=== PATIENT | male | born 1965 | race Caucasian/White ===

== ENCOUNTER 2023-08-06 12:15 | Outpatient (OUT) | payer BC, MEDICARE, SELFPAY ==
--- NOTE | 2023-08-06 | ECG_ITS ---
[facility] Test Date: 2023-08-06 Pat Name: MERCY TRONCOSO Department: Room: - Gender: Male Steward/Stewardess Wine: : 1965 Requested By: SHIVA KEATING Order Number: [id number] Reading MD: SHIVA KEATING Measurements Intervals [place] Rate: 93 P: 78 [place]: 162 QRS: 92 QRSD: 90 T: 49 QT: 340 QTc: 424 Interpretive Statements SINUS RHYTHM BORDERLINE RIGHT AXIS DEVIATION [QRS AXIS > 90] POSSIBLE RIGHT VENTRICULAR CONDUCTION DELAY [RSR (QR) IN V1/V2] NONSPECIFIC T-WAVE ABNORMALITY No previous ECG available for comparison Electronically Signed On 08-07-2023 7:16:28 EST by SHIVA KEATING
== END 2023-08-06 12:16 | disposition home or self-care (01) ==
PROVIDERS: PCP Internal Medicine; Visit Provider Internal Medicine
DX: R00.0 Tachycardia, unspecified (principal)
CPT/HCPCS: 93005

== ENCOUNTER 2023-11-06 10:54 | Outpatient (OUT) | payer BC, MEDICARE, SELFPAY ==
--- NOTE | 2023-11-06 10:40 | NM_ITS ---
Patient Name: MERCY TRONCOSO MR#: [id number] : 1965 Exam Date: 11/06/2023 Ordering Doctor: DR SHIVA KEATING D.O. RADIOLOGY REPORT PROCEDURE: NM BELEM PERF SPECT REST STR COMPARISON: None. INDICATIONS: TACHYCARDIA TECHNIQUE: Exam Description: Stress/Rest one day protocol gated SPECT Rest Imagin.9 mCi Tc-99m Cardiolite IV on 11/06/2023 Stress Imaging 30.3 mCi Tc-99m Cardiolite IV on 11/06/2023 Exercise Protocol: 0.4 mg Lexiscan given IV Heart Rate (bpm): Rest: 75 Max: 101 PMHR: 63 Blood Pressure: Rest: 120/78 Max: 124/70 Symptoms: Rest and peak stress ECG findings were normal and the exercise portion of the study was normal per attending physician Dr. Jose Miguel Keating . For more details please see separate cardiac stress test report. FINDINGS: QUALITY OF STUDY: Good. PERFUSION DEFECT: LOCATION: Basal inferior. SIZE: Small (1-2 segments). SEVERITY: Mild. TYPE: Persistent. WALL MOTION: Normal. LV SIZE: Normal. 79 mL. TID / TCD: None; 0.9 LVEF: Normal. Calculated EF 60%. SUMMARY: Myocardial perfusion imaging study is NORMAL. CONCLUSION: 1. No reversible ischemia 2. Normal exercise test Dictated by: Amor Hernandez MD on 11/06/2023 at 14:51 Approved by: Amor Hernandez MD on 11/06/2023 at 15:25
--- NOTE | 2023-11-06 11:00 | CA_ITS ---
Patient Name: MERCY TRONCOSO MR#: [id number] : 1965 Exam Date: 11/06/2023 Ordering Doctor: DR Marlon Santoyo D.O. ECHOCARDIOGRAM REPORT PROCEDURE: CA ECHO DOPPLER COMPLETE INDICATIONS: Tachycardia COMPARISON: None. DESCRIPTION: COMPLETE ECHOCARDIOGRAM Real-time transthoracic echocardiography with 2D, M-mode, spectral and color flow Doppler performed. QUALITY: Technical quality was good. Kristopher 67in, Weight 170ibs, BSA 1.89 LEFT VENTRICLE: Normal chamber size. Borderline left ventricular hypertrophy. LV EF: Global left ventricular systolic function is normal; visually estimated ejection fraction is 60-65%. Calculated left ventricular ejection fraction is 62% no wall motion abnormalities. DIASTOLIC: Diastolic function is indeterminate. ATRIAL SEPTUM: Visually appears intact. LEFT ATRIUM: Normal chamber size. RIGHT ATRIUM: Normal chamber size. RIGHT VENTRICLE: Normal chamber size. Normal right ventricular systolic function. TRICUSPID VALVE: Normal mobility and thickness. No stenosis with trivial regurgitation. No evidence of pulmonary hypertension. RVSP 22mmHg MITRAL VALVE: Normal mobility and thickness. No evidence of mitral valve stenosis. There is no mitral annular calcification. Trivial mitral regurgitation. AORTIC VALVE: Normal trileaflet appearance. No visible sclerosis. Normal leaflet mobility. No evidence of aortic valve stenosis. Mild to moderate aortic regurgitation. AORTIC ROOT: Moderately dilated. Measuring 4.2cm. The ascending aorta is normal in size. PULMONIC VALVE: Normal thickness and mobility. No stenosis. Trivial regurgitation. PERICARDIUM: No evidence of pericardial effusion. IVC: Collapses with inspirations. Normal size. CONCLUSION: 1. Global left ventricular systolic function is normal; visually estimated ejection fraction is 60 to 65% 2. Normal right ventricular size and systolic function 3. Borderline left ventricular hypertrophy 4. The left atrium is normal in size 5. Mild to moderate aortic valve regurgitation 6. Moderately dilated aortic root measuring 4.2 cm Adult Echocardiography Procedure Report Left Ventricle LVEDD (3.7 - 5.6 cm): 4.41 cm LVESD (2.2 - 4.0 cm): 3.04 cm LVIVS thickness (0.6 - 1.2 cm): 0.82 cm LVPW thickness (0.5 - 1.0 cm): 1.06 cm e': 0.09 m/s E - e': 5.28 LVOT Max Gradient: 2.32 mm[Hg] LVOT Area (cm2): 0.76 m/s Peak Velocity (LVOT): 0.76 m/s Mean Velocity (LVOT): 0.50 m/s LVOT Diameter 2.31 cm Left Ventricular Ejection Fraction: 61.55 % Left Atrium LA Volume Index (2D A2C): 23.51 ml/m2 Left Atrium Systolic Dimension: 2.65 cm Mitral Valve MV E to A Ratio: 0.87, 0.90 Mitral Valve A-Wave Peak Velocity: 0.52 m/s Mitral Valve E-Wave Peak Velocity: 0.46 m/s Right Ventricle RV Internal Diastolic Dimension: 3.71 cm Aorta AO Root Diam: 4.18 cm Ascending Ao Diam: 3.37 cm Aortic Valve AoV Area (Peak Cooper): 3.53 cm2, 3.53 cm2 AoV Area (VTI): 2.86 cm2, 2.86 cm2 Deceleration Bent: 2.21 m/s2 Pressure Half-Time: 497.62 ms Peak Velocity(Antegrade Flow): 0.90 m/s Peak Gradient(Antegrade Flow): 3.27 mm[Hg] Mean Velocity(Antegrade Flow): 0.66 m/s Mean Gradient(Antegrade Flow): 1.96 mm[Hg] Velocity Time Integral: 20.11 cm Tricuspid Valve Peak Velocity (Regurgitant Flow): 2.02 m/s, 2.20 m/s, 1.94 m/s Pulmonic Valve Mean Gradient: 1.08 mm[Hg], 1.61 mm[Hg] Mean Velocity: 0.49 m/s, 0.60 m/s Peak Velocity: 0.75 m/s Peak Gradient: 1.70 mm[Hg], 2.81 mm[Hg] Right Atrium Right Atrium Systolic Pressure: 60.92 ml, 60.92 ml Dictated by: Denny Chairez M.D. on 11/06/2023 at 14:06 Approved by: Denny Chairez M.D. on 11/06/2023 at 14:11
--- OUTSIDE RECORDS SUMMARY | 2023-11-06 11:00 | XMS_ITS | CCD ---
Author Name Unknown Address [address] [facility] [address] [place] [address] Organization [facility] Care Team Providers Care Vice President Of Marketing Name Role Phone PROVIDER, UNKNOWN Attending Unavailable MARLON KEATING Primary Care Unavailable MARLON KEATING Referring Unavailable PROVIDER, UNKNOWN Admitting Marlon Martinez DO Primary Care Provider Rosa Lujan Unavailable Jeremie Crisostomo Unavailable Celsa Fuentes Unavailable Marlon Keating DO Primary Care Provider Marlon Keating DO Primary Care Provider Marlon Keating Primary Care Provider Marlon Keating Unavailable Maggie Fierro Unavailable ZURI, DR SHANNON Consulting Unavailable ZURI, DR SHANNON Attending Unavailable ZURI, DR SHANNON Admitting Unavailable ZURI, DR SHANNON Primary Care Unavailable ZURI, DR SHANNON Consulting Unavailable ZURI, DR SHANNON Attending Unavailable ZURI, DR SHANNON Admitting Unavailable ZURI, DR SHANNON Primary Care Unavailable BRADY, DR JESU Zuniga Consulting Unavailable ZURI, DR SHANNON Consulting Unavailable ZURI, DR SHANNON Attending Unavailable ZURI, DR SHANNON Admitting Unavailable ZURI, DR SHANNON Primary Care Unavailable ZURI, DR SHANNON Primary Care Unavailable GAURANG, DR AMANDA Zuniga Admitting Unavailable GAURANG, DR AMANDA Zuniga Consulting Unavailable GAURANG, DR AMANDA Zuniga Attending Unavailable JESSI CARVALHO Consulting Unavailable PRETTY GRANT Consulting Unavailable ALVARADO, DR DEREK Singh Admitting Unavailabl e ALVARADO, DR DEREK Singh Consulting Unavailabl e ALVARADO, DR DEREK Singh Attending Unavailabl e BALL, DR SHANNON Primary Care Unavailable CHON CAMPUZANO Consulting Unavailable MISC, DR YARBROUGH Attending Unavailable BALL, DR SHANNON Primary Care Unavailable MISC, DR DOCTOR Admitting Unavailable MISC, DOCTOR Consulting Unavailable Ball Marlon E. Primary Care Provider DO Marlon Keating Primary Care Provider MD Jovi Fajardo Attending Provider [phone] PAOLO RAZO Attending Unavailable BALL, MARLON E Primary Care Unavailable BALL, MARLON E Primary Care Unavailable ABHYANKAR, FARSHAD Referring Unavailable ABHYANKAR, FARSHAD Attending Unavailable BALL, MARLON E Primary Care Unavailable ABHYANKAR, FARSHAD Referring Unavailable ELTEMAMY, MOHAMED Referring Unavailable BALL, MARLON E Primary Care Unavailable TYSON GARZA Attending Unavailable BALL, MARLON E Primary Care Unavailable SELF Referring Unavailable ELTEMAMY, MOHAMED Attending Unavailable ZURI, MARLON E Primary Care Unavailable BALL, MARLON E Primary Care Unavailable Dalila William Referring Unavailable FLACO BERNSTEIN Attending Unavailable Allergies Allergy Classification Reported Allergen(s) Allergy Type Date of Onset Reaction(s) Facility (4 sources) Acetaminophen / oxyCODONE; Translations: [PERCOCET] Drug Allergy 04-13-20 12 [facility] DECONGESTANT; Translations: [DECONGESTANT] Propensity to adverse reactions to drug (disorder) 12-21-[address] [facility] ([facility]) Acetaminophen / oxyCODONE; Translations: [OXYCODONE-ACETAMI NOPHEN] Drug Allergy 04-13-20 12 Other: See Comments [facility] (11 sources) Brompheniramine; Translations: [BROMPHENIRAMINE MALEATE] Drug Allergy 12-21-19 11 Unknown [facility] (11 sources) Pseudoephedrine; Translations: [PSEUDOEPHEDRINE] Drug Allergy 11-13-19 17 Other: See Comments [facility] (12 sources) Decongest Multi-Action; Translations: [Decongest Multi-Action] Drug Allergy 02-03-20 13 Unknown [facility] (6 sources) Acetaminophen; Translations: [ACETAMINOPHEN] Drug Allergy 06-05-20 18 Mental Status Change [facility] (20 sources) diphenhydrAMINE; Translations: [DIPHENHYDRAMINE] Drug Allergy 09-24-19 24 Other: See Comments [facility] (1 source) Antihistamines Allergy to substance 09-27-19 24 [facility] (1 source) oxyCODONE Drug Allergy 10-21-19 24 Anxiety, dizziness [facility] Medications Current Medications Medication Drug Class(es) Dates Sig (Normalized) Sig (Original) acetaminophen 325 mg / HYDROcodone bitartrate 5 mg oral tablet (20 sources) Opioid Agonist Start: 11-21-2022 take 1 tablet by mouth twice daily as needed for pain HYDROcodone-Aceta minophen 5-300 MG 1 tablet Orally twice daily as needed for pain for 30 days Nov, Active Start: 11-21-2022 take 1 tablet by nhan th twice daily Orient 5-325 MG 1 tablet Orally two times daily for 30 days start 11/21Nov, Active Start: 10-04-2022 take 1 tablet by nhan th twice daily Orient 5-325 MG 1 tablet Orally two times daily for 30 days Sep, Active Start: 01-09-2022 take 1 tablet by nhan th twice daily HYDROcodone-acetaminophen (NORCO) 5-325 mg per tablet Take 1 tablet by mouth twice daily. 0 01/09/2022 Active Start: 06-05-2018 End: 03-09-2022 take 5-325 mg by mouth every six hours Hydrocodone-Acetaminophen Discontinued 5 - 325 MG PO Every 6 hours June 04, 2018 11:00pm March 09, 2022 9:10pm take 1 tablet by nhan every six hours as needed Orient 5-325 MG 1 tablet as needed Orally every 6 hrs Not-Taking take 1 tablet by nhan th every six hours as needed Orient 5-325 MG 1 tablet as needed Orally every 6 hrs Active Comment on above: Take 1 tablet by nhan th twice daily. atorvastatin 20 mg oral tablet (20 sources) HMG-CoA Reductase Inhibitor Start: take 20 mg by mouth once daily Atorvastatin Active 20 MG PO Daily October 17, 2023 12:00am Start: 02-06-2021 End: 03-09-2022 take 10 mg by mouth once daily Atorvastatin Discontinu ed 10 MG PO Daily February 05, 2021 11:00pm March 09, 2022 9:09pm Start: 11-18-2019 take 1 tablet by nhan th once daily atorvastatin (LIPITOR) 40 mg tablet Take 40 mg by mouth once daily. 0 11/18/2019 Active take 1 tablet by nhan th every twenty-four hours Atorvastatin Calcium 20 MG 1 tablet Orally Once a day Active Comment on above: Take 40 mg by mouth once daily. cannabidiol 100 mg/ml oral solution (1 source) Start: 10-17-2023 Cannabidiol Active PO October 17, 2023 12:00am GUMMIES CBD gummies (20 sources) CBD gummies Acti ve celecoxib 200 mg oral capsule (20 sources) Nonsteroidal Anti-inflammatory Drug Start: 10-17-2023 take 200 mg by mouth once daily Celecoxib Active 200 MG PO Daily October 17, 2023 12:00am Start: 01-15-2022 take 1 capsule by [facility] every twenty-four hours Celecoxib 200 MG 1 capsule with food Orally Once a day G89.29 Chronic pain January, Active Start: 06-05-2018 End: 02-06-2021 take 200 mg by mouth once daily Celecoxib Discontinued 200 MG PO Daily June 04, 2018 11:00pm February 06, 2021 6:41pm take 1 capsule by [facility] twice daily celecoxib (CELEBREX) 200 MG capsule Take 200 mg by mouth 2 times daily. 0 Active clonazePAM 0.5 mg oral tablet (20 sources) Benzodiazepine clonazePAM 0.5 M G as directed Orally twice daily Active cyclobenzaprine hydrochloride 10 mg oral tablet (20 sources) Muscle Relaxant Start: take 10 mg by mouth three times daily Cyclobenzaprine Active 10 MG PO Three times daily October 17, 2023 12:00am Start: 09-11-2022 Cyclobenzaprin e HCl 10 MG 1 Orally three times a day Sep, Active Start: 06-05-2018 End: 03-09-2022 take 10 mg by mouth twice daily Cyclobenzaprine Discontinued 10 MG PO Twice daily June 04, 2018 11:00pm March 09, 2022 9:13pm Comment on above: Take 10 mg by mouth twice daily as needed for Muscle Spasm. dicyclomine hydrochloride 10 mg oral capsule (20 sources) Anticholinergic Start: 10-17-19 take 10 mg by mouth once Dicyclomine Active 10 MG PO Once October 17, 2023 12:00am take 1 capsule by [facility] every twenty-four hours Dicyclomine HCl 10 MG 1 capsule Orally ONCE A DAY Active esomeprazole 40 mg delayed release oral capsule (3 sources) Proton Pump Inhibitor take 1 capsule by mouth twice daily esomeprazole (NEXIUM) 40 MG capsule Take 40 mg by mouth 2 times daily. 0 Active 60 actuat fluticasone propionate 0.25 mg/actuat / salmeterol 0.05 mg/actuat dry powder inhaler (3 sources) Corticosteroid, beta2-Adrenergic Agonist take 1 puff(s) by inhalation twice daily fluticasone-salmeter ol (ADVAIR DISKUS) 250-50 MCG/DOSE inhaler Inhale 1 Puff 2 times daily. 0 Active gabapentin 300 mg oral capsule (20 sources) Anti-epileptic Agent Start: 10-17-19 take 300 mg by mouth three times daily Gabapentin Active 300 MG PO Three times daily October 17, 2023 12:00am Start: 07-29-2022 gabapentin (NE URONTIN) 600 mg tablet Take 300 mg by mouth three times a day. 0 07/29/2022 Active Start: 07-29-2022 take 1 capsule by [facility] three times daily gabapentin (NEURONTIN) 100 mg capsule Take 100 mg by mouth three times daily. 0 07/29/2022 Active Start: 01-15-2022 take 1 capsule by [facility] three times daily Gabapentin 300 MG 1 capsule Orally three times daily Active Comment on above: Take 100 mg by mouth three times daily. Take 300 mg by mouth three times a day. linagliptin 5 mg oral tablet (20 sources) Dipeptidyl Peptidase 4 Inhibitor Start: 10-01-2022 take 1 tablet by mouth every twenty-four hours Tradjenta 5 MG 1 tablet Orally Once a day for 30 day(s) Sep, Active Magnesium (20 sources) Start: 10-17-2023 Magnesium Active PO October 17, 2023 12:00am Start: 02-06-2021 MAGNESIUM ORAL Magnesium Active 500 MG PO Daily February 06, 2021 7:43pm 0 02/06/2021 Active Start: 02-06-2021 End: 03-09-2022 take 500 mg by mouth once daily Magnesium Discontinued 500 MG PO Daily February 05, 2021 11:00pm March 09, 2022 9:13pm MAGNESIUM ORAL T deloris by mouth daily. 0 Active Magnesium Active Comment on above: Magnesium Active 500 MG PO Daily February 06, 2021 7:43pm metFORMIN hydrochloride 500 mg oral tablet (20 sources) Biguanide Start: 3 take 1 tablet by mouth once daily metFORMIN hydrochloride 500 mg / SITagliptin 50 mg oral tablet (20 sources) Biguanide, Dipeptidyl Peptidase 4 Inhibitor Start: 4 take 1 tablet by mouth twice daily Sitagliptin Phos-Metformin (Janumet) 50-500 mg tablet Active 1 TAB PO Twice daily October 17, 2023 12:00am Start: 10-22-2022 take 1 tablet by nhan th twice daily at mealtime Janumet 50-500 MG 1 tablet with meals Orally Twice a day w/ food for 30 day(s) Oct, Active Start: 10-08-2022 take 1 tablet by mouth once da matt Janumet 50-500 MG 1 tab Orally daily for 30 day(s) samples Sep, Active take 1 tablet by mouth twice fartun ly SITagliptin-metFORMIN (JANUMET XR) 50-500 mg TM24 Take 1 tablet by mouth two times a day. 0 Active Comment on above: Take 1 tablet by nhan th two times a day. Mometasone Furo-Formoterol Fum (DULERA INHALATION) (3 sources) Mometasone Furo-Formoterol Fum (DULERA INHALATION) Inhale. 0 Active Multiple Vitamins-Minerals (MULTIVITAL ORAL) (3 sources) Multiple Vitamins-Minerals (MULTIVITAL ORAL) Take by mouth. 0 Active nortriptyline 25 mg oral capsule (3 sources) Tricyclic Antidepressant Start: 05-01-20 16 take 1 capsule by mouth at bedtime nortriptyline (PAMELOR) 25 MG capsule Take 1 Capsule by mouth at bedtime. 30 Capsule 11 05/01/2016 Active pantoprazole 40 mg delayed release oral tablet (20 sources) Proton Pump Inhibitor Start: 06-05-20 18 End: 03-09-20 22 take 1 tablet by mouth twice daily Pantoprazole (Protonix) 40 mg Tablet,Delayed Release (Dr/Ec) Discontinued 40 MG PO Twice daily June 04, 2018 11:00pm March 09, 2022 9:07pm Start: 04-17-2016 End: 10-17-2023 take 40 mg by mouth once daily 30 minutes before breakfast Pantoprazole Active 40 MG PO Daily October 17, 2023 12:00am DAILY ON AN EMPTY STOMACH 30 MINUTES BEFORE BREAKFASTORE BREAK Comment on above: Take 40 mg by mouth once daily. sucralfate 1000 mg oral tablet (20 sources) Aluminum Complex Start: 10-17-2023 take 1 g by mouth once daily Sucralfate Active 1 GM PO Daily October 17, 2023 12:00am Start: 02-06-2021 End: 03-09-2022 take 1 tablet by mouth every six hours Sucralfate (Carafate) 1 gram tablet Discontinued 1 GM PO Q6H 56 14 February 05, 2021 11:00pm March 09, 2022 9:12pm take 1 tablet by nhan th every twenty-four hours Sucralfate 1 GM 1 tablet on an empty stomach Orally ONCE A DAY Active take 1 tablet by nhan th every twenty-four hours Sucralfate 1 GM 1 tablet on an empty stomach Orally ONCE A DAY Active take 1 tablet by nhan th once daily tiZANidine 4 mg oral capsule (20 sources) Central alpha-2 Adrenergic Agonist Start: 10-17-2023 take 1 capsule by mouth twice daily Tizanidine (Zanaflex) 4 mg capsule Active 4 MG PO Twice daily October 17, 2023 12:00am take 1 tablet by mouth every twe lve hours Zanaflex 4 MG 1 tablet as needed Orally bid Active zonisamide 100 mg oral capsule (20 sources) Anti-epileptic Agent Start: 06-05-2018 take 200 mg by mouth once daily Zonisamide Active 200 MG PO Daily June 04, 2018 11:00pm Start: 07-17-2017 zonisamide (ZO NEGRAN) 100 MG capsule TAKE 2 CAPSULES DAILY 180 Capsule 3 07/17/2017 Active take 1 capsule by mo uth every twenty-four hours Zonisamide 100 MG 1 capsule Orally Once a day Active Comment on above: Take 200 mg by mouth once daily. Completed/Discontinued Medications Medication Drug Class(es) Dates Sig (Normalized) Sig (Original) amitriptyline hydrochloride 25 mg oral tablet (1 source) Tricyclic Antidepressant Start: 02-06-2021 End: 03-09-2022 take 25 mg by mouth once daily Amitriptyline Discontinued 25 MG PO Daily February 05, 2021 11:00pm March 09, 2022 9:12pm aspirin 81 mg delayed release oral tablet (20 sources) Platelet Aggregation Inhibitor, Nonsteroidal Anti-inflammatory Drug Start: 03-15-2020 aspirin, enteric coated (ASPIRIN, ENTERIC COATED) 81 mg EC tablet take 1 tablet by mouth once elisha y Aspirin 81 MG 1 tablet Orally Once a day Active escitalopram 20 mg oral tablet (20 sources) Serotonin Reuptake Inhibitor Start: 06-05-2018 End: 10-17-2023 take 20 mg by mouth once daily Escitalopram Oxalate Discontinued 20 MG PO Daily June 04, 2018 11:00pm October 17, 2023 4:22pm Comment on above: Take 20 mg by mouth once daily. 120 actuat formoterol fumarate 0.005 mg/actuat / mometasone furoate 0.2 mg/actuat metered dose inhaler (1 source) Corticosteroid, beta2-Adrenergic Agonist Start: 06-05-2018 End: 02-06-2021 Mometasone-Formote rol (Dulera) 200-5 mcg/actuation Hfa Aerosol Inhaler Discontinued 5 - 200 INHALATION Twice daily June 04, 2018 11:00pm February 06, 2021 6:42pm glimepiride 1 mg oral tablet (20 sources) Sulfonylurea Start: 03-09-2022 End: 10-17-2023 take 1 tablet by mouth once daily Glimepiride 1 MG 1 Tablet Orally Once a day, taken 30 minutes prior to bkfst Oct, 2 Feb, 2023 Not-Taking Start: 02-06-2021 End: 03-09-2022 take 2 mg by mouth once daily Glimepiride Discontinued 2 MG PO Daily February 05, 2021 11:00pm March 09, 2022 9:10pm Start: 12-14-2019 take 1 mg by mouth t wice daily at mealtime glimepiride (AMARYL) 2 mg tablet Take 1 mg by mouth twice daily with meals. 0 12/14/2019 Active Comment on above: Take 2 mg by mouth t wice daily with meals. Take 1 mg by mouth t wice daily with meals. hydrOXYzine hydrochloride 25 mg oral tablet (20 sources) Antihistamine Start: 08-08-20 23 take 1-2 tablets by mouth three times daily as needed for anxiety hydrOXYzine HCl (ATARAX) 25 mg tablet TAKE 1-2 TABLETS BY MOUTH 3 TIMES A DAY NEEDED FOR ANXIETY 0 08/08/2023 Active Start: 03-13-2022 End: 10-17-2023 take 50 mg by mouth every six hours Hydroxyzine Pamoate Discontinued 50 MG PO Q6H 30 March 12, 2022 11:00pm October 17, 2023 4:23pm Comment on above: TAKE 1-2 TABLETS BY MOUTH 3 TIMES A DAY NEEDED FOR ANXIETY 24 hr metoprolol succinate 50 mg extended release oral tablet (11 sources) beta-Adrenergic Lluvia Start: 10-21-2023 take 50 mg by mouth once daily Metoprolol Succinate Active 50 MG PO Daily October 21, 2023 12:00am Start: 09-02-2023 take 1 tablet by nhan th every hour metoprolol succinate ER (TOPROL XL) 25 mg 24 hr tablet Take 1 tablet by mouth every afternoon. 0 09/02/2023 Active Start: 08-07-2023 take 1 tablet by nhan th every twenty-four hours Metoprolol Succinate ER 50 MG 1 tablet Orally Once a day for 30 days Jul, Active Start: 08-07-2023 take 1 tablet by nhan th every twenty-four hours Metoprolol Succinate ER 25 MG 1 tablet Orally Once a day for 30 days Jul, Active Comment on above: Take 1 tablet by nhan th every afternoon. mirtazapine 45 mg oral tablet (5 sources) Start: 2021 take 1 tablet by mouth once daily at bedtime mirtazapine (REMERON) 45 mg tablet Take 45 mg by mouth daily at bedtime. 0 07/08/2022 Active Comment on above: Take 45 mg by mouth daily at bedtime. OLANZapine 10 mg oral tablet (1 source) Atypical Antipsychotic Start: 2021 End: 2023 take 10 mg by mouth once daily in the evening Olanzapine Discontinued 10 MG PO Every evening March 12, 2022 11:00pm October 17, 2023 4:23pm 1 ml paliperidone palmitate 156 mg/ml prefilled syringe (5 sources) Atypical Antipsychotic Start: 2021 inject 1 mL by intramuscular injection every month INVEGA SUSTENNA 156 mg/mL syrg injection INJECT 1 MILLILITER BY INTRAMUSCULAR ROUTE 1 TIME PER MONTH 0 07/09/2022 Active Comment on above: INJECT 1 MILLILITER BY INTRAMUSCULAR ROUTE 1 TIME PER MONTH sildenafil 100 mg oral tablet (3 sources) Phosphodiesterase 5 Inhibitor take 1 tablet by mouth once daily as needed sildenafil (VIAGRA) 100 mg tablet Take 100 mg by mouth once daily as needed. 0 Active Comment on above: Take 100 mg by mouth once daily as needed. traZODone hydrochloride 50 mg oral tablet (12 sources) Serotonin Reuptake Inhibitor Start: 2021 take 1 tablet by mouth every twenty-four hours as needed traZODone (DESYREL) 50 mg tablet Take 50 mg by mouth at bedtime as needed. 0 07/21/2023 Active Comment on above: Take 50 mg by mouth at bedtime as needed. triamcinolone acetonide 1 mg/ml topical cream (20 sources) Corticosteroid Start: 2023 triamcinolone acetonide (KENALOG) 0.1 % cream Apply to affected areas twice daily for up to 2 weeks. Repeat as needed for itching. 45 g 1 09/24/2023 Active Start: 10-13-2019 Kenalog -40 mg Oct, 40 mg Comment on above: Apply to affected ar eas twice daily for up to 2 weeks. Repeat as needed for itching. 24 hr divalproex sodium 500 mg extended release oral tablet (4 sources) Mood Stabilizer, Anti-epileptic Agent Start: 09-04-2023 take 1 tablet by mouth every twelve hours divalproex ER (DEPAKOTE ER) 500 mg 24 hr tablet Take 1 tablet by mouth every 12 hours. 0 09/04/2023 Active Start: 03-13-2022 End: 10-17-2023 take 500 mg by mouth twice daily Divalproex Discontinued 500 MG PO Twice daily 30 March 12, 2022 11:00pm October 17, 2023 4:22pm Comment on above: Take 1 tablet by nhan th every 12 hours. Problems Active Problems Problem Classification Problem Date Documented Date Episodic/Chronic Abdominal pain (1 source) Abdominal pain; Translations: [Unspecified abdominal pain] 02-06-2021 Episodic Anxiety disorders (20 sources) Anxiety; Translations: [Anxiety disorder, unspecified] Onset: 7 12-06-2016 Chronic Asthma (1 source) Unspecified asthma, uncomplicated; Translations: [UNSPECIFIED ASTHMA UNCOMPLICATED] Onset: 2 Chronic Cancer of colon (20 sources) Malignant tumor of descending colon; Translations: [Malignant neoplasm of descending colon] Onset: 7 Chronic Cardiac dysrhythmias (20 sources) Paroxysmal supraventricular tachycardia; Translations: [Supraventricular tachycardia] Chronic Cardiac dysrhythmias (6 sources) Tachycardia, unspecified; Translations: [Palpitations] Episodic Coagulation and hemorrhagic disorders (10 sources) Hypercoagulability state; Translations: [Other thrombophilia] Onset: 7 12-03-2016 Chronic Diabetes mellitus with complications (20 sources) Type 2 diabetes mellitus; Translations: [Type 2 diabetes mellitus with hyperglycemia] Onset: 2 Chronic Diabetes mellitus without complication (1 source) Type 2 diabetes mellitus without complications; Translations: [TYPE 2 DM WITHOUT COMPLICATIONS] Onset: 2 Chronic Diseases of white blood cells (10 sources) Leukocytosis; Translations: [Elevated white blood cell count, unspecified] Onset: 7 12-10-2016 Chronic Disorders of lipid metabolism (16 sources) Hypercholesterolemia; Translations: [Pure hypercholesterolemia, unspecified] Chronic Esophageal disorders (20 sources) Gastro-esophageal reflux disease with esophagitis; Translations: [Gastroesophageal reflux disease with esophagitis without hemorrhage] Onset: 2 Chronic Headache; including migraine (3 sources) Refractory migraine without aura; Translations: [Migraine without aura, intractable, without status migrainosus] Onset: 6 03-13-2018 Chronic Headache; including migraine (20 sources) Frontal headache ; Translations: [Frontal headache] Episodic Malaise and fatigue (6 sources) Other fatigue; Translations: [OTHER FATIGUE] Onset: 3 Episodic Mood disorders (14 sources) Depressive disorder; Translations: [Depression] Onset: 7 12-06-2016 Chronic Nonspecific chest pain (1 source) Chest pain; Translations: [Chest pain, unspecified] 02-02-2021 Episodic Other aftercare (20 sources) Long-term current use of insulin; 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] Episodic Other aftercare (1 source) middle or intermediate school principal (current) use of insulin Episodic Other and unspecified benign neoplasm (1 source) Multiple benign melanocytic nevi ; Translations: [Melanocytic nevi, unspecified] Episodic Other and unspecified benign neoplasm (1 source) Senile angioma; Translations: [Hemangioma of skin and subcutaneous tissue] Episodic Other and unspecified benign neoplasm (2 sources) Gastric polyp; Translations: [Polyp of stomach and duodenum] Episodic Other and unspecified benign neoplasm (1 source) Polyp of stomach and duodenum Episodic Other gastrointestinal disorders (1 source) Constipation; Translations: [Constipation, unspecified] 02-06-2021 Episodic Other hereditary and degenerative nervous system conditions (3 sources) System disorder of the nervous system; Translations: [Other specified extrapyramidal and movement disorders] Onset: 3 04-15-2013 Chronic Other nervous system disorders (20 sources) Chronic pain; Translations: [Other chronic pain] 02-02-2021 Chronic Other nervous system disorders (4 sources) Other chronic pain; Translations: [Chronic pain G89.29] Onset: 1 Resolved: 2 Chronic Other nutritional; endocrine; and metabolic disorders (20 sources) Unexplained weight loss ; Translations: [Abnormal weight loss] Episodic Other screening for suspected conditions (not mental disorders or infectious disease) (3 sources) Encounter for screening for malignant neoplasm of prostate; Translations: [Cardiovascular stress test abnormal] Episodic Other skin disorders (1 source) Lentiginosis; Translations: [Other melanin hyperpigmentation] Episodic Other skin disorders (1 source) Seborrheic keratosis; Translations: [Other seborrheic keratosis] Episodic Other skin disorders (1 source) Trichilemmal cyst; Translations: [Pilar cyst] Episodic Residual codes; unclassified (20 sources) Obstructive sleep apnea syndrome; Translations: [Obstructive sleep apnea (adult) (pediatric)] 10-17-2023 Chronic Residual codes; unclassified (6 sources) Obstructive sleep apnea (adult) (pediatric); Translations: [Obstructive sleep apnea (adult)(pediatric)] Chronic Residual codes; unclassified (3 sources) Restlessness and agitation; Translations: [RESTLESSNESS AND AGITATION] Onset: 2 Chronic Residual codes; unclassified (5 sources) Holt syndrome; 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] Episodic Residual codes; unclassified (20 sources) H/O Spinal surgery; Translations: [Other specified postprocedural states] Episodic Residual codes; unclassified (4 sources) Genetic susceptibility to other malignant neoplasm; 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] Onset: 4 Episodic Rheumatoid arthritis and related disease (1 source) Rheumatoid arthritis, unspecified; Translations: [RHEUMATOID ARTHRITIS UNSPECIFIED] Onset: 2 Chronic Spondylosis; intervertebral disc disorders; other back problems (20 sources) Cervical spondylosis; Translations: [Spondylosis without myelopathy or radiculopathy, cervical region] Onset: 0 Resolved: 2 Chronic Spondylosis; intervertebral disc disorders; other back problems (20 sources) Cervico-occipital neuralgia; Translations: [Occipital neuralgia] Onset: 1 Resolved: 2 Episodic Unclassified (1 source) CONTACT W/AND (SUSP) EXPOS COVID-19; Translations: [CONTACT W/AND (SUSP) EXPOS COVID-19] Onset: 2 Past or Other Problems Problem Classification Problem Date Documented Da te Episodic/Chronic Cancer of colon (1 source) Personal history of other malignant neoplasm of large intestine; Translations: [PERS HX OTH MALIG NEOPLSM LG INTEST] Onset: 04-09-2022 Episodic Esophageal disorders (5 sources) Esophageal disorders Headache; including migraine (4 sources) Headache; including migraine; Translations: [Frontal headache R51.9] Onset: 06-08-2021 Resolved: 01-22-2022 Other aftercare (20 sources) Patient encounter status; Translations: [Encounter for therapeutic drug level monitoring] Onset: 12-03-2016 12-03-2016 Episodic Other aftercare (5 sources) Other nursing home (current) drug therapy; Translations: [OTH [facility] CURRENT DRUG THERAPY] Onset: 03-26-2022 Episodic Other aftercare (1 source) [facility] (current) use of oral hypoglycemic drugs; Translations: [SEGREGATOR USE ORAL HYPOGLYCEMIC DX] Onset: 04-09-2022 Episodic Other aftercare (1 source) [facility] (current) use of aspirin; Translations: [[facility] CURRENT USE OF ASPIRIN] Onset: 03-26-2022 Episodic Other gastrointestinal disorders (1 source) Constipation, unspecified; Translations: [CONSTIPATION UNSPECIFIED] Onset: 04-09-2022 Episodic Other lower respiratory disease (4 sources) Shortness of breath; Translations: [SHORTNESS OF BREATH] Onset: 04-07-2022 Episodic Other nervous system disorders (10 sources) Postoperative pain ; Translations: [Other acute postprocedural pain] Onset: 12-10-2016 12-10-2016 Episodic Other nutritional; endocrine; and metabolic disorders (2 sources) Abnormal weight loss; Translations: [ABNORMAL WEIGHT LOSS] Onset: 10-02-2022 Episodic Peripheral and visceral atherosclerosis (10 sources) Superior mesenteric vein thrombosis ; Translations: [Acute infarction of intestine, part and extent unspecified] Onset: 12-03-2016 12-03-2016 Episodic Phlebitis; thrombophlebitis and thromboembolism (10 sources) Portal vein thrombosis; Translations: [Portal vein thrombosis] Onset: 12-03-2016 12-03-2016 Episodic Residual codes; unclassified (10 sources) History of colectomy; Translations: [Acquired absence of other specified parts of digestive tract] Onset: 12-03-2016 12-03-2016 Episodic Residual codes; unclassified (1 source) Acquired absence of other specified parts of digestive tract; Translations: [ACQ ABSENCE OTH PART DIGESTV TRACT] Onset: 04-09-2022 Episodic Suicide and intentional self-inflicted injury (1 source) Suicidal ideations; Translations: [SUICIDAL IDEATIONS] Onset: 03-26-2022 Episodic Superficial injury; contusion (4 sources) Contusion of left wrist, initial encounter; Translations: [CONTUSION LEFT WRIST INITIAL ENC] Onset: 07-25-2022 Episodic Results Test Name Value Interpretation Reference Range Facility [facility] 10-28-2023 CNOV Office Visit ([facility] ) QUINN TRONCOSO ([id number]) 1965 [place] Date Time Provider Department 10/28/23 10:30 AM TYSON GARZA COROLEG During your visit today, we recorded the following information about you: Weight Height 76.4 kg 1.702 m Tyson Garza MD 10/28/2023 10:38 AM Signed COLORECTAL SURGERY Follow-up October 24, 2023 Chief complaint: HPI: Rosendo Troncoso is a 58-year-old male 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 Last seen in the office with Dr Garza in July 2022. He underwent flex sig and EGD with Dr William in September 2023 - results below. 09.24.2023 flex sig Findings: The perianal and digital rectal examinations were normal. A large amount of stool was found in the rectum, making visualization difficult. No polyps seen within the limits of the bowel preparation. Impression: - Preparation of the colon was inadequate. - Stool in the rectum obscuring the views. 09.24.2023 EGD Impression: - Esophagogastric landmarks identified. - Esophageal mucosal changes consistent with short-segment Hernandez's esophagus. Biopsied. - About 50, gastric polyps. one 15 mm polyp resected and retrieved. Clip x 1. - Nodular mucosa in the gastric antrum. Biopsied. - Normal first portion of the duodenum, second portion of the duodenum and third portion of the Duodenum. 01.14.2022 CT C/A/P IMPRESSION: 1. No evidence of intra-abdominal/pelvi c metastases. 2. No interval change since 01/12/21. 3. Nonspecific subcentimeter right hepatic hypodensity, stable. IMPRESSION: 1. No evidence of intrathoracic metastases. 2. No change since 01/12/21. 3. Trace gastroesophageal reflux. Physical Exam: Ht 170.2 cm (5' 7 ) Wt 76.4 kg (168 lb 6.9 oz) BMI 26.38 kg/m? General - awake, alert, no acute distress Abdominal - Soft, NTTP, non distended, no guarding, -ve peritoneal signs. Anorectal: Perianal skin is intact. No erythema, induration or excoriation. No fissure, fistula or external hemorrhoids. Digital Rectal Exam: Anus: closed Resting tone: NORMAL Squeeze tone: NORMAL Manager Of Network present: Yes Flexible sigmoidoscopy: Procedure: The patient was placed in left lateral position. After digital exam with a lubricated finger, the scope was easily inserted to 20 cm. Findings: The preparation was fair. There was a ANGELIQUE and it appeared healthy. The remainder of the sigmoid, rectum and anal canal were entirely normal. Biopsies were not taken. Assessment Medical Decision Making: Assessment AND Diagnosis: Quinn Troncoso is a 58 year old male s/p ANGELIQUE and now presents for follow up. Data Reviewed: Tests AND Documents Reviewed/ordered: Review of prior notes from [facility] Review of prior operative reports Review of Pathology Review of Imaging: CT Abdomen, CT Pelvis Review of Labs: CBC, BMP Review of Procedures / Tests: Flexible Sigmoidoscopy Assessment by: Caregiver Additional testing or imaging to be ordered: n/a I have independently interpreted: CT Abdomen, CT Pelvis I have discussed Quinn Troncoso's treatment plan and/or results with him and his . Treatment plan: Return to follow up in 6 months [facility] STAFF PHYSICIAN NOTE OF PERSONAL INVOLVEMENT IN CARE I have reviewed the progress note and procedure note obtained and documented by the CA and I personally participated in the luque components. I have discussed the case and management of the patient's care. The following comments revise or confirm relevant luque components of their note. IMPRESSION: This is a 58 year old male who presents with history of Holt syndrome. Scope today as last one could not be completed with stool with no sign of polyps. PLAN: Sees Dr William /GI for EGD, follow up already with them. Sees urology and had a skin test. See me in 6 months Plan of care discussed with Patient and Family/Significant Other: CARE COORDINATION: [facility] team to coordinate care SIGNATURE: Tyson Garza MD DATE of SERVICE: October 28, 2023 TIME of SERVICE: 10:36 AM Risk of morbidity, mortality and/or complications of treatment plan: high Referring Provider: SELF [200] Allergies As of Date: 10/28/2023 Noted Allergy Reaction DECONGEST MULTI-ACTION 02/02/2013 16 - Unknown Decongestant (BROMPHENIRAMINE MA*12/20/2010 16 - Unknown Comments: Fast heart rate DECONGESTANT (PSEUDOEPHEDRINE) 11/12/2016 14 - Other: See Comments Comments: BP increased DIPHENHYDRAMINE 09/24/2023 14 - Other: See Comments OXYCODONE-ACETAMINOPH EN 04/13/2012 14 - Other: See Comments Date Reviewed: 10/28/2023 Reviewed by: Tyson Garza MD - Fully Assessed Reason for Visit: Established Patient [175] Primary Visit Diagnosis:Holt syndrome [Z15.09] Other Visit Diagnosis:Malignant neoplasm of colon, unspecified par (more content not included)... Normal [facility] Flexible Sigmoidoscopyon Flexible sigmoidoscopy C[facility] Cancer Gastrointestinal Endoscopy Patient Name: Quinn Troncoso Procedure Date: 10/28/2023 8:00 AM Date of : 1965 Admit Type: Ambulatory Age: 58 Room: Room [facility] ([place] [address]) Gender: Male Note Status: Finalized Attending MD: Tyson Garza MD, [id number] Procedure: Flexible Sigmoidoscopy Indications: High risk colon cancer surveillance: Personal history of rectal cancer Providers: Tyson Garza MD Referring Physician: Medicines: None Complications: No immediate complications. Requesting Provider: Procedure: Pre-Anesthesia Assessment: - Prior to the procedure, a History and Physical was performed, and patient medications and allergies were reviewed. The patient's tolerance of previous anesthesia was also reviewed. The risks and benefits of the procedure and the sedation options and risks were discussed with the patient. All questions were answered, and informed consent was obtained. Prior Anticoagulants: The patient has taken no anticoagulant or antiplatelet agents. ASA Grade Assessment: II - A patient with mild systemic disease. After reviewing the risks and benefits, the patient was deemed in satisfactory condition to undergo the procedure. After obtaining informed consent, the scope was passed under direct vision. The was introduced through the anus and advanced to the rectum. I was present and participated during the entire procedure, including non-luque portions, and during the administration and monitoring of Moderate Sedation. The flexible sigmoidoscopy was accomplished without difficulty. The patient tolerated the procedure well. The quality of the bowel preparation was good. Moderate Sedation: No sedation was administered for this procedure. Findings: The perianal and digital rectal examinations were normal. There was evidence of a prior end-to-end ileo-rectal anastomosis in the rectum. This was patent and was characterized by healthy appearing mucosa. The anastomosis was traversed. Estimated blood loss: none. Impression: - No specimens collected. Recommendation: - Patient has a contact number available for emergencies. The signs and symptoms of potential delayed complications were discussed with the patient. Return to normal activities tomorrow. Written discharge instructions were provided to the patient. - The patient is not currently taking anticoagulant or antiplatelet agents. Attending Participation: I personally performed the entire procedure. Scope In: Scope Out: MD Tyson Conrad MD 10/28/2023 10:30:37 AM This report has been signed electronically by Tyson Garza MD Number of Addenda: 0 Note Initiated On: 10/28/2023 8:00 AM Estimated Blood Loss: Estimated blood loss: none. Normal [facility] No Panel Informationon 10-28 [facility] US KIDNEY/BLADDERon 10-28-19 24 US KIDNEY/BLADDER * * *Final Report* * * DATE OF EXAM: Oct 28 2023 1:00PM [facility] 1055 - US KIDNEY/BLADDER / PROCEDURE REASON: Holt syndrome * * * * Physician Interpretation * * * * EXAMINATION: RENAL ULTRASOUND CLINICAL HISTORY: Holt syndrome. TECHNIQUE: Sonography of the kidneys and urinary bladder was performed. Images were obtained and stored in a permanent archive. MQ: UR_1 COMPARISON: CT abdomen pelvis 01/14/2022 RESULT: Right Kidney: -Renal length: 14.6 cm -Parenchyma: Normal parenchymal echogenicity. Normal parenchymal thickness. -Collecting system: No hydronephrosis. -Calculus: No echogenic, shadowing calculus. -Lesion: Cysts measuring up to 4.4 cm in the midpole. Left Kidney: -Renal length: 13.5 cm -Parenchyma: Normal parenchymal echogenicity. Normal parenchymal thickness. -Collecting system: No hydronephrosis. -Calculus: No echogenic, shadowing calculus. -Lesion: Few cysts measuring up to 1.0 cm. Bladder: Normal sonographic appearance. Other: Hepatic steatosis. IMPRESSION: No renal mass. No hydronephrosis. Quiller Operator: PSCB Transcribe Date/Time: Oct 28 2023 1:05P Dictated by : DENNIS STAPLETON MD This examination was interpreted and the report reviewed and electronically signed by: DENNIS STAPLETON MD on Oct 28 2023 1:09PM EST [id number] Normal [facility] ANES POSTPROC EVALon 024 ANES POSTPROC EVAL HNO ID: [id number] Author: SHAKIRA ROSENBERG MD Service: ? Author Type: Anesthesiologist Type: Anesthesia Postprocedure Evaluation Filed: 09/24/2023 14:34 Note Text: POST ANESTHESIA EVALUATION NOTE : 1965 Procedure Summary Date: 09/24/23 Room / Location: Gastroenterology Anesthesia Start: 1314 Anesthesia Stop: 1418 Procedures: SIGMOIDOSCOPY EGD DIAGNOSTIC Diagnosis: MSH2-related Holt syndrome (HNPCC1) (High risk colon cancer surveillance: Personal history of HNPCC (Holt Syndrome)) (Surveillance for malignancy secondary to Holt Syndrome) Scheduled Providers: Dalila William MD; Shakira Rosenberg MD; Flaco Bernstein APRN.PERSONAL LINES SALES REP Responsible Provider: Shakira Rosenberg MD Anesthesia Type: general ASA Status: 3 Anesthesia Type: general Airway Type: anesthesia mask, supplemental O2 Last Vitals Vitals Value Taken Time BP 136/81 09/24/23 1430 Temp 36 09/24/23 1434 Pulse 68 09/24/23 1432 Resp 14 09/24/23 1418 SpO2 99 % 09/24/23 1432 Vitals shown include unfiled device data. Post Anesthesia Patient Status Patient Evaluation: PACU. PACU/ICU Patient Condition: stable. Anticipated Disposition: phase 2 then home. Neurological Status: aware and responsive. Pulmonary Status: breathing comfortably on room air Airway Control: returned to baseline unsupported. Cardiovascular Status: stable. Pain Management: clinically adequate Postoperative Hydration: acceptable. Intraoperative Events: no significant anesthesia events Post Operative Nausea/Vomiting Status: no significant post operative nausea or vomiting Recommendation: further care per PACU/ICU/floor team. Anesthesia Observations No Documentation SIGNATURE: Shakira Rosenberg MD PATIENT NAME: Quinn Troncoso DATE: September 24, 2023 TIME: 2:34 PM CSN: [id number] Normal [facility] ANES PRE-OPon 09-24-2023 ANES PRE-OP HNO ID: [id number] Author: SHAKIRA ROSENBERG MD Service: ? Author Type: Anesthesiologist Type: Anesthesia Preprocedure Evaluation Filed: 09/24/2023 13:08 Note Text: ANESTHESIOLOGY DAY OF SURGERY NOTE : 1965 Procedure Information Date/Time: 09/24/23 1300 Scheduled providers: Dalila William MD; Shakira Rosenberg MD; Flaco Bernstein APRN.PERSONAL LINES SALES REP Procedures: SIGMOIDOSCOPY EGD DIAGNOSTIC Location: Gastroenterology Estimated body mass index is 25.53 kg/m? as calculated from the following: Height as of this encounter: 170.2 cm (5' 7 ). Weight as of this encounter: 73.9 kg (163 lb). Most recent hematocrit and potassium results: Hematocrit 44.8 01/17/2023 Potassium 3.9 01/17/2023 Relevant Problems CARDIO (+) Portal vein thrombosis (+) Superior mesenteric vein thrombosis (HCC) I - PHYSICAL EVALUATION AIRWAY Patient intubated: No. Tracheostomy tube not present Mallampati: II. TM distance: >3 FB. Neck ROM: full ROM without neurological symptoms. Mouth opening: adequate. Short neck: no. Thick neck: no Sky present: no DENTAL Dental findings: teeth intact. II - ANESTHESIA PLAN ASA Score: 3 Anesthetic Plan: general Airway type: anesthesia mask The patient is not a current smoker. NPO Status: adequate Beta Lluvia Monitoring Plan Monitoring plan: standard ASA. Post Procedure Analgesic Plan Postoperative analgesic plan: multimodal analgesia. Informed Consent Anesthetic risks, benefits, alternatives, personnel and consent discussed: yes. Patient / Responsible Democrat agrees to proceed: yes Patient / Surrogate agrees to blood products: Yes Significant changes in the patient condition since the History and Physical, not otherwise documented in primary service progress note: no. Potential Anesthesia issues that may suggest increased risk of complications or contraindication to planned procedure: none. Vitals Value Taken Time BP 142/63 09/24/23 1242 Pulse 75 09/24/23 1242 Resp 18 09/24/23 1242 Temp 36 ?C (96.8 ?F) 09/24/23 1242 SpO2 99 % 09/24/23 1242 Outpatient Medications as of 09/24/2023 Medication Sig - SITagliptin-metFORMIN (JANUMET XR) 50-500 mg TM24 Take 1 tablet by mouth two times a day. - hydrOXYzine HCl (ATARAX) 25 mg tablet TAKE 1-2 TABLETS BY MOUTH 3 TIMES A DAY NEEDED FOR ANXIETY - divalproex ER (DEPAKOTE ER) 500 mg 24 hr tablet Take 1 tablet by mouth every 12 hours. - traZODone (DESYREL) 50 mg tablet Take 50 mg by mouth at bedtime as needed. - metoprolol succinate ER (TOPROL XL) 25 mg 24 hr tablet Take 1 tablet by mouth every afternoon. - gabapentin (NEURONTIN) 600 mg tablet Take 300 mg by mouth three times a day. - mirtazapine (REMERON) 45 mg tablet Take 45 mg by mouth daily at bedtime. - INVEGA SUSTENNA 156 mg/mL syrg injection INJECT 1 MILLILITER BY INTRAMUSCULAR ROUTE 1 TIME PER MONTH - HYDROcodone-acetamino phen (NORCO) 5-325 mg per tablet Take 1 tablet by mouth twice daily. - MAGNESIUM ORAL Magnesium Active 500 MG PO Daily February 06, 2021 7:43pm - aspirin, enteric coated (ASPIRIN, ENTERIC COATED) 81 mg EC tablet - atorvastatin (LIPITOR) 40 mg tablet Take 40 mg by mouth once daily. - glimepiride (AMARYL) 2 mg tablet Take 1 mg by mouth twice daily with meals. - pantoprazole DR (PROTONIX) 40 mg tablet Take 40 mg by mouth once daily. - escitalopram oxalate (LEXAPRO) 20 mg tablet Take 20 mg by mouth once daily. - zonisamide (ZONEGRAN) 100 mg capsule Take 200 mg by mouth once daily. - cyclobenzaprine (FLEXERIL) 10 mg tablet Take 10 mg by mouth twice daily as needed for Muscle Spasm. Facility-Administered Medications as of 09/24/2023 Medication Dose Route Frequency - NaCl 0.9% iv infusion 30 mL/hr INTRAVENOUS CONTINUOUS - sodium phosphate-sodium bisphosphate 133 mL enema (FLEET) 133 mL RECTAL ONCE I have interviewed and examined the patient. I have reviewed the medical record and/or the pre-anesthesia evaluation, pertinent labs, and test results. This contains updated information obtained within 48 hours of Surgery/Procedure. SIGNATURE: Shakira Rosenberg MD PATIENT NAME: Quinn Larry Aba DATE: September 24, 2023 TIME: 1:06 PM CSN: [id number] [facility] CNOVon 09-24-2023 CNOV Office Visit (UROLMN ) ABAQUINN Laron ([id number]) 1965 M Date Time Provider Department 09/24/23 3:45 PM KENNY MCKEON During your visit today, we recorded the following information about you: Pulse Blood pressure 78/minute 116/77 Kenny Mckeon MD 09/25/2023 11:19 AM Signed [facility] NEW PATIENT HISTORY AND PHYSICAL EXAM PATIENT INFO: Quinn Troncoso REFERRING M.D.: SELF PCP: Marlon Keating, Consultation requested by SELF and my final recommendations will be communicated back to the requesting physician by way of shared medical record or letter via US mail. CHIEF COMPLAINT: MSH2 referral HPI: 58 yo male with prior history of colon cancer (2106) with Holt syndrome. Referral here for evaluation from urological standpoint. Pmh: Stroke TIA, WENDY, Holt syndrome, GERD, DM, Hernandez's esophagus, asthma and arthritis. Adenocarcinoma of colon- fully resected 2016, totally abdominal colectomy T3, N1 B, 2 out of 21 lymph nodes positive. Patient unable to handle adjuvant chemotherapy Follows with [facility] in [place]- Blood thinners: Aspirin 81 mg LABS: Creatinine Date Value Ref Range Status 01/17/2023 1.03 0.73 - 1.22 mg/dL Final 02/08/2021 1.06 0.73 - 1.22 mg/dL Final 02/07/2021 1.05 0.73 - 1.22 mg/dL Final 01/19/2021 0.94 0.73 - 1.22 mg/dL Final ALLERGIES: ALLERGIES Allergen Reactions Acetaminophen Mental Status Change Decongest Multi-Act* Unknown Decongestant [Brom* Unknown Fast heart rate Decongestant [Pseud* Other: See Comments BP increased Oxycodone-Acetamino* Other: See Comments MEDICATIONS: Current Outpatient Medications Medication Sig gabapentin (NEURONTIN) 600 mg tablet Take 600 mg by mouth three times daily. mirtazapine (REMERON) 45 mg tablet Take 45 mg by mouth daily at bedtime. INVEGA SUSTENNA 156 mg/mL syrg injection INJECT 1 MILLILITER BY INTRAMUSCULAR ROUTE 1 TIME PER MONTH HYDROcodone-acetamino phen (NORCO) 5-325 mg per tablet Take 1 tablet by mouth twice daily. MAGNESIUM ORAL Magnesium Active 500 MG PO Daily February 06, 2021 7:43pm aspirin, enteric coated (ASPIRIN, ENTERIC COATED) 81 mg EC tablet atorvastatin (LIPITOR) 40 mg tablet Take 40 mg by mouth once daily. glimepiride (AMARYL) 2 mg tablet Take 1 mg by mouth twice daily with meals. pantoprazole DR (PROTONIX) 40 mg tablet Take 40 mg by mouth once daily. escitalopram oxalate (LEXAPRO) 20 mg tablet Take 20 mg by mouth once daily. zonisamide (ZONEGRAN) 100 mg capsule Take 200 mg by mouth once daily. cyclobenzaprine (FLEXERIL) 10 mg tablet Take 10 mg by mouth twice daily as needed for Muscle Spasm. No current facility-administered medications for this visit. HISTORIES PAST MEDICAL HISTORY Diagnosis Date Anxiety Arthritis Asthma Hernandez's esophagus Cancer (HCC) Diabetes (HCC) GERD (gastroesophageal reflux disease) Holt syndrome Obstructive sleep apnea Occasional tremors Port-A-Cath in place Stroke (HCC) TIA PAST SURGICAL HISTORY Procedure Laterality Date COLONOSCOPY 11/01/2016 PAST SURGICAL HISTORY OF spinal cord fusions x 2 PAST SURGICAL HISTORY OF appendix removed, scar tissue removed from intestines PAST SURGICAL HISTORY OF scope of right knee PAST SURGICAL HISTORY OF tonsilectomy PICC LINE INSERT/CONSULT 12/05/2016 REVIEW OF SYSTEMS General: No weight loss, malaise or fevers. Genitourinary: No history of dysuria, frequency or incontinence The remainder of the ROS was reviewed and was negative. PHYSICAL EXAMINATION There were no vitals taken for this visit. General: No acute distress Genitourinary: MALE EXAM: Exam NOT Indicated ASSESSMENT/PLAN: 58 yo male with prior history of colon cancer. Adenocarcinoma of colon- fully resected 2016, totally abdominal colectomy T3, N1 B, 2 out of 21 lymph nodes positive. Patient unable to handle adjuvant chemotherapy Holt syndrome PLAN - US kidney, he will schedule it when he comes back for his sigmoidoscopy - Urine cytology - RTC in 6 months Kenny Mckeon MD Referring Provider: SELF [200] Allergies As of Date: 09/24/2023 Noted Allergy Reaction DECONGEST MULTI-ACTION 02/02/2013 16 - Unknown Decongestant (BROMPHENIRAMINE MA*12/20/2010 16 - Unknown Comments: Fast heart rate DECONGESTANT (PSEUDOEPHEDRINE) 11/12/2016 14 - Other: See Comments Comments: BP increased DIPHENHYDRAMINE 09/24/2023 14 - Other: See Comments OXYCODONE-ACETAMINOPH EN 04/13/2012 14 - Other: See Comments Date Reviewed: 09/24/2023 Reviewed by: Katharina Guerrero LPN - Fully Assessed Reason for Visit: Consult [173] Primary Visit Diagnosis:Holt syndrome [Z15.09] Order(s):CYTOLOGY NON-PARAFFIN PLANT SWEATER OPERATOR [[id number]] Order #: [id number]. #:[id number] KIDNEY/BLADDER [[id number]] Order #: [id number] FUTURE Prescriptions as of 09/25/2023 - SITagliptin-metFO (more content not included)... Normal [facility] Office Visit (UROANTHONY ) QUINN TRONCOSO ([id number]) 1965 M Date Time Provider Department 09/24/23 3:30 PM KENNY MCKEON During your visit today, we recorded the following information about you: Michael Cantu RN 09/24/2023 3:54 PM Signed Referring Provider: SELF [200] Allergies As of Date: 09/24/2023 Noted Allergy Reaction DECONGEST MULTI-ACTION 02/02/2013 16 - Unknown Decongestant (BROMPHENIRAMINE MA*12/20/2010 16 - Unknown Comments: Fast heart rate DECONGESTANT (PSEUDOEPHEDRINE) 11/12/2016 14 - Other: See Comments Comments: BP increased DIPHENHYDRAMINE 09/24/2023 14 - Other: See Comments OXYCODONE-ACETAMINOPH EN 04/13/2012 14 - Other: See Comments Date Reviewed: 09/24/2023 Reviewed by: Katharina Guerrero LPN - Fully Assessed Primary Visit Diagnosis:APPOINTMENT CANCELLED Prescriptions as of 09/24/2023 - SITagliptin-metFORMIN (JANUMET XR) 50-500 mg TM24 Take 1 tablet by mouth two times a day. - hydrOXYzine HCl (ATARAX) 25 mg tablet TAKE 1-2 TABLETS BY MOUTH 3 TIMES A DAY NEEDED FOR ANXIETY - divalproex ER (DEPAKOTE ER) 500 mg 24 hr tablet Take 1 tablet by mouth every 12 hours. - traZODone (DESYREL) 50 mg tablet Take 50 mg by mouth at bedtime as needed. - metoprolol succinate ER (TOPROL XL) 25 mg 24 hr tablet Take 1 tablet by mouth every afternoon. - sildenafil (VIAGRA) 100 mg tablet Take 100 mg by mouth once daily as needed. - triamcinolone acetonide (KENALOG) 0.1 % cream Apply to affected areas twice daily for up to 2 weeks. Repeat as needed for itching. - gabapentin (NEURONTIN) 600 mg tablet Take 300 mg by mouth three times a day. - mirtazapine (REMERON) 45 mg tablet Take 45 mg by mouth daily at bedtime. - INVEGA SUSTENNA 156 mg/mL syrg injection INJECT 1 M[address]ITER [address] INTRAMUSCULAR ROUTE 1 TIME PER MONTH - HYDROcodone-acetamino phen (NORCO) 5-325 mg per tablet Take 1 tablet by mouth twice daily. - MAGNESIUM ORAL Magnesium Active 500 MG PO Daily February 06, 2021 7:43pm - aspirin, enteric coated (ASPIRIN, ENTERIC COATED) 81 mg EC tablet - atorvastatin (LIPITOR) 40 mg tablet Take 40 mg by mouth once daily. - glimepiride (AMARYL) 2 mg tablet Take 1 mg by mouth twice daily with meals. - pantoprazole DR (PROTONIX) 40 mg tablet Take 40 mg by mouth once daily. - escitalopram oxalate (LEXAPRO) 20 mg tablet Take 20 mg by mouth once daily. - zonisamide (ZONEGRAN) 100 mg capsule Take 200 mg by mouth once daily. - cyclobenzaprine (FLEXERIL) 10 mg tablet Take 10 mg by mouth twice daily as needed for Muscle Spasm. 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] 12/03/2016 Portal vein thrombosis [I81] 12/03/2016 S/P colectomy [Z90.49] 12/03/2016 Severe protein-calorie malnutrition (HCC) [E43] 12/05/2016 12/10/2016 Encounter for nasogastric (NG) tube placement [*12/06/2016 12/10/2016 Hypoalbuminemia [E88.09] 12/06/2016 12/10/2016 Hypokalemia [E87.6] 12/06/2016 12/10/2016 On total parenteral nutrition (TPN) [Z78.9] 12/06/2016 12/10/2016 Elevated C-reactive protein (CRP) [R79.82] 12/06/2016 12/10/2016 Hypoproteinemia (HCC) [E77.8] 12/06/2016 12/10/2016 Depression [F32.A] 12/06/2016 Anxiety [F41.9] 12/06/2016 S/P PICC central line placement [Z95.828] 12/06/2016 12/10/2016 Hypermagnesemia [E83.41] 12/10/2016 12/10/2016 Encounter for central line care [Z45.2] 12/10/2016 12/10/2016 Encounter for central line placement [Z45.2] 12/10/2016 12/10/2016 Nausea [R11.0] 12/10/2016 12/10/2016 Post-op pain [G89.18] 12/10/2016 Hypovolemia [E86.1] 12/10/2016 12/10/2016 Leukocytosis [D72.829] 12/10/2016 Hyperglycemia [R73.9] 12/10/2016 12/10/2016 Metastatic adenocarcinoma (HCC) [C79.9] 12/10/2016 02/04/2017 Encounter Status:Closed by MICHAEL CANTU on 09/24/23 [facility] CNOV Office Visit (DERMST ) QUINN TRONCOSO ([id number]) 1965 M Date Time Provider Department 09/24/23 10:00 AM PAOLO RAZO During your visit today, we recorded the following information about you: Paolo Razo PA-C 09/24/2023 10:28 AM Signed EST PATIENT- last seen by Dr Early 2021 Chief Complaint: Patient presents with: Full Body Skin Check HPI: Quinn Troncoso is a 58 year old male who presents today for:Patient presents with: Full Body Skin Check #1 Rash Location: Anterior left ankle Duration: 1 week Symptoms: Itchy Current treatment: Antifungal topical (3-4 days of use, no improvement) Past treatment: None Pertinent History: History of skin cancer or atypical nevi: No Family history of skin cancer: Yes mother Organ transplant or immunosuppression: No H/O Holt syndrome Past Medical History is reviewed. Medication List is reviewed. ROS: Skin as above. Physical Exam: Kyle skin type: II The patient is a pleasant male in no apparent distress. Alert and oriented x 3. A skin exam performed of the Scalp, face, ears, neck, chest, back, abdomen, bilateral upper extremities, bilateral lower extremities, buttocks, hands, feet, nails and hair is significant for: Left Parietal Scalp, Right Frontal Scalp Subcutaneous mobile nodule Left Ankle - Anterior Eczematous coin-shaped plaque Variably hyperpigmented macules and papules, with generally good symmetry and internal consistency, widely distributed throughout the trunk and extremities. Overall benign-appearing Smooth rayo red papules scattered throughout trunk Densely scattered light acevedo macules and small patches on all sun exposed areas Stuck-on verrucous, variably pigmented papules and plaques throughout trunk and extremities Assessment and Plan: Holt syndrome [place] [facility] (2) Right Frontal Scalp; Left Parietal Scalp Benign. Discussed excision if desired. Patient declines excision, will continue to monitor Nummular dermatitis Left Ankle - Anterior Discussed etiology, course, prognosis and treatment options Discussed using gentle, fragrance-free skin care and frequent application of emollients. D/C antifungal, begin topical steroid as directed Follow up in 2 weeks if symptoms persist R/b/a for the medication(s) including possible side effects discussed and reviewed with patient. Skin exam, screening for skin cancer The nature of sun-induced photo-aging and skin cancers is discussed including the ABCDE's of melanoma. Sun avoidance, protective clothing, and the use of SPF 30+ sunscreens is advised. Patient is instructed to perform regular self skin exams. Observe for changing, symptomatic, or new skin lesions and return to dermatology if any lesions of concern are noted. Multiple nevi, Rayo angiomas, Solar lentigines,Seborrheic Keratoses Reassured of benign nature Monitor for change in size, shape or color, bleeding easily or scabs that don't heal Follow up as noted in plan or as needed. Intake: Katie Guerrero MA I have reviewed and agree with the Chief Complaint, patient-reported HPI, ROS, and Past Histories independently gathered by the clinical technical support internship and the remaining scribed note accurately describes my personal service to the patient. Paolo Razo MS, Katie Ferrara MA 09/24/2023 10:00 AM Signed [employer] Thank you for allowing me to examine you for signs of skin cancer today. We had an opportunity to discuss my findings and any treatments I recommended. I believe that there are several steps that a person can do to help prevent skin cancers and to detect them at an early, treatable stage: 1. I highly recommend that once a month you perform your own complete skin check looking for changing or unusual spots. Use a wall-mounted mirror and a hand mirror to assist in seeing body areas that are difficult to see otherwise. If you have a family member that can assist, this is often helpful. Additional information can be obtained at: www.skincancer.org/sk nx-ggncqr-cbugwnxycsq /early-detection 2. In many cases, skin cancer can be prevented. The best way to protect yourself is to avoid too much sun and sunburns. Health care providers believe that ultraviolet rays (UV rays) from the sun damage the skin and over time lead to skin cancer. Here are ways to protect yourself: -Don't spend long periods of time in direct sunlight. -Wear hats with brims to protect your face and ears. -Wear long-sleeved shirts and pants to protect your arms and legs. -Use broad spectrum sunscreens with a SPF (skin protection factor) of 30 or higher that protect against burning and tanning rays. Apply the lotion 30 minutes before you go outside. (Broad-spectrum sunscreens protect against UV-B and UV-A rays.) -Wear sunglasses to protect your eyes. -Use a lip balm (more content not included)... [facility] CYTOLOGY NON-GYNon CASE REPORT [facility] Comment on above: Order Comment: Speci men Type: FLUID SPECIMENOrdering Facility: [facility] Address: [address] [place] [address] Result Comment: [facility] Cytology Report Case: [id number] Authorizing Provider: Kenny Mckeon MD Collected: 09/24/2023 04:01 PM Ordering Location: Urology Received: 09/25/2023 05:42 AM Pathologist: Anshu Burnette MD Specimen: URINE VOIDED Performed By: #### C YTONON ####[facility] LABIA [id number] [place] [address] [place] CLINICAL HISTORY holt syndrome [facility] Comment on above: Order Comment: Speci men Type: FLUID SPECIMENOrdering Facility: [facility] Address: [address] [place] [address] Performed By: #### C YTONON ####[facility] LABCLIA [id number] [place] [address] [place] FINAL DIAGNOSIS [facility] Comment on above: Order Comment: Speci men Type: FLUID SPECIMENOrdering Facility: [facility] Address: [address] [place] [address] Result Comment: A. U RINE VOIDED: Negative for high-grade urothelial carcinoma. Viral cytopathic effect of polyomavirus. Performed By: #### C YTONON ####[facility] LABCLIA [id number] [place] [address] [place] FINAL PERFORMING LAB [facility] Comment on above: Order Comment: Speci men Type: FLUID SPECIMENOrdering Facility: [facility] Address: [address] [place] [address] Result Comment: Tech nical component, tool planer set up operator screening performed at [facility], [facility] [place] [id number] CLIA# [id number] Diagnostic interpretation performed at [facility], [address] [place] [id number] CLIA# [id number] House Superintendent: Rickey Ricks M.D. Performed By: #### C YTONON ####[facility] LABCLIA [id number] [place] [address] [place] GROSS DESCRIPTION A. URINE VOIDED [facility] Comment on above: Order Comment: Speci men Type: FLUID SPECIMENOrdering Facility: [facility] Address: [address] [place] [address] Result Comment: 75 c c clear yellow fluid with scant particles. ThinPrep prepared. Performed By: #### C YTONON ####[facility] LABCLIA [id number] [place] [address] [place] Flexible Sigmoidoscopyon Flexible sigmoidoscopy A31 Gastrointestinal Endoscopy Patient Name: Quinn Troncoso Procedure Date: 09/24/2023 12:19 PM Date of : 1965 Admit Type: Outpatient Age: 58 Room: [address] Gender: Male Note Status: Finalized Attending MD: Dalila William MD, [id number] Procedure: Flexible Sigmoidoscopy Indications: High risk colon cancer surveillance: Personal history of hereditary nonpolyposis colorectal cancer (Holt Syndrome) Providers: Dalila William MD, Lady Rossy Mcdonnell (Fellow) Patient Profile: This is a 58 year old male. Refer to note in patient chart for documentation of history and physical. Referring Physician: Dalila William MD (Referring MD) Medicines: Monitored Anesthesia Care Complications: No immediate complications. Requesting Provider: Procedure: Pre-Anesthesia Assessment: - Prior to the procedure, a History and Physical was performed, and patient medications and allergies were reviewed. The patient is competent. The risks and benefits of the procedure and the sedation options and risks were discussed with the patient. All questions were answered and informed consent was obtained. Patient identification and proposed procedure were verified by the physician, the nurse and the anesthesiologist in the procedure room. Mental Status Examination: alert and oriented. Airway Examination: normal oropharyngeal airway and neck mobility. Respiratory Examination: clear to auscultation. CV Examination: normal. Prophylactic Antibiotics: The patient does not require prophylactic antibiotics. Prior Anticoagulants: The patient has taken no anticoagulant or antiplatelet agents. ASA Grade Assessment: II - A patient with mild systemic disease. After reviewing the risks and benefits, the patient was deemed in satisfactory condition to undergo the procedure. The anesthesia plan was to use monitored anesthesia care (MAC). Immediately prior to administration of medications, the patient was re-assessed for adequacy to receive sedatives. The heart rate, respiratory rate, oxygen saturations, blood pressure, adequacy of pulmonary ventilation, and response to care were monitored throughout the procedure. The physical status of the patient was re-assessed after the procedure. After obtaining informed consent, the scope was passed under direct vision. The Endoscope was introduced through the anus and advanced to the ileo-rectal anastomosis. The flexible sigmoidoscopy was accomplished without difficulty. The patient tolerated the procedure well. The quality of the bowel preparation was inadequate. Moderate Sedation: MAC anesthesia was administered by the anesthesia team. Findings: The perianal and digital rectal examinations were normal. A large amount of stool was found in the rectum, making visualization difficult. No polyps seen within the limits of the bowel preparation. Impression: - Preparation of the colon was inadequate. - Stool in the rectum obscuring the views. Estimated Blood Loss: Estimated blood loss: none. Recommendation: - Continue present medications. - Repeat flexible sigmoidoscopy at the next available appointment for surveillance WITH MIRALAX/GATORADE BOWEL PREPARATION. Procedure Code(s): --- Professional --- G0104, Colorectal cancer screening; flexible sigmoidoscopy CPT copyright 2020 [employer]. All rights reserved. The codes documented in this report are preliminary and upon frame polisher review may be revised to meet current compliance requirements. Attending Participation: I personally performed the entire procedure. Scope In: 1:57:58 PM Scope Out: 2:04:38 PM MD Dalila Alves MD 09/24/2023 2:19:14 PM This report has been signed electronically by Dalila William MD Number of Addenda: 0 Note Initiated On: 09/24/2023 12:19 PM [facility] HISTORY PHYSICALon HISTORY PHYSICAL HNO ID: [id number] Author: DALILA WILLIAM MD Service: Gastroenterology Author Type: Physician Type: H&P Filed: 09/24/2023 12:59 Note Text: Attestation signed by Dalila William MD at 09/24/2023 12:59 PM [facility] STAFF PHYSICIAN NOTE OF PERSONAL INVOLVEMENT IN CARE I have reviewed the history and physical examination obtained and documented by the fellow and I personally participated in the luque components. I have discussed the case and management of the patient's care. 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 and Sigmoidoscopy (Rigid or flexible), with or without biopsies, removal of polyps or lesions,dilation (any means), treatment of bleeding (any means) based on clinical findings. BASELINE BEHAVIOR: Calm BASELINE ORIENTATION: A AND O x3 All medications and allergies reviewed: Yes Skin Assessment: Warm dry mucus membranes pink Airway/Respiratory Assessment: Airway: visualization of the uvula- Yes Mouth: opening greater than 2 fingerbreadths- Yes Neck: full range of motion- Yes Breath sounds clear/equal- Yes Cardiac Assessment: Regular rate and rhythm without murmur Abdominal Assessment: Abdomen soft, non-tender, no masses or organomegaly. Sedation Plan: MAC Additional Comments: None Lady Rossy Mcdonnell MD [facility] NURSING PROGon 09-24-2023 NURSING PROG HNO ID: [id number] Author: KATHARINA GUERRERO LPN Service: ? Author Type: LICENSED NURSE Type: Nursing Progress Note Filed: 09/24/2023 14:43 Note Text: AMBULATORY PATIENT EDUCATION NOTE TOPIC: GI PROCEDURES: Esophagogastroduodeno scopy(EGD) with or without biopies based on clinical findings, removal of polyps or lesions Rigid or flexible Proctosigmoidoscopy READINESS TO LEARN INSTRUCTION PROVIDED TO: Patient and family member COGNITIVE ABILITY: Alert and oriented PTED MOTIVATION TO LEARN: Interested FAMILY SUPPORT: High - Very involved in pt care IPATIENT LEARNS BEST BY: Individual Instruction Written Instruction - Hand-outs Verbal Instruction FACTORS AFFECTING LEARNING: None PHYSICAL LIMITATIONS AFFECTING LEARNING: None LEARNING RESPONSE METHOD OF INSTRUCTION: Individual instruction PATIENT / FAMILY RESPONSE: Verbalizes understanding of: WORSENING CONDITION-Signs and symptoms of a worsening condition that warrant a call to the physician FOLLOW-UP PLAN: Patient instructed to call with any further issues SUPPLEMENTAL MATERIAL: Procedure Discharge Instructions REFERRAL (RECOMMENDATION): None Electronically Signed By: Katharina Guerrero LPN [facility] NURSING PROG HNO ID: [id number] Author: SHERON MCNAMARA LPN Service: ? Author Type: LICENSED NURSE Type: Nursing Progress Note Filed: 09/24/2023 12:44 Note Text: PRE OP LEARNING ASSESSMENT PROCEDURE/SURGERY: GI PROCEDURES: EGD and Flex Sigmoidoscopy READINESS TO LEARN COGNITIVE ABILITY: Alert and oriented MOTIVATION TO LEARN: Eager FAMILY SUPPORT: High - Very involved in pt care PATIENT LEARNS BEST BY: Individual Instruction FACTORS AFFECTING LEARNING: None PHYSICAL LIMITATIONS AFFECTING LEARNING: None Electronically Signed By: Sheron Villarreal LPN In Department: GASTROENTEROLOGY [facility] SURGICAL PATHOLOGYon 024 CASE REPORT [facility] Comment on above: Order Comment: Speci wen Type: TISSUE SPECIMENOrdering Facility: [facility] Address: [address] [place] [address] Result Comment: [facility] Pathology Report Case: [id number] Authorizing Provider: Dalila William MD Collected: 09/24/2023 01:28 PM Ordering Location: Gastroenterology Received: 09/24/2023 04:34 PM Pathologist: Jeanne Madera MD Specimens: A) - STOMACH (GASTRIC) POLYP BIOPSY, gastric polyp B) - STOMACH BIOPSY C) - ESOPHAGUS BIOPSY Performed By: #### S ####[facility] [id number] [address] DIAGNOSIS COMMENT A. Precise classification of the polyp is challenging given the mixed morphologic features, ranging from areas resembling a pyloric gland adenoma to those with a foveolar appearance. Within the background there are histologic features consistent with proton pump inhibitor use. This case was reviewed with Ricardo Zamudio MD, PhD, who agrees with the diagnostic interpretation. [facility] Comment on above: Order Comment: Joel carver Type: TISSUE SPECIMENOrdering Facility: [facility] Address: [address] [place] [address] Performed By: #### S ####[facility] [id number] [address] FINAL DIAGNOSIS [facility] Comment on above: Order Comment: Joel carver Type: TISSUE SPECIMENOrdering Facility: [facility] Address: [address] [place] [address] Result Comment: A. 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 B. Stomach, biopsy: - Gastric antral-type mucosa with mild reactive epithelial changes. - Gastric oxyntic-type mucosa with histologic features consistent with proton pump inhibitor use. - No intestinal metaplasia or morphologic evidence of Helicobacter pylori organisms. C. Esophagus, biopsy: - Scant squamous esophageal mucosa and inflamed gastric cardia-type mucosa with reactive epithelial changes; negative for intestinal metaplasia. Performed By: #### S ####[facility] LABCLIA [id number] [place] [address] [place] FINAL PERFORMING LAB [facility] Comment on above: Order Comment: Speci men Type: TISSUE SPECIMENOrdering Facility: [facility] Address: [address] [place] [address] Result Comment: Diag nostic interpretation performed at [facility], [facility] [place] [address] CLIA# [id number] House Superintendent: Rickey Ricks M.D. Performed By: #### S ####[facility] LABCLIA [id number] [address] STATES OF [facility] GROSS DESCRIPTION Normal [facility] Comment on above: Order Comment: Speci men Type: TISSUE SPECIMENOrdering Facility: [facility] Address: [address] [place] [address] Result Comment: A. S TOMACH (GASTRIC) POLYP BIOPSY Received in formalin is one segment of acevedo polypoid tissue measuring 1.5 x 1.0 x 0.9 cm. A stalk is present measuring 0.6 cm in length. The specimen is bisected and totally submitted in one cassette. Gross examination performed at [facility], [address] [place] [address] AMS September 24, 2023 9:09 PM B. STOMACH BIOPSY Received in formalin are multiple pieces of acevedo to acevedo-pink, soft tissue aggregating to 1.5 x 0.3 x 0.2 cm. Totally submitted in one cassette. C. ESOPHAGUS BIOPSY Received in formalin are multiple pieces of acevedo to acevedo-pink, soft tissue aggregating to 0.8 x 0.2 x 0.1 cm. Totally submitted in one cassette. DB September 24, 2023 7:59 PM Gross examination performed at [facility], [address] [place] [address] Performed By: #### S ####[facility] LABCLIA [id number] [place] [address] [place] URINALYSIS, REFLEX MICROSCOP ICon 09-24-2023 Bilirubin Ql (U) Negative Normal Negative [facility] Comment on above: Order Comment: Speci men Type: URINE SPECIMENOrdering Facility: [facility] Address: [address] [place] [address] Performed By: #### L [id number] ####[facility] LABIA [id number] [place] [address] [place] Clarity (Unsp spec) Clear Normal Clear [facility] Comment on above: Order Comment: Speci men Type: URINE SPECIMENOrdering Facility: [facility] Address: [address] [place] [address] Performed By: #### L [id number] ####[facility] LABCLIA [id number] [place] [address] [place] Color (U) Light Yellow Normal Yellow [facility] Comment on above: Order Comment: Speci men Type: URINE SPECIMENOrdering Facility: [facility] Address: [address] [place] [address] Performed By: #### L [id number] ####[facility] LABCLIA [id number] [place] [address] [place] Glucose Test strip (U) [Mass/Vol] Negative Normal Trace, Negative [facility] Comment on above: Order Comment: Speci men Type: URINE SPECIMENOrdering Facility: [facility] Address: [address] [place] [address] Performed By: #### L [id number] ####[facility] LABCLIA [id number] [place] [address] [place] Hemoglobin Ql (U) Negative Normal Negative, Trace [facility] Comment on above: Order Comment: Speci men Type: URINE SPECIMENOrdering Facility: [facility] Address: [address] [place] [address] Performed By: #### L [id number] ####[facility] LABCLIA [id number] [place] [address] [place] Ketones Ql (U) Negative Normal Negative, Trace [facility] Comment on above: Order Comment: Speci men Type: URINE SPECIMENOrdering Facility: [facility] Address: [address] [place] [address] Performed By: #### L [id number] ####[facility] LABCLIA [id number] [place] [address] [place] Leukocyte esterase Test strip Ql (U) Negative Normal Negative, 25 Kevin/uL [facility] Comment on above: Order Comment: Speci men Type: URINE SPECIMENOrdering Facility: [facility] Address: [address] [place] [address] Performed By: #### L [id number] ####[facility] LABCLIA [id number] [place] [address] [place] Nitrite Ql (U) Negative Normal Negative [facility] Comment on above: Order Comment: Speci men Type: URINE SPECIMENOrdering Facility: [facility] Address: [address] [place] [address] Performed By: #### L [id number] ####[facility] LABCLIA [id number] [place] [address] [place] pH (U) 6.5 [pH] Normal 5.0-8.0 [facility] Comment on above: Order Comment: Speci men Type: URINE SPECIMENOrdering Facility: [facility] Address: [address] [place] [address] Performed By: #### L [id number] ####[facility] LABCLIA [id number] [place] [address] [place] Protein (U) [Mass/Vol] Negative Normal Trace , Negative [facility] Comment on above: Order Comment: Speci men Type: URINE SPECIMENOrdering Facility: [facility] Address: [address] [place] [address] Performed By: #### L [id number] ####[facility] LABCLIA [id number] [place] [address] [place] Specific gravity (U) [Rel density] 1.019 Normal 1.005-1.030 [facility] Comment on above: Order Comment: Speci men Type: URINE SPECIMENOrdering Facility: [facility] Address: [address] [place] [address] Performed By: #### L [id number] ####[facility] LABCLIA [id number] [place] [address] [place] Urobilinogen Ql (U) Negative Normal Negative [facility] Comment on above: Order Comment: Speci men Type: URINE SPECIMENOrdering Facility: [facility] Address: [address] [place] [address] Performed By: #### L [id number] ####[facility] LABCLIA [id number] [place] [address] [place] Bilirubin Ql (U) Negative Negative [facility] Clarity (Unsp spec) Clear Clear [facility] Color (U) Light Yellow Yellow [facility] Glucose Test strip (U) [Mass/Vol] Negative Trace, Negative [facility] Hemoglobin Ql (U) Negative Negative, Trace [facility] Ketones Ql (U) Negative Negative, Trace [facility] Leukocyte esterase Test strip Ql (U) Negative Negative, 25 Kevin/uL [facility] Nitrite Ql (U) Negative Negative [facility] pH (U) 6.5 [pH] 5.0 - 8.0 [facility] Protein (U) [Mass/Vol] Negative Trace , Negative [facility] Specific gravity (U) [Rel density] 1.019 1.005 - 1.030 [facility] Urobilinogen Ql (U) Negative Negative [facility] Upper GI endoscopyon 024 Upper GI endoscopy A31 Gastrointestinal Endoscopy Patient Name: Quinn Troncoso Procedure Date: 09/24/2023 12:16 PM Date of : 1965 Admit Type: Outpatient Age: 58 Room: [place] [address] Gender: Male Note Status: Finalized Attending MD: Dalila William MD, [id number] Procedure: Upper GI endoscopy Indications: 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 Refer to note in patient chart for documentation of history and physical. Referring Physician: Dalila William MD (Referring MD) Medicines: Monitored Anesthesia Care Complications: No immediate complications. Requesting Provider: Procedure: Pre-Anesthesia Assessment: - Prior to the procedure, a History and Physical was performed, and patient medications and allergies were reviewed. The patient is competent. The risks and benefits of the procedure and the sedation options and risks were discussed with the patient. All questions were answered and informed consent was obtained. Patient identification and proposed procedure were verified by the physician and the nurse in the procedure room. Mental Status Examination: alert and oriented. Airway Examination: normal oropharyngeal airway and neck mobility. Respiratory Examination: clear to auscultation. CV Examination: normal. Prophylactic Antibiotics: The patient does not require prophylactic antibiotics. Prior Anticoagulants: The patient has taken no anticoagulant or antiplatelet agents. ASA Grade Assessment: II - A patient with mild systemic disease. After reviewing the risks and benefits, the patient was deemed in satisfactory condition to undergo the procedure. The anesthesia plan was to use monitored anesthesia care (MAC). Immediately prior to administration of medications, the patient was re-assessed for adequacy to receive sedatives. The heart rate, respiratory rate, oxygen saturations, blood pressure, adequacy of pulmonary ventilation, and response to care were monitored throughout the procedure. The physical status of the patient was re-assessed after the procedure. After obtaining informed consent, the endoscope was passed under direct vision. Throughout the procedure, the patient's blood pressure, pulse, and oxygen saturations were monitored continuously. The Endoscope was introduced through the mouth, and advanced to the third part of duodenum. The upper GI endoscopy was accomplished without difficulty. The patient tolerated the procedure well. Moderate Sedation: MAC anesthesia was administered by the anesthesia team. Findings: Inlet patch in the proximal esophagus at 20 cm from the incisura. Esophagogastric landmarks were identified: the Z-line was found at 37 cm, the upper extent of the gastric folds was found at 37 cm and the site of hiatal narrowing was found at 39 cm from the incisors. There were esophageal mucosal changes consistent with two short-segment Hernandez's esophagus present in the lower third of the esophagus extending from 36 to 37 cm. The maximum longitudinal extent of these mucosal changes was 1 cm in length. Biopsies were taken with a cold forceps for histology. Verification of patient identification for the specimen was done. Estimated blood loss was minimal. About 50, 2 to 12 mm sessile polyps were found in the gastric fundus and in the gastric body, consistent with fundic gland polyps. One 15 mm sessile polyp was seen in the proximal body on the greater curvature that had the endoscopic appearance of adenoma/pyloric gland adenoma.The polyp was removed with a blue boost injection-lift technique using a hot snare in one piece. Resection and retrieval were complete with the use of a Montiel net. Verification of patient identification for the specimen was done. Estimated blood loss was minimal. To prevent bleeding post-intervention, one hemostatic clip was successfully placed. There was no bleeding at the end of the procedure. Diffuse nodular mucosa was found in the gastric antrum. Biopsies were taken from gastric body and antrum with a cold forceps for histology. Verification of patient identification for the specimen was done. Estimated blood loss was minimal. The first portion of the duodenum, second portion of the duodenum and third portion of the duodenum were normal. Impression: - Esophagogastric landmarks identified. - Esophageal mucosal changes consistent with short-segment Hernandez's esophagus. Biopsied. - About 50, gastric polyps. one 15 mm polyp resected and retrieved. Clip x 1. - Nodular mucosa in the gastric antrum. Biopsied. - Normal first portion of the duodenum, second portion of the duodenum and third portion of the duodenum. Estimated Blood Loss: Estimated blood loss was minimal. Recommendation: - Discharge patient to home. - Resume previous diet. - Con (more content not included)... Normal [facility] Leslye 09-16-2023 RENARD Telephone (GAPRA3) QUINN TRONCOSO ([id number]) 1965 M Date Time Provider Department 09/16/23 JIMI DENNISON GAPRA3 During your visit today, we recorded the following information about you: Jimi Dennison RN 09/16/2023 5:04 PM Signed Attempted to reach the patient at the contact number that they provided [phone] (home) . Unable to speak with patient so without identifying the patient the following information was left on their voice mail: Date of procedure, location and report time Prep instructions A message was left informing the patient/patient traveling representative they must have a responsible adult accompany them to their procedure; and remain in the endoscopy area until they are discharged. Failure to have a responsible adult accompany the patient to their procedure appointment prevents the use of sedation or anesthesia for their procedure; and can result in cancellation of the procedure Clear liquids the day before the procedure, stop all liquids 4 hours before the procedure Instructions to contact their primary care provider regarding their medications and which medications to stop in preparation for their procedure Instructions to completely read and follow the written instructions that they recieved regarding their procedure. Number to call with questions or concerns [phone] Number to call to cancel their procedure [phone] Jimi Dennison MA Allergies As of Date: 09/16/2023 Noted Allergy Reaction ACETAMINOPHEN 06/05/2018 1 - Mental Status Change DECONGEST MULTI-ACTION 02/02/2013 16 - Unknown Decongestant (BROMPHENIRAMINE MA*12/20/2010 16 - Unknown Comments: Fast heart rate DECONGESTANT (PSEUDOEPHEDRINE) 11/12/2016 14 - Other: See Comments Comments: BP increased OXYCODONE-ACETAMINOPH EN 04/13/2012 14 - Other: See Comments Date Reviewed: 01/17/2023 Reviewed by: Dianne Stiles Ma - Fully Assessed Reason for Visit: Education Of Patient/family [074] Cmt: Voicemail left regarding 09/24/2023 appointment. Prescriptions as of 09/16/2023 - gabapentin (NEURONTIN) 600 mg tablet Take 600 mg by mouth three times daily. - mirtazapine (REMERON) 45 mg tablet Take 45 mg by mouth daily at bedtime. - INVEGA SUSTENNA 156 mg/mL syrg injection INJECT 1 M[address] INTRAMUSCULAR ROUTE 1 TIME PER MONTH - HYDROcodone-acetamino phen (NORCO) 5-325 mg per tablet Take 1 tablet by mouth twice daily. - MAGNESIUM ORAL Magnesium Active 500 MG PO Daily February 06, 2021 7:43pm - aspirin, enteric coated (ASPIRIN, ENTERIC COATED) 81 mg EC tablet - atorvastatin (LIPITOR) 40 mg tablet Take 40 mg by mouth once daily. - glimepiride (AMARYL) 2 mg tablet Take 1 mg by mouth twice daily with meals. - pantoprazole DR (PROTONIX) 40 mg tablet Take 40 mg by mouth once daily. - escitalopram oxalate (LEXAPRO) 20 mg tablet Take 20 mg by mouth once daily. - zonisamide (ZONEGRAN) 100 mg capsule Take 200 mg by mouth once daily. - cyclobenzaprine (FLEXERIL) 10 mg tablet Take 10 mg by mouth twice daily as needed for Muscle Spasm. 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] 12/03/2016 Portal vein thrombosis [I81] 12/03/2016 S/P colectomy [Z90.49] 12/03/2016 Severe protein-calorie malnutrition (HCC) [E43] 12/05/2016 12/10/2016 Encounter for nasogastric (NG) tube placement [*12/06/2016 12/10/2016 Hypoalbuminemia [E88.09] 12/06/2016 12/10/2016 Hypokalemia [E87.6] 12/06/2016 12/10/2016 On total parenteral nutrition (TPN) [Z78.9] 12/06/2016 12/10/2016 Elevated C-reactive protein (CRP) [R79.82] 12/06/2016 12/10/2016 Hypoproteinemia (HCC) [E77.8] 12/06/2016 12/10/2016 Depression [F32.A] 12/06/2016 Anxiety [F41.9] 12/06/2016 S/P PICC central line placement [Z95.828] 12/06/2016 12/10/2016 Hypermagnesemia [E83.41] 12/10/2016 12/10/2016 Encounter for central line care [Z45.2] 12/10/2016 12/10/2016 Encounter for central line placement [Z45.2] 12/10/2016 12/10/2016 Nausea [R11.0] 12/10/2016 12/10/2016 Post-op pain [G89.18] 12/10/2016 Hypovolemia [E86.1] 12/10/2016 12/10/2016 Leukocytosis [D72.829] 12/10/2016 Hyperglycemia [R73.9] 12/10/2016 12/10/2016 Metastatic adenocarcinoma (HCC) [C79.9] 12/10/2016 02/04/2017 Encounter Status:Closed by JIMI DENNISON on 09/16/23 Normal [facility] CBC W Auto Differential pane l (Bld)on 01-17-2023 Basophils (Bld) [#/Vol] 0.04 10*3/uL Normal <0.11 [facility] Comment on above: Order Comment: Speci men Type: BLOOD SPECIMENOrdering Facility: [facility] Address: [address] [address] Performed By: #### 5 7021-8 ####[facility] LABCLIA [id number] [place] [address] Basophils/100 WBC (Bld) 0.5 % Normal [facility] Comment on above: Order Comment: Speci men Type: BLOOD SPECIMENOrdering Facility: [facility] Address: [address] [address] Performed By: #### 5 7021-8 ####[facility] LABCLIA [id number] [place] [address] Differential cell count method Nom (Bld) Auto Normal [facility] Comment on above: Order Comment: Speci men Type: BLOOD SPECIMENOrdering Facility: [facility] Address: [address] [place] [address] Performed By: #### 5 7021-8 ####[facility] LABCLIA [id number] [place] [address] Eosinophils (Bld) [#/Vol] 0.07 10*3/uL Normal <0.46 [facility] Comment on above: Order Comment: Speci men Type: BLOOD SPECIMENOrdering Facility: [facility] Address: [address] [place] [address] Performed By: #### 5 7021-8 ####[facility] LABIA [id number] [place] [address] Eosinophils/100 WBC (Bld) 0.9 % Normal [facility] Comment on above: Order Comment: Speci men Type: BLOOD SPECIMENOrdering Facility: [facility] Address: [address] [place] [address] Performed By: #### 5 7021-8 ####[facility] LABCLIA [id number] [place] [address] Erythrocyte distribution width (RBC) [Ratio] 11.7 % Normal 11.5-15.0 [facility] Comment on above: Order Comment: Speci men Type: BLOOD SPECIMENOrdering Facility: [facility] Address: [address] [place] [address] Performed By: #### 5 7021-8 ####[facility] LABIA [id number] [place] [address] Hematocrit (Bld) [Volume fraction] 44.8 % Normal 39.0-51.0 [facility] Comment on above: Order Comment: Speci men Type: BLOOD SPECIMENOrdering Facility: [facility] Address: [address] [place] [address] Performed By: #### 5 7021-8 ####[facility] LABCLIA [id number] [place] [address] Hemoglobin (Bld) [Mass/Vol] 15.6 g/dL Normal 13.0-17.0 [facility] Comment on above: Order Comment: Speci men Type: BLOOD SPECIMENOrdering Facility: [facility] Address: [address] [place] [address] Performed By: #### 5 7021-8 ####[facility] LABCLIA [id number] [place] [address] Immature granulocytes (Bld) [#/Vol] 0.04 10*3/uL Normal <0.10 [facility] Comment on above: Order Comment: Speci men Type: BLOOD SPECIMENOrdering Facility: [facility] Address: [address] [place] [address] Performed By: #### 5 7021-8 ####[facility] LABIA [id number] [place] [address] Immature granulocytes/100 WBC (Bld) 0.5 % Normal [facility] Comment on above: Order Comment: Speci men Type: BLOOD SPECIMENOrdering Facility: [facility] Address: [address] [place] [address] Performed By: #### 5 7021-8 ####[facility] LABCLIA [id number] [place] [address] Lymphocytes (Bld) [#/Vol] 1.99 10*3/uL Normal 1.00-4.00 [facility] Comment on above: Order Comment: Speci men Type: BLOOD SPECIMENOrdering Facility: [facility] Address: [address] [place] [address] Performed By: #### 5 7021-8 ####[facility] LABCLIA [id number] [place] [address] Lymphocytes/100 WBC (Bld) 25.7 % Normal [facility] Comment on above: Order Comment: Speci men Type: BLOOD SPECIMENOrdering Facility: [facility] Address: [address] [place] [address] Performed By: #### 5 7021-8 ####[facility] LABCLIA [id number] [place] [address] MCH (RBC) [Entitic mass] 33.4 pg Normal 26.0-34.0 [facility] Comment on above: Order Comment: Speci men Type: BLOOD SPECIMENOrdering Facility: [facility] Address: [address] [place] [address] Performed By: #### 5 7021-8 ####[facility] LABCLIA [id number] [place] [address] MCHC (RBC) [Mass/Vol] 34.8 g/dL Normal 30.5-36.0 [facility] Comment on above: Order Comment: Speci men Type: BLOOD SPECIMENOrdering Facility: [facility] Address: [address] [place] [address] Performed By: #### 5 7021-8 ####[facility] LABCLIA [id number] [place] [address] MCV (RBC) [Entitic vol] 95.9 fL Normal 80.0-100.0 [facility] Comment on above: Order Comment: Speci men Type: BLOOD SPECIMENOrdering Facility: [facility] Address: [address] [place] [address] Performed By: #### 5 7021-8 ####[facility] LABCLIA [id number] [place] [address] Monocytes (Bld) [#/Vol] 0.74 10*3/uL Normal <0.87 [facility] Comment on above: Order Comment: Speci men Type: BLOOD SPECIMENOrdering Facility: [facility] Address: [address] [place] [address] Performed By: #### 5 7021-8 ####[facility] LABCLIA [id number] [place] [address] Monocytes/100 WBC (Bld) 9.5 % Normal [facility] Comment on above: Order Comment: Speci men Type: BLOOD SPECIMENOrdering Facility: [facility] Address: [address] [place] [address] Performed By: #### 5 7021-8 ####[facility] LABCLIA [id number] [place] [address] Neutrophils (Bld) [#/Vol] 4.87 10*3/uL Normal 1.45-7.50 [facility] Comment on above: Order Comment: Speci men Type: BLOOD SPECIMENOrdering Facility: [facility] Address: [address] [place] [address] Performed By: #### 5 7021-8 ####[facility] LABCLIA [id number] [place] [address] Neutrophils/100 WBC (Bld) 62.9 % Normal [facility] Comment on above: Order Comment: Speci men Type: BLOOD SPECIMENOrdering Facility: [facility] Address: [address] [place] [address] Performed By: #### 5 7021-8 ####[facility] LABCLIA [id number] [place] [address] Nucleated RBC (Bld) [#/Vol] 10*3/uL Normal <0.01 [facility] Comment on above: Order Comment: Speci men Type: BLOOD SPECIMENOrdering Facility: [facility] Address: [address] [place], [place] [address] Performed By: #### 5 7021-8 ####[facility] LABCLIA [id number] [place] [address] Nucleated RBC/100 WBC (Bld) [Ratio] 0.0 /100 WBC Normal [facility] Comment on above: Order Comment: Speci men Type: BLOOD SPECIMENOrdering Facility: [facility] Address: [address] [place] [address] Performed By: #### 5 7021-8 ####[facility] LABCLIA [id number] [place] [address] Platelet mean volume (Bld) [Entitic vol] 9.2 fL Normal 9.0-12.7 [facility] Comment on above: Order Comment: Speci men Type: BLOOD SPECIMENOrdering Facility: [facility] Address: [address] [place] [address] Performed By: #### 5 7021-8 ####[facility] LABCLIA [id number] [place] [address] Platelets (Bld) [#/Vol] 238 10*3/uL Normal 150-400 [facility] Comment on above: Order Comment: Speci men Type: BLOOD SPECIMENOrdering Facility: [facility] Address: [address] [place] [address] Performed By: #### 5 7021-8 ####[facility] LABCLIA [id number] [place] [address] RBC (Bld) [#/Vol] 4.67 10*6/uL Normal 4.20-6.00 [facility] Comment on above: Order Comment: Speci men Type: BLOOD SPECIMENOrdering Facility: [facility] Address: [address] [place] [address] Performed By: #### 5 7021-8 ####[facility] LABIA [id number] [place] [address] WBC (Bld) [#/Vol] 7.75 10*3/uL Normal 3.70-11.00 [facility] Comment on above: Order Comment: Speci men Type: BLOOD SPECIMENOrdering Facility: [facility] Address: [address] [place] [address] Performed By: #### 5 7021-8 ####[facility] LABCLIA [id number] [place] [address] CEA SerPl-mCncon 01-17-2023 Carcinoembryonic Ag [Mass/Vol] 2.7 ng/mL Normal <=2.9 [facility] Comment on above: Order Comment: Speci men Type: BLOOD SPECIMENOrdering Facility: [facility] Address: [address] [place] [address] Result Comment: Carc inoembryonic antigen test is used as an aid in monitoring response to treatment or recurrence in patients with established colorectal, breast, lung, prostatic, pancreatic, and ovarian carcinomas. Clinical correlation is required. The Carcinoembryonic antigen test was performed using the [employer] Un[employer] DXI paramagnetic particle chemiluminescent immunoassay method. Results obtained with different assay methods or kits cannot be used interchangeably. Performed By: #### 2 039-6 ####[facility] LABCLIA [id number] [address] [facility] CNOVSPon 01-17-2023 CNOVSP Visit (SP) Office ([place]) QUINN TRONCOSO ([id number]) 1965 M Date Time Provider Department 01/17/23 10:00 AM FARSHAD MARLOW During your visit today, we recorded the following information about you: Temperature Pulse Respiration Blood pressure 97.6 degrees 100/minute 16/minute 112/77 Weight Height 74.4 kg 1.676 m Farshad Marlow MD 01/26/2023 8:37 AM Signed NAME: Quinn Troncoso [facility] NO.: [id number] DATE OF SERVICE: January 17, 2023 (Michel) Some elements in this clinic note that are critical to medical decision making have been carefully reviewed and included from a prior clinic note dated: January 18, 2022 Referring Provider: Bernie Keating Additional Clinicians involved in Quinn Troncoso's care: CC: Holt syndrome associated colon cancer. 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 Attempted adjuvant 5-FU chemotherapy from January through March 2017. Oxaliplatin was not offered secondary to neuropathy concerns. Follow-up imaging has been negative. Now monitoring for recurrence. Holt syndrome associated colon cancers tend to do slightly better than de ene mutations. 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 Webber. Coumadin stopped after GI bleed hospitalization in Jul 2017, colon ulcers at anastamosis site. PLAN: 1. Continue annual follow up with Dr. Rebekah Gamble to repeat endoscopy for Holt syndrome. 2. RTC in 1 year for labs same day. HPI: Updated Visit, January 17, 2023: Got COVID July 2022 - diabetes went out of control. Up to date on sigmoidoscopy last July and continues to Follow with GI and Surgery. Updated Visit, January 18, 2022: 56 yo man with prior history of colon cancer with Holt syndrome. He is up to date on screening and his scans and scopes are noted below with no evidence of disease. Updated Visit, January 19, 2021: Doing well - had COVID from July 2020 Otherwise well but fatigued and blood sugars are very high. Reviewed scans which are noted below but demonstrate no evidence of disease recurrence. 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 His mother has a history of pancreatic cancer and has holt syndrome. He has had yearly endoscopies. He was diagnosed with stage IIIb colon cancer [id number] with 2 of 21 lymph nodes positive. This was diagnosed by Dr. Matthew on November 01, 2016 by colonoscopy noting a mass in the sigmoid colon. He additionally has a history of Hernandez's esophagus on EGD from 2015. Dr. Garza took him for a total abdominal colectomy with ileorectal anastomosis and lysis of adhesions on November 28, 2016 at [facility]. Postoperatively was found to have a nonocclusive thrombus in the SMV and intrahepatic portal veins with a postoperative ileus. This was based on CAT scan performed 12/02/16. He was placed on Lovenox. Attempted adjuvant 5-FU from January through March 2017. Patient overall tolerated very poorly even at half dose. He continued to have abdominal discomfort and debilitating fatigue. Also with nausea, diarrhea. Required multiple days of IV fluids. He had been on Coumadin for a postoperative thrombus in the superior mesenteric vein and intrahepatic portal veins. However, coumadin stopped after GI bleed hospitalization in Aug 2017, colon ulcers at anastamosis site. Overall he is doing well but notes daytime somnolence and snoring at night. However, he is also having constant heartburn. Somewhat controlled with antispasmodics but under stress they are very sharp pains. He could consider Calcium channel lluvia if this is esophageal spasm but with his history of Hernandez's esophagus he is continue to follow-up with gastroenterology. We talked about the potential evidence of sleep apnea in the past and I think it should still be pursued. This could be contributing to persisting heartburn as well. I reviewed his scan results from 01/13/2020 fully including images. Showing no evidence of recurrence. PATHOLOGIC PROFILE: Reviewed January 18, 2022 2. 02/08/2022 EGD: biopsies Specimen originated from [facility] Specimen #: [id number] Submitting Physician: SHAKIRA STEWART ([id number]) Stomach, biopsy - Gastric antral and mixed antral/oxyntic-type mucosa with no significant pathologic change. - No intestinal metaplasia or morphologic evidence of Helicobacter pylori organisms. 1. 11/28/2016 total abdominal colectomy: confirmed 3 separate tumor deposits, 2 out of 21 lymph nodes were involved by metastatic adenocarcinoma. An attached segment of terminal ileum and a separate small bowel segment without abnormality. This was a high-grade poorly differentiated a (more content not included)... Normal [facility] Comprehensive metabolic 2000 panelon 01-17-2023 Albumin [Mass/Vol] 4.5 g/dL Normal 3.9-4.9 [facility] Comment on above: Order Comment: Speci men Type: BLOOD SPECIMENOrdering Facility: [facility] Address: [address] [place] [id number] Performed By: #### 2 4323-8 ####[facility] LABCLIA [id number] [place] [address] ALP [Catalytic activity/Vol] 69 U/L Normal 38-113 [facility] Comment on above: Order Comment: Speci men Type: BLOOD SPECIMENOrdering Facility: [facility] Address: [address] [address] Performed By: #### 2 4323-8 ####[facility] LABCLIA [id number] [place] [address] ALT [Catalytic activity/Vol] 20 U/L Normal 10-54 [facility] Comment on above: Order Comment: Speci men Type: BLOOD SPECIMENOrdering Facility: [facility] Address: [address] [place] [address] Performed By: #### 2 4323-8 ####[facility] LABCLIA [id number] [place] [address] Anion gap [Moles/Vol] 11 mmol/L Normal 9-18 [facility] Comment on above: Order Comment: Speci men Type: BLOOD SPECIMENOrdering Facility: [facility] Address: [address] [address] Performed By: #### 2 4323-8 ####[facility] LABCLIA [id number] [place] [address] AST [Catalytic activity/Vol] 23 U/L Normal 14-40 [facility] Comment on above: Order Comment: Speci men Type: BLOOD SPECIMENOrdering Facility: [facility] Address: [address] [address] Performed By: #### 2 4323-8 ####[facility] LABCLIA [id number] [place] [address] Bilirubin [Mass/Vol] 0.2 mg/dL Normal 0.2-1.3 [facility] Comment on above: Order Comment: Speci men Type: BLOOD SPECIMENOrdering Facility: [facility] Address: [address] [place] [address] Performed By: #### 2 4323-8 ####[facility] LABCLIA [id number] [place] [address] Calcium [Mass/Vol] 10.0 mg/dL Normal 8.5-10.2 [facility] Comment on above: Order Comment: Speci men Type: BLOOD SPECIMENOrdering Facility: [facility] Address: [address] [place] [address] Performed By: #### 2 4323-8 ####[facility] LABCLIA [id number] [place] [address] Chloride [Moles/Vol] 104 mmol/L Normal 97-105 [facility] Comment on above: Order Comment: Speci men Type: BLOOD SPECIMENOrdering Facility: [facility] Address: [address] [place] [address] Performed By: #### 2 4323-8 ####[facility] LABCLIA [id number] [place] [address] CO2 [Moles/Vol] 26 mmol/L Normal 22-30 [facility] Comment on above: Order Comment: Speci men Type: BLOOD SPECIMENOrdering Facility: [facility] Address: [address] [place] [address] Performed By: #### 2 4323-8 ####[facility] LABCLIA [id number] [place] [address] Creatinine [Mass/Vol] 1.03 mg/dL Normal 0.73-1.22 [facility] Comment on above: Order Comment: Speci men Type: BLOOD SPECIMENOrdering Facility: [facility] Address: [address] [place] [address] Performed By: #### 2 4323-8 ####[facility] LABCLIA [id number] [place] [address] ESTIMATED GLOMERULAR FILTRATION RATE 84 mL/min/1.73m??? Normal >=60 [facility] Comment on above: Order Comment: Speci men Type: BLOOD SPECIMENOrdering Facility: [facility] Address: [address] [id number] Result Comment: Katherine mated Glomerular Filtration Rate (eGFR) is calculated using the 2020 CKD-EPI creatinine equation. This equation utilizes serum creatinine, sex, and age as parameters. The creatinine assay has traceable calibration to isotope dilution-mass spectrometry. Refer to KDIGO guidelines for clinical interpretation. In patients with unstable renal function, e.g. those with acute kidney injury, the eGFR may not accurately reflect actual GFR. Performed By: #### 2 4323-8 ####[facility] LABCLIA [id number] [place] [address] Glucose [Mass/Vol] 88 mg/dL Normal 74-99 [facility] Comment on above: Order Comment: Joel carver Type: BLOOD SPECIMENOrdering Facility: [facility] Address: [address] [place] [address] Result Comment: The [place] Diabetes Association (ADA) provides guidance for cutoff values for fasting glucose and random glucose. The ADA defines fasting as no caloric intake for at least 8 hours. Fasting plasma glucose results between 100 to 125 mg/dL indicate increased risk for diabetes (prediabetes). Fasting plasma glucose results greater than or equal to 126 mg/dL meet the criteria for diagnosis of diabetes. In the absence of unequivocal hyperglycemia, results should be confirmed by repeat testing. In a patient with classic symptoms of hyperglycemia or hyperglycemic crisis, random plasma glucose results greater than or equal to 200 mg/dL meet the criteria for diagnosis of diabetes. Reference: Standards of Medical Care in Diabetes 2016, [place] [employer]. Diabetes Care. 2016.39(Suppl 1). Performed By: #### 2 4323-8 ####[facility] LABIA [id number] [place] [address] Potassium [Moles/Vol] 3.9 mmol/L Normal 3.7-5.1 [facility] Comment on above: Order Comment: Joel carver Type: BLOOD SPECIMENOrdering Facility: [facility] Address: [address] [phone] Performed By: #### 2 4323-8 ####[facility] LABCLIA [id number] [place] [address] Protein [Mass/Vol] 7.0 g/dL Normal 6.3-8.0 [facility] Comment on above: Order Comment: Speci men Type: BLOOD SPECIMENOrdering Facility: [facility] Address: [address] [place] [address] Performed By: #### 2 4323-8 ####[facility] LABCLIA [id number] [place] [address] Sodium [Moles/Vol] 141 mmol/L Normal 136-144 [facility] Comment on above: Order Comment: Speci men Type: BLOOD SPECIMENOrdering Facility: [facility] Address: [address] [place] [address] Performed By: #### 2 4323-8 ####[facility] LABCLIA [id number] [place] [address] Urea nitrogen [Mass/Vol] 20 mg/dL Normal 9-24 [facility] Comment on above: Order Comment: Speci men Type: BLOOD SPECIMENOrdering Facility: [facility] Address: [address] [place] [address] Performed By: #### 2 4323-8 ####[facility] LABCLIA [id number] [place] [address] A1C with Estimated Average G luon 09-30-2022 HbA1c (Bld) [Mass fraction] 10.1 % Critically high 4.5-6.2 [facility] [employer] Other Comment on above: Performed By: #### A 1C #### [facility] [address] [place], [place] [address] Dr. Esme Guzman A1C with Estimated Average Glu 243 [facility] [employer] Other CBC AUTO DIFFon 09-30-2022 BASO # 0.0 103/ul Normal 0.0-0.1 [facility] Comment on above: Performed By: #### V ALP #### [facility] [address] [address] [address] Esme Guzman Basophils/100 WBC (Bld) 0.3 % Normal 0.2-2.0 [facility] Comment on above: Performed By: #### V ALP #### [facility] [address] [address] [address] Esme Guzman EO # 0.0 103/ul Normal 0.0-0.7 [facility] Comment on above: Performed By: #### V ALP #### [facility] [address] [place] [address] Dr. Esme Guzman Eosinophils/100 WBC (Bld) 0.3 % Critically low 0.9-7.0 [facility] Comment on above: Performed By: #### V ALP #### [facility] [address] [place] [address] Dr. Esme Guzman Erythrocyte distribution width (RBC) [Ratio] 11.4 % Normal 11.0-15.0 [facility] Comment on above: Performed By: #### V ALP #### [facility] [address] [place] [address] Dr. Esme Guzman Hematocrit (Bld) [Volume fraction] 44.2 % Normal 42.0-54.0 [facility] Comment on above: Performed By: #### V ALP #### [facility] [address] [place] [address] Dr. Esme Guzman Hemoglobin (Bld) [Mass/Vol] 16.4 g/dL Normal 14.0-18.0 [facility] Comment on above: Performed By: #### V ALP #### [facility] [address] [place] [address] Dr. Esme Guzman IG # 0.06 10e3/ul Critically high 0.00-0.03 [facility] Comment on above: Performed By: #### V ALP #### [facility] [address] [place] [address] Dr. Esme Guzman IG % 0.7 % Critically high 0.0-0.5 [facility] Comment on above: Performed By: #### V ALP #### [facility] [address] [address] [address] Esme Guzman LYMPH # 1.9 103/ul Normal 1.2-3.8 [facility] Comment on above: Performed By: #### V ALP #### [facility] [address] [place] [address] Dr. Esme Guzman Lymphocytes/100 WBC (Bld) 20.9 % Normal 20.5-60.0 [facility] Comment on above: Performed By: #### V ALP #### [facility] [address] [place] [address] Dr. Esme Guzman MANUAL DIFF REQ NO Normal [facility] Comment on above: Performed By: #### V ALP #### [facility] [address] [place] [address] Dr. Esme Guzman MCH (RBC) [Entitic mass] 32.7 pg Normal 25.9-34.0 [facility] Comment on above: Performed By: #### V ALP #### [facility] [address] [place] [address] Dr. Esme Guzman MCHC (RBC) [Mass/Vol] 37.1 g/dL Critically high 29.9-35.2 [facility] Comment on above: Performed By: #### V ALP #### [facility] [address] [place] [address] Dr. Esme Guzman MCV (RBC) [Entitic vol] 88.0 fL Normal 80.0-94.0 [facility] Comment on above: Performed By: #### V ALP #### [facility] [address] [place] [address] Dr. Esme Guzman MONO # 0.5 103/ul Normal 0.3-0.8 [facility] Comment on above: Performed By: #### V ALP #### [facility] [address] [place] [address] Dr. Esme Guzman Monocytes/100 WBC (Bld) 5.6 % Normal 1.7-12.0 [facility] Comment on above: Performed By: #### V ALP #### [facility] [address] [address] [address] Esme Guzman NEUT # 6.5 103/ul Normal 1.4-6.5 [facility] [place] [facility] Comment on above: Performed By: #### V ALP #### [facility] [id number] Esme Guzman Neutrophils/100 WBC (Bld) 72.2 % Normal 43.0-75.0 [facility] [place] [facility] Comment on above: Performed By: #### V ALP #### [facility] [address] [address] [address] Esme Guzman Platelet mean volume (Bld) [Entitic vol] 9.3 fL Critically low 9.5-13.5 [facility] [place] [facility] Comment on above: Performed By: #### V ALP #### [facility] [address] [address] [address] Esme Guzman PLT 196 103/ul Normal 150-450 [facility] [place] [facility] Comment on above: Performed By: #### V ALP #### [facility] [address] [address] [address] Esme Guzman RBC 5.02 106/ul Normal 4.70-6.10 [facility] [place] [facility] Comment on above: Performed By: #### V ALP #### [facility] [address] [address] [address] Esme Guzman WBC 9.1 103/ul Normal 4.0-11.0 [facility] [place] [facility] Comment on above: Performed By: #### V ALP #### [facility] [address] [address] [address] Esme Guzman Complete Blood Count and Dif mario 09-30-2022 Anisocytosis Ql (Bld) [facility] [employer] Other Basophilic stippling LM Ql (Bld) [facility] [employer] Other RBC morphology finding Nom (Bld) [facility] [employer] Other Comprehensive Metabolic Pane patricio 09-30-2022 Comprehensive Metabolic Panel [facility] [employer] Other FREE T4on 09-30-2022 Free T4 [Mass/Vol] 0.94 ng/dL Normal 0.76-1.46 [facility] Comment on above: Performed By: #### F T4 #### [facility] [address] [place] [address] Dr. Esme Guzman GLYCOHEMOGLOBIN A1Con 2022 ADA RECOMMENDATION SEE BELOW Normal [facility] Comment on above: Result Comment: ADA RECOMMENDED LIMIT 4.0 - 6.0 ADA THERAPEUTIC TARGET < 7.0 ACTION SUGGESTED > 7.0 Performed By: #### A 1C #### [facility] [address] [place] [address] Dr. Esme Guzman Glucose [Mass/Vol] 243 mg/dL Normal [facility] Comment on above: Performed By: #### A 1C #### [facility] [address] [place] [address] Dr. Esme Guzman PROF 14(COMP METB)on 023 Albumin [Mass/Vol] 4.1 g/dL Normal 3.4-5.0 [facility] Comment on above: Performed By: #### V ALP #### [facility] [address] [place] [address] Dr. Esme Guzman Albumin/Globulin [Mass ratio] 1.3 {ratio} Normal [facility] Comment on above: Performed By: #### V ALP #### [facility] [address] [place] [address] Dr. Esme Guzman ALP [Catalytic activity/Vol] 118 U/L Critically high 46-116 [facility] Comment on above: Performed By: #### V ALP #### [facility] [address] [place] [address] Dr. sEme Guzman ALT [Catalytic activity/Vol] 34 U/L Normal 16-63 [facility] Comment on above: Performed By: #### V ALP #### [facility] [address] [place] [address] Dr. Esme Guzman Anion gap [Moles/Vol] 13.4 mmol/L Normal [facility] Comment on above: Performed By: #### V ALP #### [facility] [address] [address] [address] Esme Guzman AST [Catalytic activity/Vol] 19 U/L Normal 15-37 [facility] Comment on above: Performed By: #### V ALP #### [facility] [address] [place] [address] Dr. Esme Guzman Bilirubin [Mass/Vol] 0.3 mg/dL Normal 0.2-1.0 [facility] Comment on above: Performed By: #### V ALP #### [facility] [address] [place] [address] Dr. Esme Guzman Calcium [Mass/Vol] 9.2 mg/dL Normal 8.5-10.1 [facility] Comment on above: Performed By: #### V ALP #### [facility] [address] [place] [address] Dr. Esme Guzman Chloride [Moles/Vol] 99 mmol/L Normal 98-107 [facility] Comment on above: Performed By: #### V ALP #### [facility] [address] [place] [address] Dr. Esme Guzman CO2 [Moles/Vol] 28.2 mmol/L Normal 21.0-32.0 [facility] Comment on above: Performed By: #### V ALP #### [facility] [address] [place] [address] Dr. Esme Guzman Creatinine [Mass/Vol] 1.11 mg/dL Normal 0.70-1.30 [facility] Comment on above: Performed By: #### V ALP #### [facility] [address] [place] [address] Dr. Esme Guzman EGFR-AF GRENADIAN >60 Normal >=60 [facility] Comment on above: Performed By: #### V ALP #### [facility] [address] [place] [address] Dr. Esme Guzman EGFR-NON AF GRENADIAN >60 Normal >=60 [facility] Comment on above: Performed By: #### V ALP #### [facility] [address] [place] [address] Dr. Esme Guzman Globulin (S) [Mass/Vol] 3.2 g/dL Normal [facility] Comment on above: Performed By: #### V ALP #### [facility] [address] [address] [address] Esme Guzman Glucose [Mass/Vol] 413 mg/dL Critically high 74-106 [facility] Comment on above: Performed By: #### V ALP #### [facility] [address] [address] [address] Esme Guzman Potassium [Moles/Vol] 4.6 mmol/L Normal 3.5-5.1 [facility] Comment on above: Performed By: #### V ALP #### [facility] [address] [address] [address] Esme Guzman Protein [Mass/Vol] 7.3 g/dL Normal 6.4-8.2 [facility] Comment on above: Performed By: #### V ALP #### [facility] [address] [address] [address] Esme Guzman Sodium [Moles/Vol] 136 mmol/L Normal 136-145 [facility] Comment on above: Performed By: #### V ALP #### [facility] [address] [address] [address] Esme Guzman Urea nitrogen [Mass/Vol] 20.0 mg/dL Critically high 7.0-18.0 [facility] Comment on above: Performed By: #### V ALP #### [facility] [address] [address] [address] Esme Guzman Urea nitrogen/Creatinine [Mass ratio] 18.0 mg/mg Normal [facility] Comment on above: Performed By: #### V ALP #### [facility] [id number] Esme Guzman TSHon 09-30-2022 TSH 1.024 uIU/mL Normal 0.358-3.740 [facility] Comment on above: Performed By: #### U AMIC #### [facility] [address] [address] [address] Esme Guzman UA RANDOM W/MICROSCOPICon BACTERIA NONE SEEN Normal NONE SEEN [facility] Comment on above: Performed By: #### U AMIC #### [facility] [address] [address] [address] Esme Guzman Bilirubin Ql (U) Negative Normal NEGATIVE [facility] Comment on above: Performed By: #### U AMIC #### [facility] [address] [address] [address] Esme Guzman CAST NONE SEEN Normal NONE SEEN [facility] Comment on above: Performed By: #### U AMIC #### [facility] [address] [address] [address] Esme Guzman Clarity (U) CLEAR Normal CLEAR [facility] Comment on above: Performed By: #### U AMIC #### [facility] [address] [place] [address] Dr. Esme Guzman Color (U) LT. YELLOW Normal YELLOW [facility] Comment on above: Performed By: #### U AMIC #### [facility] [address] [place] [address] Dr. Esme Guzman Crystals LM Nom (Urine sed) NONE SEEN Normal NONE SEEN [facility] Comment on above: Performed By: #### U AMIC #### [facility] [address] [address] [address] Esme Guzman Epithelial cells LM Ql (Urine sed) NONE SEEN Normal NONE SEEN /RARE [facility] Comment on above: Performed By: #### U AMIC #### [facility] [address] [address] [address] Esme Guzman Glucose Ql (U) >1000 Abnormal NEGATIVE [facility] Comment on above: Performed By: #### U AMIC #### [facility] [address] [address] [address] Esme Guzman Hemoglobin Ql (U) Negative Normal NEGATIVE [facility] Comment on above: Performed By: #### U AMIC #### [facility] [address] [place] [address] Dr. Esme Guzman Ketones Ql (U) TRACE Abnormal NEGATIVE [facility] Comment on above: Performed By: #### U AMIC #### [facility] [address] [address] [address] Esme Guzman LEUKOCYTES Negative Normal NEGATIVE [facility] Comment on above: Performed By: #### U AMIC #### [facility] [address] [place] [address] Dr. Esme Guzman MUCOUS NONE SEEN Normal NONE SEEN [facility] Comment on above: Performed By: #### U AMIC #### [facility] [address] [address] [address] Esme Guzman Nitrite Ql (U) Negative Normal NEGATIVE [facility] Comment on above: Performed By: #### U AMIC #### [facility] [address] [place] [address] Dr. Esme Guzman pH (U) 6.0 [pH] Normal 5-9 [facility] Comment on above: Performed By: #### U AMIC #### [facility] [address] [place] [address] Dr. Esme Guzman RBC 0-2 Normal 0-2 [facility] Comment on above: Performed By: #### U AMIC #### [facility] [address] [place] [address] Dr. Esme Guzman SPEC GRAVITY 1.010 Normal 1.005-<=1.0 25 [facility] Comment on above: Performed By: #### U AMIC #### [facility] [address] [place] [address] Dr. Esme Guzman UA PROTEIN Negative Normal NEGATIVE/ TRACE [facility] Comment on above: Performed By: #### U AMIC #### [facility] [address] [place] [address] Dr. Esme Guzman Urobilinogen Qn (U) 0.2 {Carlos'U}/dL Normal 0.2 - 1. 0 [facility] Comment on above: Performed By: #### U AMIC #### [facility] [address] [place] [address] Dr. Esme Guzman WBC NONE SEEN Normal NONE SEEN [facility] Comment on above: Performed By: #### U AMIC #### [facility] [address] [address] [address] Esme Guzman Bilirubin Ql (U) [employer] Other Clarity (U) [employer] Other Color (U) [employer] Other Crystals LM Nom (Urine sed) [employer] Other Epithelial cells LM Ql (Urine sed) [employer] Other Glucose Ql (U) [employer] Other Hemoglobin Ql (U) [employer] Other Ketones Ql (U) [employer] Other Nitrite Ql (U) [employer] Other Protein Ql (U) [employer] Other SIGMOIDOSCOPYon 08-06-2022 [facility] DEPAKENE/VALPROICon 05-06-20 22 DEPAKENE 33.8 ug/ml Critically low 50.0-100.0 [facility] Comment on above: Performed By: #### V ALP #### [facility] [address] [address] [address] Esme Guzman GLYCOHEMOGLOBIN A1Con 2021 ADA RECOMMENDATION SEE BELOW Normal [facility] Comment on above: Result Comment: ADA RECOMMENDED LIMIT 4.0 - 6.0 ADA THERAPEUTIC TARGET < 7.0 ACTION SUGGESTED > 7.0 Performed By: #### A 1C #### [facility] [address] [address] [address] Esme Guzman Glucose [Mass/Vol] 140 mg/dL Normal [facility] Comment on above: Performed By: #### A 1C #### [facility] [address] [address] [address] Esme Guzman HbA1c (Bld) [Mass fraction] 6.5 % Critically high 4.5-6.2 [facility] Comment on above: Performed By: #### A 1C #### [facility] [address] [place] [address] Dr. Esme Guzman CBC AUTO DIFFon 04-07-2022 BASO # 0.1 103/ul Normal 0.0-0.1 [facility] Comment on above: Performed By: #### C BC #### [facility] [address] [place] [address] Dr. Esme Guzman Basophils/100 WBC (Bld) 0.5 % Normal 0.2-2.0 [facility] Comment on above: Performed By: #### C BC #### [facility] [address] [place] [address] Dr. Esme Guzman EO # 0.1 103/ul Normal 0.0-0.7 [facility] Comment on above: Performed By: #### C BC #### [facility] [address] [place] [address] Dr. Esme Guzman Eosinophils/100 WBC (Bld) 1.1 % Normal 0.9-7.0 [facility] Comment on above: Performed By: #### C BC #### [facility] [address] [place] [address] Dr. Esme Guzman Erythrocyte distribution width (RBC) [Ratio] 11.6 % Normal 11.0-15.0 [facility] Comment on above: Performed By: #### C BC #### [facility] [address] [place] [address] Dr. Esme Guzman Hematocrit (Bld) [Volume fraction] 44.0 % Normal 42.0-54.0 [facility] Comment on above: Performed By: #### C BC #### [facility] [address] [place] [address] Dr. Esme Guzman Hemoglobin (Bld) [Mass/Vol] 15.6 g/dL Normal 14.0-18.0 [facility] Comment on above: Performed By: #### C BC #### [facility] [address] [place] [address] Dr. Esme Guzman IG # 0.03 10e3/ul Normal 0.00-0.03 [facility] Comment on above: Performed By: #### C BC #### [facility] [address] [place] [address] Dr. Esme Guzman IG % 0.3 % Normal 0.0-0.5 [facility] Comment on above: Performed By: #### C BC #### [facility] [address] [place] [address] Dr. Esme Guzman LYMPH # 3.2 103/ul Normal 1.2-3.8 [facility] Comment on above: Performed By: #### C BC #### [facility] [address] [place] [address] Dr. Esme Guzman Lymphocytes/100 WBC (Bld) 30.8 % Normal 20.5-60.0 [facility] Comment on above: Performed By: #### C BC #### [facility] [address] [place] [address] Dr. Esme Guzman MANUAL DIFF REQ NO Normal [facility] Comment on above: Performed By: #### C BC #### [facility] [address] [place] [address] Dr. Esme Guzman MCH (RBC) [Entitic mass] 33.1 pg Normal 25.9-34.0 [facility] Comment on above: Performed By: #### C BC #### [facility] [address] [place] [address] Dr. Esme Guzman MCHC (RBC) [Mass/Vol] 35.5 g/dL Critically high 29.9-35.2 [facility] Comment on above: Performed By: #### C BC #### [facility] [address] [place] [address] Dr. Esme Guzman MCV (RBC) [Entitic vol] 93.2 fL Normal 80.0-94.0 [facility] Comment on above: Performed By: #### C BC #### [facility] [address] [place] [address] Dr. Esme Guzman MONO # 0.8 103/ul Normal 0.3-0.8 [facility] Comment on above: Performed By: #### C BC #### [facility] [address] [place] [address] Dr. Esme Guzman Monocytes/100 WBC (Bld) 7.5 % Normal 1.7-12.0 [facility] Comment on above: Performed By: #### C BC #### [facility] [address] [place] [address] Dr. Esme Guzman NEUT # 6.2 103/ul Normal 1.4-6.5 [facility] Comment on above: Performed By: #### C BC #### [facility] [address] [place] [address] Dr. Esme Guzman Neutrophils/100 WBC (Bld) 59.8 % Normal 43.0-75.0 [facility] Comment on above: Performed By: #### C BC #### [facility] [address] [place] [address] Dr. Esme Guzman Platelet mean volume (Bld) [Entitic vol] 9.3 fL Critically low 9.5-13.5 [facility] Comment on above: Performed By: #### C BC #### [facility] [address] [place] [address] Dr. Esme Guzman PLT 318 103/ul Normal 150-450 [facility] Comment on above: Performed By: #### C BC #### [facility] [address] [place] [address] Dr. Esme Guzman RBC 4.72 106/ul Normal 4.70-6.10 [facility] Comment on above: Performed By: #### C BC #### [facility] [address] [place] [address] Dr. Esme Guzman WBC 10.3 103/ul Normal 4.0-11.0 [facility] Comment on above: Performed By: #### C BC #### [facility] [address] [place] [address] Dr. Esme Guzman PROF 14(COMP METB)on 022 Albumin [Mass/Vol] 4.0 g/dL Normal 3.4-5.0 [facility] Comment on above: Performed By: #### C MP, HSTROPN #### [facility] [address] [address] [address] Esme Guzman Albumin/Globulin [Mass ratio] 1.4 {ratio} Normal [facility] Comment on above: Performed By: #### C MP, HSTROPN #### [facility] [address] [address] [address] Esme Guzman ALP [Catalytic activity/Vol] 82 U/L Normal 46-116 [facility] Comment on above: Performed By: #### C MP, HSTROPN #### [facility] [address] [place] [address] Dr. Esme Guzman ALT [Catalytic activity/Vol] 41 U/L Normal 16-63 [facility] Comment on above: Performed By: #### C MP, HSTROPN #### [facility] [address] [place] [address] Dr. Esme Guzman Anion gap [Moles/Vol] 12.1 mmol/L Normal [facility] Comment on above: Performed By: #### C MP, HSTROPN #### [facility] [address] [place] [address] Dr. Esme Guzman AST [Catalytic activity/Vol] 21 U/L Normal 15-37 [facility] Comment on above: Performed By: #### C MP, HSTROPN #### [facility] [address] [place] [address] Dr. Esme Guzman Bilirubin [Mass/Vol] 0.3 mg/dL Normal 0.2-1.0 [facility] Comment on above: Performed By: #### C MP, HSTROPN #### [facility] [address] [place] [address] Dr. Esme Guzman Calcium [Mass/Vol] 9.0 mg/dL Normal 8.5-10.1 [facility] Comment on above: Performed By: #### C MP, HSTROPN #### [facility] [address] [place] [address] Dr. Esme Guzman Chloride [Moles/Vol] 107 mmol/L Normal 98-107 [facility] Comment on above: Performed By: #### C MP, HSTROPN #### [facility] [address] [address] [address] Esme Guzman CO2 [Moles/Vol] 24.5 mmol/L Normal 21.0-32.0 [facility] Comment on above: Performed By: #### C MP, HSTROPN #### [facility] [address] [address] [address] Esme Gzuman Creatinine [Mass/Vol] 1.05 mg/dL Normal 0.70-1.30 [facility] Comment on above: Performed By: #### C MP, HSTROPN #### [facility] [address] [address] [address] Esme Guzman EGFR-AF GRENADIAN >60 Normal >=60 [facility] Comment on above: Performed By: #### C MP, HSTROPN #### [facility] [address] [address] [address] Esme Guzman EGFR-NON AF GRENADIAN >60 Normal >=60 [facility] Comment on above: Performed By: #### C MP, HSTROPN #### [facility] [address] [address] [address] Esme Guzman Globulin (S) [Mass/Vol] 2.9 g/dL Normal [facility] Comment on above: Performed By: #### C MP, HSTROPN #### [facility] [address] [address] [address] Esme Guzman Glucose [Mass/Vol] 193 mg/dL Critically high 74-106 [facility] Comment on above: Performed By: #### C MP, HSTROPN #### [facility] [address] [address] [address] Esme Guzman Potassium [Moles/Vol] 3.6 mmol/L Normal 3.5-5.1 [facility] Comment on above: Performed By: #### C MP, HSTROPN #### [facility] [address] [address] [address] Esme Guzman Protein [Mass/Vol] 6.9 g/dL Normal 6.4-8.2 [facility] Comment on above: Performed By: #### C MP, HSTROPN #### [facility] [address] [place] [address] Dr. Esme Guzman Sodium [Moles/Vol] 140 mmol/L Normal 136-145 [facility] Comment on above: Performed By: #### C MP, HSTROPN #### [facility] [address] [place] [address] Dr. Esme Guzman Urea nitrogen [Mass/Vol] 17.0 mg/dL Normal 7.0-18.0 [facility] Comment on above: Performed By: #### C MP, HSTROPN #### [facility] [address] [place] [address] Dr. Esme Guzman Urea nitrogen/Creatinine [Mass ratio] 16.2 mg/mg Normal [facility] Comment on above: Performed By: #### C MP, HSTROPN #### [facility] [address] [place] [address] Dr. Esme Guzman TROPONIN, HIGH SENSITIVITYon 04-07-2022 HSTROP 5.2 pg/mL Normal 4.0-76.1 [facility] Comment on above: Result Comment: CUT- OFF POINTS HAVE BEEN ESTABLISHED BASED ON THE FOURTH UNIVERSAL DEFINITIONS OF MYOCARDIAL INFARCTION. THE UPPER REFERENCE LIMIT (URL) OF TROPONIN, DEFINED THE 99TH PERCENTILE OF cTnI DISTRIBUTION IN A REFERENCE POPULATION, HAS BEEN CONFIRMED THE DECISION THRESHOLD FOR LA DIAGNOSIS. Performed By: #### V ALP #### [facility] [address] [place] [address] Dr. Esme Guzman XR ABD FLAT_UPon 04-07-2022 XR ABD FLAT_UP EXAM: XR ABD FLAT_UP 04/07/2022 12:34 AM EDT [facility]001 CLINICAL STATEMENT: CONSTIPATION, UNSPECIFIED COMPARISON: No prior studies are available at the time of dictation. TECHNIQUE: Two views of the abdomen are submitted. FINDINGS: There is a nonobstructive bowel gas pattern. There is no intraperitoneal free air. There is no abnormal calcification or organomegaly detected. Bony elements are unremarkable. IMPRESSION: No evidence of bowel obstruction or free intraperitoneal air. FOLLOW-UP: Follow-up as clinically indicated. Electronically authenticated by: PRETTY GRANT Date: 2022-04-07 02:44 Normal [facility] Metabolic Pane patricio 03-11-2022 Albumin [Mass/Vol] 4.4 g/dL Normal 3.2-5.[address] [facility] Comment on above: Performed By: #### C MP #### [address] Albumin/Globulin [Mass ratio] 1.8 {ratio} Normal [facility] Comment on above: Performed By: #### C MP #### [address] ALP [Catalytic activity/Vol] 80 U/L Normal 32-92 [facility] Comment on above: Performed By: #### C MP #### [address] ALT [Catalytic activity/Vol] 35 U/L Normal 10-60 [facility] Comment on above: Performed By: #### C MP #### [address] AST [Catalytic activity/Vol] 55 U/L High 10-42 [facility] Comment on above: Performed By: #### C MP #### [address] Bilirubin [Mass/Vol] 0.7 mg/dL Normal 0.3-1.2 [facility] Comment on above: Performed By: #### C MP #### [address] Calcium [Mass/Vol] 9.6 mg/dL Normal 8.2-10.[address] [facility] Comment on above: Performed By: #### C MP #### [place] [address] [place] Chloride [Moles/Vol] 103 mmol/L Normal 95-114 [facility] Comment on above: Performed By: #### C MP #### [place] [address] [place] CO2 [Moles/Vol] 23.0 mmol/L Normal 22.0-30.0 [facility] Comment on above: Performed By: #### C MP #### [address] Creatinine [Mass/Vol] 1.07 mg/dL Normal 0.64-1.27 [facility] Comment on above: Performed By: #### C MP #### [place] [address] [place] Creatinine Clr Calc Pharmacy 70.36 [facility] Comment on above: Result Comment: PERF ORMED BY: [place] [address] PATHOLOGIST ANIMAL RIDE MANAGER KIKO JERNIGAN M.D. Performed By: #### C MP #### [address] Estimated GFR ( Ifrah > 60 [facility] Comment on above: Result Comment: GFR estimated reference range: According to KDOQI guidelines, <60 ml/min/1.73m2 is sufficient to diagnose a patient with chronic kidney disease. Performed By: #### C MP #### [address] Estimated GFR (Non- Am > 60 [facility] Comment on above: Performed By: #### C MP #### [address] Globulin (S) [Mass/Vol] 2.5 g/dL Normal [facility] Comment on above: Performed By: #### C MP #### [address] Glucose [Mass/Vol] 169 mg/dL High 70-[address] [facility] Comment on above: Result Comment: [facility] Glucose Reference Range is dependent on time and content of last meal. Glucose of more than 200 mg/dL in a nonstressed, ambulatory subject supports the diagnosis of Diabetes Mellitus. ADA recommended reference range Performed By: #### C MP #### [address] Potassium [Moles/Vol] 4.2 mmol/L Normal 3.5-5.1 [facility] Comment on above: Performed By: #### C MP #### [facility] [address] Protein [Mass/Vol] 6.9 g/dL Normal 6.1-7.[address] [facility] Comment on above: Performed By: #### C MP #### [facility] [address] Sodium [Moles/Vol] 136 mmol/L Normal 136-[address] [facility] Comment on above: Performed By: #### C MP #### [address] Urea nitrogen [Mass/Vol] 15 mg/dL Normal 9-23 [facility] Comment on above: Performed By: #### C MP #### [address] Lipid Panelon 03-10-2022 Cholesterol [Mass/Vol] 137 mg/dL Low 140-200 [facility] Comment on above: Result Comment: Chol less than 200 mg/dl low risk Chol 201-239 mg/dl borderline risk Chol 240 mg/dl and greater high risk Performed By: #### T SH3 wRFLX, [id number], LIPID #### [address] Cholesterol in HDL [Mass/Vol] 41 mg/dL Normal 29-71 [facility] Comment on above: Result Comment: HDL CHOL ATP-III CLASSIFICATION Cardiovascular Risk HDL > or equal to 60 mg/dL LOW HDL < 40 mg/dL HIGH Performed By: #### T SH3 wRFLX, [id number], LIPID #### [facility] [address] Cholesterol.total/Luanne sterol in HDL [Mass ratio] 3.3 {ratio} Normal <5.0 [facility] Comment on above: Performed By: #### T SH3 wRFLX, [id number], LIPID #### [facility] [address] LDL Cholesterol,Calculated 80 mg/dL Normal 0-100 [facility] Comment on above: Result Comment: LDL ATP III CLASSIFICATION LDL less than 100 mg/dL Optimal LDL 100-129 mg/dL Near or above optimal LDL 130-159 mg/dL Borderline high LDL 160-189 mg/dL High LDL greater than 189 mg/dL Very high Performed By: #### T SH3 wRFLX, [id number], LIPID #### [facility] [address] Triglyceride w/Reflex 80 mg/dL Normal 35-149 [facility] Comment on above: Result Comment: TRIG ATP III CLASSIFICATION TRIG less than 150 mg/dL Normal TRIG 150-199 mg/dL Borderline high TRIG 200-500 mg/dL High TRIG greater than 500 mg/dL Very high Standard traceable to the Center for Disease Conrtrol and Prevention (CDC) test method. Performed By: #### T SH3 wRFLX, [id number], LIPID #### [facility] [address] VLDL CHOLESTEROL 16 mg/dL Normal [facility] Comment on above: Performed By: #### T SH3 wRFLX, [id number], LIPID #### [facility] [address] [id number] [facility] Thyroid Stim Hormone w/Rflxo n 03-10-2022 Thyroid Stim Hormone w/Rflx 1.07 u[iU]/mL Normal 0.45-5.33 [facility] Comment on above: Performed By: #### T SH3 wRFLX, [id number], LIPID #### [facility] [address] Vitamin D 25 Hydroxy Totalon 03-10-2022 Vitamin D 25 Hydroxy Total 22.7 ng/mL Low 30-100 [facility] Comment on above: Result Comment: CARON MIN D STATUS 25(OH)VITAMIN D RANGE (ng/mL) Deficient <20 Insufficient 20 to <30 Sufficient 30 to 100 Reference: Lima GALEANA,Anibal SMYTH, Arianna SALES, et al. Evaluation,treatment, and prevention of vitamin D deficiency; an Endocrine Society clinical practice guideline. JCEM. 2010; 96(7):1911-30. PERFORMED BY: [place] [address] PATHOLOGIST ANIMAL RIDE MANAGER KIKO JERNIGAN M.D. Performed By: #### T SH3 wRFLX, [id number], LIPID #### [address] [id number] [facility] ACETAMINOPHENon 03-09-2022 Acetaminophen [Mass/Vol] ug/mL Critically low 10.0-30.0 [facility] Comment on above: Performed By: #### C MP, ACET #### [facility] [address] [place] [address] Dr. Esme Guzman CBC AUTO DIFFon 03-09-2022 BASO # 0.0 103/ul Normal 0.0-0.1 [facility] Comment on above: Performed By: #### V ALP #### [facility] [address] [place] [address] Dr. Esme Guzman Basophils/100 WBC (Bld) 0.4 % Normal 0.2-2.0 [facility] Comment on above: Performed By: #### V ALP #### [facility] [address] [place] [address] Dr. Esme Guzman EO # 0.1 103/ul Normal 0.0-0.7 [facility] Comment on above: Performed By: #### V ALP #### [facility] [address] [place] [address] Dr. Esme Guzman Eosinophils/100 WBC (Bld) 0.7 % Critically low 0.9-7.0 [facility] Comment on above: Performed By: #### V ALP #### [facility] [address] [place] [address] Dr. Esme Guzman Erythrocyte distribution width (RBC) [Ratio] 11.6 % Normal 11.0-15.0 [facility] Comment on above: Performed By: #### V ALP #### [facility] [address] [place] [address] Dr. Esme Guzman Hematocrit (Bld) [Volume fraction] 42.2 % Normal 42.0-54.0 [facility] Comment on above: Performed By: #### V ALP #### [facility] [address] [place] [address] Dr. Esme Guzman Hemoglobin (Bld) [Mass/Vol] 14.9 g/dL Normal 14.0-18.0 [facility] Comment on above: Performed By: #### V ALP #### [facility] [address] [place] [address] Dr. Esme Guzman IG # 0.02 10e3/ul Normal 0.00-0.03 [facility] Comment on above: Performed By: #### V ALP #### [facility] [address] [place] [address] Dr. Esme Guzman IG % 0.2 % Normal 0.0-0.5 [facility] Comment on above: Performed By: #### V ALP #### [facility] [address] [place] [address] Dr. Esme Guzman LYMPH # 2.7 103/ul Normal 1.2-3.8 [facility] Comment on above: Performed By: #### V ALP #### [facility] [address] [place] [address] Dr. Esme Guzman Lymphocytes/100 WBC (Bld) 29.5 % Normal 20.5-60.0 [facility] Comment on above: Performed By: #### V ALP #### [facility] [address] [place] [address] Dr. Esme Guzman MANUAL DIFF REQ NO Normal [facility] Comment on above: Performed By: #### V ALP #### [facility] [address] [place] [address] Dr. Esme Guzman MCH (RBC) [Entitic mass] 33.1 pg Normal 25.9-34.0 [facility] Comment on above: Performed By: #### V ALP #### [facility] [address] [place] [address] Dr. Esme Guzman MCHC (RBC) [Mass/Vol] 35.3 g/dL Critically high 29.9-35.2 [facility] Comment on above: Performed By: #### V ALP #### [facility] [address] [address] [address] Esme Guzman MCV (RBC) [Entitic vol] 93.8 fL Normal 80.0-94.0 [facility] Comment on above: Performed By: #### V ALP #### [facility] [address] [address] [address] Esme Guzman MONO # 0.6 103/ul Normal 0.3-0.8 [facility] Comment on above: Performed By: #### V ALP #### [facility] [address] [address] [address] Esme Guzman Monocytes/100 WBC (Bld) 7.0 % Normal 1.7-12.0 [facility] Comment on above: Performed By: #### V ALP #### [facility] [address] [place] [address] Dr. Esme Guzman NEUT # 5.7 103/ul Normal 1.4-6.5 [facility] Comment on above: Performed By: #### V ALP #### [facility] [address] [place] [address] Dr. Esme Guzman Neutrophils/100 WBC (Bld) 62.2 % Normal 43.0-75.0 [facility] Comment on above: Performed By: #### V ALP #### [facility] [address] [place] [address] Dr. Esme Guzman Platelet mean volume (Bld) [Entitic vol] 8.7 fL Critically low 9.5-13.5 [facility] Comment on above: Performed By: #### V ALP #### [facility] [address] [place] [address] Dr. Esme Guzman PLT 246 103/ul Normal 150-450 [facility] Comment on above: Performed By: #### V ALP #### [facility] [address] [place] [address] Dr. Esme Guzman RBC 4.50 106/ul Critically low 4.70-6.10 [facility] Comment on above: Performed By: #### V ALP #### [facility] [address] [place] [address] Dr. Esme Guzman WBC 9.1 103/ul Normal 4.0-11.0 [facility] Comment on above: Performed By: #### V ALP #### [facility] [address] [place] [address] Dr. Esme Guzman Covid-19 PCR ([facility])on SARS-CoV-2 (COVID-19) RNA CELESTINA+probe Ql (Unsp spec) Not detected Normal NOT DETECTED [facility] Comment on above: Result Comment: When diagnostic testing is negative, the possibility of a false negative should be considered in the context of a patient's recent exposures and the presence of clinical signs and symptoms consistent with SARS-CoV-2. This test is not yet approved or cleared by the [place] FDA. When there are no FDA-approved or cleared tests available, and other criteria are met, FDA can make tests available under an emergency access mechanism called an Emergency Use Authorization (EUA). The EUA for this test is supported by the [employer] of Health and Human Service's declaration that circumstances exist to justify the emergency use of in vitro diagnostics for the detection and/or diagnosis of the virus that causes COVID-19. This EUA will remain in effect for the duration of the COVID-19 declaration justifying emergency of IVDs, unless it is terminated or revoked by the FDA (after which the test may no longer be used). Performed By: #### C VDTBH #### [facility] [address] [place] [address] Dr. Esme Guzman DRUG SCREEN RAPID (URINE)on 03-09-2022 AMP Negative Normal NEGATIVE [facility] Comment on above: Performed By: #### V ALP #### [facility] [address] [place] [address] Dr. Esme Guzman BAR Negative Normal NEGATIVE [facility] Comment on above: Performed By: #### V ALP #### [facility] [address] [place] [address] Dr. Esme Guzman BUP Negative Normal NEGATIVE [facility] Comment on above: Performed By: #### V ALP #### [facility] [address] [place] [address] Dr. Esme Guzman BZO Negative Normal NEGATIVE [facility] Comment on above: Performed By: #### V ALP #### [facility] [address] [place] [address] Dr. Esme Guzman MARIA FERNANDA Negative Normal NEGATIVE [facility] Comment on above: Performed By: #### V ALP #### [facility] [address] [place] [address] Dr. Esme Guzman CUT-OFFS SEE BELOW Normal [facility] Comment on above: Result Comment: AMP (Amphetamine): 500ng/mL, BAR (Barbituates): 200 ng/mL, BZO (Benzodiazepines): 150 ng/mL, BUP (Buprenorphine): 10 ng/mL, MARIA FERNANDA (Cocaine): 150 ng/mL, mAMP (Methamphetamine): 500 ng/mL, MTD (Methadone): 200 ng/mL, OPI (Opiates): 100 ng/mL, OXY (Oxycodone): 100 ng/mL, PCP (Phencyclidine): 25 ng/mL, PPX (Propoxyphene): 300 ng/mL, THC (Cannabinoids): 50 ng/mL, TCA (Trycyclic Antidepressants): 300 ng/mL Performed By: #### V ALP #### [facility] [address] [place] [address] Dr. Esme Guzman DRUG CUT HEADER DRUG CLASS TEST SYSTEM CUT-OFF CONCENTRATIONS ARE FOLLOWS: Normal [facility] Comment on above: Performed By: #### V ALP #### [facility] [address] [place] [address] Dr. Esme Guzman mAMP Negative Normal NEGATIVE [facility] Comment on above: Performed By: #### V ALP #### [facility] [address] [place] [address] Dr. Esme Guzman MTD Negative Normal NEGATIVE [facility] Comment on above: Performed By: #### V ALP #### [facility] [address] [place] [address] Dr. Esme Guzman OPI Positive Abnormal NEGATIVE [facility] Comment on above: Performed By: #### V ALP #### [facility] [address] [place] [address] Dr. Esme Guzman OXY Negative Normal NEGATIVE [facility] Comment on above: Performed By: #### V ALP #### [facility] [address] [place] [address] Dr. Esme Guzman PCP Negative Normal NEGATIVE [facility] Comment on above: Performed By: #### V ALP #### [facility] [address] [place] [address] Dr. Esme Guzman PPX Negative Normal NEGATIVE [facility] Comment on above: Performed By: #### V ALP #### [facility] [address] [place] [address] Dr. Esme Guzman TCA Negative Normal NEGATIVE [facility] Comment on above: Performed By: #### V ALP #### [facility] [address] [place] [address] Dr. Esme Guzman THC Positive Abnormal NEGATIVE [facility] Comment on above: Performed By: #### V ALP #### [facility] [address] [place] [address] Dr. Esme Guzman ER URINE PROFILEon 2 Bilirubin Ql (U) Negative Normal NEGATIVE [facility] Comment on above: Performed By: #### V ALP #### [facility] [address] [place] [address] Dr. Esme Guzman Clarity (U) CLEAR Normal CLEAR [facility] Comment on above: Performed By: #### V ALP #### [facility] [address] [place] [address] Dr. Esme Guzman Color (U) YELLOW Normal YELLOW [facility] Comment on above: Performed By: #### V ALP #### [facility] [address] [place] [address] Dr. Esme Guzman ERUAHD A micrscopic examination will be performed if indicated. Normal [facility] Comment on above: Performed By: #### V ALP #### [facility] [address] [place] [address] Dr. Esme Guzman Glucose Ql (U) Negative Normal NEGATIVE [facility] Comment on above: Performed By: #### V ALP #### [facility] [address] [address] [address] Esme Guzman Hemoglobin Ql (U) Negative Normal NEGATIVE [facility] Comment on above: Performed By: #### V ALP #### [facility] [address] [place] [address] Dr. Esme Guzman Ketones Ql (U) Negative Normal NEGATIVE [facility] Comment on above: Performed By: #### V ALP #### [facility] [address] [place] [address] Dr. Esme Guzman LEUKOCYTES Negative Normal NEGATIVE [facility] Comment on above: Performed By: #### V ALP #### [facility] [address] [place] [address] Dr. Esme Guzman Nitrite Ql (U) Negative Normal NEGATIVE [facility] Comment on above: Performed By: #### V ALP #### [facility] [address] [place] [address] Dr. Esme Guzman pH (U) 6.0 [pH] Normal 5-9 [facility] Comment on above: Performed By: #### V ALP #### [facility] [address] [place] [address] Dr. Esme Guzman SPEC GRAVITY 1.020 Normal 1.005-<=1.0 25 [facility] Comment on above: Performed By: #### V ALP #### [facility] [address] [place] [address] Dr. Esme Guzman UA PROTEIN Negative Normal NEGATIVE/ TRACE [facility] Comment on above: Performed By: #### V ALP #### [facility] [address] [place] [address] Dr. Esme Guzman UR MICRO IND NOT INDICATED Normal [facility] Comment on above: Performed By: #### V ALP #### [facility] [address] [place] [address] Dr. Esme Guzman Urobilinogen Qn (U) 0.2 {Carlos'U}/dL Normal 0.2 - 1. 0 [facility] Comment on above: Performed By: #### V ALP #### [facility] [address] [place] [address] Dr. Esme Guzman ETHANOL (BLD ALC)on 03-09-20 22 ALC NOTE NOTE: 80 mg/dl is e legal limit for a blood alcohol level Normal [facility] Comment on above: Performed By: #### V ALP #### [facility] [address] [place] [address] Dr. Esme Guzman Ethanol [Mass/Vol] mg/dL Normal [facility] Comment on above: Performed By: #### V ALP #### [facility] [address] [place] [address] Dr. Esme Guzman PROF 14(COMP METB)on 022 Albumin [Mass/Vol] 4.0 g/dL Normal 3.4-5.0 [facility] Comment on above: Performed By: #### C MP, ACET #### [facility] [address] [place] [address] Dr. Esme Guzman Albumin/Globulin [Mass ratio] 1.5 {ratio} Normal [facility] Comment on above: Performed By: #### C MP, ACET #### [facility] [address] [place] [address] Dr. Esme Guzman ALP [Catalytic activity/Vol] 88 U/L Normal 46-116 [facility] Comment on above: Performed By: #### C MP, ACET #### [facility] [address] [place] [address] Dr. Esme Guzman ALT [Catalytic activity/Vol] 40 U/L Normal 16-63 [facility] Comment on above: Performed By: #### C MP, ACET #### [facility] [address] [place] [address] Dr. Esme Guzman Anion gap [Moles/Vol] 11.5 mmol/L Normal e [facility] Comment on above: Performed By: #### C MP, ACET #### [facility] [address] [place] [address] Dr. Esme Guzman AST [Catalytic activity/Vol] 24 U/L Normal 15-37 [facility] Comment on above: Performed By: #### C MP, ACET #### [facility] [address] [place] [address] Dr. Esme Guzman Bilirubin [Mass/Vol] 0.3 mg/dL Normal 0.2-1.0 [facility] Comment on above: Performed By: #### C MP, ACET #### [facility] [address] [place] [address] Dr. Esme Guzman Calcium [Mass/Vol] 8.8 mg/dL Normal 8.5-10.1 [facility] Comment on above: Performed By: #### C MP, ACET #### [facility] [address] [place] [address] Dr. Esme Guzman Chloride [Moles/Vol] 108 mmol/L Critically high 98-107 [facility] Comment on above: Performed By: #### C MP, ACET #### [facility] [address] [place] [address] Dr. Esme Guzman CO2 [Moles/Vol] 24.4 mmol/L Normal 21.0-32.0 [facility] Comment on above: Performed By: #### C MP, ACET #### [facility] [address] [place] [address] Dr. Esme Guzman Creatinine [Mass/Vol] 1.19 mg/dL Normal 0.70-1.30 [facility] Comment on above: Performed By: #### C MP, ACET #### [facility] [address] [place] [address] Dr. Esme Guzman EGFR-AF GRENADIAN >60 Normal >=60 [facility] Comment on above: Performed By: #### C MP, ACET #### [facility] [address] [place] [address] Dr. Esme Guzman EGFR-NON AF GRENADIAN >60 Normal >=60 [facility] Comment on above: Performed By: #### C MP, ACET #### [facility] [address] [place] [address] Dr. Esme Guzman Globulin (S) [Mass/Vol] 2.7 g/dL Normal T [facility] Comment on above: Performed By: #### C MP, ACET #### [facility] [address] [place] [address] Dr. Esme Guzman Glucose [Mass/Vol] 110 mg/dL Critically high 74-106 T [facility] Comment on above: Performed By: #### C MP, ACET #### [facility] [address] [address] [address] Esme Guzman Potassium [Moles/Vol] 3.9 mmol/L Normal 3.5-5.1 [facility] Comment on above: Performed By: #### C MP, ACET #### [facility] [address] [address] [address] Esme Guzman Protein [Mass/Vol] 6.7 g/dL Normal 6.4-8.2 [facility] Comment on above: Performed By: #### C MP, ACET #### [facility] [address] [place] [address] Dr. Esme Guzman Sodium [Moles/Vol] 140 mmol/L Normal 136-145 [facility] Comment on above: Performed By: #### C MP, ACET #### [facility] [address] [place] [address] Dr. Esme Guzman Urea nitrogen [Mass/Vol] 13.0 mg/dL Normal 7.0-18.0 [facility] Comment on above: Performed By: #### C MP, ACET #### [facility] [address] [place] [address] Dr. Esme Guzman Urea nitrogen/Creatinine [Mass ratio] 10.9 mg/mg Normal [facility] Comment on above: Performed By: #### C MP, ACET #### [facility] [address] [place] [address] Dr. Esme Guzman Ambulatory Clinical Summaryo n 06-07-2020 Ambulatory Clinical Summary {[id number]}CD:[id number] [facility] Consultation Noteon 04-20-20 20 Consultation Note [id number] .00CD:127 Normal [facility] Coding Summary.on 03-29-2020 Coding Summary. CODING DATE: 03/29/2020 FINAL [facility] STATUS: Home (Routine DC) PAYOR: Commercial Insurance ADMIT DX: REASON FOR VISIT DX: Z01.812 Encounter for preprocedural laboratory examination FINAL DX: PRINCIPAL: Z01.812 Encounter for preprocedural laboratory examination SECONDARY: Z11.59 Encounter for screening for other viral diseases PYMT PROC APC STAT DESCRIPTION DOCTOR NAME DATE NOTE: The code number assigned matches the documented diagnosis and / or procedure in the patient's chart. However, the narrative phrase printed from the coding software may appear abbreviated, or result in slightly different terminology. Coded By: Paige Huynh CphT Date Saved: 03/29/2020 11:58 am Normal [facility] Lab Reportson 03-27-2020 Lab Reports [id number]# 1.00CD:127 Normal [facility] IntraOperative Documentson 0 03-24-2020 IntraOperative Documents [id number]. 00CD:127 Normal [facility] Coding Summary.on 03-23-2020 Coding Summary. 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 However, the narrative phrase printed from the coding software may appear abbreviated, or result in slightly different terminology. Coded By: Darline Francis Date Saved: 03/23/2020 01:36 pm [facility] Coding Summary.on 03-22-2020 Coding Summary. CODING DATE: 03/22/2020 FINAL [facility] STATUS: Home (Routine DC) PAYOR: Commercial Insurance APC DESCRIPTION 8006 CT and CTA with Contrast Composite 5693 Level 3 Drug Administration 5691 Level 1 Drug Administration 5024 Level 4 Type A ED Visits ADMIT DX: REASON FOR VISIT DX: R10.13 Epigastric pain R11.0 Nausea FINAL DX: PRINCIPAL: R10.13 Epigastric pain SECONDARY: K22.70 Hernandez's esophagus without dysplasia K21.9 Gastro-esophageal reflux disease without esophagitis M19.90 Unspecified osteoarthritis, unspecified site F41.9 Anxiety disorder, unspecified Z79.899 Other middle or intermediate school principal (current) drug therapy Z90.89 Acquired absence of other organs PYMT PROC APC STAT DESCRIPTION DOCTOR NAME DATE NOTE: The code number assigned matches the documented diagnosis and / or procedure in the patient's chart. However, the narrative phrase printed from the coding software may appear abbreviated, or result in slightly different terminology. Revised Coded By: Jenna Pink Revised Date Saved: 03/22/2020 03:40 pm [facility] Main OR Intraoperative Recor don 03-22-2020 Main OR Intraoperative Record IntraOp Document Type FT Summary Primary Physician: Mary WARD MD Finalized Date/Time: 03/22/20 09:41:10 Pt. Name: QUINN TRONCOSO/Sex: 1965 Male Med Rec #: [id number] Physician: Mary WARD MD Financial #: [id number] Pt. Type: O Room/Bed: / Admit/Disch: 03/20/20 08:30:43 - 03/20/20 23:59:59 Institution: Case Times FT Entry 1 Patient Times In Room 03/20/20 09:21:00 Out Room 03/20/20 09:45:00 Procedure Times Start 03/20/20 09:25:00 Stop 03/20/20 09:41:00 Anesthesia Times Start 03/20/20 09:21:00 Stop 03/20/20 09:45:00 Last Modified By: Anne-Marie Diego RN 03/20/20 09:45:36 General Comments: 03/22/20 Chart open to review and send charges. Phi Ferrara RN Case Attendance FT Entry 1 Entry 2 Entry 3 Case Attendee Leroy Ramon DO, Brenden Diego RN, [place] Role Performed Anesthesiologist of Insurance Sales Associate - Primary Scrub - Other Record Time In 03/20/20 09:21:00 03/20/20 09:21:00 03/20/20 09:32:00 Time Out 03/20/20 09:45:00 03/20/20 09:45:00 03/20/20 09:45:00 Procedure EGD(.) EGD(.) EGD(.) Comments help in room Last Modified By: Johnathon GRIJALVA, Anne-Marie Diego RN, Anne-Marie Diego RN, Anne-Marie 03/20/20 09:45:38 03/20/20 09:45:38 03/20/20 09:45:38 Entry 4 Entry 5 Case Attendee JORGE CERNA, Mary Levin CST, Elsy Becker Role Performed Surgeon - Primary Scrub - Primary Time In 03/20/20 09:21:00 03/20/20 09:21:00 Time Out 03/20/20 09:45:00 03/20/20 09:45:00 Procedure EGD(.) EGD(.) Comments Last Modified By: Johnathon GRIJALVA, Anne-Marie Diego RN, Anne-Marie 03/20/20 09:45:38 03/20/20 09:45:38 Perioperative Protocols FT Pre-Care Text: Implements protective measures prior to operative or invasive procedure, confirms identity before the operative or invasive procedure, verifies operative procedure, surgical site, and laterality Entry 1 Procedure(s) EGD(.) Patient Identity Birthday, ID Band Verified (select at Check, Patient least 2): Participation Consents / H and P Anesthesia Consent, Operative Site N/A Verified HandP, Surgery/Procedure Marking Verified Consent Surgical Site Yes Laterality Verified n/a Verified Procedure Verified Yes Correct Patient Yes Position Verified Availability Equipment, Medication Prep Dry n/a Verified (If Applicable) PreOp Antibiotic No Time Out Brenden Harper Jr, DO, Given Participants Johnathon GRIJALVA, JORGE Xie MD, Ollie Hernandez CST, Elsy Becker Time Out Complete 03/20/20 09:24:00 Outcomes Met? Yes Last Modified By: Anne-Marie Diego RN 03/20/20 09:25:12 Post-Care Text: The patient is free from signs and symptoms of injury caused by extraneous objects Allergy Information FT Pre-Care Text: Verifies allergies Entry 1 Allergies Reviewed? Yes Allergies Reviewed Self/Patient With Outcomes Met? Yes Last Modified By: Anne-Marie Diego RN 03/20/20 06:53:05 Post-Care Text: The patient received appropriate medication(s) safely administered during the perioperative period Surgical Procedures FT Entry 1 Procedure Description Procedure EGD Modifiers . Surgeon Description EGD with biopsy of Hernandez's esophagus and one large gastric polypectomy injected with eleview and Epinephrine (0.1mg/ml) removed with hot snare. Multiple gastric polypectomies x6 removed with hot snare and net retrieval. Primary Procedure Yes Primary Surgeon Mary WARD MD 03/20/20 09:25:00 Stop 03/20/20 09:41:00 Anesthesia Type General Surgical Service Gastroenterology Wound Class 2 - Clean-Contaminated Last Modified By: Anne-Marie Diego RN 03/20/20 09:52:02 General Case Data FT Pre-Care Text: Classifies surgical wound, implements aseptic technique, initiates traffic control Entry 1 Case Information OR ENDO 1 FT Case Level Level 2 Wound Class 2 - Clean-Contaminated Specialty Gastroenterology ASA Class 3 Preop Diagnosis EPIGASTRIC PAIN Postop Same As Preop No Postop Diagnosis Hernandez's esophagus, Outcomes Met? Yes gastric polyps x6 and hiatal hernia Last Modified By: Anne-Marie Diego RN 03/20/20 09:49:45 Post-Care Text: The patient is free from signs and symptoms of infection Skin Assessment (Pre Procedure) FT Pre-Care Text: Implements protective measures to prevent skin/ tissue injury due to thermal or mechanical sources Evaluates for signs and symptoms of physical injury to skin and tissue Entry 1 Skin Integrity Intact, [place], Warm, and Skin Abnormality No Dry Outcomes Met? Yes Last Modified By: Anne-Marie Diego RN 03/20/20 06:53:26 Post-Care Text: The patient is free from signs and symptoms of injury caused by extraneous objects Patient Positioning FT Pre-Care Text: Identifies physical alterations that require additional precautions for procedure-specific positioning, verifies presence of prosthetics or corrective devices, positions the patient, evaluates the patient for signs and symptoms of injury as a result of positioning Entry 1 Procedure EGD(.) Body Position Lateral, right side up Feet Uncrossed? Yes Left Arm Position Resting at Side Right Arm Position Resting at Side Left Leg Position Extended Right Leg Position Extended Positioning Device Safety Strap, Pillow Under Head Large Press Points Checked Yes By Anne-Marie Diego RN Outcomes Met? Yes Last Modified By: Anne-Marie Diego RN 03/20/20 06:53:35 Post-Care Text: The patient is free from signs and symptoms of injury related to positioning Patient Care Devices FT Pre-Care Text: Implements protective measures to prevent skin/ tissue injury due to thermal or mechanical sources Entry 1 Entry 2 Entry 3 Equipment Type ENDOSCOPY VIDEO MONITOR CHARGE SURGERY CAUTERY ERBE UNIT [F] SYSTEM[F] [F] Equipment Number [id number] Equipment Setting Outcomes Met? Yes Yes Yes Last Modified By: Anne-Marie Diego RN, RN, Anne-Marie Diego RN, Anne-Marie 03/20/20 06:53:51 03/20/20 06:53:51 03/20/20 09:34:32 Post-Care Text: The patient is free from signs and symptoms of injury caused by extraneous objects Transport To OR Pre-Care Text: Transports according to individual needs. Evaluates for signs and symptoms of skin and tissue injury as a result of transfer or transport Entry 1 Via Cart By Anne-Marie Diego RN Safety Precautions Side Rails Up Outcomes Met? Yes Last Modified By: Anne-Marie Diego RN 03/20/20 06:53:56 Post-Care Text: The patient is free from signs and symptoms of injury related to transfer/transport Cautery FT Pre-Care Text: Implements protective measures to prevent injury due to electrical sources, and evaluates for signs and symptoms of electrical injury Entry 1 ESU Identification ESU Type CAUTERY ERBE UNIT [F] ESU Settings ESU Grounding Pad Site Right Flank Hair Removal Pad No Site Pre Pad Site Clear and Intact Post Pad Site Clear and Intact Condition Condition Grounding Pad Anne-Marie Diego RN Placed By Outcomes Met? Yes Last Modified By: Anne-Marie Diego RN 03/20/20 09:35:24 Post-Care Text: The patient if free from signs and symptoms of electrical injury General Comments: Heat settings per ERBE using hot snare/biopsy./AW RN Departure From OR FT Pre-Care Text: Transports according to individual needs. Evaluates for signs and symptoms of skin and tissue injury as a result of transfer or transport. Entry 1 Via Cart Safety Precautions Side Rails Up PostOp Destination PACU Transported By Anne-Marie Diego RN Patient Status Stable Skin. Condition Intact, [place], Warm, and Dry Airway Maintenance Oxygen in Use? No Airway Device N/A Outcomes Met? Yes Last Modified By: Anne-Marie Diego RN 03/20/20 06:54:51 Post-Care Text: The patient is free from signs and symptoms of injury related to transfer/transport General Comments: REPORT GIVEN TO TACK CLEANER/AW sales manager [place] Administration FT Pre-Care Text: Verifies allergies, administers prescribed medications and solutions, administers prescribed antibiotic therapy and immunizing agents as ordered, evaluates response to medications Administers prescribed medications and solutions Entry 1 Expiration Date Yes Outcomes Met? Yes Verified Last Modified By: Anne-Marie Diego RN 03/20/20 06:55:54 Post-Care Text: The patient received appropriate medication(s) safely administered during the perioperative period For Edilma please see scanned medication reconcilliation form for medications used at the field during the procedure. Cultures and Specimens FT Pre-Care Text: Manages specimen handling and disposition Manages culture specimen collection Entry 1 Cultures Ordered n/a Specimens Ordered Yes Specimen Disposition Designated OR Area Frozen Section Times Outcomes Met? Yes Last Modified By: Anne-Marie Diego RN 03/20/20 09:33:36 Post-Care Text: The patient is free from signs and symptoms of injury caused by extraneous objects The patient is free from signs and symptoms of infection Case Comments Finalized By: KRISTINA Ferrara RN, [place] Document Signatures Signed By: Anne-Marie Diego RN 03/20/20 09:52 Anne-Marie Diego RN 03/20/20 09:52 Anne-Marie Diego RN 03/20/20 09:52 KRISTINA Ferrara RN, Lou Ann 03/22/20 09:41 Normal [facility] Physician Referralon 020 Physician Referral [id number] .00CD:127 Normal [facility] Postoperative Documentson Postoperative Documents [id number]# 1.00CD:127 Normal [facility] Progress Note-Physicianon Progress Note-Physician Patient: QUINN TRONCOSO Age: 54 years Sex: Male : 1965 Associated Diagnoses: None Author: Brenden Harper Jr, DO Preoperative Information Anesthesia Preop Information NPO 8 HOURS EXCEPT GI PREP AT LEAST 4 HOURS PRIOR TO PROCEDURE Anesthesia history: Patient history: No prior anesthesia problems. Re-evaluation prior to induction: Initial evaluation reviewed: No significant change. Anesthesia results Review of Systems Cardiovascular: Negative. Respiratory: Negative. Health Status Allergies: Allergic Reactions (Selected) Severity Not Documented Antihistamines- No reactions were documented. OxyCONTIN- Hallucinations. Percocet- High heart rate. Current medications: (Selected) Inpatient Medications Ordered Sodium Chloride 0.9% IV Darby 1000 mL 1,000 mL: 1,000 mL, IV, 20 mL/hr, Routine, Start date 03/20/20 6:53:00 EDT, 50 hour(s), Total volume (mL): 1,000, 1.94, m2 Prescriptions Prescribed Carafate 1 g/10 mL Susp-Oral: 1 gram = 10 mL, Oral, QID, X 7 day(s), # 280 mL, Refills(s) 0, Pharmacy: [facility]/pharmacy #[id number], 170, cm, 03/13/20 13:10:00 EDT, Height/Length Measured, 85, kg, 03/13/20 13:10:00 EDT, Weight Measured Check BMP in 3-5 days: Check BMP in 3-5 days, Fax results to primary care physician. Diagnoses : electrolyte abnormalities, Print Requisition, Supply Check CBC in 3-5 days: Check CBC in 3-5 days, Fax results to primary care physician. Diagnoses : GI bleed, Print Requisition, Supply Documented Medications Documented Dulera 200 mcg-5 mcg/inh inhalation aerosol: 2 puff(s), Inhalation, BID, Shortness of breath or wheezing Flexeril 10 mg Tab: 10 mg = 1 tab(s), Oral, As Directed, Refills(s) 0, Nerves Lexapro 20 mg Tab: 20 mg = 1 tab(s), Oral, Daily, tab(s), Refills(s) 0, Depression Lipitor 40 mg Tab: 40 mg = 1 tab(s), Oral, Daily, Refills(s) 0, High cholesterol Magnesium 2 gram IVPB: Refills(s) 0 Zofran 4 mg Tab: 1 tab(s), Oral, q6hr, PRN Nausea, # 8, Refills(s) 0 acetaminophen-hydroco done 325 mg-5 mg oral tablet: 1 tab(s), Oral, Pain - Moderate, Refill(s) 0 aspirin 81 mg Oral EC Tab: 81 mg = 1 tab(s), Oral, Daily, # 30 tab(s), Refills(s) 0, Blood Thinner duloxetine: 30 mg, Oral, Refills(s) 0, Psychosis glimepiride: Oral, Daily, Refills(s) 0 magnesium oxide: 250 mg, Oral, Daily, Refills(s) 0, Prophylaxis ondansetron: Refills(s) 0 pantoprazole: 40 mg, Oral, BID, Refills(s) 0, Control of stomach acid sucralfate: gram, Oral, QIDACHS, Refills(s) 0 zonisamide: 200 mg, Oral, Once a day (at bedtime), Refills(s) 0, Headache, Home Medications (18) Active acetaminophen-hydroco done 325 mg-5 mg oral tablet 1 tab(s), PRN, Oral aspirin 81 mg Oral EC Tab 81 mg = 1 tab(s), Oral, Daily Carafate 1 g/10 mL Susp-Oral 1 gram = 10 mL, Oral, QID Check BMP in 3-5 days 0 Check CBC in 3-5 days 0 Dulera 200 mcg-5 mcg/inh inhalation aerosol 2 puff(s), Inhalation, BID duloxetine 30 mg, Oral Flexeril 10 mg Tab 10 mg = 1 tab(s), Oral, As Directed glimepiride , Oral, Daily Lexapro 20 mg Tab 20 mg = 1 tab(s), Oral, Daily Lipitor 40 mg Tab 40 mg = 1 tab(s), Oral, Daily Magnesium 2 gram IVPB magnesium oxide 250 mg, Oral, Daily ondansetron pantoprazole 40 mg, Oral, BID sucralfate , Oral, QIDACHS Zofran 4 mg Tab 1, PRN, Oral, q6hr zonisamide 200 mg, Oral, Once a day (at bedtime) Problem list: All Problems Obesity / ICD-9-CM 278.00 / Possible Obesity / SNOMED CT [id number] / Possible Resolved: Acid reflux / SNOMED CT 895131087 Resolved: Anxiety / SNOMED CT 89888919 Resolved: Arthritis / SNOMED CT 8206355 Resolved: At risk for falls / SNOMED CT 391337076 Problem added when Risk for Falls Careplan was initiated. Resolved due to patient discharge. Resolved: barretts esophagus Resolved: herniated disc in neck cervical fusion at [facility] pt has titanium plate and screws in neck Resolved: migaine haedaches Resolved: raynauds Resolved: sleep apnea / SNOMED CT 129548592 uses P-PAP Histories Past Medical History: Resolved herniated disc in neck: Onset on 10/11/2008 at 43 years. Resolved. Comments: 10/11/2010 EST 7:10 EST - KlRobina ewing LPN cervical fusion at [facility] pt has titanium plate and screws in neck Acid reflux (672136408): Resolved. barretts esophagus: Resolved. Anxiety (97411038): Resolved. Arthritis (0410013): Resolved. migaine haedaches: Resolved. raynauds: Resolved. sleep apnea (300146270): Resolved. Comments: 10/11/2010 EST 7:11 EST - Robina Bates LPN uses P-PAP Social History Social & Psychosocial Habits Alcohol 10/10/2010 Risk Assessment: Low Risk 11/03/2019 Use: Past Comment: denies - 11/03/2019 21:11 Val Casillas RN Substance Abuse 10/10/2010 Risk Assessment: Denies Substance Abuse Comment: denies - 11/03/2019 21:11 Val Casillas RN Tobacco 10/10/2010 Risk Assessment: Denies Tobacco Use 03/13/2020 Tobacco Use: Never (less than 100 in l Comment: denies - 11/03/2019 21:11 Val Casillas RN . Physical Examination Airway: Mallampati classification: II (soft palate, fauces, uvula visible). Respiratory: Lungs are clear to auscultation. Cardiovascular: Regular rhythm. Neurologic: Alert, Oriented. Plan [place] [employer] Anesthesiologists (ASA) physical status classification: Class III. Anesthetic Preoperative Plan Anesthesia: General. . Anesthetic plan, risks, benefits, and alternatives discussed with the patient and/or family. Communication: face to face with (patient 5 minutes, Patient educated on smoking cesstation). [facility] Comment on above: Result Comment: Elec tronically Signed By: Brenden Harper Jr, DO\.hailee\Date and Time Signed: 03/22/20 09:53 EDT Coding Summary.on 03-21-2020 Coding Summary. 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 However, the narrative phrase printed from the coding software may appear abbreviated, or result in slightly different terminology. Revised Coded By: Briana Ho Revised Date Saved: 03/21/2020 10:58 am [facility] Consenton 03-21-2020 Consent [id number]#1 .00CD:127 [facility] Discharge Instructionson Discharge Instructions [id number] .00CD:127 [facility] History and Physicalon 03-21 History and Physical [id number]#1 .00CD:127 Normal [facility] IntraOperative Documentson 0 03-21-2020 IntraOperative Documents [id number] .00CD:127 Normal [facility] IntraOperative Documents [id number]#1 .00CD:127 Normal [facility] Auto Diffon 03-20-2020 Basophils/100 WBC (Bld) 0.5 % Normal 0.0-2.0 [facility] Comment on above: Order Comment: Order Added by Discern Expert. Performed By: #### 2 600059, 5796828, 8068324, 33523301, 2872002, 0507737 #### [facility] [address] [place] [address] Basophils/Leukocytes Auto (Bld) [Pure # fraction] 0.0 E9/L Normal 0.0-0.2 [facility] Comment on above: Order Comment: Order Added by Discern Expert. Performed By: #### 2 862558, 5516442, 8255169, 98166422, 4851484, 7232879 #### [facility] [address] [place] [address] Eosinophils/100 WBC (Bld) 0.5 % Normal 0.0-8.0 [facility] Comment on above: Order Comment: Order Added by Discern Expert. Performed By: #### 2 320242, 5547520, 1487307, 32251694, 3848963, 1871403 #### [facility] [address] [place] [address] Eosinophils/Leukocytes Auto (Bld) [Pure # fraction] 0.0 E9/L Normal 0.0-0.5 [facility] Comment on above: Order Comment: Order Added by Discern Expert. Performed By: #### 2 850557, 3482877, 5219283, 75238403, 3975441, 3940067 #### [facility] [address] [place] [address] Lymphocytes/100 WBC (Bld) 24.8 % Normal 14.0-50.0 [facility] Comment on above: Order Comment: Order Added by Discern Expert. Performed By: #### 2 098752, 8353688, 1704470, 51037764, 7840915, 2754907 #### [facility] [address] [place] [address] Lymphocytes/Leukocytes Auto (Bld) [Pure # fraction] 2.3 E9/L Normal 1.0-4.0 [facility] Comment on above: Order Comment: Order Added by Discern Expert. Performed By: #### 2 648077, 1723166, 1525496, 32821569, 5320336, 7894266 #### [facility] [address] [place] [address] Monocytes/100 WBC (Bld) 6.4 % Normal 4.0-14.0 [facility] Comment on above: Order Comment: Order Added by Discern Expert. Performed By: #### 2 691412, 8783474, 6532565, 32479418, 0887061, 6125951 #### [facility] [address] [place] [address] Monocytes/Leukocytes Auto (Bld) [Pure # fraction] 0.6 E9/L Normal 0.2-1.0 [facility] Comment on above: Order Comment: Order Added by Discern Expert. Performed By: #### 2 392549, 7538121, 2161677, 31222404, 6394182, 1218001 #### [facility] [address] [place] [address] Neutrophils/100 WBC (Bld) 67.8 % Normal 36.0-75.0 [facility] Comment on above: Order Comment: Order Added by Discern Expert. Performed By: #### 2 514929, 5338960, 1191058, 18195082, 9035750, 0441434 #### [facility] [address] [place] [address] Neutrophils/Leukocytes Auto (Bld) [Pure # fraction] 6.4 E9/L Normal 2.0-7.5 [facility] Comment on above: Order Comment: Order Added by Discern Expert. Performed By: #### 2 196063, 7600256, 4799030, 56063695, 4522536, 6286047 #### [facility] [address] [place] [address] BMPon 03-20-2020 Creatinine [Mass/Vol] 0.9 mg/dL Normal 0.5-1.3 [facility] Comment on above: Performed By: #### 2 776164, 7978642, 1355430, 92300473, 3025224, 5708051 #### [facility] [address] [place] [address] Urea nitrogen [Mass/Vol] 14 mg/dL Normal 5-21 [facility] Comment on above: Performed By: #### 2 018996, 4781558, 5513503, 42576623, 1719488, 6626199 #### [facility] [address] [place] [address] Urea nitrogen/Creatinine [Mass ratio] 16 No Units Normal 10-20 [facility] Comment on above: Performed By: #### 2 369638, 2139460, 8973805, 09868860, 7905093, 0554406 #### [facility] [address] [place] [address] Anion gap [Moles/Vol] 9 mmol/L Normal 6-16 [facility] Comment on above: Performed By: #### 2 759560, 4028954, 4751676, 34298472, 2722544, 1071640 #### [facility] [address] [place] [address] Calcium [Mass/Vol] 8.7 mg/dL Low 8.9-11.1 [facility] Comment on above: Performed By: #### 2 224992, 0747706, 3413681, 46821011, 0586044, 0044329 #### [facility] [address] [place] [address] Chloride [Moles/Vol] 110 mmol/L Normal 101-111 [facility] Comment on above: Performed By: #### 2 773749, 3487583, 6870317, 07485102, 4985905, 7578277 #### [facility] [address] [place] [address] CO2 [Moles/Vol] 23 mmol/L Normal 21-31 [facility] Comment on above: Performed By: #### 2 107287, 1567952, 0527510, 19275884, 7176912, 3837217 #### [facility] [address] [place] [address] Glucose [Mass/Vol] 115 mg/dL Normal 55-199 [facility] Comment on above: Result Comment: If t his glucose result represents a fasting glucose, interpretation should refer to the following reference range: 55-99 mg/dL Performed By: #### 2 476195, 3911424, 8801854, 53247411, 7913978, 7272416 #### [facility] [address] [place] [address] Potassium [Moles/Vol] 3.8 mmol/L Normal 3.5-5.3 [facility] Comment on above: Performed By: #### 2 091760, 0420386, 6338569, 60446711, 9142857, 6162628 #### [facility] [address] [place] [address] Sodium [Moles/Vol] 138 mmol/L Normal 135-145 [facility] Comment on above: Performed By: #### 2 614033, 9930952, 3210750, 66997920, 6330538, 6965859 #### [facility] [address] [place] [address] CBC w/ Auto Diffon 0 Erythrocyte distribution width (RBC) [Ratio] 12.2 % Normal 10.9-14.2 [facility] Comment on above: Performed By: #### 2 119362, 0526338, 7946381, 78138780, 9493457, 5463384 #### [facility] [address] [place] [address] Hematocrit (Bld) [Volume fraction] 47.0 % Normal 37.7-49.0 [facility] Comment on above: Performed By: #### 2 021090, 8191986, 2366347, 52994733, 6483762, 1881404 #### [facility] [address] [place] [address] Hemoglobin (Bld) [Mass/Vol] 16.4 g/dL Normal 13.5-17.5 [facility] Comment on above: Performed By: #### 2 956898, 7002196, 7858916, 23684603, 0770410, 9003331 #### [facility] [address] [place] [address] MCH (RBC) [Entitic mass] 33.4 pg Normal 27.0-34.0 [facility] Comment on above: Performed By: #### 2 552493, 4406107, 6584589, 77477121, 2016433, 0903783 #### [facility] [address] [place] [address] MCHC (RBC) [Mass/Vol] 34.8 g/dL Normal 31.4-36.0 [facility] Comment on above: Performed By: #### 2 648115, 0294924, 0969590, 90887392, 2957194, 9638233 #### [facility] [address] [place] [address] MCV (RBC) [Entitic vol] 95.9 fL Normal 80.0-100.0 [facility] Comment on above: Performed By: #### 2 667239, 2488431, 9290273, 62895821, 7374062, 4550274 #### [facility] [address] [place] [address] Platelet mean volume (Bld) [Entitic vol] 6.8 fL Normal 6.4-10.8 [facility] Comment on above: Performed By: #### 2 876934, 6244791, 1975639, 17734820, 5181682, 5598050 #### [facility] [address] [place] [address] Platelets (Bld) [#/Vol] 256.0 E9/L Normal 150.0-500.0 [facility] Comment on above: Performed By: #### 2 133399, 3408607, 3748366, 94401359, 9605069, 0741795 #### [facility] [address] [place] [address] RBC (Bld) [#/Vol] 4.9 E12/L Normal 4.3-5.9 [facility] Comment on above: Performed By: #### 2 957114, 8283620, 9363853, 22410653, 8618523, 5293691 #### [facility] [address] [place] [address] WBC corrected for nucl RBC Auto (Bld) [#/Vol] 9.5 E9/L Normal 4.0-11.0 [facility] Comment on above: Performed By: #### 2 110197, 4258158, 8961507, 06482248, 3350229, 8969841 #### [facility] [address] [place] [address] Abdomen/Pelvis w/ Contras ton 03-20-2020 CT Abdomen/Pelvis w/ Contrast Exam Date/Time: 03/20/2020 13:59 EDT Reason for Exam: Abdominal abscess/infection suspected;Other (please specify) Report PLEASE REFER TO THE CT CHEST WITH CONTRAST REPORT. All CT scans at this facility use dose modulation, iterative reconstruction, and/or weight based dosing when appropriate to reduce radiation dose to as low as reasonably achievable. FINAL REPORT Dictated: 03/20/2020 2:31 pm Torsten Cervantes MD Signed (Electronic Signature): 03/20/2020 2:31 pm Signed by: Torsten Cervantes MD Transcribed by: SATISH Technologist: WINSTON Technical Comments GFR (mL/min/1/73m2) >60 Contrast: Isovue 300 Contrast amount in ml's: 100 Rectal Contrast Given? No Normal [facility] CT Chest w/ Contraston 03-20 CT Chest w/ Contrast Exam Date/Time: 03/20/2020 13:58 EDT Reason for Exam: endoscopy;Other (please specify) Report IMPRESSION: 1. NONDILATED ESOPHAGUS APPEARS UNREMARKABLE. 2. NO MEDIASTINAL HEMATOMA OR PNEUMOMEDIASTINUM. 3. NO MEDIASTINAL MASS OR ADENOPATHY. 4. NO PULMONARY INFILTRATES, PLEURAL EFFUSIONS AND NO PNEUMOTHORAX. 5. NO FREE FLUID , HEMATOMA OR PNEUMOPERITONEUM IN THE ABDOMEN. 6. SUBTOTAL COLECTOMY WITH SATISFACTORY ILEAL-SIGMOID COLON ANASTOMOSIS. 7. ADDITIONAL INCIDENTAL FINDINGS MAY BE FOUND IN BODY OF REPORT. CLINICAL HISTORY: CHEST AND ABDOMEN PAIN FOLLOWING UPPER ENDOSCOPY TODAY, HISTORY COLON CANCER COMMENT: CT CHEST WITH IV CONTRAST COMPARISONS: None available. TECHNIQUE: Axial and MPR CT images of the chest obtained after the administration of 100 mL Isoview [address] images viewed with pulmonary, mediastinal and bone window settings. FINDINGS: The heart is not enlarged and there are no pericardial effusions. No thoracic aorta aneurysm or dissection. 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 Remaining great vessels unremarkable. There are a few small nonspecific mediastinal lymph nodes and small calcified right hilar and AP window lymph nodes. There is no mediastinal mass or adenopathy. No esophageal dilatation. No evidence of a mediastinal hematoma or pneumomediastinum. There is bibasilar dependent atelectasis and no pulmonary infiltrates or pleural effusions. There is no pneumothorax. There is mild degenerative bone spurring in the thoracic spine and remainder of bony thorax unremarkable. CLINICAL HISTORY: ABDOMINAL PAIN POST UPPER ENDOSCOPY, HISTORY OF COLON CANCER AND PRIOR SUBTOTAL COLECTOMY COMMENT: CT ABDOMEN/PELVIS WITH IV CONTRAST COMPARISON: 03/13/2020 and 01/15/2019 FINDINGS: Comparison is made to the prior CT abdomen scans. Once again, there is evidence of a prior subtotal colectomy with an apparent satisfactory appearing ileal-sigmoid colon anastomosis. Nondistended small bowel unremarkable and no SBO. Nondistended stomach unremarkable. No hepatomegaly but there is evidence of hepatic steatosis. Gallbladder, spleen, pancreas and adrenal glands appear normal. Bilateral renal cysts appear unchanged from prior CT abdomen scans. No nephrolithiasis or hydronephrosis. Mild Report atherosclerotic calcification of aorta and no abdominal aorta aneurysm. No retroperitoneal adenopathy. No free fluid , abscess or pneumoperitoneum in abdomen. CT scan of pelvis demonstrates a slightly enlarged prostate gland with prostatic calcifications. Urinary bladder appears normal. No pelvic mass, adenopathy or free fluid in the pelvis. CT scans with bone window settings demonstrate degenerative and arthritic changes throughout the lumbar spine. All CT scans at this facility use dose modulation, iterative reconstruction, and/or weight based dosing when appropriate to reduce radiation dose to as low as reasonably achievable. FINAL REPORT Dictated: 03/20/2020 2:30 pm Torsten Cervantes MD Signed (Electronic Signature): 03/20/2020 2:30 pm Signed by: Torsten Cervantes MD Transcribed by: SATISH Technologist: WINSTON Technical Comments GFR (mL/min/1/73m2) >60 Contrast: Isovue 300 Contrast amount in ml's: 100 Normal [facility] Consent for Treatmenton 03-08 Consent for Treatment [id number] .00CD:127 Normal [facility] Consent for Treatment [id number] .00CD:127 Normal [facility] Discharge Instructionson Discharge Instructions [id number] .00CD:127 Normal [facility] ED Clinical Summaryon 2019 ED Clinical Summary [place] [id number] ED Clinical Summary Person Information Name: QUINN TRONCOSO/[facility] Age: 54 Years : 1965 Sex: Male Language: Rwandan PCP: MARLON KEATING DO Marital Status: Phone: [phone] Visit Id: Visit Reason: Abdominal pain; ABDOMINAL PAIN, NAUSEA Speciality: Acuity: 3 Enc Type: Emergency Med Service: Emergency Arrival: 03/20/2020 11:39:01 Discharge: 03/20/2020 16:10:09 LOS: 000 04:31 Checkin: 03/20/2020 11:39:01 Checkout: 03/20/2020 16:10:09 Dispo Type: Home (Routine DC) EVENTS: Event Name Event Status Request Date/Time Start Date/Time Complete Date/Time Arrive Complete 03/20/2020 11:39:01 03/20/2020 11:39:01 03/20/2020 11:39:01 Document Home Meds Request 03/20/2020 11:39:01 Triage Complete 03/20/2020 11:39:01 03/20/2020 12:06:05 03/20/2020 12:06:05 NPO Request 03/20/2020 12:07:33 Pending Labs Complete 03/20/2020 12:07:33 03/20/2020 12:47:08 Lab Complete 03/20/2020 12:07:33 03/20/2020 12:47:08 Pending Labs Complete 03/20/2020 12:25:39 03/20/2020 12:25:39 03/20/2020 12:47:10 Lab Complete 03/20/2020 12:25:39 03/20/2020 12:25:39 03/20/2020 12:47:10 Pending Labs Complete 03/20/2020 12:29:46 03/20/2020 12:29:46 03/20/2020 12:29:56 Lab Complete 03/20/2020 12:29:46 03/20/2020 12:29:46 03/20/2020 12:29:56 Bed Assign Complete 03/20/2020 12:40:14 03/20/2020 12:40:14 03/20/2020 12:40:14 Dr Exam Complete 03/20/2020 12:40:14 03/20/2020 12:55:04 03/20/2020 12:55:04 RN Exam Complete 03/20/2020 12:40:14 03/20/2020 14:35:19 03/20/2020 14:35:19 Registration Complete 03/20/2020 12:55:04 03/20/2020 13:11:08 03/20/2020 13:11:08 Pending Labs Complete 03/20/2020 12:57:27 03/20/2020 13:46:23 Lab Complete 03/20/2020 12:57:27 03/20/2020 13:46:23 EKG Complete 03/20/2020 12:57:27 03/20/2020 13:05:15 Patient Care Complete 03/20/2020 12:57:40 03/20/2020 13:29:26 Reg Complete Request 03/20/2020 13:11:08 Meds Admin Complete 03/20/2020 13:24:41 03/20/2020 14:23:26 CT Complete 03/20/2020 13:24:41 03/20/2020 13:30:05 03/20/2020 13:59:02 Discharge Complete 03/20/2020 14:45:48 03/20/2020 16:17:22 03/20/2020 16:17:22 Meds Admin Complete 03/20/2020 14:46:40 03/20/2020 15:20:15 Pending Labs Complete 03/20/2020 15:20:31 03/20/2020 15:20:31 03/20/2020 15:20:31 Pending Labs Complete 03/20/2020 15:20:57 03/20/2020 15:20:57 03/20/2020 15:20:57 Transfer Complete 03/20/2020 16:17:22 03/20/2020 16:17:22 03/20/2020 16:17:22 ADDRESS: [address] [place] [id number] PHYS DOC NOTES: MEDICAL INFORMATION: Prescriptions Given: Medications to Continue with No Changes Other Medications acetaminophen-hydroco done (acetaminophen-hydroc odone 325 mg-5 mg oral tablet) 1 Tablets By Mouth 2 times a day as needed Pain - Moderate. aspirin (aspirin 81 mg Oral EC Tab) 1 Tablets By Mouth every day. atorvastatin (Lipitor 40 mg Tab) 1 Tablets By Mouth every day. cyclobenzaprine (Flexeril 10 mg Tab) 1 Tablets By Mouth As Directed. duloxetine 30 Milligram By Mouth. escitalopram (Lexapro 20 mg Tab) 1 Tablets By Mouth every day. formoterol-mometasone (Dulera 200 mcg-5 mcg/inh inhalation aerosol) 2 Puffs Inhalation 2 times a day. glimepiride By Mouth every day. magnesium oxide 250 Milligram By Mouth every day. Misc Prescription (Check BMP in 3-5 days) 0. Fax results to primary care physician. Diagnoses : electrolyte abnormalities. Refills: 0. Misc Prescription (Check CBC in 3-5 days) 0. Fax results to primary care physician. Diagnoses : GI bleed. Refills: 0. ondansetron (Zofran 4 mg Tab) By Mouth every 6 hours as needed Nausea. pantoprazole 40 Milligram By Mouth 2 times a day. zonisamide 200 Milligram By Mouth once a day (at bedtime). PATIENT EDUCATION INFORMATION: Instructions: Abdominal Pain, Adult Follow up: With: Address: When: MARLON KEATING [address] [facility] [place] [id number] Business (1) Within 1 to 2 days Comments: Return to ED if symptoms worsen. Stick to a soft bland diet, call Dr. Keating for a follow up appointment. DIAGNOSIS: 1:Epigastric pain Normal [facility] ED Note-Physicianon 03-20-20 ED Note-Physician Basic Information Time Seen: Kenna Lujan DO 03/20/2020 12:55 Chief Complaint EGD done this morning with Dr. Ward, pt woke up with upper abd. pain, gallbaldder US completed while in endo, results negative but contiues to have abd. pain History of Present Illness Pt 54 yo male presents with epigastric pain. Onset over the past month, pain to the mid upper abdomen, constant, worse with eating, worse the past week. Pt had upper GI scope today and when he woke up from anesthesia he had worsening pain. Given Morphine, helped for a little bit but then the pain started to come back again. Nausea. Chronic diarrhea from previous colectomy. No headache, neck pain, chest pain, shortness of breath, back pain, dizziness, syncope, leg pain, fevers, cough, weight loss, edema, or problems urinating. Review of Systems All organ systems are reviewed. Pertinent positive and negative findings as mentioned in the HPI. Physical Exam Vitals & Measurements T: 36.1 ?C (Axillary) HR: 76(Peripheral) RR: 18 BP: 129/87 SpO2: 99% HT: 170 cm WT: 82 kg BMI: 28.37 Appropriate healthcare PPE was used in evaluating this patient. The healthcare provider was wearing N95 mask, gloves, eye protection and utilizing proper hand hygiene. All equipment was properly cleansed. General: alert, no acute distress, here alone Skin: warm, dry, intact, no rashes Head: atraumatic, normocephalic Neck: full ROM, no tenderness to palpation Eye: vision grossly intact, clear conjunctiva ENT: moist mucous membranes, nares clear, voice normal Cardiovascular: regular rate and rhythm, no murmur Respiratory: Lungs CTA, no wheezes/rales/rhonchi , non-labored Chest wall: no tenderness with palpation Gastrointestinal: soft, epigastric pain with palpation, normal bowel sounds, no guarding/rebound tenderness/rigidity Back: full ROM, no tenderness with palpation Extremities: no deformity, full ROM, normal strength, ambulatory Neurological: alert and oriented, normal speech Medical Decision Making Will CT chest/abd/pelvis to ensure that Pt does not have perforation from recent endoscopy. Will medicate for pain. Pt is in agreement with plan. 1444: ED tests discussed with Pt. No acute findings on CT scans, normal labs, negative cardiac work up and negative EGD this morning. Plan for d/c and Pt needs to follow up with PCP. Assessment/Plan 1. Epigastric pain (R10.13: Epigastric pain) Orders: morphine, 4 mg = 2 mL, Injection, IV Push, Once, Stop date 03/20/20 13:21:00 EDT, STAT, Start date 03/20/20 13:21:00 EDT ondansetron, 4 mg = 2 mL, Injection, IV Push, Once, Stop date 03/20/20 13:21:00 EDT, STAT, Start date 03/20/20 13:21:00 EDT Automated Diff Basic Metabolic Panel CBC w/ Auto Diff CT Abdomen/Pelvis w/ Contrast CT Chest w/ Contrast ECG 12 Lead Adult eGFR Hepatic Function Panel Lactic Acid Lipase Level NPO Diet Saline Lock Insert Troponin Medications Administered Given morphine 2 mg/mL Inj, 4 mg, IV Push Zofran 4 mg/2 mL Injection, 4 mg, IV Push Disposition Plan Patient Discharge Condition Stable Discharge Disposition Home Discharge Prescription List Prescriptions No active prescription medications Follow-up With When Contact Information MARLON KEATING Within 1 to 2 days [address] [place] [address]- Business (1) Additional Instructions: Return to ED if symptoms worsen. Stick to a soft bland diet, call Dr. Keating for a follow up appointment. 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 Medications Inpatient Lactated Ringers IV Darby 1000 mL 1,000 mL, 1000 mL, IV Sodium Chloride 0.9% IV Darby 1000 mL 1,000 mL, 1000 mL, IV Home acetaminophen-hydroco done 325 mg-5 mg oral tablet, 1 tab(s), Oral, BID, PRN aspirin 81 mg Oral EC Tab, 81 mg= 1 tab(s), Oral, Daily, Not taking: Patient states stomach has been bad so is holding this med Carafate 1 g/10 mL Susp-Oral, 1 gram= 10 mL, Oral, QID Check BMP in 3-5 days, 0 Check CBC in 3-5 days, 0 Dulera 200 mcg-5 mcg/inh inhalation aerosol, 2 puff(s), Inhalation, BID duloxetine, 30 mg, Oral Flexeril 10 mg Tab, 10 mg= 1 tab(s), Oral, As Directed glimepiride, Oral, Daily Lexapro 20 mg Tab, 20 mg= 1 tab(s), Oral, Daily Lipitor 40 mg Tab, 40 mg= 1 tab(s), Oral, Daily magnesium oxide, 250 mg, Oral, Daily pantoprazole, 40 mg, Oral, BID Zofran 4 mg Tab, Oral, q6hr, PRN, Not taking zonisamide, 200 mg, Oral, Once a day (at bedtime) Allergies Antihistamines OxyCONTIN (Hallucinations) Percocet (high heart rate) Social History Alcohol - Low Risk, 10/10/2010 Past, 11/03/2019 Substance Abuse - Denies Substance Abuse, 10/10/2010 Tobacco - Denies Tobacco Use, 10/10/2010 Never (less than 100 in lifetime) Tobacco Use:., 03/13/2020 Family History Family history is negative Lab Results WBC: 9.5 E9/L (03/20/20 12:21:00) RBC: 4.9 E12/L (03/20/20 12:21:00) Hgb: 16.4 gm/dL (03/20/20 12:21:00) Hct: 47 % (03/20/20 12:21:00) MCV: 95.9 fL (03/20/20 12:21:00) MCH: 33.4 pg (03/20/20 12:21:00) MCHC: 34.8 gm/dL (03/20/20::00) RDW: 12.2 % (03/20/20::00) Platelet: 256 E9/L (03/20/20::00) MPV: 6.8 fL (03/20/20::00) Neutro Auto: 67.8 % (03/20/20::00) Lymph Auto: 24.8 % (03/20/20::) [place] Auto: 6.4 % (03/20/20::) Eos Auto: 0.5 % (03/20/20::) Basophil Auto: 0.5 % (03/20/20) Neutro Absolute: 6.4 E9/L (03/20/20:) Lymph Absolute: 2.3 E9/L (03/20/20::) [place] Absolute: 0.6 E9/L (03/20/20::) Eos Absolute: 0 E9/L (03/20/20::) Basophil Absolute: 0 E9/L (03/20/20::) Glucose Lvl: 115 mg/dL (03/20/20::) BUN: 14 mg/dL (03/20/20::) Creatinine: 0.9 mg/dL (03/20/20::) eGFR: >60 (03/20/20::) eGFR AA: >60 (03/20/20::) BUN/Creat Ratio: 16 (03/20/20::) Sodium Lvl: 138 mmol/L (03/20/20::00) Potassium Lvl: 3.8 mmol/L (03/20/20::00) Chloride: 110 mmol/L (03/20/20::00) CO2: 23 mmol/L (03/20/20::00) AGAP: 9 mEq/L (03/20/20::00) Calcium Lvl: 8.7 mg/dL Low (07/13/20 12:21:00) Alk Phos: 74 Int._Unit/L (03/20/20 12:21:00) ALT: 66 Int._Unit/L High (03/20/20 12:21:00) AST: 39 Int._Unit/L (03/20/20 12:21:00) Total Protein: 6.7 gm/dL (03/20/20 12:21:00) Albumin Lvl: 4.1 gm/dL (03/20/20 12:21:00) Globulin: 2.6 gm/dL (03/20/20 12:21:00) A/G Ratio: 1.6 (03/20/20:21:00) Bili Total: 0.9 mg/dL (03/20/20::00) Bili Direct: 0.2 mg/dL (03/20/20::00) Bili Indirect: 0.7 mg/dL (03/20/20::00) Lipase Lvl: 29 unit/L (03/20/20::00) Lactic Acid Lvl: 0.9 mmol/L (03/20/20::) Troponin: <2.30 Low (03/20/20::00) Diagnostic Results CT Abdomen/Pelvis w/ Contrast 03/20/20 14:34:[address] CHEST WITH CONTRAST REPORT. All CT scans at this facility use dose modulation, iterative reconstruction, and/or weight based dosing when appropriate to reduce radiation dose to as low as reasonably achievable. Signed By: Torsten Cervantes MD 03/20/20 13:59:02 GFR (mL/min/1/73m2) >60 Contrast: Isovue 300 Contrast amount in ml?s: 100 Rectal Contrast Given? No Signed By: Torsten Cervantes MD CT Chest w/ Contrast 03/20/20 14:33:38 IMPRESSION: 1. NONDILATED ESOPHAGUS APPEARS UNREMARKABLE. 2. NO MEDIASTINAL HEMATOMA OR PNEUMOMEDIASTINUM. 3. NO MEDIASTINAL MASS OR ADENOPATHY. 4. NO PULMONARY INFILTRATES, PLEURAL EFFUSIONS AND NO PNEUMOTHORAX. 5. NO?FREE FLUID?, HEMATOMA OR PNEUMOPERITONEUM IN THE ABDOMEN. 6. SUBTOTAL COLECTOMY WITH SATISFACTORY ILEAL-SIGMOID COLON ANASTOMOSIS. 7. ADDITIONAL INCIDENTAL FINDINGS MAY BE FOUND IN BODY OF REPORT. CLINICAL HISTORY: CHEST AND ABDOMEN PAIN FOLLOWING UPPER ENDOSCOPY TODAY, HISTORY COLON CANCER COMMENT: CT CHEST WITH IV CONTRAST COMPARISONS: None available. TECHNIQUE: Axial and MPR CT images of the chest obtained after the administration of 100 mL Isoview [address] images viewed with pulmonary, mediastinal and bone window settings. FINDINGS: The heart is not enlarged and there are no pericardial effusions. No thoracic aorta aneurysm or dissection. 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 Remaining great vessels unremarkable. There are a few small nonspecific mediastinal lymph nodes and small calcified right hilar and AP window lymph nodes. There is no mediastinal mass or adenopathy. No esophageal dilatation. No evidence of a mediastinal hematoma or pneumomediastinum. There is bibasilar dependent atelectasis and no pulmonary infiltrates or pleural effusions. There is no pneumothorax. There is mild degenerative bone spurring in the thoracic spine and remainder of bony thorax unremarkable. CLINICAL HISTORY: ABDOMINAL PAIN POST UPPER ENDOSCOPY, HISTORY OF COLON CANCER AND PRIOR SUBTOTAL COLECTOMY COMMENT: CT ABDOMEN/PELVIS WITH IV CONTRAST COMPARISON: 03/13/2020 and 01/15/2019 FINDINGS: Comparison is made to the prior CT abdomen scans. Once again, there is evidence of a prior subtotal colectomy with an apparent satisfactory appearing ileal-sigmoid colon anastomosis. Nondistended small bowel unremarkable and no SBO. Nondistended stomach unremarkable. No hepatomegaly but there is evidence of hepatic steatosis. Gallbladder, spleen, pancreas and adrenal glands appear normal. Bilateral renal cysts appear unchanged from prior CT abdomen scans. No nephrolithiasis or hydronephrosis. Mild atherosclerotic calcification of aorta and no abdominal aorta aneurysm. No retroperitoneal adenopathy. No?free fluid?, abscess or pneumoperitoneum in abdomen. CT scan of pelvis demonstrates a slightly enlarged prostate gland with prostatic calcifications. Urinary bladder appears normal. No pelvic mass, adenopathy or?free fluid?in the pelvis. CT scans with bone window settings demonstrate degenerative and arthritic changes throughout the lumbar spine. All CT scans at this facility use dose modulation, iterative reconstruction, and/or weight based dosing when appropriate to reduce radiation dose to as low as reasonably achievable. Signed By: Torsten Cervantes MD 03/20/20 13:58:20 GFR (mL/min/1/73m2) >60 Contrast: Isovue 300 Contrast amount in ml?s: 100 Signed By: Torsten Cervantes MD EKG Results EC03/20/20: SINUS RHYTHM NONSPECIFIC T-WAVE ABNORMALITY RATE 60, NORMAL OR AND QRS, NO ST ELEVATION OR DEPRESSION, NORMAL AXIS, SIMILAR TO PREVIOUS BORDERLINE ECG Signed By: Kenna Lujan DO 03/20/2020 13:11:55 Family contacted ED that Pt was still in pain at the time of discharge, in the car at this time. Instructed by membership secretary Regine to return to ED if Pt is not able to tolerate the pain. I spoke with Dr. Ward about Pt at this time. He did not find anything concerning with upper GI scope today and Pt's GI work up was complete. Normal [facility] Comment on above: Result Comment: Elec tronically Signed By: Kenna Lujan DO\.br\Date and Time Signed: 03/20/20 16:43 EDT ED Patient Education Noteon 03-20-2020 ED Patient Education Note Emergency Medicine Abdominal Pain Many things can cause abdominal pain. Usually, abdominal pain is not caused by a disease and will improve without treatment. It can often be observed and treated at home. Your health care provider will do a physical exam and possibly order blood tests and X-rays to help determine the seriousness of your pain. However, in many cases, more time must pass before a clear cause of the pain can be found. Before that point, your health care provider may not know if you need more testing or further treatment. HOME CARE INSTRUCTIONS Monitor your abdominal pain for any changes. The following actions may help to alleviate any discomfort you are experiencing: ? Only take tjoy-iiq-gkrhhao or prescription medicines as directed by your health care provider. ? Do not take laxatives unless directed to do so by your health care provider. ? Try a clear liquid diet (broth, tea, or water) as directed by your health care provider. Slowly move to a bland diet as tolerated. SEEK MEDICAL CARE IF: ? You have unexplained abdominal pain. ? You have abdominal pain associated with nausea or diarrhea. ? You have pain when you urinate or have a bowel movement. ? You experience abdominal pain that wakes you in the night. ? You have abdominal pain that is worsened or improved by eating food. ? You have abdominal pain that is worsened with eating fatty foods. ? You have a fever. SEEK IMMEDIATE MEDICAL CARE IF: ? Your pain does not go away within 2 hours. ? You keep throwing up (vomiting). ? Your pain is felt only in portions of the abdomen, such as the right side or the left lower portion of the abdomen. ? You pass bloody or black tarry stools. MAKE SURE YOU: ? Understand these instructions. ? ? Will watch your condition. ? ? Will get help right away if you are not doing well or get worse. ? Document Released: 06/04/2006 Document Revised: 08/30/2014 Document Reviewed: 05/04/2014 ExitCare? Patient Information ?2015 [employer]. This information is not intended to replace advice given to you by your health care provider. Make sure you discuss any questions you have with your health care provider. Normal [facility] ED Patient Summaryon 020 ED Patient Summary [address] [address] Patient Discharge Instructions Person Information Name: QUINN TRONCOSO Age: 54 Years Arrival Date: 03/20/2020 11:39:01 Discharge Diagnosis: 1:Epigastric pain Primary Care Physician: MARLON KEATING DO Provider Information Primary Provider: Kenna Lujan DO Advanced Catering Truck Operator:None The exam and treatment you received in the Emergency Department were for an urgent problem and are not intended as complete care. It is important that you follow up with a doctor, nurse practitioner, or physician?s elementary assistant principal for ongoing care. If your symptoms become worse or you do not improve as expected and you are unable to reach your usual health care provider, you should return to the Emergency Department. We are available 24 hours a day. QUINN TRONCOSO has been given the following list of patient education materials, prescriptions and follow-up instructions: Follow-up Instructions: With: Address: When: MARLON KEATING [address] [place] [address] Business (1) Within 1 to 2 days Comments: Return to ED if symptoms worsen. Stick to a soft bland diet, call Dr. Keating for a follow up appointment. In the event that this physician does not participate in your insurance network, please consult with your insurance company to find a nearby participating provider. Patient Education Materials: Abdominal Pain, Adult A MESSAGE TO ALL PATIENTS REGARDING OPIOIDS PRESCRIPTION OPIOIDS: WHAT YOU NEED TO KNOW Prescription opioids can be used to help relieve xzzxzant-mx-klsavz pain and are often prescribed following a surgery or injury, or for certain health conditions. These medications can be an important part of the treatment but also come with serious risks. It is important to work with your healthcare provider to make sure you are getting the safest, most effective care. WHAT ARE THE RISKS AND SIDE EFFECTS OF OPIOID USE? Prescription opioids carry serious risks of addiction and overdose, especially with prolonged use. An opioid overdose, often marked by slowed breathing, can cause sudden . The use of prescription opioids can have a number of side effects as well, even when taken as directed: ? Tolerance?meaning you might need to take more of the medication for the same pain relief ? Physical dependence?meaning you have symptoms of withdrawal when a medication is stopped ? Increased sensitivity to pain ? Constipation ? Nausea, vomiting, and dry mouth ? Sleepiness and dizziness ? Confusion ? Depression ? Low levels of testosterone that can result in lower sex drive, energy, and strength ? Itching and sweating RISKS ARE GREATER WITH: ? History of drug misuse, substance use disorder, or overdose ? Mental health conditions (such as depression or anxiety) ? Sleep apnea ? Older age (65 years and older) ? Avoid alcohol while taking prescription opioids. Also, unless specifically advised by your health care provider, medications to avoid include: ? Benzodiazepines (such as Xanax or Valium) ? Muscle relaxants (such as Soma or Flexeril) ? Hypnotics (such as Ambien or Lunesta) ? Other prescription opioids KNOW YOUR OPTIONS Talk to your health care provider about ways to manage your pain that don?t involve prescription opioids. Some of these options may actually work better and have fewer risks and side effects. Options may include: ? Pain relievers such as acetaminophen, ibuprofen, and naproxen ? Some medication that are also used for depression or seizures ? Physical therapy and exercise ? Cognitive behavioral therapy, a psychological, goal-directed approach, in which patients learn how to modify physical, behavioral, and emotional triggers of pain and stress. IF YOU ARE PRESCRIBED OPIOIDS FOR PAIN: ? Never take opioids in greater amounts or more often than prescribed. ? Follow up with your primary health care provider. o Work together to create a plan on how to manage your pain. o Talk about ways to help manage your pain that don?t involve prescription opioids. o Talk about any and all concerns and side effects. ? Help prevent misuse and abuse o Never sell or share prescription opioids. o Never use another person?s prescription opioids. ? Store prescription opioids in a secure place and out of reach of others (this may include visitors, children, friends, and family). ? Safely dispose of unused prescription opioids: Find your community drug take-back program or your pharmacy mail-back program, or flush them down the toilet, following guidance from the Food and Drug Administration (www.fda.gov/Drugs/Re sourcesForYou). ? Visit www.cdc.gov/drugoverd ose to learn about the risks of opioids abuse and overdose. ? If you believe you may be struggling with addiction, tell your health lead care manager and ask for guidance or call [facility] National Helpline at 7-246-926-QYBY. g Source: [place] Department of Health and Human Services/Center for Disease Control & Prevention [facility] Medications Given: Medication Dose Route ondansetron 4.00 mg IV Push Left Antecubital Alcon morphine 4.00 mg IV Push Left Antecubital Alcon Al hydroxide/Mg hydroxide/simethicone 30.00 mL Oral atropine/hyoscyamine/ PB/scopolamine 10.00 mL Oral lidocaine topical 200.00 mg Oral Medication Information: Medications to Continue with No Changes Other Medications acetaminophen-hydroco done (acetaminophen-hydroc odone 325 mg-5 mg oral tablet) 1 Tablets By Mouth 2 times a day as needed Pain - Moderate. aspirin (aspirin 81 mg Oral EC Tab) 1 Tablets By Mouth every day. atorvastatin (Lipitor 40 mg Tab) 1 Tablets By Mouth every day. cyclobenzaprine (Flexeril 10 mg Tab) 1 Tablets By Mouth As Directed. duloxetine 30 Milligram By Mouth. escitalopram (Lexapro 20 mg Tab) 1 Tablets By Mouth every day. formoterol-mometasone (Dulera 200 mcg-5 mcg/inh inhalation aerosol) 2 Puffs Inhalation 2 times a day. glimepiride By Mouth every day. magnesium oxide 250 Milligram By Mouth every day. Misc Prescription (Check BMP in 3-5 days) 0. Fax results to primary care physician. Diagnoses : electrolyte abnormalities. Refills: 0. Misc Prescription (Check CBC in 3-5 days) 0. Fax results to primary care physician. Diagnoses : GI bleed. Refills: 0. ondansetron (Zofran 4 mg Tab) By Mouth every 6 hours as needed Nausea. pantoprazole 40 Milligram By Mouth 2 times a day. zonisamide 200 Milligram By Mouth once a day (at bedtime). Comment: Pharmacy Information: Thank you for choosing [facility] Patient Education Materials: Abdominal Pain Many things can cause abdominal pain. Usually, abdominal pain is not caused by a disease and will improve without treatment. It can often be observed and treated at home. Your health care provider will do a physical exam and possibly order blood tests and X-rays to help determine the seriousness of your pain. However, in many cases, more time must pass before a clear cause of the pain can be found. Before that point, your health care provider may not know if you need more testing or further treatment. HOME CARE INSTRUCTIONS Monitor your abdominal pain for any changes. The following actions may help to alleviate any discomfort you are experiencing: ? Only take jehg-qrj-ppqrpre or prescription medicines as directed by your health care provider. ? Do not take laxatives unless directed to do so by your health care provider. ? Try a clear liquid diet (broth, tea, or water) as directed by your health care provider. Slowly move to a bland diet as tolerated. SEEK MEDICAL CARE IF: ? You have unexplained abdominal pain. ? You have abdominal pain associated with nausea or diarrhea. ? You have pain when you urinate or have a bowel movement. ? You experience abdominal pain that wakes you in the night. ? You have abdominal pain that is worsened or improved by eating food. ? You have abdominal pain that is worsened with eating fatty foods. ? You have a fever. SEEK IMMEDIATE MEDICAL CARE IF: ? Your pain does not go away within 2 hours. ? You keep throwing up (vomiting). ? Your pain is felt only in portions of the abdomen, such as the right side or the left lower portion of the abdomen. ? You pass bloody or black tarry stools. MAKE SURE YOU: ? Understand these instructions. ? ? Will watch your condition. ? ? Will get help right away if you are not doing well or get worse. ? Document Released: 06/04/2006 Document Revised: 08/30/2014 Document Reviewed: 05/04/2014 ExitCare? Patient Information ?2014 [employer]. This information is not intended to replace advice given to you by your health care provider. Make sure you discuss any questions you have with your health care provider. ABA Glaser JEFFREY , have received the following patient education materials/instruction s and have verbalized understanding: Patient Education Materials: Abdominal Pain, Adult Follow-up Instructions: With: Address: When: MARLON KEATING [address] [place] [id number] [facility] (1) Within 1 to 2 days Comments: Return to ED if symptoms worsen. Stick to a soft bland diet, call Dr. Keating for a follow up appointment. Patient Signature Date Clinician/Nurse Signature Date 03/20/2020 16:17:24 Normal [facility] Hep Func Panelon 03-20-2020 Albumin [Mass/Vol] 4.1 g/dL Normal 3.3-5.0 [facility] Comment on above: Performed By: #### 2 [id number], [id number], [id number], [id number], [id number], [id number] #### [facility] [address] [place] [address] Albumin [Mass/Vol] 1.6 g/dL Normal 1.1-2.2 [facility] Comment on above: Performed By: #### 2 [id number], [id number], [id number], [id number], [id number], [id number] #### [facility] [address] [place] [address] ALP [Catalytic activity/Vol] 74 Int._Unit/L Normal 21-98 [facility] Comment on above: Performed By: #### 2 [id number], [id number], [id number], [id number], [id number], [id number] #### [facility] [address] [place] [address] ALT No additional P-5'-P [Catalytic activity/Vol] 66 Int._Unit/L High 6-46 [facility] Comment on above: Performed By: #### 2 [id number], [id number], [id number], [id number], [id number], [id number] #### [facility] [address] [place] [address] AST [Catalytic activity/Vol] 39 Int._Unit/L Normal 5-43 [facility] Comment on above: Performed By: #### 2 [id number], [id number], [id number], [id number], [id number], [id number] #### [facility] [address] [place] [address] Bilirubin [Mass/Vol] 0.9 mg/dL Normal 0.0-1.1 [facility] Comment on above: Performed By: #### 2 [id number], [id number], 9742939, [id number], 5776363, [id number] #### [facility] [address] [place] [address] Bilirubin.direct [Mass/Vol] 0.7 mg/dL Normal 0.1-0.9 [facility] Comment on above: Performed By: #### 2 [id number], [id number], 0473277, [id number], [id number], [id number] #### [facility] [address] [place] [address] Bilirubin.direct [Mass/Vol] 0.2 mg/dL Normal 0.1-0.4 [facility] Comment on above: Performed By: #### 2 [id number], 8710309, [id number], [id number], [id number], [id number] #### [facility] [address] [place] [address] Globulin (S) [Mass/Vol] 2.6 g/dL Normal 1.4-4.0 [facility] Comment on above: Performed By: #### 2 [id number], [id number], [id number], [id number], [id number], [id number] #### [facility] [address] [place] [address] Protein [Mass/Vol] 6.7 g/dL Normal 6.0-7.8 [facility] Comment on above: Performed By: #### 2 441293, 3665855, 2835970, [id number], 8274401, [id number] #### [facility] [address] [place] [address] Inpatient Patient Summaryon 03-20-2020 Inpatient Patient Summary [address] [address] [facility] Clinical Discharge Instructions PERSON INFORMATION Name: QUINN TRONCOSO [facility] Admitting Physician: Mary WARD MD Attending Physician: Mary WARD MD PCP: MARLON KEATING DO Discharge Diagnosis: Multiple gastric polyps Comment: PATIENT EDUCATION INFORMATION Instructions: Upper Endoscopy, Adult, Care After; Hernandez's Esophagus; Gastric Polyps Medication Leaflets: Follow up: MEDICATION LIST Medications to Continue Taking That Have Changed Other Medications START: ondansetron (Zofran 4 mg Tab) By Mouth every 6 hours as needed Nausea. START: sucralfate (Carafate 1 g/10 mL Susp-Oral) 10 Milliliter By Mouth 4 times a day for 7 Days. Refills: 0. Medications to Continue with No Changes Other Medications acetaminophen-hydroco done (acetaminophen-hydroc odone 325 mg-5 mg oral tablet) 1 Tablets By Mouth 2 times a day as needed Pain - Moderate. aspirin (aspirin 81 mg Oral EC Tab) 1 Tablets By Mouth every day. atorvastatin (Lipitor 40 mg Tab) 1 Tablets By Mouth every day. cyclobenzaprine (Flexeril 10 mg Tab) 1 Tablets By Mouth As Directed. duloxetine 30 Milligram By Mouth. escitalopram (Lexapro 20 mg Tab) 1 Tablets By Mouth every day. formoterol-mometasone (Dulera 200 mcg-5 mcg/inh inhalation aerosol) 2 Puffs Inhalation 2 times a day. glimepiride By Mouth every day. magnesium oxide 250 Milligram By Mouth every day. Misc Prescription (Check BMP in 3-5 days) 0. Fax results to primary care physician. Diagnoses : electrolyte abnormalities. Refills: 0. Misc Prescription (Check CBC in 3-5 days) 0. Fax results to primary care physician. Diagnoses : GI bleed. Refills: 0. pantoprazole 40 Milligram By Mouth 2 times a day. zonisamide 200 Milligram By Mouth once a day (at bedtime). No Longer Take the Following Medications magnesium sulfate (Magnesium 2 gram IVPB) Comment: Normal [facility] Interdisciplinary Note - Verenice moreau 03-20-2020 Interdisciplinary Note - Nursing at 1015, DR. Ward made aware of pt c/o of abd pain to right upper quad, informed this nurse to given morphine and have GB done here instead of outpatient, at 1025- pt given morphne 2 mg ivp pain 10/10. Ultrasound made aware of need to do US today and cental scheduling made aware. 104- Ultrasound at bedside, pt states pain is now 5/10 , nauseated, zofran given after Dr. Ward made aware. 1110- spoke with energy technician and informed by this nurse of still having pain, informed pt can go to ER if wants to . Patient made aware. informed would, ER called by this nurse , ER staff informed pt would need to be triaged, no rooms available, 1125- pt taken DC informed daughter would have to assist him to ER. Normal [facility] Lactic Acidon 03-20-2020 Lactate [Mass/Vol] 0.9 mmol/L Normal 0.5-2.2 [facility] Comment on above: Performed By: #### 2 [id number], [id number], 0281119, [id number], 2242489, 0802151 #### [facility] [address] [place] [address] Lipase Levelon 03-20-2020 Lipase [Catalytic activity/Vol] 29 unit/L Normal 13-58 [facility] Comment on above: Performed By: #### 2 [id number], [id number], 2522255, 60957125, 1947560, 6048603 #### [facility] [address] [place] [address] Main OR PACU I Recordon 03-08 Main OR PACU I Record PACU Phase I Docum ent Type FT Summary Primary Physician: Mary WARD MD Finalized Date/Time: 03/20/20 12:21:52 Pt. Name: QUINN TRONCOSO/Sex: 1965 Male Med Rec #: [id number] Physician: Mary WARD MD Financial #: [id number] Pt. Type: O Room/Bed: / Admit/Disch: 03/20/20 08:30:43 - Institution: Case Times PACU I FT Pre-Care Text: Identifies barriers to communication and implements measures to provide psychological support Develops individualized plan of care, and ensures continuity of care Maintains patient's dignity and privacy, and maintains patient confidentiality Identifies and reports philosophical, cultural, and spiritual beliefs and values Identifies individual values and wishes concerning care Implements aseptic technique, and administers prescribed antibiotic therapy and immunizing agents as ordered Evaluates postoperative tissue perfusion Implements thermoregulation measures, and monitors body temperature Evaluates postoperative respiratory status Evaluates postoperative cardiac status Evaluates postoperative neurological status Assesses pain control, collaborated in initiating patient-controlled analgesia and implements alternative methods of pain control Verifies allergies, administers prescribed medications and solutions, evaluates response to medications Entry 1 In PACU I 03/20/20 09:47:00 Discharge from PACU 03/20/20 11:25:00 I Outcomes Met? Yes Last Modified By: Keshia Caro RN 03/20/20 12:21:33 Post-Care Text: The patient demonstrates knowledge of the expected response to the operative or invasive procedure The patient's care is consistent with the individualized perioperative plan of care The patient's right to privacy is maintained The patient's value system, lifestyle, ethnicity, and culture are considered, respected, and incorporated into the perioperative plan of care The patient participates in decisions affecting his or her perioperative plan of care The patient is free from signs and symptoms of infection The patient has wound/tissue perfusion consistent with or improved from baseline levels established preoperatively The patient is at or returning to normothermia at the conclusion of the immediate postoperative period The patient's respiratory function is consistent with or improved from baseline levels established preoperatively The patient's cardiovascular status is consistent with or improved from baseline levels established preoperatively The patient's cardiovascular status is consistent with or improved from baseline levels established preoperatively The patient demonstrates and/or reports adequate pain control throughout the perioperative period The patient received appropriate medication(s), safely administered during the perioperative period Acuity Level PACU I FT Entry 1 Start Time 03/20/20 09:47:00 Stop Time 03/20/20 11:25:00 Acuity Level Acuity Level I Last Modified By: Keshia Caro RN 03/20/20 12:21:47 Finalized By: Keshia Caro RN Document Signatures Signed By: Keshia Caro RN 03/20/20 12:21 Normal [facility] Monitor Recordon 03-20-2020 Monitor Record [id number]# 1.00CD:127 Normal [facility] Monitor Record [id number]# 1.00CD:127 Normal [facility] Patient Education - Texton 0 03-20-2020 Patient Education - Text Gastroenterology Upper Endoscopy, Adult, Care After This sheet gives you information about how to care for yourself after your procedure. Your health care provider may also give you more specific instructions. If you have problems or questions, contact your health care provider. What can I expect after the procedure? After the procedure, it is common to have: ? A sore throat. ? Mild stomach pain or discomfort. ? Bloating. ? Nausea. Follow these instructions at home: ? Follow instructions from your health care provider about what to eat or drink after your procedure. ? Return to your normal activities as told by your health care provider. Ask your health care provider what activities are safe for you. ? Take bzdr-lkp-zatuhpk and prescription medicines only as told by your health care provider. ? Do not drive for 24 hours if you were given a sedative during your procedure. ? Keep all follow-up visits as told by your health care provider. This is important. Contact a health care provider if you have: ? A sore throat that lasts longer than one day. ? Trouble swallowing. Get help right away if: ? You vomit blood or your vomit looks like coffee grounds. ? You have: ? A fever. ? Bloody, black, or tarry stools. ? A severe sore throat or you cannot swallow. ? Difficulty breathing. ? Severe pain in your chest or abdomen. Summary ? After the procedure, it is common to have a sore throat, mild stomach discomfort, bloating, and nausea. ? Do not drive for 24 hours if you were given a sedative during the procedure. ? Follow instructions from your health care provider about what to eat or drink after your procedure. ? Return to your normal activities as told by your health care provider. This information is not intended to replace advice given to you by your health care provider. Make sure you discuss any questions you have with your health care provider. Document Released: 02/23/2013 Document Revised: 01/25/2019 Document Reviewed: 01/25/2019 [employer] Interactive Patient Education ? 2020 [employer]. Hernandez's Esophagus Hernandez's esophagus occurs when the tissue that lines the esophagus changes or becomes damaged. The esophagus is the tube that carries food from the throat to the stomach. With Hernandez's esophagus, the cells that line the esophagus are replaced by cells that are similar to the lining of the intestines (intestinal metaplasia). Hernandez's esophagus itself may not cause any symptoms. However, many people who have Hernandez's esophagus also have gastroesophageal reflux disease (GERD), which may cause symptoms such as heartburn. Over time, a few people with this condition may develop cancer of the esophagus. Treatment may include medicines, procedures to destroy the abnormal cells, or surgery. What are the causes? The exact cause of this condition is not known. In some cases, the condition develops from damage to the lining of the esophagus caused by GERD. GERD occurs when stomach acids flow up from the stomach into the esophagus. Frequent symptoms of GERD may cause intestinal metaplasia or cause cell changes (dysplasia). What increases the risk? You are more likely to develop this condition if you: ? Have GERD. ? Are male. ? Are . ? Are obese. ? Are older than 50. ? Have a hiatal hernia. This is a condition in which part of your stomach bulges into your chest. ? Smoke. What are the signs or symptoms? People with Hernandez's esophagus often have no symptoms. However, many people with this condition also have GERD. Symptoms of GERD may include: ? Heartburn. ? Difficulty swallowing. ? Dry cough. How is this diagnosed? This condition may be diagnosed based on: ? Results of an upper gastrointestinal endoscopy. For this exam, a thin, flexible tube with a light and a camera on the end (endoscope) is passed down your esophagus. Your health care provider can view the inside of your esophagus during this procedure. ? Results of a biopsy. For this procedure, several tissue samples are removed (biopsy) from your esophagus. They are then checked for intestinal metaplasia or dysplasia. How is this treated? Treatment for this condition may include: ? Medicines (proton pump inhibitors, or PPIs) to decrease or stop GERD. ? Periodic endoscopic exams to make sure that cancer is not developing. ? A procedure or surgery for dysplasia. This may include: ? Removal or destruction of abnormal cells. ? Removal of part of the esophagus (esophagectomy). Follow these instructions at home: Eating and drinking ? Eat more fruits and vegetables. ? Avoid fatty foods. ? Eat small, frequent meals instead of large meals. ? Avoid foods that cause heartburn. These foods include: ? Coffee and alcoholic drinks. ? Tomatoes and foods made with tomatoes. ? [place] or spicy foods. ? Chocolate and peppermint. ? Do not drink alcohol. General instructions ? Take rhxr-mva-xstdgnk and prescription medicines only as told by your health care provider. ? Do not use any products that contain nicotine or tobacco, such as cigarettes and e-cigarettes. If you need help quitting, ask your health care provider. ? If you are being treated for GERD, make sure you take medicines and follow all instructions as told by your health care provider. ? Keep all follow-up visits as told by your health care provider. This is important. Contact a health care provider if: ? You have heartburn or GERD symptoms. ? You have difficulty swallowing. Get help right away if: ? You have chest pain. ? You are unable to swallow. ? You vomit blood or material that looks like coffee grounds. ? Your stool (feces) is bright red or dark. Summary ? Hernandez's esophagus occurs when the tissue that lines the esophagus changes or becomes damaged. ? Hernandez's esophagus may be diagnosed with an upper gastrointestinal endoscopy and a biopsy. ? Treatment may include medicines, procedures to remove abnormal cells, or surgery. ? Follow your health care provider's instructions about what to eat and drink, what medicines to take, and when to call for help. This information is not intended to replace advice given to you by your health care provider. Make sure you discuss any questions you have with your health care provider. Document Released: 11/14/2004 Document Revised: 12/21/2018 Document Reviewed: 12/21/2018 [employer] Interactive Patient Education ? 2020 [employer]. Gastric Polyps A gastric polyp, also called a stomach polyp, is a growth on the lining of the stomach. Most polyps are not dangerous, but some can be harmful because of their size, location, or type. Polyps that can become harmful include: ? Large polyps. These can turn into sores (ulcers). Ulcers can lead to stomach bleeding. ? Polyps that block food from moving from the stomach to the small intestine (gastric outlet obstruction). ? A type of polyp called an adenoma. This type of polyp can become cancerous. What are the causes? Gastric polyps form when the lining of the stomach gets inflamed or damaged. Stomach inflammation and damage may be caused by: ? A long-lasting stomach condition, such as gastritis. ? Certain medicines used to reduce stomach acid. ? An inherited condition called familial adenomatous polyposis. What are the signs or symptoms? Usually, this condition does not cause any symptoms. If you do have symptoms, they may include: ? Pain or tenderness in the abdomen. ? Nausea. ? Trouble eating or swallowing. ? Blood in the stool. ? Anemia. How is this diagnosed? Gastric polyps are diagnosed with: ? A medical procedure called endoscopy. ? A lab test in which a part of the polyp is examined. This test is done with a sample of polyp tissue (biopsy) taken during an endoscopy. How is this treated? Treatment depends on the type, location, and size of the polyps. Treatment may involve: ? Having the polyps checked regularly with an endoscopy. ? Having the polyps removed with an endoscopy. This may be done if the polyps are harmful or can become harmful. Removing a polyp often prevents problems from developing. ? Having the polyps removed with a surgery called a partial gastrectomy. This may be done in rare cases to remove very large polyps. ? Treating the underlying condition that caused the polyps. Follow these instructions at home: ? Take esui-xrm-bknvkik and prescription medicines only as told by your health care provider. ? Keep all follow-up visits as told by your health care provider. This is important. Contact a health care provider if: ? You develop new symptoms. ? Your symptoms get worse. Get help right away if: ? You vomit blood. ? You have severe abdominal pain. ? You cannot eat or drink. ? You have blood in your stool. This information is not intended to replace advice given to you by your health care provider. Make sure you discuss any questions you have with your health care provider. Document Released: 08/11/2013 Document Revised: 01/13/2017 Document Reviewed: 09/08/2016 [employer] Interactive Patient Education ? 2019 [employer]. Normal [facility] Reference Lab Reporton 03-20 Reference Lab Report [id number]# 1.00CD:127 Normal [facility] Troponinon 03-20-2020 Troponin I.cardiac [Mass/Vol] ng/mL Low 15.90-38.40 [facility] Comment on above: Result Comment: The 95% CI (Confidence Interval) PPV (Positive Predictive Value) for myocardial infarction in females is 38 pg/mL, in males 51 pg/mL. The results should be used in conjunction with clinical conditions of myocardial infarction. (Access High Sensitivity Troponin I Instructions For Use, [employer], April 2018) Performed By: #### 2 [id number], 8269937, 3737600, [id number], 4813518, [id number] #### [facility] [address] [place] [address] US Abdomen, Limitedon 2019 US Abdomen, Limited Exam Date/Time: 03/20/2020 11:11 EDT Reason for Exam: ABDOMINAL PAIN;Abdominal pain Report IMPRESSION: NEGATIVE RIGHT UPPER QUADRANT ULTRASOUND WITHOUT EVIDENCE OF CHOLELITHIASIS. EXAM: Limited abdominal ultrasound INDICATION:Right upper quadrant pain Abdominal pain, ABDOMINAL PAIN TECHNIQUE: Rodriguez-scale evaluation of the right upper quadrant was performed. COMPARISON: None available. FINDINGS: Exam quality compromised by patient cooperation and acquisition of some images through an intercostal window. Liver: Hepatic echogenicity is within normal limits without intrahepatic biliary dilatation. There are no focal hepatic lesions.. Gallbladder: The gallbladder was normally distended without stones, sludge, or wall thickening. The common duct measures up to 3 mm. Pancreas: The pancreas was partially visualized, and the visualized portion was within normal limits. Incidental 3.3 cm right renal cyst, this does not need follow-up imaging. FINAL REPORT Dictated: 03/20/2020 2:33 pm Maikel Becerra MD Signed (Electronic Signature): 03/20/2020 2:33 pm Signed by: Maikel Becerra MD Transcribed by: SATISH Technologist: JIM Normal [facility] eGFRon 03-20-2020 GFR/1.73 sq M predicted among blacks MDRD (S/P/Bld) [Vol rate/Area] mL/min/{1.73_m2} Normal >=59 [facility] Comment on above: Order Comment: Order added by Discern Expert. Result Comment: eGFR is race adjusted. AA=. Performed By: #### 2 [id number], 0831642, 4257881, 39923633, 3643671, 1456530 #### [facility] [address] [place] [address] GFR/1.73 sq M predicted among non-blacks MDRD (S/P/Bld) [Vol rate/Area] mL/min/{1.73_m2} Normal >=59 [facility] Comment on above: Order Comment: Order added by Discern Expert. Result Comment: [employer] wilda kidney disease could be indicated at eGFR's of less than 60 mL/min/1.73m2. Kidney failure is indicated at less than 15 mL/min/1.73m2. Performed By: #### 2 103444, 5559428, 1095841, 55590379, 1866558, 6950923 #### [facility] [address] [place] [address] Physician Orderon 03-15-2020 Physician Order [id number]# 1.00CD:127 Normal [facility] Physician Order [id number]# 1.00CD:127 Normal [facility] Auto Diffon 03-13-2020 Basophils/100 WBC (Bld) 0.6 % Normal 0.0-2.0 [facility] Comment on above: Order Comment: Order Added by Discern Expert. Performed By: #### 2 581088, 6211576, 3719534, 19900836, 0108772, 3419612 #### [facility] [address] [place] [address] Basophils/Leukocytes Auto (Bld) [Pure # fraction] 0.1 E9/L Normal 0.0-0.2 [facility] Comment on above: Order Comment: Order Added by Discern Expert. Performed By: #### 2 157379, 4609898, 5461498, 80789267, 1821347, 5876388 #### [facility] [address] [place] [address] Eosinophils/100 WBC (Bld) 0.6 % Normal 0.0-8.0 [facility] Comment on above: Order Comment: Order Added by Discern Expert. Performed By: #### 2 772997, 9998730, 6253785, 99117137, 6835114, 2828336 #### [facility] [address] [place] [address] Eosinophils/Leukocytes Auto (Bld) [Pure # fraction] 0.1 E9/L Normal 0.0-0.5 [facility] Comment on above: Order Comment: Order Added by Discern Expert. Performed By: #### 2 154665, 4535285, 8969834, 56873136, 8427771, 5898792 #### [facility] [address] [place] [address] Lymphocytes/100 WBC (Bld) 22.9 % Normal 14.0-50.0 [facility] Comment on above: Order Comment: Order Added by Discern Expert. Performed By: #### 2 364456, 6721743, 0745823, 28474443, 1100997, 6356171 #### [facility] [address] [place] [address] Lymphocytes/Leukocytes Auto (Bld) [Pure # fraction] 2.5 E9/L Normal 1.0-4.0 [facility] Comment on above: Order Comment: Order Added by Discern Expert. Performed By: #### 2 142772, 5345528, 8450730, 68977688, 9961424, 6217165 #### [facility] [address] [place] [address] Monocytes/100 WBC (Bld) 6.6 % Normal 4.0-14.0 [facility] Comment on above: Order Comment: Order Added by Discern Expert. Performed By: #### 2 527300, 7252609, 6254424, 77229370, 9249196, 2689262 #### [facility] [address] [place] [address] Monocytes/Leukocytes Auto (Bld) [Pure # fraction] 0.7 E9/L Normal 0.2-1.0 [facility] Comment on above: Order Comment: Order Added by Discern Expert. Performed By: #### 2 830196, 1221166, 6887670, 73903452, 3691627, 3437054 #### [facility] [address] [place] [address] Neutrophils/100 WBC (Bld) 69.3 % Normal 36.0-75.0 [facility] Comment on above: Order Comment: Order Added by Discern Expert. Performed By: #### 2 345807, 8394184, 0277157, 56208312, 5225655, 5250702 #### [facility] [address] [place] [address] Neutrophils/Leukocytes Auto (Bld) [Pure # fraction] 7.6 E9/L High 2.0-7.5 [facility] Comment on above: Order Comment: Order Added by Discern Expert. Performed By: #### 2 068660, 5649930, 4521862, 37040775, 1623497, 3830948 #### [facility] [address] [place] [address] BMPon 03-13-2020 Creatinine [Mass/Vol] 1.1 mg/dL Normal 0.5-1.3 [facility] Comment on above: Performed By: #### 2 233578, 0383090, 1419468, 39267581, 9605965, 4148030 #### [facility] [address] [place] [address] Urea nitrogen [Mass/Vol] 18 mg/dL Normal 5-21 [facility] Comment on above: Performed By: #### 2 680148, 5564531, 8842709, 92695351, 1616612, 0640479 #### [facility] [address] [place] [address] Urea nitrogen/Creatinine [Mass ratio] 16 No Units Normal 10-20 [facility] Comment on above: Performed By: #### 2 206428, 0198022, 6369164, 95238329, 8835498, 6630115 #### [facility] [address] [place] [address] Anion gap [Moles/Vol] 12 mmol/L Normal 6-16 [facility] Comment on above: Performed By: #### 2 920955, 2813339, 8340441, 84072599, 8876695, 4998046 #### [facility] [address] [place] [address] Calcium [Mass/Vol] 9.1 mg/dL Normal 8.9-11.1 [facility] Comment on above: Performed By: #### 2 004357, 2477947, 7547307, 56421096, 6434432, 6696201 #### [facility] [address] [place] [address] Chloride [Moles/Vol] 106 mmol/L Normal 101-111 [facility] Comment on above: Performed By: #### 2 678742, 6697873, 6308087, 46475047, 5312594, 5979596 #### [facility] [address] [place] [address] CO2 [Moles/Vol] 23 mmol/L Normal 21-31 [facility] [place] [facility] Comment on above: Performed By: #### 2 815580, 5146816, 5214512, 12145667, 4551035, 1338579 #### [facility] [address] [place] [address] Glucose [Mass/Vol] 103 mg/dL Normal 55-199 [facility] Comment on above: Result Comment: If t his glucose result represents a fasting glucose, interpretation should refer to the following reference range: 55-99 mg/dL Performed By: #### 2 316501, 3856960, 9544769, 11730753, 6015030, 0371378 #### [facility] [address] [place] [address] Potassium [Moles/Vol] 4.0 mmol/L Normal 3.5-5.3 [facility] Comment on above: Performed By: #### 2 530941, 8570020, 5398015, 81435111, 1141385, 0498735 #### [facility] [address] [place] [address] Sodium [Moles/Vol] 137 mmol/L Normal 135-145 [facility] [facility] Comment on above: Performed By: #### 2 [id number], [id number], 2915763, [id number], 2710133, 2747577 #### [facility] [address] [place] [address] CBC w/ Auto Diffon 0 Erythrocyte distribution width (RBC) [Ratio] 12.2 % Normal 10.9-14.2 [facility] Comment on above: Performed By: #### 2 147741, 2139935, 8850826, 15481939, 5131863, 4578029 #### [facility] [address] [place] [address] Hematocrit (Bld) [Volume fraction] 49.2 % High 37.7-49.0 [facility] Comment on above: Performed By: #### 2 003415, 4278646, 9763360, [id number], 5655870, 8785884 #### [facility] [address] [place] [address] Hemoglobin (Bld) [Mass/Vol] 16.9 g/dL Normal 13.5-17.5 [facility] Comment on above: Performed By: #### 2 437289, 7280293, 1149527, 52751076, 5345741, 1425195 #### [facility] [address] [place] [address] MCH (RBC) [Entitic mass] 32.8 pg Normal 27.0-34.0 [facility] Comment on above: Performed By: #### 2 436855, 4058240, 4035707, 86527117, 2734504, 0188283 #### [facility] [address] [place] [address] MCHC (RBC) [Mass/Vol] 34.4 g/dL Normal 31.4-36.0 [facility] Comment on above: Performed By: #### 2 255345, 8774867, 1487869, 50975696, 2919256, 5845541 #### [facility] [address] [place] [address] MCV (RBC) [Entitic vol] 95.5 fL Normal 80.0-100.0 [facility] Comment on above: Performed By: #### 2 721714, 5125895, 3396471, 19916041, 3582171, 4789356 #### [facility] [address] [place] [address] Platelet mean volume (Bld) [Entitic vol] 7.1 fL Normal 6.4-10.8 [facility] Comment on above: Performed By: #### 2 242765, 0513048, 3713069, 53221710, 2575042, 0390672 #### [facility] [address] [place] [address] Platelets (Bld) [#/Vol] 289.0 E9/L Normal 150.0-500.0 [facility] Comment on above: Performed By: #### 2 490575, 3251430, 3093817, 79719620, 8222344, 0360419 #### [facility] [address] [place] [address] RBC (Bld) [#/Vol] 5.2 E12/L Normal 4.3-5.9 [facility] Comment on above: Performed By: #### 2 869274, 0705055, 1937732, 02627566, 4894311, 7402522 #### [facility] [address] [place] [address] WBC corrected for nucl RBC Auto (Bld) [#/Vol] 10.9 E9/L Normal 4.0-11.0 [facility] Comment on above: Performed By: #### 2 492344, 2232400, 3511362, 29303386, 8936423, 7848340 #### [facility] [address] [place] [address] CT Abdomen/Pelvis w/ Contras ton 03-13-2020 CT Abdomen/Pelvis w/ Contrast Exam Date/Time: 03/13/2020 14:03 EDT Reason for Exam: Abdominal pain, acute, nonlocalized, neutropenic;Other (please specify) Report IMPRESSION: MULTIPLE NONSPECIFIC NONDISTENDED FLUID-FILLED LOOPS OF SMALL BOWEL MAY RELATE TO ENTERITIS. HEPATIC STEATOSIS. EXAM: CT Abdomen/Pelvis w/ Contrast History: Abdominal pain. Nausea. Diarrhea. History of colon cancer. Technique: Multiple contiguous axial images were obtained of the abdomen and pelvis from the level of the lung bases through the ischial tuberosities with contrast. Multiplanar reformats were obtained. Delayed images were obtained Comparison: CT chest abdomen and pelvis from 01/15/[address] abdomen pelvis from 06/29/2017 Findings: Lung bases are clear. Diffuse hypoattenuation of the liver. No focal hepatic lesion . The gallbladder, stomach, pancreas, spleen, and adrenal glands are within normal limits. The kidneys enhance uniformly. 2 right renal cysts are identified. The largest of these is within the inferior pole and measures 3 cm. No urinary tract calculi or hydronephrosis. Urinary bladder is well distended. The prostate contains calcifications but is otherwise unremarkable. Abdominal aorta is nonaneurysmal. No retroperitoneal or abdominal/pelvic lymphadenopathy. Postsurgical changes of subtotal colectomy. The remaining colon demonstrates no overt mass and there is no pericolonic inflammation. There are multiple nonspecific nondistended fluid-filled loops of small bowel. No small bowel obstruction. Mild degenerative changes of the spine. Multilevel Schmorl's nodes. No acute or aggressive osseous abnormality. Degenerative subcortical cysts of the left acetabulum. All CT scans at this facility use dose modulation, iterative reconstruction, and/or weight based dosing when appropriate to reduce radiation dose to as low as reasonably Report achievable. FINAL REPORT Dictated: 03/13/2020 2:25 pm Ever Diallo DO Signed (Electronic Signature): 03/13/2020 2:25 pm Signed by: Ever Diallo DO Transcribed by: SATISH Technologist: MARY JANE Technical Comments GFR (mL/min/1/73m2) n/a Contrast: Isovue 300 Contrast amount in ml's: 100 Normal [facility]enton 03-13-2020 Consent [id number]# 1.00CD:127 Normal [facility] Consent for Treatmenton Consent for Treatment [id number] .00CD:127 Normal [facility] Discharge Instructionson Discharge Instructions [id number]# 1.00CD:127 Normal [facility] ED Clinical Summaryon 2019 ED Clinical Summary [address] [address] ED Clinical Summary Person Information [facility]: [facility] Age[facility] 54 Years : 1965 Sex: Male Language: Rwandan PCP: MARLON KEATING DO Marital Status: Phone: [phone] Visit Id: Visit Reason: Nausea; Epigastric Pain; Abdominal pain; ABD PAIN Speciality: Acuity: 3 Enc Type: Emergency Med Service: Emergency Arrival: 03/13/2020 13:03:17 Discharge: 03/13/2020 16:20:38 LOS: 000 03:17 Checkin: 03/13/2020 13:03:17 Checkout: 03/13/2020 16:20:38 Dispo Type: Home (Routine DC) EVENTS: Event Name Event Status Request Date/Time Start Date/Time Complete Date/Time Arrive Complete 03/13/2020 13:03:17 03/13/2020 13:03:17 03/13/2020 13:03:17 Document Home Meds Request 03/13/2020 13:03:17 Triage Complete 03/13/2020 13:03:17 03/13/2020 13:14:08 03/13/2020 13:14:08 Dr Exam Complete 03/13/2020 13:05:27 03/13/2020 13:05:27 03/13/2020 13:05:27 Registration Complete 03/13/2020 13:05:27 03/13/2020 13:07:48 03/13/2020 14:42:38 Bed Assign Complete 03/13/2020 13:07:48 03/13/2020 13:07:48 03/13/2020 13:07:48 RN Exam Complete 03/13/2020 13:07:48 03/13/2020 13:21:02 03/13/2020 13:21:02 Dr Exam Complete 03/13/2020 13:07:56 03/13/2020 13:07:56 03/13/2020 13:07:56 NPO Request 03/13/2020 13:25:08 Meds Admin Request 03/13/2020 13:25:08 Pending Labs Complete 03/13/2020 13:25:08 03/13/2020 14:58:05 Lab Complete 03/13/2020 13:25:08 03/13/2020 14:58:05 Urine Collect Complete 03/13/2020 13:25:08 03/13/2020 14:58:05 Patient Care Request 03/13/2020 13:25:08 CT Complete 03/13/2020 13:25:08 03/13/2020 13:44:40 03/13/2020 14:03:10 Pending Labs Complete 03/13/2020 13:40:37 03/13/2020 13:40:37 03/13/2020 14:10:36 Lab Complete 03/13/2020 13:40:37 03/13/2020 13:40:37 03/13/2020 14:10:36 Pending Labs Complete 03/13/2020 13:47:39 03/13/2020 13:47:39 03/13/2020 13:47:50 Lab Complete 03/13/2020 13:47:39 03/13/2020 13:47:39 03/13/2020 13:47:50 Reg Complete Request 03/13/2020 14:42:38 Meds Admin Complete 03/13/2020 15:05:06 03/13/2020 15:44:58 Discharge Complete 03/13/2020 15:08:05 03/13/2020 16:20:46 03/13/2020 16:20:46 Transfer Complete 03/13/2020 16:20:46 03/13/2020 16:20:46 03/13/2020 16:20:46 ADDRESS: [address] [place] [id number] PHYS DOC NOTES: MEDICAL INFORMATION: Prescriptions Given: Medications to Continue Taking That Have Changed [id number], [address], [place] [id number], [phone] START: sucralfate (Carafate 1 g/10 mL Susp-Oral) 10 Milliliter By Mouth 4 times a day for 7 Days. Refills: 0. Other Medications START: sucralfate (sucralfate 1 g Tab) 1 Tablets By Mouth four times a day (before meals and at bedtime). Medications to Continue with No Changes Other Medications acetaminophen-hydroco done (acetaminophen-hydroc odone 325 mg-5 mg oral tablet) 1 Tablets By Mouth as needed Pain - Moderate. aspirin (aspirin 81 mg Oral EC Tab) 1 Tablets By Mouth every day. atorvastatin (atorvastatin 40 mg Tab) 1 Tablets By Mouth every day. cyclobenzaprine (Flexeril 10 mg Tab) 1 Tablets By Mouth As Directed. escitalopram (Lexapro 20 mg Tab) 1 Tablets By Mouth every day. formoterol-mometasone (Dulera 200 mcg-5 mcg/inh inhalation aerosol) 2 Puffs Inhalation 2 times a day. magnesium oxide 250 Milligram By Mouth every day. Misc Prescription (Check BMP in 3-5 days) 0. Fax results to primary care physician. Diagnoses : electrolyte abnormalities. Refills: 0. Misc Prescription (Check CBC in 3-5 days) 0. Fax results to primary care physician. Diagnoses : GI bleed. Refills: 0. ondansetron (Zofran 4 mg Tab) By Mouth every 6 hours as needed Nausea. pantoprazole 40 Milligram By Mouth 2 times a day. zonisamide 200 Milligram By Mouth once a day (at bedtime). zonisamide (zonisamide 100 mg Cap) 2 Capsules By Mouth every day. PATIENT EDUCATION INFORMATION: Instructions: Viral Gastroenteritis Follow up: With: Address: When: [facility], [address] [place] [address] Business (1) In 1 day 03/14/2020 With: Address: When: MARLON KEATING [address] [place] [address] Business (1) In 3 days 03/16/2020 DIAGNOSIS: Enteritis Normal [facility] ED Note-Physicianon 03-13-20 ED Note-Physician Basic Information Time Seen: Raj Corrales PA-C 03/13/2020 13:05 Chief Complaint Pt states abdominal pain x 1 week. States off and on. Is in mid upper abdomen. Nausea, but denies vomiting. History of Present Illness 54-year-old male presents to the emergency room for evaluation of abdominal pain. He has had epigastric abdominal pain worsening for a week. The patient states he went to the [facility] about a week ago and they put him on a belly medicine . He states it helped a little bit initially but now is not helping at all. He states he did labs with no scans. He has a history of colon cancer and has all of his colon removed he states. He does not have a colostomy. The patient states that he had a PET scan a few months ago that was normal. He states his cancer markers have elevated a little. He has been in remission for 3 years. Patient saw GI Dr. Ward later today and was encouraged to come to the emergency room. He states that he is supposed to have an EGD with him tomorrow. He is denying any chest pain or shortness of breath. Has any cough, fever, nausea or vomiting. No significant changes in his bowel habits although those are atypical after his colon resection. Review of Systems All Organ systems are reviewed. Pertinent positive and negative findings as mentioned in the HPI Physical Exam Vitals & Measurements T: 36.5 ?C (Oral) HR: 98(Peripheral) RR: 16 BP: 128/75 SpO2: 97% HT: 170 cm WT: 85 kg BMI: 29.41 Nurses note and vital signs reviewed and patient is not hypoxic. General: The patient appears well and in no apparent distress. Patient is resting comfortably on cart. Skin: Warm, dry, no pallor noted. There is no rash noted. Head: Normocephalic, atraumatic Eye: Normal conjunctiva Ears, Nose, Mouth, and Throat: oral mucosa is moist Cardiovascular: Regular Rate and Rhythm Respiratory: Patient is in no distress, no accessory muscle use, lungs are clear to auscultation, no wheezing, rales or rhonchi Back: non-tender, no CVA tenderness bilaterally to percussion. GI: Normal bowel sounds, epigastric tenderness to palpation, no masses appreciated. No rebound, guarding, or rigidity noted. Musculoskeletal: The patient has no evidence of calf tenderness, no pitting edema, symmetrical pulses noted bilaterally Neurological: A&O x4, normal speech Psychiatric: Cooperative Medical Decision Making The patient had stable labs, CT of the abdomen pelvis does not show any significant findings of movement enteritis. The patient had case discussed with Dr. Ward who will scope him as an outpatient as he is already scheduled and was okay with him going home and pain is tolerable. 1 dose of morphine showed significant improvement of pain. The patient has Orient at home. We will add a trial of Carafate. Patient is to return back if worsening symptoms. He is comfortable going home and vital signs are stable. Assessment/Plan Enteritis (K52.9: Noninfective gastroenteritis and colitis, unspecified) Orders: morphine, 4 mg = 2 mL, Injection, IV Push, Once, Stop date 03/13/20 13:22:00 EDT, STAT, Start date 03/13/20 13:22:00 EDT morphine, 2 mg = 1 mL, Injection, IV Push, Once, Stop date 03/13/20 15:04:00 EDT, STAT, Start date 03/13/20 15:04:00 EDT ondansetron, 4 mg = 2 mL, Injection, IV Push, Once, Stop date 03/13/20 13:22:00 EDT, STAT, Start date 03/13/20 13:22:00 EDT Sodium Chloride 0.9% intravenous solution 1,000 mL, 1,000 mL, IV, 125 mL/hr, STAT, Start date 03/13/20 13:22:00 EDT, 8 hour(s), Total volume (mL): 1,000 sucralfate, 1 gram = 10 mL, Oral, QID, X 7 day(s), # 280 mL, Refills(s) 0, Pharmacy: [id number], 170, cm, 03/13/20 13:10:00 EDT, Height/Length Measured, 85, kg, 03/13/20 13:10:00 EDT, Weight Measured Automated Diff Basic Metabolic Panel CBC w/ Auto Diff CT Abdomen/Pelvis w/ Contrast eGFR Hepatic Function Panel Lactic Acid Lipase Level NPO Diet PT & PTT Saline Lock Insert Troponin 0 Hr. UA With Cult Reflex Medications Administered Given Sodium Chloride 0.9% IV Darby 1000 mL 1,000 mL, 1000 mL, IV morphine 2 mg/mL Inj, 4 mg, IV Push ondansetron 4 mg/2 mL Inj, 4 mg, IV Push Disposition Plan Patient Discharge Condition Stable Discharge Disposition Charged home Discharge Prescription List Prescriptions Carafate 1 g/10 mL Susp-Oral, 1 gram= 10 mL, Oral, QID Follow-up With When Contact Information MARLON KEATING In 3 days 03/16/2020 EDT [address] [facility], [place] [address]- Business (1) Additional Instructions: Mary WARD In 1 day 03/14/[address] [facility] [address] [place] [address]- Business (1) Additional Instructions: Patient Education Viral Gastroenteritis Attestation The patient's care was supervised by Dr. Arcos including history, physical, medical decision making, and disposition. Teaching-Supervisory Addendum-Brief I participated in the following activities of this patients care: the medical history. I personally performed: supervision of the patient's care, the medical history, the physical exam, the medical decision making. The case was discussed with: the physician elementary assistant principal, Raj Corrales PA-C. Procedures: I directly supervised the entire procedure. Evaluation and management service: I agree with the evaluation and management decisions made in this patient's care. Results interpretation: I agree with the study interpretation in this patient's care, I agree with the documentation of the study interpretation. 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 Medications Inpatient morphine 2 mg/mL Inj, 2 mg= 1 mL, IV Push, Once Sodium Chloride 0.9% IV Darby 1000 mL 1,000 mL, 1000 mL, IV Home acetaminophen-hydroco done 325 mg-5 mg oral tablet, 1 tab(s), Oral, PRN aspirin 81 mg Oral EC Tab, 81 mg= 1 tab(s), Oral, Daily atorvastatin 40 mg Tab, 40 mg= 1 tab(s), Oral, Daily Carafate 1 g/10 mL Susp-Oral, 1 gram= 10 mL, Oral, QID Check BMP in 3-5 days, 0 Check CBC in 3-5 days, 0 Dulera 200 mcg-5 mcg/inh inhalation aerosol, 2 puff(s), Inhalation, BID, Not taking duloxetine, Oral Flexeril 10 mg Tab, 10 mg= 1 tab(s), Oral, As Directed glimepiride, Oral, Daily Lexapro 20 mg Tab, 20 mg= 1 tab(s), Oral, Daily Lipitor 40 mg Tab, Oral, Daily Magnesium 2 gram IVPB magnesium oxide, 250 mg, Oral, Daily ondansetron pantoprazole, 40 mg, Oral, BID sucralfate, Oral, QIDACHS sucralfate 1 g Tab, 1 gram= 1 tab(s), Oral, QIDACHS Zofran 4 mg Tab, Oral, q6hr, PRN zonisamide, 200 mg, Oral, Once a day (at bedtime) zonisamide 100 mg Cap, 200 mg= 2 cap(s), Oral, Daily Allergies Antihistamines OxyCONTIN (Hallucinations) Percocet (high heart rate) Social History Alcohol - Low Risk, 10/10/2010 Past, 11/03/2019 Substance Abuse - Denies Substance Abuse, 10/10/2010 Tobacco - Denies Tobacco Use, 10/10/2010 Never (less than 100 in lifetime) Tobacco Use:., 03/13/2020 Family History Family history is negative Lab Results WBC: 10.9 E9/L (03/13/20 13:32:00) RBC: 5.2 E12/L (03/13/20 13:32:00) Hgb: 16.9 gm/dL (03/13/20 13:32:00) Hct: 49.2 % High (03/13/20 13:32:00) MCV: 95.5 fL (03/13/20 13:32:00) MCH: 32.8 pg (03/13/20 13:32:00) MCHC: 34.4 gm/dL (03/13/20 13:32:00) RDW: 12.2 % (03/13/20 13:32:00) Platelet: 289 E9/L (03/13/20 13:32:00) MPV: 7.1 fL (03/13/20 13:32:00) Neutro Auto: 69.3 % (03/13/20 13:32:00) Lymph Auto: 22.9 % (03/13/20 13:32:00) Tunica Auto: 6.6 % (03/13/20 13:32:00) Eos Auto: 0.6 % (03/13/20 13:32:00) Basophil Auto: 0.6 % (03/13/20 13:32:00) Neutro Absolute: 7.6 E9/L High (03/13/20 13:32:00) Lymph Absolute: 2.5 E9/L (03/13/20 13:32:00) Tunica Absolute: 0.7 E9/L (03/13/20 13:32:00) Eos Absolute: 0.1 E9/L (03/13/20 13:32:00) Basophil Absolute: 0.1 E9/L (03/13/20 13:32:00) PT: 11.7 second(s) (03/13/20 13:32:00) INR: 1 (03/13/20 13:32:00) PTT: 27.6 second(s) (03/13/20 13:32:00) Glucose Lvl: 103 mg/dL (03/13/20 13:32:00) BUN: 18 mg/dL (03/13/20 13:32:00) Creatinine: 1.1 mg/dL (03/13/20 13:32:00) eGFR: >60 (03/13/20 13:32:00) eGFR AA: >60 (03/13/20 13:32:00) BUN/Creat Ratio: 16 (03/13/20 13:32:00) Sodium Lvl: 137 mmol/L (03/13/20 13:32:00) Potassium Lvl: 4 mmol/L (03/13/20 13:32:00) Chloride: 106 mmol/L (03/13/20 13:32:00) CO2: 23 mmol/L (03/13/20 13:32:00) AGAP: 12 mEq/L (03/13/20 13:32:00) Calcium Lvl: 9.1 mg/dL (03/13/20 13:32:00) Alk Phos: 76 Int._Unit/L (03/13/20 13:32:00) ALT: 74 Int._Unit/L High (03/13/20 13:32:00) AST: 47 Int._Unit/L High (03/13/20 13:32:00) Total Protein: 7.2 gm/dL (03/13/20 13:32:00) Albumin Lvl: 4.2 gm/dL (03/13/20 13:32:00) Globulin: 3 gm/dL (03/13/20 13:32:00) A/G Ratio: 1.4 (03/13/20 13:32:00) Bili Total: 0.7 mg/dL (03/13/20 13:32:00) Bili Direct: 0.1 mg/dL (03/13/20 13:32:00) Bili Indirect: 0.6 mg/dL (03/13/20 13:32:00) Lipase Lvl: 34 unit/L (03/13/20 13:32:00) Lactic Acid Lvl: 1.2 mmol/L (03/13/20 13:32:00) Troponin: <2.30 Low (03/13/20 13:32:00) UA Spec Desc: Clean Catch (03/13/20 14:41:00) UA Color: Yellow2 (03/13/20 14:41:00) UA Clarity: Clear2 (03/13/20 14:41:00) UA Spec Grav: <=1.005 (03/13/20 14:41:00) UA pH: 5.0 (03/13/20 14:41:00) UA Protein: NEGATIVE1 (03/13/20 14:41:00) UA Glucose: NEGATIVE1 (03/13/20 14:41:00) UA Ketones: NEGATIVE1 (03/13/20 14:41:00) UA Bili: NEGATIVE1 (03/13/20 14:41:00) UA Blood: NEGATIVE1 (03/13/20 14:41:00) UA Nitrite: NEGATIVE1 (03/13/20 14:41:00) UA Urobilinogen: 0.2 (03/13/20 14:41:00) UA Leuk Est: NEGATIVE1 (03/13/20 14:41:00) UA RBC: 0-3 (03/13/20 14:41:00) UA Squam Epithelial: 0-2 (03/13/20 14:41:00) UA WBC: 0-5 (03/13/20 14:41:00) UA CA Ox Crystal: Present (03/13/20 14:41:00) UA Amorph Luna: Present (03/13/20 14:41:00) UA Mucous: 2+ (03/13/20 14:41:00) Diagnostic Results CT Abdomen/Pelvis w/ Contrast 03/13/20 14:28:32 IMPRESSION: MULTIPLE NONSPECIFIC NONDISTENDED FLUID-FILLED LOOPS OF SMALL BOWEL MAY RELATE TO ENTERITIS. HEPATIC STEATOSIS. EXAM: CT Abdomen/Pelvis w/ Contrast History: Abdominal pain. Nausea. Diarrhea. History of colon cancer. Technique: Multiple contiguous axial images were obtained of the abdomen and pelvis from the level of the lung bases through the ischial tuberosities with contrast. Multiplanar reformats were obtained. Delayed images were obtained Comparison: CT chest abdomen and pelvis from 01/15/[address] abdomen pelvis from 06/29/2017 Findings: Lung bases are clear. Diffuse hypoattenuation of the liver. No focal hepatic lesion . The gallbladder, stomach, pancreas, spleen, and adrenal glands are within normal limits. The kidneys enhance uniformly. 2 right renal cysts are identified. The largest of these is within the inferior pole and measures 3 cm. No urinary tract calculi or hydronephrosis. Urinary bladder is well distended. The prostate contains calcifications but is otherwise unremarkable. Abdominal aorta is nonaneurysmal. No retroperitoneal or abdominal/pelvic lymphadenopathy. Postsurgical changes of subtotal colectomy. The remaining colon demonstrates no overt mass and there is no pericolonic inflammation. There are multiple nonspecific nondistended fluid-filled loops of small bowel. No small bowel obstruction. Mild degenerative changes of the spine. Multilevel Schmorl?s nodes. No acute or aggressive osseous abnormality. Degenerative subcortical cysts of the left acetabulum. All CT scans at this facility use dose modulation, iterative reconstruction, and/or weight based dosing when appropriate to reduce radiation dose to as low as reasonably achievable. Signed By: Ever Diallo DO 03/13/20 14:03:09 GFR (mL/min/1/73m2) n/a Contrast: Isovue 300 Contrast amount in ml?s: 100 Signed By: Ever Diallo DO [facility] Comment on above: Result Comment: Elec tronically Signed By: Raj Corrales PA-C\.hailee\Date and Time Signed: 03/13/20 15:11 EDT\.br\Electronically Co-Signed By: Baylee Arcos DO.hailee\Date and Time Co-Signed: 03/13/20 16:41 EDT ED Patient Education Noteon 03-13-2020 ED Patient Education Note Infectious Disease Viral Gastroenteritis Viral gastroenteritis is also known as stomach flu. This condition affects the stomach and intestinal tract. It can cause sudden diarrhea and vomiting. The illness typically lasts 3 to 8 days. Most people develop an immune response that eventually gets rid of the virus. While this natural response develops, the virus can make you quite ill. CAUSES Many different viruses can cause gastroenteritis, such as rotavirus or noroviruses. You can catch one of these viruses by consuming contaminated food or water. You may also catch a virus by sharing utensils or other personal items with an infected person or by touching a contaminated surface. SYMPTOMS The most common symptoms are diarrhea and vomiting. These problems can cause a severe loss of body fluids (dehydration) and a body salt (electrolyte) imbalance. Other symptoms may include: ? Fever. ? Headache. ? Fatigue. ? Abdominal pain. DIAGNOSIS Your caregiver can usually diagnose viral gastroenteritis based on your symptoms and a physical exam. A stool sample may also be taken to test for the presence of viruses or other infections. TREATMENT This illness typically goes away on its own. Treatments are aimed at rehydration. The most serious cases of viral gastroenteritis involve vomiting so severely that you are not able to keep fluids down. In these cases, fluids must be given through an intravenous line (IV). HOME CARE INSTRUCTIONS ? Drink enough fluids to keep your urine clear or pale yellow. Drink small amounts of fluids frequently and increase the amounts as tolerated. ? Ask your caregiver for specific rehydration instructions. ? Avoid: ? Foods high in sugar. ? Alcohol. ? Carbonated drinks. ? Tobacco. ? Juice. ? Caffeine drinks. ? Extremely hot or cold fluids. ? Fatty, greasy foods. ? Too much intake of anything at one time. ? Dairy products until 24 to 48 hours after diarrhea stops. ? You may consume probiotics. Probiotics are active cultures of beneficial bacteria. They may lessen the amount and number of diarrheal stools in adults. Probiotics can be found in yogurt with active cultures and in supplements. ? Wash your hands well to avoid spreading the virus. ? Only take drlz-htv-bgqcwrk or prescription medicines for pain, discomfort, or fever as directed by your caregiver. Do not give aspirin to children. Antidiarrheal medicines are not recommended. ? Ask your caregiver if you should continue to take your regular prescribed and jjwe-ljv-hxzlpsf medicines. ? Keep all follow-up appointments as directed by your caregiver. SEEK IMMEDIATE MEDICAL CARE IF: ? You are unable to keep fluids down. ? You do not urinate at least once every 6 to 8 hours. ? You develop shortness of breath. ? You notice blood in your stool or vomit. This may look like coffee grounds. ? You have abdominal pain that increases or is concentrated in one small area (localized). ? You have persistent vomiting or diarrhea. ? You have a fever. ? The patient is a child younger than 3 months, and he or she has a fever. ? The patient is a child older than 3 months, and he or she has a fever and persistent symptoms. ? The patient is a child older than 3 months, and he or she has a fever and symptoms suddenly get worse. ? The patient is a baby, and he or she has no tears when crying. MAKE SURE YOU: ? Understand these instructions. ? Will watch your condition. ? Will get help right away if you are not doing well or get worse. Document Released: 08/25/2006 Document Revised: 11/16/2012 Document Reviewed: 06/10/2012 ExitCare? Patient Information ?2015 [employer]. This information is not intended to replace advice given to you by your health care provider. Make sure you discuss any questions you have with your health care provider. Normal [facility] ED Patient Summaryon 020 ED Patient Summary [address] [address] Patient Discharge Instructions Person Information Name: QUINN TRONCOSO Age: 54 Years Arrival Date: 03/13/2020 13:03:17 Discharge Diagnosis: Enteritis Primary Care Physician: MARLON KEATING DO Provider Information Primary Provider: Qamar Arcos DO Advanced Catering Truck Operator:Raj Corrales PA-C The exam and treatment you received in the Emergency Department were for an urgent problem and are not intended as complete care. It is important that you follow up with a doctor, nurse practitioner, or physician?s elementary assistant principal for ongoing care. If your symptoms become worse or you do not improve as expected and you are unable to reach your usual health care provider, you should return to the Emergency Department. We are available 24 hours a day. QUINN TRONCOSO has been given the following list of patient education materials, prescriptions and follow-up instructions: Follow-up Instructions: With: Address: When: [facility], [address] [place] [address] Business (1) In 1 day 03/14/2020 With: Address: When: MARLON KEATING [address] [id number] [employer] (1) In 3 days 03/16/2020 In the event that this physician does not participate in your insurance network, please consult with your insurance company to find a nearby participating provider. Patient Education Materials: Viral Gastroenteritis A MESSAGE TO ALL PATIENTS REGARDING OPIOIDS PRESCRIPTION OPIOIDS: WHAT YOU NEED TO KNOW Prescription opioids can be used to help relieve fcjgjszb-pi-txdqfy pain and are often prescribed following a surgery or injury, or for certain health conditions. These medications can be an important part of the treatment but also come with serious risks. It is important to work with your healthcare provider to make sure you are getting the safest, most effective care. WHAT ARE THE RISKS AND SIDE EFFECTS OF OPIOID USE? Prescription opioids carry serious risks of addiction and overdose, especially with prolonged use. An opioid overdose, often marked by slowed breathing, can cause sudden . The use of prescription opioids can have a number of side effects as well, even when taken as directed: ? Tolerance?meaning you might need to take more of the medication for the same pain relief ? Physical dependence?meaning you have symptoms of withdrawal when a medication is stopped ? Increased sensitivity to pain ? Constipation ? Nausea, vomiting, and dry mouth ? Sleepiness and dizziness ? Confusion ? Depression ? Low levels of testosterone that can result in lower sex drive, energy, and strength ? Itching and sweating RISKS ARE GREATER WITH: ? History of drug misuse, substance use disorder, or overdose ? Mental health conditions (such as depression or anxiety) ? Sleep apnea ? Older age (65 years and older) ? Avoid alcohol while taking prescription opioids. Also, unless specifically advised by your health care provider, medications to avoid include: ? Benzodiazepines (such as Xanax or Valium) ? Muscle relaxants (such as Soma or Flexeril) ? Hypnotics (such as Ambien or Lunesta) ? Other prescription opioids KNOW YOUR OPTIONS Talk to your health care provider about ways to manage your pain that don?t involve prescription opioids. Some of these options may actually work better and have fewer risks and side effects. Options may include: ? Pain relievers such as acetaminophen, ibuprofen, and naproxen ? Some medication that are also used for depression or seizures ? Physical therapy and exercise ? Cognitive behavioral therapy, a psychological, goal-directed approach, in which patients learn how to modify physical, behavioral, and emotional triggers of pain and stress. IF YOU ARE PRESCRIBED OPIOIDS FOR PAIN: ? Never take opioids in greater amounts or more often than prescribed. ? Follow up with your primary health care provider. o Work together to create a plan on how to manage your pain. o Talk about ways to help manage your pain that don?t involve prescription opioids. o Talk about any and all concerns and side effects. ? Help prevent misuse and abuse o Never sell or share prescription opioids. o Never use another person?s prescription opioids. ? Store prescription opioids in a secure place and out of reach of others (this may include visitors, children, friends, and family). ? Safely dispose of unused prescription opioids: Find your community drug take-back program or your pharmacy mail-back program, or flush them down the toilet, following guidance from the Food and Drug Administration (www.fda.gov/Drugs/Re sourcesForYou). ? Visit www.cdc.gov/drugoverd ose to learn about the risks of opioids abuse and overdose. ? If you believe you may be struggling with addiction, tell your health lead care manager and ask for guidance or call [facility] National Helpline at 3-571-776-RVWC. m Source: US Department of Health and Human Services/Center for Disease Control & Prevention [facility] Medications Given: Medication Dose Route Sodium Chloride 0.9% intravenous solution 1000.00 mL Initial Volume 125.00 mL/hr IV Right Antecubit [place] morphine 4.00 mg IV Push Right Antecubit [place] ondansetron 4.00 mg IV Push Right Antecubit [place] morphine 2.00 mg IV Push Right Antecubit [place] Medication Information: Medications to Continue Taking That Have Changed [facility]/pharmacy #[id number], [address], [place] [id number], [phone] START: sucralfate (Carafate 1 g/10 mL Susp-Oral) 10 Milliliter By Mouth 4 times a day for 7 Days. Refills: 0. Other Medications START: sucralfate (sucralfate 1 g Tab) 1 Tablets By Mouth four times a day (before meals and at bedtime). Medications to Continue with No Changes Other Medications acetaminophen-hydroco done (acetaminophen-hydroc odone 325 mg-5 mg oral tablet) 1 Tablets By Mouth as needed Pain - Moderate. aspirin (aspirin 81 mg Oral EC Tab) 1 Tablets By Mouth every day. atorvastatin (atorvastatin 40 mg Tab) 1 Tablets By Mouth every day. cyclobenzaprine (Flexeril 10 mg Tab) 1 Tablets By Mouth As Directed. escitalopram (Lexapro 20 mg Tab) 1 Tablets By Mouth every day. formoterol-mometasone (Dulera 200 mcg-5 mcg/inh inhalation aerosol) 2 Puffs Inhalation 2 times a day. magnesium oxide 250 Milligram By Mouth every day. Misc Prescription (Check BMP in 3-5 days) 0. Fax results to primary care physician. Diagnoses : electrolyte abnormalities. Refills: 0. Misc Prescription (Check CBC in 3-5 days) 0. Fax results to primary care physician. Diagnoses : GI bleed. Refills: 0. ondansetron (Zofran 4 mg Tab) By Mouth every 6 hours as needed Nausea. pantoprazole 40 Milligram By Mouth 2 times a day. zonisamide 200 Milligram By Mouth once a day (at bedtime). zonisamide (zonisamide 100 mg Cap) 2 Capsules By Mouth every day. Comment: Pharmacy Information: [facility] Mary Thank you for choosing [facility] Patient Education Materials: Viral Gastroenteritis Viral gastroenteritis is also known as stomach flu. This condition affects the stomach and intestinal tract. It can cause sudden diarrhea and vomiting. The illness typically lasts 3 to 8 days. Most people develop an immune response that eventually gets rid of the virus. While this natural response develops, the virus can make you quite ill. CAUSES Many different viruses can cause gastroenteritis, such as rotavirus or noroviruses. You can catch one of these viruses by consuming contaminated food or water. You may also catch a virus by sharing utensils or other personal items with an infected person or by touching a contaminated surface. SYMPTOMS The most common symptoms are diarrhea and vomiting. These problems can cause a severe loss of body fluids (dehydration) and a body salt (electrolyte) imbalance. Other symptoms may include: ? Fever. ? Headache. ? Fatigue. ? Abdominal pain. DIAGNOSIS Your caregiver can usually diagnose viral gastroenteritis based on your symptoms and a physical exam. A stool sample may also be taken to test for the presence of viruses or other infections. TREATMENT This illness typically goes away on its own. Treatments are aimed at rehydration. The most serious cases of viral gastroenteritis involve vomiting so severely that you are not able to keep fluids down. In these cases, fluids must be given through an intravenous line (IV). HOME CARE INSTRUCTIONS ? Drink enough fluids to keep your urine clear or pale yellow. Drink small amounts of fluids frequently and increase the amounts as tolerated. ? Ask your caregiver for specific rehydration instructions. ? Avoid: ? Foods high in sugar. ? Alcohol. ? Carbonated drinks. ? Tobacco. ? Juice. ? Caffeine drinks. ? Extremely hot or cold fluids. ? Fatty, greasy foods. ? Too much intake of anything at one time. ? Dairy products until 24 to 48 hours after diarrhea stops. ? You may consume probiotics. Probiotics are active cultures of beneficial bacteria. They may lessen the amount and number of diarrheal stools in adults. Probiotics can be found in yogurt with active cultures and in supplements. ? Wash your hands well to avoid spreading the virus. ? Only take vzhn-miy-xcmanqk or prescription medicines for pain, discomfort, or fever as directed by your caregiver. Do not give aspirin to children. Antidiarrheal medicines are not recommended. ? Ask your caregiver if you should continue to take your regular prescribed and sisi-lof-adzzehf medicines. ? Keep all follow-up appointments as directed by your caregiver. SEEK IMMEDIATE MEDICAL CARE IF: ? You are unable to keep fluids down. ? You do not urinate at least once every 6 to 8 hours. ? You develop shortness of breath. ? You notice blood in your stool or vomit. This may look like coffee grounds. ? You have abdominal pain that increases or is concentrated in one small area (localized). ? You have persistent vomiting or diarrhea. ? You have a fever. ? The patient is a child younger than 3 months, and he or she has a fever. ? The patient is a child older than 3 months, and he or she has a fever and persistent symptoms. ? The patient is a child older than 3 months, and he or she has a fever and symptoms suddenly get worse. ? The patient is a baby, and he or she has no tears when crying. MAKE SURE YOU: ? Understand these instructions. ? Will watch your condition. ? Will get help right away if you are not doing well or get worse. Document Released: 08/25/2006 Document Revised: 11/16/2012 Document Reviewed: 06/10/2012 ExitCare? Patient Information ?2015 SNA[employer]. This information is not intended to replace advice given to you by your health care provider. Make sure you discuss any questions you have with your health care provider. ABA Glaser JEFFREY , have received the following patient education materials/instruction s and have verbalized understanding: Patient Education Materials: Viral Gastroenteritis Follow-up Instructions: With: Address: When: [facility], [address] [place] [address] Business (1) In 1 day 03/14/2020 With: Address: When: MARLON KEATING [address] [facility] [address] Business (1) In 3 days 03/16/2020 Patient Signature Date Clinician/Nurse Signature Date 03/13/2020 16:20:48 Normal [facility] Hep Func Panelon 03-13-2020 Albumin [Mass/Vol] 1.4 g/dL Normal 1.1-2.2 [facility] Comment on above: Performed By: #### 2 945925, 1532534, 1923892, 60410147, 7339032, 2483726 #### [facility] [address] [place] [address] Albumin [Mass/Vol] 4.2 g/dL Normal 3.3-5.0 [facility] Comment on above: Performed By: #### 2 598873, 0811538, 1024211, 65101224, 9260578, 2470268 #### [facility] [address] [place] [address] ALP [Catalytic activity/Vol] 76 Int._Unit/L Normal 21-98 [facility] Comment on above: Performed By: #### 2 012045, 4824795, 2193927, 58011279, 9600006, 5617765 #### [facility] [address] [place] [address] ALT No additional P-5'-P [Catalytic activity/Vol] 74 Int._Unit/L High 6-46 [facility] Comment on above: Performed By: #### 2 413815, 2559637, 3690162, 94549991, 8359894, 1978103 #### [facility] [address] [place] [address] AST [Catalytic activity/Vol] 47 Int._Unit/L High 5-43 [facility] Comment on above: Performed By: #### 2 395077, 3808879, 6207947, 73759773, 4278372, 0378403 #### [facility] [address] [place] [address] Bilirubin [Mass/Vol] 0.7 mg/dL Normal 0.0-1.1 [facility] Comment on above: Performed By: #### 2 267281, 3332418, 0082337, 50014550, 8978727, 2010757 #### [facility] [address] [place] [address] Bilirubin.direct [Mass/Vol] 0.1 mg/dL Normal 0.1-0.4 [facility] Comment on above: Performed By: #### 2 804673, 2284356, 7626030, 84693788, 2648630, 5351874 #### [facility] [address] [place] [address] Bilirubin.direct [Mass/Vol] 0.6 mg/dL Normal 0.1-0.9 [facility] Comment on above: Performed By: #### 2 751025, 5020714, 0777104, 33307650, 8381588, 6981551 #### [facility] [address] [place] [address] Globulin (S) [Mass/Vol] 3.0 g/dL Normal 1.4-4.0 [facility] Comment on above: Performed By: #### 2 848839, 9887312, 6112772, 35245971, 1340349, 5647433 #### [facility] [address] [place] [address] Protein [Mass/Vol] 7.2 g/dL Normal 6.0-7.8 [facility] Comment on above: Performed By: #### 2 793009, 9769473, 6999834, 46159568, 4735700, 7835065 #### [facility] [address] [place] [address] Lactic Acidon 03-13-2020 Lactate [Mass/Vol] 1.2 mmol/L Normal 0.5-2.2 [facility] Comment on above: Performed By: #### 2 371980, 0497590, 5742107, 58707889, 2574344, 4954675 #### [facility] [address] [place] [address] Lipase Levelon 03-13-2020 Lipase [Catalytic activity/Vol] 34 unit/L Normal 13-58 [facility] Comment on above: Performed By: #### 2 843664, 9022540, 6087411, 03331117, 5614806, 1631580 #### [facility] [address] [place] [address] PT & PTTon 03-13-2020 aPTT Coag (PPP) [Time] 27.6 second(s) Normal 25.1-36.5 [facility] Comment on above: Result Comment: Hepa rin therapeutic range (represented by Anti-Factor Xa activity of 0.2 - 0.4 U/mL) corresponds to PTT of 56.6 - 109.0 sec. Performed By: #### 2 255654, 6730693, 3217927, 95010263, 7526340, 3503547 #### [facility] [address] [place] [address] INR Coag (PPP) [Relative time] 1.0 {INR} [facility] Comment on above: Result Comment: INR results are specifically intended to assess patients stabilized on long-term Anticoagulation therapy suggested INR?s ?Less Intensive Anticoagulation? 2.0 ? 3.0 Conventional Range 3.0 ? 4.5 Performed By: #### 2 499585, 0115634, 7106000, 95181459, 5657660, 7885407 #### [facility] [address] [place] [address] PT Coag (PPP) [Time] 11.7 second(s) Normal 10.2-12.9 [facility] Comment on above: Performed By: #### 2 782739, 9434119, 3059382, 84799713, 3384867, 2403484 #### [facility] [address] [place] [address] Physician Orderon 03-13-2020 Physician Order [id number]# 1.00CD:127 Normal [facility] Troponin 0 Hr.on 03-13-2020 Troponin I.cardiac [Mass/Vol] ng/mL Low 15.90-38.40 [facility] Comment on above: Result Comment: The 95% CI (Confidence Interval) PPV (Positive Predictive Value) for myocardial infarction in females is 38 pg/mL, in males 51 pg/mL. The results should be used in conjunction with clinical conditions of myocardial infarction. (Access High Sensitivity Troponin I Instructions For Use, [employer] [place], April 2018) Performed By: #### 2 726879, 4829679, 1541574, 05506290, 0146732, 6275700 #### [facility] [address] [place] [address] UA With Cult Reflexon 2019 Bilirubin Ql (U) Negative Normal Negative [facility] Comment on above: Performed By: #### 2 345171, 1173539, 9927526, 82923411, 9751270, 5786754 #### [facility] [address] [place] [address] Calcium oxalate crystals LM Ql (Urine sed) Present Normal [facility] Comment on above: Performed By: #### 2 980255, 2187870, 2027297, 57452044, 5771573, 2784282 #### [facility] [address] [place] [address] Clarity (U) CLEAR Normal Clear [facility] Comment on above: Performed By: #### 2 088247, 1850295, 9222638, 36260482, 5751654, 0591118 #### [facility] [address] [place] [address] Color (U) YELLOW Normal Yellow [facility] Comment on above: Performed By: #### 2 934684, 2525317, 5672774, 67067081, 8861495, 2553059 #### [facility] [address] [place] [address] Crystals LM Ql (Urine sed) Present Normal [facility] Comment on above: Performed By: #### 2 011622, 4758953, 9259271, 27243700, 8623935, 7062662 #### [facility] [address] [place] [address] Epithelial cells.squamous LM.HPF (Urine sed) [#/Area] 0-2 Normal 0-2 [facility] Comment on above: Performed By: #### 2 644252, 6499937, 7081847, 46561434, 8371777, 5132966 #### [facility] [address] [place] [address] Glucose Test strip (U) [Mass/Vol] Negative Normal Negative [facility] Comment on above: Performed By: #### 2 111047, 3023730, 2870375, 13671055, 7731104, 8203034 #### [facility] [address] [place] [address] Hemoglobin Ql (U) Negative Normal Negative [facility] Comment on above: Performed By: #### 2 600357, 0158133, 0473782, 52194287, 8051228, 1621671 #### [facility] [address] [place] [address] Ketones (U) [Mass/Vol] Negative Normal Negative [facility] Comment on above: Performed By: #### 2 218739, 5852587, 5822278, 67926207, 5428988, 0005153 #### [facility] [address] [place] [address] [place].plasma/[place]. RBC (Bld) [Mass ratio] 0-3 Normal 0-3 [facility] Comment on above: Performed By: #### 2 351101, 9702992, 3403613, 56290967, 0141183, 6173954 #### [facility] [address] [place] [address] Mucus Ql (Urine sed) 2+ Normal [facility] Comment on above: Performed By: #### 2 141781, 0474761, 9810384, 14279405, 7837412, 6017082 #### [facility] [address] [place] [address] Nitrite Ql (U) Negative Normal Negative [facility] Comment on above: Performed By: #### 2 004169, 4246846, 6078453, 91924984, 7320484, 5425270 #### [facility] [address] [place] [address] pH (U) 5.0 [pH] 5.0-9.0 [facility] Comment on above: Performed By: #### 2 339460, 7343279, 7644880, 53096969, 5269326, 3811126 #### [facility] [address] [place] [address] Protein (U) [Mass/Vol] Negative Normal Negative [facility] Comment on above: Performed By: #### 2 863240, 9234278, 7161431, 46679913, 1497111, 3012339 #### [facility] [address] [place] [address] Specific gravity (U) [Rel density] <=1.005 1.005-1.030 [facility] Comment on above: Performed By: #### 2 769031, 5592582, 5923918, 56452204, 3494162, 8841200 #### [facility] [address] [address] UA Spec Desc Clean Catch Normal [facility] Comment on above: Performed By: #### 2 683917, 5705804, 9199139, 30971874, 5733869, 1811548 #### [facility] [address] [address] Urobilinogen Qn (U) 0.2 {Carlos'U}/dL Normal 0.0-1.0 [facility] Comment on above: Performed By: #### 2 509644, 1742912, 3280406, 24885886, 1208462, 6162873 #### [facility] [address] [place] [address] WBC Auto Ql (U) Negative Normal Negative [facility] Comment on above: Performed By: #### 2 090163, 0912049, 6893962, 15821130, 3291088, 0471827 #### [facility] [address] [place] [address] WBC LM.HPF (Urine sed) [#/Area] 0-5 Normal 0-5 [facility] Comment on above: Performed By: #### 2 883363, 8619288, 3919667, 71869101, 3289692, 4594885 #### [facility] [address] [address] eGFRon 03-13-2020 GFR/1.73 sq M predicted among blacks MDRD (S/P/Bld) [Vol rate/Area] mL/min/{1.73_m2} Normal >=59 [facility] Comment on above: Order Comment: Order added by Discern Expert. Result Comment: eGFR is race adjusted. AA=. Performed By: #### 2 483978, 8865923, 0699200, 71186188, 4018621, 0989071 #### [facility] [address] [place] [address] GFR/1.73 sq M predicted among non-blacks MDRD (S/P/Bld) [Vol rate/Area] mL/min/{1.73_m2} Normal >=59 [facility] Comment on above: Order Comment: Order added by Discern Expert. Result Comment: Ammunition Storekeeper wilad kidney disease could be indicated at eGFR's of less than 60 mL/min/1.73m2. Kidney failure is indicated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 reach of others (this may include visitors, children, friends, and family). ? Safely dispose of unused prescription opioids: Find your community drug take-back program or your pharmacy mail-back program, or flush them down the toilet, following guidance from the Food and Drug Administration (www.fda.gov/Drugs/Re sourcesForYou). ? Visit www.cdc.gov/drugoverd ose to learn about the risks of opioids abuse and overdose. ? If you believe you may be struggling with addiction, tell your health lead care manager and ask for guidance or call [facility] National Helpline at 7-777-418-HTYH. w Source: US Department of Health and Human Services/Center for Disease Control & Prevention [facility] Medications Given: Medication Dose Route magnesium sulfate 2.00 gram IV Piggyback Left Antecubital [place] lorazepam 1.00 mg IV Push Left Antecubital [place] Medication Information: Medications to Continue with No Changes Other Medications acetaminophen-hydroco done (acetaminophen-hydroc odone 325 mg-5 mg oral tablet) 1 Tablets By Mouth as needed Pain - Moderate. cyclobenzaprine (Flexeril 10 mg Tab) 1 Tablets By Mouth As Directed. escitalopram (Lexapro 20 mg Tab) 1 Tablets By Mouth every day. formoterol-mometasone (Dulera 200 mcg-5 mcg/inh inhalation aerosol) 2 Puffs Inhalation 2 times a day. magnesium oxide 250 Milligram By Mouth every day. Misc Prescription (Check BMP in 3-5 days) 0. Fax results to primary care physician. Diagnoses : electrolyte abnormalities. Refills: 0. Misc Prescription (Check CBC in 3-5 days) 0. Fax results to primary care physician. Diagnoses : GI bleed. Refills: 0. pantoprazole 40 Milligram By Mouth 2 times a day. zonisamide 200 Milligram By Mouth once a day (at bedtime). Comment: Pharmacy Information: SOY Hernandez Thank you for choosing [facility] Patient Education Materials: Headaches, Frequently Asked Questions MIGRAINE HEADACHES Q: What is migraine? What causes it? How can I treat it? A: Generally, migraine headaches begin as a dull ache. Then they develop into a constant, throbbing, and pulsating pain. You may experience pain at the temples. You may experience pain at the front or back of one or both sides of the head. The pain is usually accompanied by a combination of: ? Nausea. ? Vomiting. ? Sensitivity to light and noise. Some people (about 15%) experience an aura (see below) before an attack. The cause of migraine is believed to be chemical reactions in the brain. Treatment for migraine may include fshq-xyc-nmmnzlq or prescription medications. It may also include self-help techniques. These include relaxation training and biofeedback. Q: What is an aura? A: About 15% of people with migraine get an aura . This is a sign of neurological symptoms that occur before a migraine headache. You may see wavy or jagged lines, dots, or flashing lights. You might experience tunnel vision or blind spots in one or both eyes. The aura can include visual or auditory hallucinations (something imagined). It may include disruptions in smell (such as strange odors), taste or touch. Other symptoms include: ? Numbness. ? A pins and needles sensation. ? Difficulty in recalling or speaking the correct word. These neurological events may last as long as 60 minutes. These symptoms will fade as the headache begins. Q: What is a trigger? A: Certain physical or environmental factors can lead to or trigger a migraine. These include: ? Foods. ? Hormonal changes. ? Weather. ? Stress. It is important to remember that triggers are different for everyone. To help prevent migraine attacks, you need to figure out which triggers affect you. Keep a headache diary. This is a good way to track triggers. The diary will help you talk to your healthcare professional about your condition. Q: Does weather affect migraines? A: Bright sunshine, hot, humid conditions, and drastic changes in barometric pressure may lead to, or trigger, a migraine attack in some people. But studies have shown that weather does not act as a trigger for everyone with migraines. Q: What is the link between migraine and hormones? A: Hormones start and regulate many of your body's functions. Hormones keep your body in balance within a constantly changing environment. The levels of hormones in your body are unbalanced at times. Examples are during menstruation, , or menopause. That can lead to a migraine attack. In fact, about three quarters of all women with migraine report that their attacks are related to the menstrual cycle. Q: Is there an increased risk of stroke for migraine sufferers? A: The likelihood of a migraine attack causing a stroke is very remote. That is not to say that migraine sufferers cannot have a stroke associated with their migraines. In persons under age 40, the most common associated factor for stroke is migraine headache. But over the course of a person's normal life span, the occurrence of migraine headache may actually be associated with a reduced risk of dying from cerebrovascular disease due to stroke. Q: What are acute medications for migraine? A: Acute medications are used to treat the pain of the headache after it has started. Examples glwq-ust-dtsbloc medications, NSAIDs, ergots, and triptans. Q: What are the triptans? A: Triptans are the newest class of abortive medications. They are specifically targeted to treat migraine. Triptans are vasoconstrictors. They moderate some chemical reactions in the brain. The triptans work on receptors in your brain. Triptans help to restore the balance of a neurotransmitter called serotonin. Fluctuations in levels of serotonin are thought to be a main cause of migraine. Q: Are noqy-upb-lcsnvzg medications for migraine effective? A: Vhjr-ngw-qimgqha, or OTC, medications may be effective in relieving mild to moderate pain and associated symptoms of migraine. But you should see your caregiver before beginning any treatment regimen for migraine. Q: What are preventive medications for migraine? A: Preventive medications for migraine are sometimes referred to as prophylactic treatments. They are used to reduce the frequency, severity, and length of migraine attacks. Examples of preventive medications include antiepileptic medications, antidepressants, beta-blockers, calcium channel blockers, and NSAIDs (nonsteroidal anti-inflammatory drugs). Q: Why are anticonvulsants used to treat migraine? A: During the past few years, there has been an increased interest in antiepileptic drugs for the prevention of migraine. They are sometimes referred to as anticonvulsants . Both epilepsy and migraine may be caused by similar reactions in the brain. Q: Why are antidepressants used to treat migraine? A: Antidepressants are typically used to treat people with depression. They may reduce migraine frequency by regulating chemical levels, such as serotonin, in the brain. Q: What alternative therapies are used to treat migraine? A: The term alternative therapies is often used to describe treatments considered outside the scope of conventional Western medicine. Examples of alternative therapy include acupuncture, acupressure, and yoga. Another common alternative treatment is herbal therapy. Some herbs are believed to relieve headache pain. Always discuss alternative therapies with your caregiver before proceeding. Some herbal products contain arsenic and other toxins. TENSION HEADACHES Q: What is a tension-type headache? What causes it? How can I treat it? A: Tension-type headaches occur randomly. They are often the result of temporary stress, anxiety, fatigue, or anger. Symptoms include soreness in your temples, a tightening band-like sensation around your head (a vice-like ache). Symptoms can also include a pulling feeling, pressure sensations, and elisa head and neck muscles. The headache begins in your forehead, temples, or the back of your head and neck. Treatment for tension-type headache may include qzud-ora-siugoaw or prescription medications. Treatment may also include self-help techniques such as relaxation training and biofeedback. CLUSTER HEADACHES Q: What is a cluster headache? What causes it? How can I treat it? A: Cluster headache gets its name because the attacks come in groups. The pain arrives with little, if any, warning. It is usually on one side of the head. A tearing or bloodshot eye and a runny nose on the same side of the headache may also accompany the pain. Cluster headaches are believed to be caused by chemical reactions in the brain. They have been described as the most severe and intense of any headache type. Treatment for cluster headache includes prescription medication and oxygen. SINUS HEADACHES Q: What is a sinus headache? What causes it? How can I treat it? A: When a cavity in the bones of the face and skull (a sinus) becomes inflamed, the inflammation will cause localized pain. This condition is usually the result of an allergic reaction, a tumor, or an infection. If your headache is caused by a sinus blockage, such as an infection, you will probably have a fever. An x-ray will confirm a sinus blockage. Your caregiver's treatment might include antibiotics for the infection, as well as antihistamines or decongestants. REBOUND HEADACHES Q: What is a rebound headache? What causes it? How can I treat it? A: A pattern of taking acute headache medications too often can lead to a condition known as rebound headache. A pattern of taking too much headache medication includes taking it more than 2 days per week or in excessive amounts. That means more than the label or a caregiver advises. With rebound headaches, your medications not only stop relieving pain, they actually begin to cause headaches. Doctors treat rebound headache by tapering the medication that is being overused. Sometimes your caregiver will gradually substitute a different type of treatment or medication. Stopping may be a challenge. Regularly overusing a medication increases the potential for serious side effects. Consult a caregiver if you regularly use headache medications more than 2 days per week or more than the label advises. ADDITIONAL QUESTIONS AND ANSWERS Q: What is biofeedback? A: Biofeedback is a self-help treatment. Biofeedback uses special equipment to monitor your body's involuntary physical responses. Biofeedback monitors: ? Breathing. ? Pulse. ? Heart rate. ? Temperature. ? Muscle tension. ? Brain activity. Biofeedback helps you refine and perfect your relaxation exercises. You learn to control the physical responses that are related to stress. Once the technique has been mastered, you do not need the equipment any more. Q: Are headaches hereditary? A: Four out of five (80%) of people that suffer report a family history of migraine. Scientists are not sure if this is genetic or a family predisposition. Despite the uncertainty, a child has a 50% chance of having migraine if one parent suffers. The child has a 75% chance if both parents suffer. Q: Can children get headaches? A: By the time they reach high school, most young people have experienced some type of headache. Many safe and effective approaches or medications can prevent a headache from occurring or stop it after it has begun. Q: What type of doctor should I see to diagnose and treat my headache? A: Start with your primary caregiver. Discuss his or her experience and approach to headaches. Discuss methods of classification, diagnosis, and treatment. Your caregiver may decide to recommend you to a headache specialist, depending upon your symptoms or other physical conditions. Having diabetes, allergies, etc., may require a more comprehensive and inclusive approach to your headache. The [employer] will provide, upon request, a list of NHF physician members in your state. Document Released: 11/14/2004 Document Revised: 11/16/2012 Document Reviewed: 04/24/2009 ExitCare? Patient Information ?2014 myOrder, [facility]. This information is not intended to replace advice given to you by your health care provider. Make sure you discuss any questions you have with your health care provider. ABA Glaser JEFFREY , have received the following patient education materials/instruction s and have verbalized understanding: Patient Education Materials: Headache, FAQs Follow-up Instructions: With: Address: When: MARLON KEATING [address] [place] [address] Business (1) In 3 days 11/07/2019 Patient Signature Date Clinician/Nurse Signature Date 11/04/2019 01:02:26 Normal [facility] Progress Note-Nurseon 2019 Progress Note-Nurse pt discharged to critical [facility] hospital with driving [facility] Progress Note-Nurse pt verbalized understanding of discharge instructions, iv removed with tip intact. [facility] Progress Note-Nurse This nurse talked with [facility] and gave them information on the patient and his situation. This nurse then handed the phone to the patient and the patient talked with [facility] as well as the . [facility] then called back stating they don't believe there needs to be anything done because the patient is not homicidal or suicidal. This nurse talked with Dr. Campuzano to provide him with information [facility] stated as well as to get his input and Dr. Campuzano stated Ok tell her thank you . Nothing else was pursued. Normal [facility] U Drug Screenon 11-04-2019 Opiates Screen Ql (U) Positive Abnormal Negative [facility] Comment on above: Result Comment: Resu lts verified by repeat analysis\Unconfirmed by alternate method\No confirmation requested by Physican\Critical Result UD_OPIA:POS Called to PANFILO CMDONOUGH AT ED by KATIE LUBIN And Read Back For Confirmation at: 11/03/2019 22:18:22 Negative Cutoff: <300 ng/mL Performed By: #### 2 [id number] #### [facility] [address] [place] [address] Acetamnphn Lvlon 11-03-2019 Acetaminophen [Mass/Vol] <10 Low 15-30 [facility] Comment on above: Performed By: #### 2 432045, 8503924, 6202252, 31093560, 0696271, 9097441 #### [facility] [address] [place] [address] Auto Diffon 11-03-2019 Basophils/100 WBC (Bld) 0.7 % Normal 0.0-2.0 [facility] Comment on above: Order Comment: Order Added by Discern Expert. Performed By: #### 2 457620, 4902176, 5693087, 67188165, 9499123, 6097837 #### [facility] [address] [place] [address] Basophils/Leukocytes Auto (Bld) [Pure # fraction] 0.1 E9/L Normal 0.0-0.2 [facility] Comment on above: Order Comment: Order Added by Discern Expert. Performed By: #### 2 248789, 9475548, 9817584, 80380087, 7462932, 5633805 #### [facility] [address] [place] [address] Eosinophils/100 WBC (Bld) 0.8 % Normal 0.0-8.0 [facility] Comment on above: Order Comment: Order Added by Discern Expert. Performed By: #### 2 809243, 0794818, 1500141, 13679595, 7451578, 2644086 #### [facility] [address] [place] [address] Eosinophils/Leukocytes Auto (Bld) [Pure # fraction] 0.1 E9/L Normal 0.0-0.5 [facility] Comment on above: Order Comment: Order Added by Discern Expert. Performed By: #### 2 313906, 7609274, 2180220, 44209389, 1681368, 6635952 #### [facility] [address] [place] [address] Lymphocytes/100 WBC (Bld) 26.5 % Normal 14.0-50.0 [facility] Comment on above: Order Comment: Order Added by Discern Expert. Performed By: #### 2 126423, 0038178, 8821956, 93724610, 4557622, 8956819 #### [facility] [address] [place] [address] Lymphocytes/Leukocytes Auto (Bld) [Pure # fraction] 2.9 E9/L Normal 1.0-4.0 [facility] Comment on above: Order Comment: Order Added by Discern Expert. Performed By: #### 2 462021, 6616545, 5596603, 06530812, 0375305, 6691401 #### [facility] [address] [place] [address] Monocytes/100 WBC (Bld) 7.2 % Normal 4.0-14.0 [facility] Comment on above: Order Comment: Order Added by Discern Expert. Performed By: #### 2 047436, 1245645, 0109528, 98360096, 2229518, 4170466 #### [facility] [address] [place] [address] Monocytes/Leukocytes Auto (Bld) [Pure # fraction] 0.8 E9/L Normal 0.2-1.0 [facility] Comment on above: Order Comment: Order Added by Discern Expert. Performed By: #### 2 604722, 4288335, 4470261, 47869117, 9466917, 8657243 #### [facility] [address] [place] [address] Neutrophils/100 WBC (Bld) 64.8 % Normal 36.0-75.0 [facility] Comment on above: Order Comment: Order Added by Discern Expert. Performed By: #### 2 216896, 4065325, 0952217, 62037100, 8798883, 6077845 #### [facility] [address] [place] [address] Neutrophils/Leukocytes Auto (Bld) [Pure # fraction] 7.0 E9/L Normal 2.0-7.5 [facility] Comment on above: Order Comment: Order Added by Discern Expert. Performed By: #### 2 077780, 2802255, 8731861, 71421880, 2415105, 9519157 #### [facility] [address] [place] [address] CBC w/ Auto Diffon 0 Erythrocyte distribution width (RBC) [Ratio] 12.6 % Normal 10.9-14.2 [facility] Comment on above: Performed By: #### 2 089850, 6712489, 0634796, 74673156, 2783448, 3376185 #### [facility] [address] [address] Hematocrit (Bld) [Volume fraction] 45.9 % Normal 37.7-49.0 [facility] Comment on above: Performed By: #### 2 643593, 2658348, 5096158, 27857539, 7597939, 8584225 #### [facility] [address] [place] [address] Hemoglobin (Bld) [Mass/Vol] 15.9 g/dL Normal 13.5-17.5 [facility] Comment on above: Performed By: #### 2 367423, 1902681, 4020772, 36995090, 7579727, 9076515 #### [facility] [address] [address] MCH (RBC) [Entitic mass] 33.3 pg Normal 27.0-34.0 [facility] Comment on above: Performed By: #### 2 779530, 3245093, 5085056, 94565459, 4232309, 6492778 #### [facility] [address] [place] [address] MCHC (RBC) [Mass/Vol] 34.7 g/dL Normal 31.4-36.0 [facility] Comment on above: Performed By: #### 2 154806, 8875156, 8412894, 69918868, 6221944, 0007970 #### [facility] [address] [place] [address] MCV (RBC) [Entitic vol] 96.1 fL Normal 80.0-100.0 [facility] Comment on above: Performed By: #### 2 389480, 5893104, 9656341, 12276615, 7725411, 9566770 #### [facility] [address] [place] [address] Platelet mean volume (Bld) [Entitic vol] 6.9 fL Normal 6.4-10.8 [facility] Comment on above: Performed By: #### 2 661636, 9506597, 6206350, 82288121, 7535196, 8299747 #### [facility] [address] [place] [address] Platelets (Bld) [#/Vol] 255.0 E9/L Normal 150.0-500.0 [facility] Comment on above: Performed By: #### 2 022693, 1370243, 0861375, 33649612, 3896019, 9244096 #### [facility] [address] [place], [place] [address] RBC (Bld) [#/Vol] 4.8 E12/L Normal 4.3-5.9 [facility] Comment on above: Performed By: #### 2 475647, 1818545, 5004542, 78681839, 4664635, 9112853 #### [facility] [address] [place] [address] WBC corrected for nucl RBC Auto (Bld) [#/Vol] 10.8 E9/L Normal 4.0-11.0 [facility] Comment on above: Performed By: #### 2 433199, 4543292, 1340278, 76685268, 0405468, 6031327 #### [facility] [address] [place] [address] CMPon 11-03-2019 Albumin [Mass/Vol] 4.0 g/dL Normal 3.3-5.0 [facility] Comment on above: Performed By: #### 2 247220, 3746356, 3073733, 74095610, 6415955, 2964722 #### [facility] [address] [place] [address] Albumin [Mass/Vol] 1.5 g/dL Normal 1.1-2.2 [facility] Comment on above: Performed By: #### 2 648659, 3232929, 5720326, 13053635, 3128220, 6959675 #### [facility] [address] [place] [address] ALP [Catalytic activity/Vol] 47 Int._Unit/L Normal 21-98 [facility] Comment on above: Performed By: #### 2 559153, 1130174, 7757946, 15274990, 9107257, 4330755 #### [facility] [address] [place] [address] ALT No additional P-5'-P [Catalytic activity/Vol] 60 Int._Unit/L High 6-46 [facility] Comment on above: Performed By: #### 2 654069, 3269546, 1607891, 38204537, 1287474, 1386185 #### [facility] [address] [place] [address] AST [Catalytic activity/Vol] 36 Int._Unit/L Normal 5-43 [facility] Comment on above: Performed By: #### 2 072642, 2269015, 6786908, 19455975, 4276031, 7894605 #### [facility] [address] [place] [address] Bilirubin [Mass/Vol] 0.5 mg/dL Normal 0.0-1.1 [facility] Comment on above: Performed By: #### 2 017620, 5785566, 3999468, 59721154, 5107759, 3551082 #### [facility] [address] [place] [address] Creatinine [Mass/Vol] 1.3 mg/dL Normal 0.5-1.3 [facility] Comment on above: Performed By: #### 2 269364, 2166103, 4559552, 09243074, 4691621, 5103687 #### [facility] [address] [place] [address] Globulin (S) [Mass/Vol] 2.6 g/dL Normal 1.4-4.0 [facility] Comment on above: Performed By: #### 2 595981, 1588719, 0445458, 63707279, 3110427, 8794724 #### [facility] [address] [place] [address] Protein [Mass/Vol] 6.6 g/dL Normal 6.0-7.8 [facility] Comment on above: Performed By: #### 2 378785, 3739836, 1952735, 04419578, 0397201, 9734158 #### [facility] [address] [place] [address] Urea nitrogen [Mass/Vol] 21 mg/dL Normal 5-21 [facility] Comment on above: Performed By: #### 2 256276, 5326682, 9583199, 24001248, 7845241, 3155704 #### [facility] [address] [place] [address] Urea nitrogen/Creatinine [Mass ratio] 16 No Units Normal 10-20 [facility] Comment on above: Performed By: #### 2 890874, 6015989, 6184207, 19532486, 5336621, 9993186 #### [facility] [address] [place] [address] Anion gap [Moles/Vol] 11 mmol/L Normal 6-16 [facility] Comment on above: Performed By: #### 2 480945, 3407565, 1212850, 59340212, 3609999, 4020205 #### [facility] [address] [place] [address] Calcium [Mass/Vol] 8.9 mg/dL Normal 8.9-11.1 [facility] Comment on above: Performed By: #### 2 949404, 3492962, 8297360, 56718730, 8560466, 9680421 #### [facility] [address] [place] [address] Chloride [Moles/Vol] 109 mmol/L Normal 101-111 [facility] Comment on above: Performed By: #### 2 172403, 1248821, 9349335, 66372795, 1883444, 6502216 #### [facility] [address] [place] [address] CO2 [Moles/Vol] 21 mmol/L Normal 21-31 [facility] Comment on above: Performed By: #### 2 721785, 9984904, 5612789, 55134440, 0969416, 4652598 #### [facility] [address] [place] [address] Glucose [Mass/Vol] 131 mg/dL Normal 55-199 [facility] Comment on above: Result Comment: If t his glucose result represents a fasting glucose, interpretation should refer to the following reference range: 55-99 mg/dL Performed By: #### 2 552891, 1153645, 3676493, 60455574, 4107044, 7826193 #### [facility] [address] [place] [address] Potassium [Moles/Vol] 3.9 mmol/L Normal 3.5-5.3 [facility] Comment on above: Performed By: #### 2 178513, 6307353, 4834964, 64390605, 7415241, 8303798 #### [facility] [address] [place] [address] Sodium [Moles/Vol] 137 mmol/L Normal 135-145 [facility] Comment on above: Performed By: #### 2 411832, 1495757, 9424286, 09296074, 3317754, 2882576 #### [facility] [address] [place] [address] Ethanolon 11-03-2019 Ethanol [Mass/Vol] mg/dL Normal <=7 [facility] Comment on above: Performed By: #### 2 612099 #### [facility] [address] [place] [address] Salicylateon 11-03-2019 Salicylates [Mass/Vol] mg/dL Low 6-29 [facility] Comment on above: Performed By: #### 2 651184, 2343457, 3601876, 82715691, 4926486, 4028667 #### [facility] [address] [place] [address] U Drug Screenon 11-03-2019 Amphetamines Screen method >1000 ng/mL Ql (U) Negative Normal Negative [facility] Comment on above: Result Comment: Nega tive Cutoff: <1000 ng/mL Performed By: #### 2 581859 #### [facility] [address] [place] [address] Barbiturates Screen Ql (U) Negative Normal Negative [facility] Comment on above: Result Comment: Nega tive Cutoff: <200 ng/mL Performed By: #### 2 269052 #### [facility] [address] [place] [address] Benzodiazepines Ql (U) Negative Normal Negative [facility] Comment on above: Result Comment: Nega tive Cutoff: <200 ng/mL Performed By: #### 2 113553 #### [facility] [address] [place] [address] Cocaine Ql (U) Negative Normal Negative [facility] Comment on above: Result Comment: Nega tive Cutoff: <300 ng/mL Performed By: #### 2 858301 #### [facility] [address] [place] [address] Phencyclidine Screen method >25 ng/mL Ql (U) Negative Normal Negative [facility] Comment on above: Result Comment: Nega tive Cutoff: <25 ng/mL These drug screen results are to be used for medical (i.e., treatment) purposes only. Unconfirmed drug screening results must not be used for non-medical purposes (e.g., employment testing, legal testing). Performed By: #### [id number] #### [facility] [address] [place] [address] Tetrahydrocannabinol Screen method >50 ng/mL Ql (U) Negative Normal Negative [facility] Comment on above: Result Comment: Nega tive Cutoff: <50 ng/mL Performed By: #### 2 [id number] #### [facility] [address] [place] [address] eGFRon 11-03-2019 GFR/1.73 sq M predicted among blacks MDRD (S/P/Bld) [Vol rate/Area] mL/min/{1.73_m2} Normal >=59 [facility] Comment on above: Order Comment: Order added by Discern Expert. Result Comment: eGFR is race adjusted. AA=. Performed By: #### 2 [id number] #### [facility] [address] [place] [address] GFR/1.73 sq M predicted among non-blacks MDRD (S/P/Bld) [Vol rate/Area] 57 mL/min/1.73 m2 Low >=59 [facility] Comment on above: Order Comment: Order added by Discern Expert. Result Comment: [employer] wilda kidney disease could be indicated at eGFR's of less than 60 mL/min/1.73m2. Kidney failure is indicated at less than 15 mL/min/1.73m2. Performed By: #### 2 [id number] #### [facility] [address] [place] [address] Vital Signs Date Time Vital Sign Value Performing Clinician Facility 10-28-2023 [id number] Body height 170.2 cm Tyson Garza MD Work Phone: [facility] 10-28-2023 [id number] Body weight 76.4 kg Tyson Garza MD Work Phone: [facility] 10-21-2023 10:25-0500 Body height 170.18 cm DO Marlon Ball Work Phone: [facility] 10-21-2023 10:25-050 Body mass index (BMI) [Ratio] 26.6 kg/m2 DO Marlon Ball Work Phone: [facility] 10-21-2023 10:25-0500 Body weight 77.11 kg DO Marlon Ball Work Phone: [facility] 10-21-2023 10:25-0500 Diastolic blood pressure 71 mm[Hg] DO Marlon Ball Work Phone: [facility] 10-21-2023 10:25-0500 Heart rate 95 /min DO Marlon Ball Work Phone: [facility] 10-21-2023 10:25-0500 Systolic blood pressure 113 mm[Hg] DO Marlon Ball Work Phone: [facility] 08-04-2023 09:30-0500 Body height 170.18 cm Marlon Ball Other [facility] 08-04-2023 09:30-0500 Body mass index (BMI) [Ratio] 26.15 kg/m2 Marlon Ball Other [facility] [employer] Other 08-04-2023 09:30-0500 Body weight 75.75 kg Marlon Ball Other [facility] [employer] Other 08-04-2023 09:30-0500 Body weight 75.74 kg DO Marlon Ball Work Phone: [facility] 08-04-2023 09:30-0500 Diastolic blood pressure 76 mm[Hg] Marlon Ball Other [facility] 08-04-2023 09:30-0500 Respiratory rate 12 /min Marlon Ball Other [facility] [employer] Other 08-04-2023 09:30-0500 Systolic blood pressure 115 mm[Hg] Marlon Ball Other [facility] 05-02-2023 10:30-0400 Body height 170.18 cm Marlon Ball Other [facility] Other 05-02-2023 10:30-0400 Body mass index (BMI) [Ratio] 25.15 kg/m2 Marlon Ball Other [employer] Other 05-02-2023 10:30-0400 Body weight 72.85 kg Marlon Ball Other [employer] Other 05-02-2023 10:30-0400 Diastolic blood pressure 71 mm[Hg] Marlon Ball Other [employer] Other 05-02-2023 10:30-0400 Respiratory rate 12 /min Marlon Ball Other [employer] Other 05-02-2023 10:30-0400 Systolic blood pressure 107 mm[Hg] Marlon Ball Other [employer] Other 01-30-2023 10:00-0400 Body height 170.18 cm Marlon Ball Other [employer] Other 01-30-2023 10:00-0400 Body mass index (BMI) [Ratio] 26 kg/m2 Marlon Ball Other [employer] Other 01-30-2023 10:00-0400 Body weight 75.3 kg Marlon Ball Other [employer] Other 01-30-2023 10:00-0400 Diastolic blood pressure 71 mm[Hg] Marlon Ball Other [employer] Other 01-30-2023 10:00-0400 Respiratory rate 12 /min Marlon Ball Other [employer] Other 01-30-2023 10:00-0400 Systolic blood pressure 118 mm[Hg] Marlon Ball Other [employer] Other 10-08-2022 10:45-0500 Body height 170.18 cm Maggie Fierro Other [employer] Other 10-08-2022 10:45-0500 Body mass index (BMI) [Ratio] 24.59 kg/m2 Maggie Vadim Other [employer] Other 10-08-2022 10:45-0500 Body weight 71.22 kg Maggie Vadim Other [employer] Other 10-08-2022 10:45-0500 Diastolic blood pressure 68 mm[Hg] Maggie Vadim Other [employer] Other 10-08-2022 10:45-0500 Systolic blood pressure 124 mm[Hg] Maggie Fierro Other [employer] Other 09-30-2022 14:30-0500 Body height 170.18 cm Marlon Ball Other [employer] Other 09-30-2022 14:30-0500 Body mass index (BMI) [Ratio] 24.87 kg/m2 Marlon Ball Other [employer] Other 09-30-2022 14:30-0500 Body weight 72.03 kg Marlon Ball Other [employer] Other 09-30-2022 14:30-0500 Diastolic blood pressure 70 mm[Hg] Marlon Ball Other [employer] Other 09-30-2022 14:30-0500 Respiratory rate 16 /min Marlon Ball Other [employer] Other 09-30-2022 14:30-0500 Systolic blood pressure 126 mm[Hg] Marlon Ball Other [employer] Other 08-06-2022 12:44-0500 Body height 170.2 cm Tyson Garza MD Work Phone: [facility] 08-06-2022 12:44-0500 Body weight 74.84 kg Tyson Garza MD Work Phone: [facility] 01-22-2022 14:15-0400 Body height 170.18 cm Celsa Fuentes Other [employer] Other 01-22-2022 14:15-0400 Body mass index (BMI) [Ratio] 27.33 kg/m2 Celsa Fuentes Other [employer] Other 01-22-2022 14:15-0400 Body weight 79.15 kg Celsa Fuentes Other [employer] Other 01-22-2022 14:15-0400 Diastolic blood pressure 74 mm[Hg] Celsa Fuentes Other [employer] Other 01-22-2022 14:15-0400 Respiratory rate 18 /min Celsa Fuentes Other [employer] Other 01-22-2022 14:15-0400 SaO2% (BldA) [Mass fraction] 98 % Celsa Fuentes Other [employer] Other 01-22-2022 14:15-0400 Systolic blood pressure 126 mm[Hg] Celas Fuentes Other [employer] Other 01-18-2022 09:38-0400 Body height 170.2 cm Farshad Marlow MD Work Phone: [facility] 01-18-2022 09:38-0400 Body temperature 97.39 [degF] Farshad Marlow MD Work Phone: [facility] 01-18-2022 09:38-0400 Body weight 79.11 kg Farshad Marlow MD Work Phone: [facility] 01-18-2022 09:38-0400 Diastolic blood pressure 70 mm[Hg] Farshad Marlow MD Work Phone: [facility] 01-18-2022 09:38-0400 Heart rate 87 /min Farshad Marlow MD Work Phone: [facility] 01-18-2022 09:38-0400 Respiratory rate 16 /min Farshad Marlow MD Work Phone: [facility] 01-18-2022 09:38-0400 SaO2% (BldA) [Mass fraction] 99 % Farshad Marlow MD Work Phone: [facility] 01-18-2022 09:38-0400 Systolic blood pressure 112 mm[Hg] Farshad Marlow MD Work Phone: [facility] 12-28-2021 10:45-0400 Body height 170.18 cm Jeremie Crisostomo Other [employer] Other 12-28-2021 10:45-0400 Body mass index (BMI) [Ratio] 27.72 kg/m2 Jeremie Crisostomo Other [employer] Other 12-28-2021 10:45-0400 Body weight 80.29 kg Jeremie Crisostomo Other [employer] Other 12-28-2021 10:45-0400 Diastolic blood pressure 80 mm[Hg] Jeremie Crisostomo Other [employer] Other 12-28-2021 10:45-0400 Systolic blood pressure 130 mm[Hg] Jeremie Crisostomo Other [employer] Other 07-03-2021 10:30-0400 Body height 170.18 cm Jeremie Crisostomo Other [employer] Other 07-03-2021 10:30-0400 Body mass index (BMI) [Ratio] 28.03 kg/m2 Jeremie Crisostomo Other [employer] Other 07-03-2021 10:30-0400 Body weight 81.19 kg Jeremie Crisostomo Other [employer] Other 07-03-2021 10:30-0400 Diastolic blood pressure 68 mm[Hg] Jeremie Crisostomo Other [employer] Other 07-03-2021 10:30-0400 Systolic blood pressure 110 mm[Hg] Jeremie Crisostomo Other [employer] Other 06-08-2021 12:00-0400 Body height 170.18 cm Rosa Le Other [employer] Other 06-08-2021 12:00-0400 Body mass index (BMI) [Ratio] 27.66 kg/m2 Rosa Le Other [employer] Other 06-08-2021 12:00-0400 Body weight 80.11 kg Rosa Le Other [employer] Other Encounters Encounter Date Encounter Type Care Provider Facility Start: 10-28-2023 End: 10-28-2023 ambulatory KENNY MCKEON Facility:[facility] Start: 10-28-2023 End: 10-28-2023 ambulatory TYSON GARZA Facility:[facility] Start: 10-28-2023 End: 10-28-2023 Subsequent hospital visit by physician [facility] A[facility] 2 Radiology 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 Work Phone: Start: 09-29-2023 End: 09-29-2023 ambulatory Marlon Ball Other [employer] Other Start: 09-29-2023 Telephone encounter Marlon Keating [facility] Start: 09-27-2023 End: 09-27-2023 ambulatory Marlon Ball Other [employer] Other Start: 09-27-2023 Telephone encounter Marlon Keating [facility] Start: 09-24-2023 End: 09-25-2023 ambulatory Kenny Mckeon MD Work Phone: Urology Start: 09-16-2023 End: 09-16-2023 ambulatory Marlon Ball Other [employer] Other Start: 09-16-2023 Telephone encounter Marlon Ball [facility] Start: 09-02-2023 End: 09-02-2023 ambulatory Marlon Ball Other [employer] Other Start: 09-02-2023 Telephone encounter Marlon Ball [facility] Start: 08-19-2023 End: 08-19-2023 ambulatory Marlon Ball Other [employer] Other Start: 08-19-2023 Telephone encounter Marlon Ball [facility] Start: 08-07-2023 End: 08-07-2023 ambulatory Marlon Ball Other [employer] Other Start: 08-07-2023 Telephone encounter Marlon Keating [facility] Start: 08-05-2023 Registered Recurring DO Danny in Ball Work Phone: [facility] Start: 08-04-2023 End: 08-04-2023 ambulatory Mralon Ball Other [employer] Other Start: 08-04-2023 Office outpatient vi sit 25 minutes Marlon Ball [facility] Start: 08-04-2023 End: 08-04-2023 Patient encounter procedure DO Marlon Ball Work Phone: [facility] Work Phone: Start: 07-03-2023 End: 07-03-2023 ambulatory Marlon Ball Other [employer] Other Start: 07-03-2023 Telephone encounter Marlon Ball [facility] Start: 06-06-2023 End: 06-06-2023 ambulatory Marlon Ball Other [employer] Other Start: 06-06-2023 Telephone encounter Marlon Ball [facility] Start: 05-02-2023 End: 05-02-2023 ambulatory Marlon Ball Other [employer] Other Start: 05-02-2023 Office outpatient vi sit 25 minutes Marlon Ball [facility] Start: 03-23-2023 Letter encounter Marlon Ball Work Phone: [facility] Start: 02-07-2023 End: 02-07-2023 ambulatory Marlon Ball Other [employer] Other Start: 02-07-2023 Telephone encounter Marlon Ball [facility] Start: 02-06-2023 End: 02-06-2023 ambulatory Marlon Ball Other [employer] Other Start: 02-06-2023 Telephone encounter Marlon Keating [facility] Start: 01-30-2023 End: 01-30-2023 ambulatory Marlon [facility] Other [employer] Other Start: 01-30-2023 Encounter for genera l adult medical examination without abnormal findings Marlon Keating [facility] Start: 01-30-2023 Periodic preventive med est patient 40-64yrs Marlon Keating [facility] Start: 01-17-2023 End: 01-17-2023 ambulatory MARLON E ZURI Facility:[facility] Start: 01-13-2023 End: 01-13-2023 ambulatory Marlon Keating Other [employer] Other Start: 01-13-2023 Telephone encounter Marlon Ball [facility] Start: 12-27-2022 End: 12-27-2022 ambulatory Marlon Keating Other [employer] Other Start: 12-27-2022 Telephone encounter Marlon Ball [facility] Start: 11-26-2022 End: 11-26-2022 ambulatory Marlon [facility] Other [employer] Other Start: 11-26-2022 Telephone encounter Marlon Ball [facility] Start: 11-25-2022 End: 11-25-2022 ambulatory Marlon [facility] Other [employer] Other Start: 11-25-2022 Telephone encounter Marlon Ball [facility] Start: 11-21-2022 End: 11-21-2022 ambulatory Marlon Ball Other [employer] Other Start: 11-21-2022 Telephone encounter Marlon Ball [facility] Start: 11-20-2022 End: 11-20-2022 ambulatory Marlon Ball Other [employer] Other Start: 11-20-2022 Telephone encounter Marlon Keating [facility] Start: 11-07-2022 End: 11-07-2022 ambulatory Marlon Keating Other [employer] Other Start: 11-07-2022 Telephone encounter Marlon VALE [facility] Start: 10-25-2022 End: 10-25-2022 ambulatory Marlon Keating Other [employer] Other Start: 10-25-2022 Telephone encounter Marlon Keating [facility] Start: 10-14-2022 End: 10-14-2022 ambulatory Marlon Keating Other [employer] Other Start: 10-14-2022 Telephone encounter Marlon VALE [facility] Start: 10-08-2022 End: 10-08-2022 ambulatory Maggie Fierro Other [employer] Other Start: 10-08-2022 Office outpatient vi sit 15 minutes Maggie Fierro [facility] Start: 10-08-2022 Telephone encounter Maroln Keating [facility] Start: 10-04-2022 End: 10-04-2022 ambulatory Marlon Keating Other [employer] Other Start: 10-04-2022 Telephone encounter Marlon Keating [facility] Start: 10-02-2022 End: 10-02-2022 ambulatory Marlon Keating Other [employer] Other Start: 10-02-2022 Telephone encounter Marlon Keating [facility] Start: 10-01-2022 End: 10-01-2022 ambulatory Marlon Keating Other [employer] Other Start: 10-01-2022 Telephone encounter Marlon Keating [facility] Start: 09-30-2022 End: 10-01-[address] MARLON KEATING [employer] Other Start: 09-30-2022 Office outpatient vi sit 25 minutes Marlon Keating [facility] Start: 09-23-2022 Letter encounter Marlon Keating Work Phone: [employer] Start: 09-11-2022 End: 09-11-2022 ambulatory Marlon Keating Other [employer] Other Start: 09-11-2022 Telephone encounter Marlon Keating [facility] Start: 08-06-2022 End: 08-06-2022 Patient encounter procedure Tyson Garza MD Work Phone: Colorectal Surgery 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); Malignant neoplasm of colon, unspecified part of colon (HCC) Lentigines (Primary Dx); Multiple benign nevi; Seborrheic keratoses; Pilar cyst; Aryo angioma Start: 07-25-2022 End: 07-26-[address] MARLON KEATING Facility:[facility] Start: 06-17-2022 Letter encounter [facility] Start: 05-06-2022 End: 05-07-[address] DOCTOR GUDINO Facility:[facility] Start: 04-19-2022 End: 04-20-[address] MARLON KEATING Facility:[facility] Start: 04-18-2022 Telephone encounter Rosalina Zapata Hematology/Oncology Comment on above: Patient Question Start: 04-07-2022 End: 04-07-[address] MARLON KEATING Facility:[facility] Start: 03-09-2022 End: 03-09-[address] DEREK CHILDERS Facility:[facility] Start: 01-22-2022 End: 01-22-2022 ambulatory Celsa Fuentes Other [employer] Other Start: 01-22-2022 Office outpatient vi sit 25 minutes Celsa Fuentes [facility] Start: 01-18-2022 End: 01-18-2022 ambulatory Farshad Marlow MD Work Phone: Hematology/Oncology 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); Adenocarcinoma of colon (HCC) Start: 01-18-2022 End: 01-18-2022 Patient encounter procedure Farshad Marlow MD Work Phone: [employer] Start: 01-16-2022 Telephone encounter Jeanne Barraza RN Hematology/Oncology Comment on above: Results Start: 01-10-2022 Telephone encounter Farshad seay MD Work Phone: Hematology/Oncology Comment on above: Lab Orders Start: 12-28-2021 End: 12-28-2021 ambulatory Jeremie Crisostomo Other [employer] Other Start: 12-28-2021 Office outpatient vi sit 15 minutes Jeremie Andressa [facility] [place] Start: 12-27-2021 Telephone encounter Rosalina Zapata Radiology Pet CT Comment on above: Orders Start: 10-30-2021 (Procedure) [facility] Start: 10-30-2021 End: 10-30-2021 ambulatory Jeremie Crisostomo Other [employer] Other Start: 10-16-2021 (Procedure) [facility] Crisostomo [facility] Start: 10-16-2021 End: 10-16-2021 ambulatory Jeremie Crisostomo Other [employer] Other Start: 07-03-2021 Office outpatient vi sit 25 minutes Jeremie Andressa [facility] Start: 06-19-2021 (Procedure) [facility] And[facility] Start: 06-08-2021 Office outpatient vi sit 15 minutes Rosa Le [facility] [place] Start: 03-13-2018 End: 03-13-2018 ambulatory UNKNOWN PROVIDER Facility:[facility] Procedures Date Procedure Procedure Detail Performing Clinician Start: 10-28-2023 Us retroperitoneal r eal time w/image complete Kenny Mckeon MD Work Phone: Start: 10-28-2023 Sigmoidoscopy flx dx w/collj spec br/wa if pfrmd [facility] Provider Start: 09-24-2023 Urnls dip stick/tabl et rgnt auto w/o microscopy Bulk Order Provider Start: 08-06-2022 Sigmoidoscopy flx dx w/collj spec br/wa if pfrmd [facility] Provider Start: 04-19-2019 Lipid 1996 panel - S bishop or Plasma Kenny Mckeon MD Work Phone: Plan of Treatment Date Care Activity Detail Author Start: 10-28-2028 Screening for malign ant neoplasm of colon [facility] Start: 09-24-2028 Screening for malign ant neoplasm of colon [facility] Start: 08-06-2027 COLORECTAL CANCER SCREENING COLORECTAL CANCER SCREENING [facility] Start: 08-06-2027 SIGMOIDOSCOPY SIGMOIDOSCOPY [facility] Start: 01-04-2027 PROSTATE CANCER SCRE ENING DISCUSSION PROSTATE CANCER SCREENING DISCUSSION [facility] Start: 06-12-2026 COLORECTAL CANCER SCREENING COLORECTAL CANCER SCREENING [facility] Start: 06-12-2026 SIGMOIDOSCOPY SIGMOIDOSCOPY [facility] Start: 01-17-2026 Diabetes Screening Diabetes Screenin g [facility] Start: 04-19-2024 Lipid panel Lipid Screening [facility] Start: 04-19-2024 LIPID SCREEN LIPID SCREEN [facility] Start: 02-09-2024 DIABETES SCREEN DIABETES SCREEN [facility] Start: 2023 RSV Vaccine (1 - 1-d ose 60+ series) RSV Vaccine (1 - 1-dose 60+ series) [facility] Start: 06-08-2023 Influenza vaccination Influenza Vacc ine (#1) [facility] Start: 01-18-2023 End: 01-18-2023 Carcinoembryonic Ag [Mass/volume] in Serum or Plasma CEA BLD Lab Routine Holt syndrome Adenocarcinoma of colon (HCC) Expected: 01/18/2023 (Approximate), Expires: 01/18/2023 [facility] Work Phone: Comment on above: Expected: 01/18/2023 (Approximate), Expires: 01/18/2023 Start: 01-18-2023 End: 01-18-2023 CBC W Auto Differential panel - Blood CBC + DIFF Lab Routine Holt syndrome Adenocarcinoma of colon (HCC) Expected: 01/18/2023 (Approximate), Expires: 01/18/2023 [facility] Work Phone: Comment on above: Expected: 01/18/2023 (Approximate), Expires: 01/18/2023 Start: 01-18-2023 End: 01-18-2023 Comprehensive metabolic 2000 panel - Serum or Plasma COMP METABOLIC PANEL Lab Routine Holt syndrome Adenocarcinoma of colon (HCC) Expected: 01/18/2023 (Approximate), Expires: 01/18/2023 [facility] Work Phone: Comment on above: Expected: 01/18/2023 (Approximate), Expires: 01/18/2023 Start: 06-08-2022 Influenza vaccination Influenza Vacc ine (#1) [facility] Start: 05-09-2022 Influenza vaccination C [facility] Start: 12-27-2021 End: 02-26-2022 CREATININE BLD CREATININE BLD Lab Routine Malignant neoplasm of descending colon (HCC) Expected: 12/27/2021, Expires: 02/26/2022 [facility] Work Phone: Comment on above: Expected: 12/27/2021 , Expires: 02/26/2022 Start: 2018 PROSTATE CANCER SCRE ENING DISCUSSION PROSTATE CANCER SCREENING DISCUSSION [facility] Start: 2018 Prostate specific an tigen measurement Prostate Cancer Screening Discussion [facility] Start: 11-06-2016 Annual wellness visit Annual W ellness Visit (G0438) [facility] Start: 2013 Measurement of occul t blood in single stool specimen FIT [facility] Start: 2013 Screening for malign ant neoplasm of colon CRC Screening [facility] Start: 2013 Shingles (RZV) Vacci ne (1 of 2) Shingles (RZV) Vaccine (1 of 2) [facility] Start: 2013 SHINGRIX VACCINE (1 of 2) TERRY GRIX VACCINE (1 of 2) [facility] Start: 2008 COLOGUARD (FIT-DNA) COLOGUARD (FIT-D NA) [facility] Start: 2008 Colonoscopy COLONOSCOPY [facility] Start: [address] COLONOGRAPHY [facility] Start: 2008 FECAL OCCULT BLOOD FECAL OCCULT BLOO D [facility] Start: 2008 Screening for malign ant neoplasm of colon [facility] Start: 1998 Lipid panel Cholesterol [facility] Start: 1982 Urine microalbumin profile [facility] Start: 1981 HEPATITIS C SCREENING HEPATITIS C SC REENING [facility] Start: 1981 Hepatitis C screening M [facility] Start: 1981 HIV SCREENING HIV SCREENING [facility] Start: 1981 HIV screening HIV Screening [facility] Start: 1981 Tetanus + diphtheria + acellular pertussis vaccine (product) Tdap Booster [facility] Start: 1978 HIV screening HIV Test [facility] Start: 1969 PNEUMOCOCCAL (1 - PCV) PNEUMOCOCCAL (1 - PCV) [facility] Start: 1968 COVID-19 VACCINE (#1) COVID-19 VACCI NE (#1) [facility] Start: 1968 COVID-19 VACCINE (1) COVID-19 VACCIN E (1) [facility] Start: 03-15-1964 COVID-19 VACCINE (#1) COVID-19 VACCI NE (#1) [facility] Start: 1963 HEPATITIS B (1 of 3 - 3-dose series) HEPATITIS B (1 of 3 - 3-dose series) [facility] Start: 1963 Screening for malign ant neoplasm of colon Colonoscopy [facility] Immunizations Immunization Date Immunization Notes Care Provider Beatriz davey 08-04-2023 influenza, injectable, quadrivalent, preservative free Marlon Keating Other [facility] 07-23-2022 influenza virus vaccine, split virus (incl. purified surface antigen) Marlon Keating Other [employer] Other 07-23-2022 influenza virus vaccine, unspecified formulation DO Marlon Keating Work Phone: [facility] 03-07-2004 tetanus toxoid, adsorbed Rosalina Delgado RN [facility] NEGATED: Highlighted row has not occurred!06-16-2019 influenza virus vaccine, split virus (incl. purified surface antigen) Marlon Keating Other [employer] Other Payers Date Payer Category Payer Private Health Insurance [employer] POS [id number] 2019-Present [phone] [address] [place] [address] POS [id number] 2019 Private Health Insurance [employer] POS [id number] 2019-Present [phone] [address] [place] [address] POS [id number] 2019 Private Health Insurance [id number] 2016 Unknown [id number] 2016 Unknown [id number] 2015 Medicare [id number] 2015 Medicare MEDICARE MEDICAR E A AND B [id number] 2015-Present [phone] [address] [address] [place] [address] Medicare [id number] 2015 Medicare [id number] 1963 Unknown [id number] 1963 Unknown [id number] 93 1965 Unknown [id number] 93 1965 Unknown [id number] 93 1965 Unknown [id number] 93 1965 Unknown [id number] 93 1965 Unknown [id number] 93 1961 [facility] [id number] 1961 Medicare [id number] 1961 Private Health Insurance [id number] 1961 Unknown [id number] Self-pay Self Pay [id number] Unknown HCAP/HFA/FAP Active [id number] Social History Date Type Detail Facility Start: 01-15-2011 End: 11-12-2016 Tobacco smoking status NHIS Never smoked tobacco [facility] Start: 11-12-2016 End: 09-24-2023 Tobacco use and exposure Former smokeless tobacco user [facility] End: 07-13-2008 History of tobacco use Chews Tobacco [facility] Start: 06-12-2021 End: 08-06-2022 Alcohol intake Current non-drinker of alcohol (finding) [facility] Start: 04-08-2017 History SDOH Alcohol Comment Quit drinking 2 years ago. [facility] Start: 1965 Sex Assigned At Not on file [facility] Start: 01-04-2022 End: 08-06-2022 Exposure to SARS-CoV-2 (event) Not sure [facility] Start: 01-17-2023 End: 09-24-2023 Sex Assigned At [facility] Start: 04-09-2022 End: 04-19-2022 Exposure to SARS-CoV-2 (event) Unable to assess [facility] Start: 08-06-2022 [facility] History of tobacco use Cigar Smoker [facility] Start: 03-13-2018 Alcohol intake Current drinke r of alcohol (finding) [facility] Start: 03-13-2018 End: 01-17-2023 Alcohol intake [facility] Start: 09-24-2023 [facility] History of tobacco use Current smoker [facility] Start: 09-24-2023 End: 10-28-2023 Alcohol intake Ex-drinker (finding) [facility] Adult Depression Screening Assessment 0 [facility] Start: 09-29-2023 [facility] Start: 1965 Sex Assigned At Male F [facility] Medical Equipment Procedure Code Equipment Code Equipment Origin al Text Equipment Identifier Dates One Touch Ultra Test Strips One Touch Ultra Test Strips Start: 10-17-2023 Clinical Notes 12-10-2016 to 10-28-2023 Alana Yousif RT(R) - 10/28/2023 1:30 PM Tyson Adler MD - 10/28/2023 10:30 AM EST Note Date & Type Note Facility 10-28-2023 Note HNO ID: [id number] Author: ALANA YOUSIF RT(R) Service: Radiology Author Type: Technologist Type: Progress Notes Filed: 10/28/2023 13:01 Note Text: Radiology Service Progress Note PATIENT NAME: Quinn Troncoso DATE OF SERVICE: October 28, 2023 TIME: 1:00 PM PATIENT IDENTITY VERIFICATION COMPLETED USING TWO (2) IDENTIFIERS: Name and Date of confirmed by patient verbally. FALL SCREENING: Has the patient had 2 falls in the last year or 1 fall with injury or currently using an Ambulatory Assistive Device (Walker, Cane, Wheelchair, Crutches, etc.)? No PATIENT GENDER DATA: Male PATIENT RELEVANT IMPLANT DATA REVIEWED: Not Applicable PATIENT PRESENTS WITH AN IMPLANTABLE OR ATTACHED CHURN OPERATOR MARGARINE: No RADIOLOGY DEPARTMENT: Ultrasound PERIPHERAL IV DATA: Not applicable SIGNED BY: Alana Yousif RDMS RVT October 28, 2023 1:00 PM [facility] 10-28-2023 History of Present illness Narrative Radiology Service Progress Note PATIENT NAME: Quinn Troncoso DATE OF SERVICE: October 28, 2023 TIME: 1:00 PM PATIENT IDENTITY VERIFICATION COMPLETED USING TWO (2) IDENTIFIERS: Name and Date of confirmed by patient verbally. FALL SCREENING: Has the patient had 2 falls in the last year or 1 fall with injury or currently using an Ambulatory Assistive Device (Walker, Cane, Wheelchair, Crutches, etc.)? No PATIENT GENDER DATA: Male PATIENT RELEVANT IMPLANT DATA REVIEWED: Not Applicable PATIENT PRESENTS WITH AN IMPLANTABLE OR ATTACHED CHURN OPERATOR MARGARINE: No RADIOLOGY DEPARTMENT: Ultrasound PERIPHERAL IV DATA: Not applicable SIGNED BY: Alana Yousif RDMS RVT October 28, 2023 1:00 PM documented in this encounter [facility] 10-28-2023 Note HNO ID: [id number] Author: TYSON GARZA MD Service: ? 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 Last seen in the office with Dr Garza in July 2022. He underwent flex sig and EGD with Dr William in September 2023 - results below. 09.24.2023 flex sig Findings: The perianal and digital rectal examinations were normal. A large amount of stool was found in the rectum, making visualization difficult. No polyps seen within the limits of the bowel preparation. Impression: - Preparation of the colon was inadequate. - Stool in the rectum obscuring the views. 09.24.2023 EGD Impression: - Esophagogastric landmarks identified. - Esophageal mucosal changes consistent with short-segment Hernandez's esophagus. Biopsied. - About 50, gastric polyps. one 15 mm polyp resected and retrieved. Clip x 1. - Nodular mucosa in the gastric antrum. Biopsied. - Normal first portion of the duodenum, second portion of the duodenum and third portion of the Duodenum. 01.14.2022 CT C/A/P IMPRESSION: 1. No evidence of intra-abdominal/pelvic metastases. 2. No interval change since 01/12/21. 3. Nonspecific subcentimeter right hepatic hypodensity, stable. IMPRESSION: 1. No evidence of intrathoracic metastases. 2. No change since 01/12/21. 3. Trace gastroesophageal reflux. Physical Exam: Ht 170.2 cm (5' 7 ) Wt 76.4 kg (168 lb 6.9 oz) BMI 26.38 kg/m? General - awake, alert, no acute distress Abdominal - Soft, NTTP, non distended, no guarding, -ve peritoneal signs. Anorectal: Perianal skin is intact. No erythema, induration or excoriation. No fissure, fistula or external hemorrhoids. Digital Rectal Exam: Anus: closed Resting tone: NORMAL Squeeze tone: NORMAL Manager Of Network present: Yes Flexible sigmoidoscopy: Procedure: The patient was placed in left lateral position. After digital exam with a lubricated finger, the scope was easily inserted to 20 cm. Findings: The preparation was fair. There was a ANGELIQUE and it appeared healthy. The remainder of the sigmoid, rectum and anal canal were entirely normal. Biopsies were not taken. Assessment Medical Decision Making: Assessment AND Diagnosis: Quinn Troncoso is a 58 year old male s/p ANGELIQUE and now presents for follow up. Data Reviewed: Tests AND Documents Reviewed/ordered: Review of prior notes from [facility] Review of prior operative reports Review of Pathology Review of Imaging: CT Abdomen, CT Pelvis Review of Labs: CBC, BMP Review of Procedures / Tests: Flexible Sigmoidoscopy Assessment by: Caregiver Additional testing or imaging to be ordered: n/a I have independently interpreted: CT Abdomen, CT Pelvis I have discussed Quinn Troncoso's treatment plan and/or results with him and his . Treatment plan: Return to follow up in 6 months [facility] STAFF PHYSICIAN NOTE OF PERSONAL INVOLVEMENT IN CARE I have reviewed the progress note and procedure note obtained and documented by the CA and I personally participated in the luque components. I have discussed the case and management of the patient's care. The following comments revise or confirm relevant luque components of their note. IMPRESSION: This is a 58 year old male who presents with history of Holt syndrome. Scope today as last one could not be completed with stool with no sign of polyps. PLAN: Sees Dr William /GI for EGD, follow up already with them. Sees urology and had a skin test. See me in 6 months Plan of care discussed with Patient and Family/Significant Other: CARE COORDINATION: [facility] team to coordinate care SIGNATURE: Tyson Garza MD DATE of SERVICE: October 28, 2023 TIME of SERVICE: 10:36 AM Risk of morbidity, mortality and/or complications of treatment plan: high [facility] 10-28-2023 History of Present illness Narrative COLORECTAL SURGERY Follow-up October 24, 2023 Chief complaint: HPI: Rosendo Troncoso is a 58-year-old male 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 Last seen in the office with Dr Garza in July 2022. He underwent flex sig and EGD with Dr William in September 2023 - results below. 09.24.2023 flex sig Findings: The perianal and digital rectal examinations were normal. A large amount of stool was found in the rectum, making visualization difficult. No polyps seen within the limits of the bowel preparation. Impression: - Preparation of the colon was inadequate. - Stool in the rectum obscuring the views. 09.24.2023 EGD Impression: - Esophagogastric landmarks identified. - Esophageal mucosal changes consistent with short-segment Hernandez's esophagus. Biopsied. - About 50, gastric polyps. one 15 mm polyp resected and retrieved. Clip x 1. - Nodular mucosa in the gastric antrum. Biopsied. - Normal first portion of the duodenum, second portion of the duodenum and third portion of the Duodenum. 01.14.2022 CT C/A/P IMPRESSION: 1. No evidence of intra-abdominal/pelvic metastases. 2. No interval change since 01/12/21. 3. Nonspecific subcentimeter right hepatic hypodensity, stable. IMPRESSION: 1. No evidence of intrathoracic metastases. 2. No change since 01/12/21. 3. Trace gastroesophageal reflux. Physical Exam: Ht 170.2 cm (5' 7 ) Wt 76.4 kg (168 lb 6.9 oz) BMI 26.38 kg/m General - awake, alert, no acute distress Abdominal - Soft, NTTP, non distended, no guarding, -ve peritoneal signs. Anorectal: Perianal skin is intact. No erythema, induration or excoriation. No fissure, fistula or external hemorrhoids. Digital Rectal Exam: Anus: closed Resting tone: NORMAL Squeeze tone: NORMAL Manager Of Network present: Yes Flexible sigmoidoscopy: Procedure: The patient was placed in left lateral position. After digital exam with a lubricated finger, the scope was easily inserted to 20 cm. Findings: The preparation was fair. There was a ANGELIQUE and it appeared healthy. The remainder of the sigmoid, rectum and anal canal were entirely normal. Biopsies were not taken. Assessment Medical Decision Making: Assessment & Diagnosis: Quinn Troncoso is a 58 year old male s/p ANGELIQUE and now presents for follow up. Data Reviewed: Tests & Documents Reviewed/ordered: Review of prior notes from [facility] Review of prior operative reports Review of Pathology Review of Imaging: CT Abdomen, CT Pelvis Review of Labs: CBC, BMP Review of Procedures / Tests: Flexible Sigmoidoscopy Assessment by: Caregiver Additional testing or imaging to be ordered: n/a I have independently interpreted: CT Abdomen, CT Pelvis I have discussed Quinn Troncoso's treatment plan and/or results with him and his . Treatment plan: Return to follow up in 6 months [facility] STAFF PHYSICIAN NOTE OF PERSONAL INVOLVEMENT IN CARE I have reviewed the progress note and procedure note obtained and documented by the CA and I personally participated in the luque components. I have discussed the case and management of the patient's care. The following comments revise or confirm relevant luque components of their note. IMPRESSION: This is a 58 year old male who presents with history of Holt syndrome. Scope today as last one could not be completed with stool with no sign of polyps. PLAN: Sees Dr William /GI for EGD, follow up already with them. Sees urology and had a skin test. See me in 6 months Plan of care discussed with Patient and Family/Significant Other: CARE COORDINATION: [facility] team to coordinate care SIGNATURE: Tyson Garza MD DATE of SERVICE: October 28, 2023 TIME of SERVICE: 10:36 AM Risk of morbidity, mortality and/or complications of treatment plan: high documented in this encounter [facility] 09-29-2023 Evaluation note Encounter Date Diagnosis Assessment Notes Sep, Palpitation (ICD-10 - R00.2) [facility] Other 01-20-2024 Evaluation note* Encounter Date Diagnosis Assessment Notes Treatment Notes Treatment Clinical Notes Sep, Gastric polyp (ICD-10 - K31.7) EGD 2022 w/ dysplasia [facility] Other 01-17-2024 NoteHNO ID: [id number] Author: KENNY MCKEON MD Service: ? Author Type: Physician Type: Progress Notes Filed: 09/25/2023 11:19 Note Text: [facility] NEW PATIENT HISTORY AND PHYSICAL EXAM PATIENT INFO: Quinn Troncoso REFERRING M.D.: SELF PCP: Marlon Keating, DO Consultation requested by SELF and my final recommendations will be communicated back to the requesting physician by way of shared medical record or letter via US mail. CHIEF COMPLAINT: MSH2 referral HPI: 58 yo male with prior history of colon cancer (2106) with Holt syndrome. Referral here for evaluation from urological standpoint. Pmh: Stroke TIA, WENDY, Holt syndrome, GERD, DM, Hernandez's esophagus, asthma and arthritis. Adenocarcinoma of colon- fully resected 2016, totally abdominal colectomy T3, N1 B, 2 out of 21 lymph nodes positive. Patient unable to handle adjuvant chemotherapy [facility] with [facility] [place]- Blood thinners: Aspirin 81 mg LABS: Creatinine Date Value Ref Range Status 01/17/2023 1.03 0.73 - 1.22 mg/dL Final 02/08/2021 1.06 0.73 - 1.22 mg/dL Final 02/07/2021 1.05 0.73 - 1.22 mg/dL Final 01/19/2021 0.94 0.73 - 1.22 mg/dL Final ALLERGIES: ALLERGIES Allergen Reactions Acetaminophen Mental Status Change Decongest Multi-Act* Unknown Decongestant [Brom* Unknown Fast heart rate Decongestant [Pseud* Other: See Comments BP increased Oxycodone-Acetamino* Other: See Comments MEDICATIONS: Current Outpatient Medications Medication Sig gabapentin (NEURONTIN) 600 mg tablet Take 600 mg by mouth three times daily. mirtazapine (REMERON) 45 mg tablet Take 45 mg by mouth daily at bedtime. INVEGA SUSTENNA 156 mg/mL syrg injection INJECT 1 MILLILITER BY INTRAMUSCULAR ROUTE 1 TIME PER MONTH HYDROcodone-acetaminophen (NORCO) 5-325 mg per tablet Take 1 tablet by mouth twice daily. MAGNESIUM ORAL Magnesium Active 500 MG PO Daily February 06, 2021 7:43pm aspirin, enteric coated (ASPIRIN, ENTERIC COATED) 81 mg EC tablet atorvastatin (LIPITOR) 40 mg tablet Take 40 mg by mouth once daily. glimepiride (AMARYL) 2 mg tablet Take 1 mg by mouth twice daily with meals. pantoprazole DR (PROTONIX) 40 mg tablet Take 40 mg by mouth once daily. escitalopram oxalate (LEXAPRO) 20 mg tablet Take 20 mg by mouth once daily. zonisamide (ZONEGRAN) 100 mg capsule Take 200 mg by mouth once daily. cyclobenzaprine (FLEXERIL) 10 mg tablet Take 10 mg by mouth twice daily as needed for Muscle Spasm. No current facility-administered medications for this visit. HISTORIES PAST MEDICAL HISTORY Diagnosis Date Anxiety Arthritis Asthma Hernandez's esophagus Cancer (HCC) Diabetes (HCC) GERD (gastroesophageal reflux disease) Holt syndrome Obstructive sleep apnea Occasional tremors Port-A-Cath in place Stroke (HCC) TIA PAST SURGICAL HISTORY Procedure Laterality Date COLONOSCOPY 11/01/2016 PAST SURGICAL HISTORY OF spinal cord fusions x 2 PAST SURGICAL HISTORY OF appendix removed, scar tissue removed from intestines PAST SURGICAL HISTORY OF scope of right knee PAST SURGICAL HISTORY OF tonsilectomy PICC LINE INSERT/CONSULT 12/05/2016 REVIEW OF SYSTEMS General: No weight loss, malaise or fevers. Genitourinary: No history of dysuria, frequency or incontinence The remainder of the ROS was reviewed and was negative. PHYSICAL EXAMINATION There were no vitals taken for this visit. General: No acute distress Genitourinary: MALE EXAM: Exam NOT Indicated ASSESSMENT/PLAN: 58 yo male with prior history of colon cancer. Adenocarcinoma of colon- fully resected 2016, totally abdominal colectomy T3, N1 B, 2 out of 21 lymph nodes positive. Patient unable to handle adjuvant chemotherapy Holt syndrome PLAN - US kidney, he will schedule it when he comes back for his sigmoidoscopy - Urine cytology - RTC in 6 months Kenny Mckeon, [facility]01-17-2024 NoteHNO ID: [id number] Author: MICHAEL CANTU RN Service: ? Author Type: Registered Nurse Type: Progress Notes Filed: 09/24/2023 15:54 Note Text:[facility]01-17-2024 NotePatient Outreach (MARKO) QUINN TRONCOSO ([id number]) 1965 M Date Time Provider Department 09/24/23 KENNY MCKEON During your visit today, we recorded the following information about you: Allergies As of Date: 09/24/2023 Noted Allergy Reaction DECONGEST MULTI-ACTION 02/02/2013 16 - Unknown Decongestant (BROMPHENIRAMINE MA*12/20/2010 16 - Unknown Comments: Fast heart rate DECONGESTANT (PSEUDOEPHEDRINE) 11/12/2016 14 - Other: See Comments Comments: BP increased DIPHENHYDRAMINE 09/24/2023 14 - Other: See Comments OXYCODONE-ACETAMINOPHEN 04/13/2012 14 - Other: See Comments Date Reviewed: 09/24/2023 Reviewed by: Katharina Guerrero LPN - Fully Assessed Visit Diagnosis:Screening for genitourinary condition [Z13.89] Order(s):URINALYSIS, REFLEX MICROSCOPIC [KBA2640] Order #: [id number]. #:[id number] Prescriptions as of 09/29/2023 - SITagliptin-metFORMIN (JANUMET XR) 50-500 mg TM24 Take 1 tablet by mouth two times a day. - hydrOXYzine HCl (ATARAX) 25 mg tablet TAKE 1-2 TABLETS BY MOUTH 3 TIMES A DAY NEEDED FOR ANXIETY - divalproex ER (DEPAKOTE ER) 500 mg 24 hr tablet Take 1 tablet by mouth every 12 hours. - traZODone (DESYREL) 50 mg tablet Take 50 mg by mouth at bedtime as needed. - metoprolol succinate ER (TOPROL XL) 25 mg 24 hr tablet Take 1 tablet by mouth every afternoon. - sildenafil (VIAGRA) 100 mg tablet Take 100 mg by mouth once daily as needed. - triamcinolone acetonide (KENALOG) 0.1 % cream Apply to affected areas twice daily for up to 2 weeks. Repeat as needed for itching. - gabapentin (NEURONTIN) 600 mg tablet Take 300 mg by mouth three times a day. - mirtazapine (REMERON) 45 mg tablet Take 45 mg by mouth daily at bedtime. - INVEGA SUSTENNA 156 mg/mL syrg injection INJECT 1 MILLILITER BY INTRAMUSCULAR ROUTE 1 TIME PER MONTH - HYDROcodone-acetaminophen (NORCO) 5-325 mg per tablet Take 1 tablet by mouth twice daily. - MAGNESIUM ORAL Magnesium Active 500 MG PO Daily February 06, 2021 7:43pm - aspirin, enteric coated (ASPIRIN, ENTERIC COATED) 81 mg EC tablet - atorvastatin (LIPITOR) 40 mg tablet Take 40 mg by mouth once daily. - glimepiride (AMARYL) 2 mg tablet Take 1 mg by mouth twice daily with meals. - pantoprazole DR (PROTONIX) 40 mg tablet Take 40 mg by mouth once daily. - escitalopram oxalate (LEXAPRO) 20 mg tablet Take 20 mg by mouth once daily. - zonisamide (ZONEGRAN) 100 mg capsule Take 200 mg by mouth once daily. - cyclobenzaprine (FLEXERIL) 10 mg tablet Take 10 mg by mouth twice daily as needed for Muscle Spasm. 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] 12/03/2016 Portal vein thrombosis [I81] 12/03/2016 S/P colectomy [Z90.49] 12/03/2016 Severe protein-calorie malnutrition (HCC) [E43] 12/05/2016 12/10/2016 Encounter for nasogastric (NG) tube placement [*12/06/2016 12/10/2016 Hypoalbuminemia [E88.09] 12/06/2016 12/10/2016 Hypokalemia [E87.6] 12/06/2016 12/10/2016 On total parenteral nutrition (TPN) [Z78.9] 12/06/2016 12/10/2016 Elevated C-reactive protein (CRP) [R79.82] 12/06/2016 12/10/2016 Hypoproteinemia (HCC) [E77.8] 12/06/2016 12/10/2016 Depression [F32.A] 12/06/2016 Anxiety [F41.9] 12/06/2016 S/P PICC central line placement [Z95.828] 12/06/2016 12/10/2016 Hypermagnesemia [E83.41] 12/10/2016 12/10/2016 Encounter for central line care [Z45.2] 12/10/2016 12/10/2016 Encounter for central line placement [Z45.2] 12/10/2016 12/10/2016 Nausea [R11.0] 12/10/2016 12/10/2016 Post-op pain [G89.18] 12/10/2016 Hypovolemia [E86.1] 12/10/2016 12/10/2016 Leukocytosis [D72.829] 12/10/2016 Hyperglycemia [R73.9] 12/10/2016 12/10/2016 Metastatic adenocarcinoma (HCC) [C79.9] 12/10/2016 02/04/2017 Encounter Status:Closed by Chiral Quest, PRODUSER on 09/29/23[facility] 09-24-2023 NoteHNO ID: [id number] Author: PAOLO RAZO PA-C Service: ? Author Type: Physician Compliance Quality Performance Analyst Type: Progress Notes Filed: 09/24/2023 10:28 Note Text: EST PATIENT- last seen by Dr Early 2021 Chief Complaint: Patient presents with: Full Body Skin Check HPI: Quinn Troncoso is a 58 year old male who presents today for:Patient presents with: Full Body Skin Check #1 Rash Location: Anterior left ankle Duration: 1 week Symptoms: Itchy Current treatment: Antifungal topical (3-4 days of use, no improvement) Past treatment: None Pertinent History: History of skin cancer or atypical nevi: No Family history of skin cancer: Yes mother Organ transplant or immunosuppression: No H/O Holt syndrome Past Medical History is reviewed. Medication List is reviewed. ROS: Skin as above. Physical Exam: Kyle skin type: II The patient is a pleasant male in no apparent distress. Alert and oriented x 3. A skin exam performed of the Scalp, face, ears, neck, chest, back, abdomen, bilateral upper extremities, bilateral lower extremities, buttocks, hands, feet, nails and hair is significant for: Left Parietal Scalp, Right Frontal Scalp Subcutaneous mobile nodule Left Ankle - Anterior Eczematous coin-shaped plaque Variably hyperpigmented macules and papules, with generally good symmetry and internal consistency, widely distributed throughout the trunk and extremities. Overall benign-appearing Smooth rayo red papules scattered throughout trunk Densely scattered light acevedo macules and small patches on all sun exposed areas Stuck-on verrucous, variably pigmented papules and plaques throughout trunk and extremities Assessment and Plan: Holt syndrome Annual FBSC Pilar cyst (2) Right Frontal Scalp; Left Parietal Scalp Benign. Discussed excision if desired. Patient declines excision, will continue to monitor Nummular dermatitis Left Ankle - Anterior Discussed etiology, course, prognosis and treatment options Discussed using gentle, fragrance-free skin care and frequent application of emollients. D/C antifungal, begin topical steroid as directed Follow up in 2 weeks if symptoms persist R/b/a for the medication(s) including possible side effects discussed and reviewed with patient. Skin exam, screening for skin cancer The nature of sun-induced photo-aging and skin cancers is discussed including the ABCDE's of melanoma. Sun avoidance, protective clothing, and the use of SPF 30+ sunscreens is advised. Patient is instructed to perform regular self skin exams. Observe for changing, symptomatic, or new skin lesions and return to dermatology if any lesions of concern are noted. Multiple nevi, Rayo angiomas, Solar lentigines,Seborrheic Keratoses Reassured of benign nature Monitor for change in size, shape or color, bleeding easily or scabs that don't heal Follow up as noted in plan or as needed. Intake: Katie Guerrero MA I have reviewed and agree with the Chief Complaint, patient-reported HPI, ROS, and Past Histories independently gathered by the clinical technical support internship and the remaining scribed note accurately describes my personal service to the patient. Paolo Razo MS, PA-[facility]01-09-2024 Evaluation note* Encounter Date Diagnosis Assessment Notes Treatment Notes Treatment Clinical Notes Sep, Palpitation (ICD-10 - R00.2) [facility] Other 12-26-2023 Evaluation note* Encounter Date Diagnosis Assessment Notes Treatment Notes Treatment Clinical Notes Aug, Lumbar spondylosis (ICD-10 - M47.816) [facility] Other 12-12-2023 Evaluation note* Encounter Date Diagnosis Assessment Notes Treatment Notes Treatment Clinical Notes Aug, Type 2 diabetes mellitus with hyperglycemia, without long-term current use of insulin (ICD-10 - E11.65) [facility] Other 11-30-2023 Evaluation note* Encounter Date Diagnosis Assessment Notes Treatment Notes Treatment Clinical Notes Jul, Palpitation (ICD-10 - R00.2) [facility] Other 11-27-2023 Evaluation note* Encounter Date Diagnosis Assessment Notes Treatment Notes Treatment Clinical Notes Jul, Type 2 diabetes mellitus with hyperglycemia, without long-term current use of insulin (ICD-10 - E11.65) This patient is following a comprehensive diabetic treatment plan. They are checking their feet daily for calluses and nonhealing ulcers. They are being seen for yearly dilated eye examinations. Goals: SBP less than 130, LDL less than 100, FBS less than 140, A1C less than 7%. They are checking their BS daily, will which are reviewed at the office visit. Continue regular routine monitoring of A1C,] Microalbumin, Dilated eye exam and Foot exam Decreased Janumet to qd from bid after last A1C of 5.3% He denies checking home BS Jul, Type 2 diabetes mellitus with diabetic polyneuropathy, without long-term current use of insulin (ICD-10 - E11.42) Inspect feet daily for cuts and calluses.Recommend diabetic shoes and inserts to prevent callus formation.Fall precautions. Jul, WENDY (obstructive sleep apnea) (ICD-10 - G47.33) This patient is aware of the benefits associated with WENDY: With continued use, the patient reduces the risk for LA, CVA, HTN, cardiac dysrhythmias and sudden cardiac deaths.The patient is also aware of the association between WENDY and morning headaches, daytime somnolence, fatigue and obesity, which also has been improved with continued use.The patient is compliant with treatment, wearing the equipment every night for greater than 4 hours.The patient is instructed to continue use of the CPAP for WENDY treatment. Jul, Elevated cholesterol (ICD-10 - E78.00) Instructed on diet and exercise with continued statin therapy.Discussed the beneficial effects of lowering cholesterol in reducing the risk for cerebrovascular and cardiovascular disease. Jul, Gastroesophageal reflux disease with esophagitis without hemorrhage (ICD-10 - K21.00) Diet instructions: Smaller portions, avoid eating and laying flat, avoid eating or drinking prior to bedtime. Weight loss. Due for EGD in [place] - hx of Hernandez's and polyps Denies heartburn or dysphagia Instructed to continue PPI and avoid NSAIDs Jul, CLAUDINE (generalized anxiety disorder) (ICD-10 - F41.1) Jul, Tachycardia (ICD-10 - R00.0) Unknown reason. TSH, H/H normal Appears in no distress but has chronic pain and anxiety. Check EKG Jul, Lumbar spondylosis (ICD-10 - M47.816) The patient is instructed to avoid bending, twisting or lifting. They are to use intermittent heat and ice as needed. They may schedule a massage or gentle manipulation. They may safely use Tylenol as needed. Jul, Holt syndrome (ICD-10 - Z15.09) Routine f/u w/ GI. Denies change in bowel habits - loose due to colectomy Denies melena or hematochezia Jul, Hernandez's esophagus without dysplasia (ICD-10 - K22.70) Due for EGD w/ [place] Denies heartburn or dysphagia. Continue PPI and avoid NSAIDs [facility] Other 10-26-2023 Evaluation note* Encounter Date Diagnosis Assessment Notes Treatment Notes Treatment Clinical Notes Jun, Lumbar spondylosis (ICD-10 - M47.816) [facility] Other 08-25-2023 Evaluation note* Encounter Date Diagnosis Assessment Notes Treatment Notes Treatment Clinical Notes Apr, Type 2 diabetes mellitus with hyperglycemia, without long-term current use of insulin (ICD-10 - E11.65) This patient is following a comprehensive diabetic treatment plan. They are checking their feet daily for calluses and nonhealing ulcers. They are being seen for yearly dilated eye examinations. Goals: SBP less than 130, LDL less than 100, FBS less than 140, AC and A1C less than 7%. They are checking their BS daily, will which are reviewed at the office visit. Continue regular routine monitoring of A1C,] Microalbumin, Dilated eye exam and Foot exam Apr, Type 2 diabetes mellitus with diabetic polyneuropathy, without long-term current use of insulin (ICD-10 - E11.42) Inspect feet daily for cuts and calluses.Recommend diabetic shoes and inserts to prevent callus formation.Fall precautions. Apr, Elevated cholesterol (ICD-10 - E78.00) Instructed on diet and exercise with continued statin therapy.Discussed the beneficial effects of lowering cholesterol in reducing the risk for cerebrovascular and cardiovascular disease. Apr, WENDY (obstructive sleep apnea) (ICD-10 - G47.33) This patient is aware of the benefits associated with WNEDY: With continued use, the patient reduces the risk for LA, CVA, HTN, cardiac dysrhythmias and sudden cardiac deaths.The patient is also aware of the association between WENDY and morning headaches, daytime somnolence, fatigue and obesity Noncompliant Apr, Gastroesophageal reflux disease with esophagitis without hemorrhage (ICD-10 - K21.00) Diet instructions: Smaller portions, avoid eating and laying flat, avoid eating or drinking prior to bedtime. Weight loss. Apr, CLAUDINE (generalized anxiety disorder) (ICD-10 - F41.1) Healthy diet, exercise and keep active. Proper sleep routine. Apr, Hernandez's esophagus without dysplasia (ICD-10 - K22.70) Denies heartburn or dysphagia. Continue PPI lifelong. f/u GI for surveillance EGD Apr, Lumbar spondylosis (ICD-10 - M47.816) The patient is instructed to avoid bending, twisting or lifting. They are to use intermittent heat and ice as needed. They may schedule a massage or gentle manipulation. They may safely use Tylenol as needed. 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 Untreated WENDY: intolerant to the mask, may be contributing r/o hypothyroid, anemia [facility] Other 05-25-2023 Evaluation note* Encounter Date Diagnosis Assessment Notes Treatment Notes Treatment Clinical Notes January, Type 2 diabetes mellitus with hyperglycemia, without long-term current use of insulin (ICD-10 - E11.65) This patient is following a comprehensive diabetic treatment plan. They are checking their feet daily for calluses and nonhealing ulcers. They are being seen for yearly dilated eye examinations. Goals: SBP less than 130, LDL less than 100, FBS less than 140, AC and A1C less than 7%. They are checking their BS daily, will which are reviewed at the office visit. A1C: [ ] Microalbumin: [ ] Eye exam: [ ] Foot exam: [ ] January, Wellness examination (ICD-10 - Z00.00) January, Type 2 diabetes mellitus with diabetic polyneuropathy, without long-term current use of insulin (ICD-10 - E11.42) Inspect feet daily for cuts and calluses.Recommend diabetic shoes and inserts to prevent callus formation.Fall precautions. January, WENDY (obstructive sle ep apnea) (ICD-10 - G47.33) This patient is aware of the benefits associated with WENDY: With continued use, the patient reduces the risk for LA, CVA, HTN, cardiac dysrhythmias and sudden cardiac deaths.The patient is also aware of the association between WENDY and morning headaches, daytime somnolence, fatigue and obesity Noncompliant January, Gastroesophageal reflux disease with esophagitis without hemorrhage (ICD-10 - K21.00) Diet instructions: Smaller portions, avoid eating and laying flat, avoid eating or drinking prior to bedtime. Weight loss. January, Lumbar spondylosis (ICD-10 - M47.816) The patient is instructed to avoid bending, twisting or lifting. They are to use intermittent heat and ice as needed. They may schedule a massage or gentle manipulation. They may safely use Tylenol as needed. January, CLAUDINE (generalized anxiety disorder) (ICD-10 - F41.1) Healthy diet, exercise and proper sleep routine. f/u Psych January, Hernandez's esophagus without dysplasia (ICD-10 - K22.70) Continue PPI and f/u for surveillance EGD January, Screening PSA (prostate specific antigen) (ICD-10 - Z12.5) Yearly KOBE and PSA [facility] Other 05-12-2023 NoteHNO ID: [id number] Author: Farshad Marlow MD Service: ? Author Type: Physician Type: Progress Notes Filed: 01/26/2023 8:37 AM Note Text: NAME: Quinn Troncoso [facility] NO.: [id number] DATE OF SERVICE: January 17, 2023 (Michel) Some elements in this clinic note that are critical to medical decision making have been carefully reviewed and included from a prior clinic note dated: January 18, 2022 Referring Provider: Bernie Keating Additional Clinicians involved in Quinn Troncoso's care: CC: Holt syndrome associated colon cancer. 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 Attempted adjuvant 5-FU chemotherapy from January through March 2017. Oxaliplatin was not offered secondary to neuropathy concerns. Follow-up imaging has been negative. Now monitoring for recurrence. Holt syndrome associated colon cancers tend to do slightly better than de ene mutations. 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 Webber. Coumadin stopped after GI bleed hospitalization in Jul 2017, colon ulcers at anastamosis site. PLAN: 1. Continue annual follow up with Dr. Rebekah Gamble to repeat endoscopy for Holt syndrome. 2. RTC in 1 year for labs same day. HPI: Updated Visit, January 17, 2023: Got COVID July 2022 - diabetes went out of control. Up to date on sigmoidoscopy last July and continues to Follow with GI and Surgery. Updated Visit, January 18, 2022: 56 yo man with prior history of colon cancer with Holt syndrome. He is up to date on screening and his scans and scopes are noted below with no evidence of disease. Updated Visit, January 19, 2021: Doing well - had COVID from July 2020 Otherwise well but fatigued and blood sugars are very high. Reviewed scans which are noted below but demonstrate no evidence of disease recurrence. 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 His mother has a history of pancreatic cancer and has holt syndrome. He has had yearly endoscopies. He was diagnosed with stage IIIb colon cancer [id number] with 2 of 21 lymph nodes positive. This was diagnosed by Dr. Matthew on November 01, 2016 by colonoscopy noting a mass in the sigmoid colon. He additionally has a history of Hernandez's esophagus on EGD from 2015. Dr. Garza took him for a total abdominal colectomy with ileorectal anastomosis and lysis of adhesions on November 28, 2016 at [facility]. Postoperatively was found to have a nonocclusive thrombus in the SMV and intrahepatic portal veins with a postoperative ileus. This was based on CAT scan performed 12/02/16. He was placed on Lovenox. Attempted adjuvant 5-FU from January through March 2017. Patient overall tolerated very poorly even at half dose. He continued to have abdominal discomfort and debilitating fatigue. Also with nausea, diarrhea. Required multiple days of IV fluids. He had been on Coumadin for a postoperative thrombus in the superior mesenteric vein and intrahepatic portal veins. However, coumadin stopped after GI bleed hospitalization in Aug 2017, colon ulcers at anastamosis site. Overall he is doing well but notes daytime somnolence and snoring at night. However, he is also having constant heartburn. Somewhat controlled with antispasmodics but under stress they are very sharp pains. He could consider Calcium channel lluvia if this is esophageal spasm but with his history of Hernandez's esophagus he is continue to follow-up with gastroenterology. We talked about the potential evidence of sleep apnea in the past and I think it should still be pursued. This could be contributing to persisting heartburn as well. I reviewed his scan results from 01/13/2020 fully including images. Showing no evidence of recurrence. PATHOLOGIC PROFILE: Reviewed January 18, 2022 2. 02/08/2022 EGD: biopsies Specimen originated from [facility] Specimen #: [id number] Submitting Physician: SHAKIRA STEWART ([id number]) Stomach, biopsy - Gastric antral and mixed antral/oxyntic-type mucosa with no significant pathologic change. - No intestinal metaplasia or morphologic evidence of Helicobacter pylori organisms. 1. 11/28/2016 total abdominal colectomy: confirmed 3 separate tumor deposits, 2 out of 21 lymph nodes were involved by metastatic adenocarcinoma. An attached segment of terminal ileum and a separate small bowel segment without abnormality. This was a high-grade poorly differentiated adenocarcinoma with significant lymphocytic response invading through the muscularis propria with clean margins. 4.5 cm in greatest diameter. There is extensive vascular invasion without perineural invasion. T3 N1b pathologic staging. Stage IIIB. RADIOGRAPHIC DATA: Reviewed January 18, 2022 3. 01/14/2022 CT CA (more content not included)...[facility] 01-13-2023 Evaluation note* Encounter Date Diagnosis Assessment Notes Treatment Notes Treatment Clinical Notes January, DDD (degenerative disc disease), cervical (ICD-10 - M50.30) [facility] Other 03-21-2023 Evaluation note* Encounter Date Diagnosis Assessment Notes Treatment Notes Treatment Clinical Notes Nov, DDD (degenerative disc disease), cervical (ICD-10 - M50.30) [facility] Other 03-20-2023 Evaluation note* Encounter Date Diagnosis Assessment Notes Treatment Notes Treatment Clinical Notes Nov, DDD (degenerative disc disease), cervical (ICD-10 - M50.30) [facility] Other 03-16-2023 Evaluation note* Encounter Date Diagnosis Assessment Notes Treatment Notes Treatment Clinical Notes Nov, DDD (degenerative disc disease), cervical (ICD-10 - M50.30) [facility] Other 03-15-2023 Evaluation note* Encounter Date Diagnosis Assessment Notes Treatment Notes Treatment Clinical Notes Nov, DDD (degenerative disc disease), cervical (ICD-10 - M50.30) [facility] Other 02-17-2023 Evaluation note* Encounter Date Diagnosis Assessment Notes Treatment Notes Treatment Clinical Notes Oct, Type 2 diabetes mellitus with hyperglycemia (ICD-10 - E11.65) [facility] Other 02-06-2023 Evaluation note* Encounter Date Diagnosis Assessment Notes Treatment Notes Treatment Clinical Notes Oct, Type 2 diabetes mellitus with hyperglycemia (ICD-10 - E11.65) [facility] Other 01-31-2023 Evaluation note* Encounter Date Diagnosis Assessment Notes Treatment Notes Treatment Clinical Notes Sep, Type 2 diabetes mellitus with hyperglycemia (ICD-10 - E11.65) Patient refuses to take Lantus. Gave him samples of Janumet advised him to hold metformin at this time keep appointment with Dr. Keating Sep, DDD (degenerative disc disease), cervical (ICD-10 - M50.30) Reviewed phone notes. Dr. Keating attempted to send refill to [facility] on 10/04. In the chart I can tell that it did not go through. I will print and he will take it up to [facility] as they presently do not have this medicine at [facility]. [facility] Other 01-27-2023 Evaluation note* Encounter Date Diagnosis Assessment Notes Treatment Notes Treatment Clinical Notes Sep, Cervical spondylosis (ICD-10 - M47.812) [facility] Other 01-25-2023 Evaluation note* Encounter Date Diagnosis Assessment Notes Treatment Notes Treatment Clinical Notes Sep, Cervical spondylosis (ICD-10 - M47.812) [facility] Other 01-24-2023 Evaluation note* Encounter Date Diagnosis Assessment Notes Treatment Notes Treatment Clinical Notes Sep, Type 2 diabetes mellitus with hyperglycemia (ICD-10 - E11.65) Sep, [facility] (current) use of insulin (ICD-10 - Z79.4) [facility] Other 01-23-2023 Evaluation note* Encounter Date Diagnosis Assessment Notes Treatment Notes Treatment Clinical Notes Sep, Type 2 diabetes mellitus with hyperglycemia, without long-term current use of insulin (ICD-10 - E11.65) This patient is following a comprehensive diabetic treatment plan. They are checking their feet daily for calluses and nonhealing ulcers. They are being seen for yearly dilated eye examinations. Goals: SBP less than 130, LDL less than 100, FBS less than 140, AC and A1C less than 7%. They are checking their BS daily, will which are reviewed at the office visit. A1C: A1C > 10% - initiate basal insulin at 10u q HS - initiate DPP-4, Tradjenta 5mg qd - continue Metformin bid Check FBS daily w/ tritration of Lantus 2u every 3 days until FBS < 160 or reach 30u Sep, WENDY (obstructive sle ep apnea) (ICD-10 - G47.33) This patient is aware of the benefits associated with WENDY: With continued use, the patient reduces the risk for LA, CVA, HTN, cardiac dysrhythmias and sudden cardiac deaths. The patient is also aware of the association between WENDY and morning headaches, daytime somnolence, fatigue and obesity, which also has been improved with continued use. The patient is compliant with treatment, wearing the equipment every night for greater than 4 hours. The patient is instructed to continue use of the CPAP for WENDY treatment. Sep, Gastroesophageal reflux disease with esophagitis without hemorrhage (ICD-10 - K21.00) Diet instructions: Smaller portions, avoid eating and laying flat, avoid eating or drinking prior to bedtime. Weight loss. Sep, Unexplained weight loss (ICD-10 - R63.4) r/o metabolic etiology: cirrhosis, POLLY, thyrotoxicosis or uncontrolled diabetes. Healthy diet and keep active. Treatment based on lab results Sep, Hernandez's esophagus without dysplasia (ICD-10 - K22.70) UTD w/ surveillance EGD. Sep, PSVT (paroxysmal supraventricular tachycardia) (ICD-10 - I47.1) Hydrate, avoid stimulants Sep, CLAUDINE (generalized anxiety disorder) (ICD-10 - F41.1) Stable w/ more symptoms of depressed mood. Has discussed w/ counselors and Psychiatry. Healthy diet and keep active Sep, Holt syndrome (ICD- 10 - Z15.09) UTD w/ surveillance scopes w/o s/s recurrence Sep, Fatigue, unspecified type (ICD-10 - R53.83) [facility] Other 11-29-2022 Instructions* Patient Instructions* Sunni Early MD - 08/06/2022 2:03 PM EST Sunscreen What does broad spectrum mean ? Broad spectrum sunscreens protect against both UVA and UVB radiation. UVC is filtered out by the ozone layer. What does SPF mean? SPF stands for Sun Protection Factor and represents the ability to screen only UVB (burning) rays. UVB rays are mostly blocked in all sunscreens, but only those that contain titanium dioxide, zinc oxide, mexoryl or Parsol 1789 (avobenzone) block the UVA spectrum. Even though a sunscreen is labeled UVA/UVB Protection that is not entirely accurate because products that only partially protect against UVA can claim to protect against both UVA and UVB. What SPF should I chose? Aim to get a sunscreen that is at least sun protection factor (SPF) 30 or greater. SPF 30 provides about 95-97% coverage. The reason why we recommend SPF 30 is because we are usually only putting on half the necessary amount of sunscreen to achieve the advertised protection. That means that it is very possible that your SPF 30 sunscreen is only providing you with SPF 15 coverage based on how muchyou are applying. SPF 15 (92-93% coverage) is the absolute minimal that we recommend. Similarly, the benefit of sunscreens with SPF higher than 50 is that even if you put on less than the required amount, you are likely still getting good protection (ex: even if you apply only half the recommended a mount of SPF 100, it should still provide you with an SPF of 50). How much should I apply? If covering your face and neck, you should use 2 finger-lengths of sunscreen or approximately 1 tsp. If covering your whole body, you should be using 30 grams, or one ounce, which is how much is in one shot glass! That's a THICK layer! If you are unable to put on that much, opt for sun protective clothing or a higher SPF sunscreen to start. When do I need to wear sunscreen? Every day, rain or shine! Even on a rainy day or a day when you are only indoors, you are still being exposed harmful UV radiation from the sun. We usually recommend physical/mineral sunscreens (active ingredient is titanium dioxide or zinc oxide) as these ingredients have been around for many years, there is less concern of them being absorbed into the bloodstream, and they are coral reef friendly! However, the best sunscreen is the one that you will use everyday. What about my kids? Sunscreen is not recommended for infants under the age of 6 months. Use clothing, shade and sun avoidance for small infants. For kids older than 6 months, we recommend that you should use only mineral/physical sunscreens that have zinc oxide as the active ingredient. Sun-protective clothing and hats are also important for people of all ages. Sun Protective clothing and Resources Coolibar (www.coolibar.com) Lands End (www.Bazari) Athleta (www.athleta.Integral Wave Technologies) Baiyaxuan (www.PagaTodo Mobile) Carve Designs ([employer]) - affordable Skinz (uvskinzAPR Energy) Long sleeve - Theresa Cool DRI UPF 50 or Addison PFG UPF 50 Hoodie - Addison PFG UPF 50 Swimshirt/Rash Guard - Lin UPF 50 (on Amazon) Neck - Outdoor Research Ubertubes (www.outdoorresDime.Integral Wave Technologies) Do I need tinted sunscreen? There is more and more research showing that visible light can also lead to discoloration (such as melasma). Tinted sunscreens (which contain iron oxides) protect against visible light as an added bonus. What brands do you recommend? Physical/Mineral Sunscreens and Chemical Sunscreens (in no particular order): *Personal Favorites For Face: Fredo CERNA UV Physical Broad-Spectrum SPF 41 Sunscreen (Tinted) Fredo CERNA UV Clear SPF 46 (Combo physical+chemical sunscreen, rubs in easily. Comes in tinted and non-tinted)* Live Tinted Huegard SPF 30 (yellowish tint, no white cast, good for all skin types)* [address] UV Mineral Multi-defense Sunscreen SPF 50 (Tinted and Non-Tinted)* Alastin Hydratint Pro Mineral Sunscreen SPF 36 (darker tint)* TiZo AM Replenish SPF 40 (Light Tint, more moisturizing)* TiZo 3 Primer/Sunscreen SPF 40 (Darker tint, for oily skin) Skin Ceuticals Physical Fusion UV Defense SPF 50 (Tinted) Cerave 100% Mineral Sunscreen SPF 50 Face (good for sensitive skin) Cerave Hydrating Sunscreen SPF 30 (thicker, comes in tinted and non-tinted)* La Ibeth Posay Anthelios Mineral Zinc Oxide Sunscreen SPF 50 (Tinted and Non-Tinted) Color Science Sunforgettable Total Protection [place] On Shield SPF 50 (Multiple tints) SuperGoop Unseen Sunscreen SPF 40 (chemical-based, primer texture, good for oily skin) Makeup Sunscreens: (Would recommend using a regular facial sunscreen underneath as this will not beeffective alone unless you use enough (approx 1 tsp)) It Cosmetics CC+ Cream with SPF 50+ (Tinted, can also double as foundation/coverage -- great range of shades) Dermablend Continuous Correction Tone CC Cream SPF 50 (Tinted)* For Body: La Ibeth Posay Antihelios Melt-In Milk SPF 60 (Chemical)* Think Sport Sunscreen (great for sports, though has more of a white cast) Think Baby Sunscreen (for kids) Blue Lizard (most are physical, Sport version is chemical. Highly effective, but thick and can leave a white cast. Bottle turns blue when exposed to UV)* Sun Bum Mineral Sunscreen [facility]all [facility] History of Present illness Narrative* Sunni Early MD - 08/06/2022 2:00 PM EST Dermatology Clinic Visit ESTABLISHED PATIENT 06/14/21 Dr. Hsu Dermatology Problem List: # History of Holt Syndrome w/ colon cancer s/p colectomy # AKs RELEVANT DERMATOLOGY HISTORY (Patient/Family): Any major health changes in last 3 months: no Does patient use sunscreen/hat/protective clothing: No Patient reports no other significant changes since last visit. All PMH/FSH above obtained by clinical staff has been reviewed and confirmed by me. CHIEF COMPLAINT: FBSE History of Present Illness: Quinn Troncoso is a 56 year old male here for a full body skin exam Lesions of concern: Lesion on back Sometimes itchy The patient has no other itching, bleeding, tender, or growing lesions of concern. PAST MEDICAL HISTORY: Reviewed in [facility], see above REVIEW OF SYSTEMS: Constitutional: Denies fever, chills, unintentional weight loss. Skin as per HPI MEDICATIONS: Reviewed in [facility] Physical Exam: There were no vitals taken for this visit. General: awake, alert, no acute distress Eyes: Sclerae anicteric, without conjunctival injection, eyelids unremarkable Skin: Full body skin examination of the scalp, face (including eyelids, ears, and lips), neck chest, back, upper extremities, abdomen, lower extremities, hands/feet, and buttocks was performed. Genital exam deferred per preference unless specified below. Relevant findings include: - Few scattered bright red dome-shaped papules on the trunk and extremities - Scattered light brown stellate macules on the face, shoulders, chest, and upper extremities - Scattered, evenly colored, oval to round brown macules and papules with regular borders on the trunk and extremities - Numerous scattered skin-colored and brown, waxy, stuck-on papules and plaques on the trunk and extremities - Multiple subcutaneous firm nodules on the scalp Assessment/Plan: 56 yo male with Holt syndrome who presents for a full body skin exam # Benign Lesions: Lentigines, Seborrheic keratoses, Rayo angiomas, pilar cysts - Medical Complexity: self-limited or minor problem(s) - No clinical evidence of sebaceous neoplasms - Discussed benign etiology, reassurance provided. Discussed that treatment considered cosmetic andnot covered by insurance. - continued surveillance- patient will monitor at home and alert us if any lesion grows, changes orevolves in color - educated on photoprotection- SPF clothing and topicals containing zinc oxide and titanium dioxide. Handout provided with recommendations # Multiple benign nevi - Medical Complexity: stable chronic illness - Reassured patient of benign nature of these lesions. Return for lesions that are growing, changing or symptomatic. - Recommend daily photoprotection with broad-spectrum sunscreen SPF 30+, avoidance of sun during peak hours, and sun protective clothing. - Dermoscopy was used for physical examination of pigmented lesions during today s office visit. Return to clinic in 12 months Lazaro Balderas MD Dermatology Resident The documentation for this note was completed by Sandra Jang acting as scribe for Sunni Early MD. August 06, 2022 1:26 PM. Attending Note I agree with the ROS, and Past Histories independently gathered by the clinical technical support internship and the remaining scribed note accurately describes my personal service to the patient. I evaluated the patient and personally participated in the luque components of this encounter. I agree with the resident/fellow's findings and plan as documented and have discussed the case and management of the patient's care with the resident/fellow. Any relevant revisions and/or additions to the physical exam and A/P are reflected above. I assisted during the entirety of any procedure which was performed by the resident/fellow under mydirect supervision. 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 He had blood in the stool a monthago, happened only once but it was quit a bit. He felt that was related to hemorrhoids as he had external hemorrhoids in the past. He has goes to bathroom between 4-5 times a day. He has good control of his bowel function. Last flexible sigmoidoscopy was on 06/2021 and it looked okay. Last EGD was in 2020, reports in epic, multiple small gastric polyps and normal duodenum. 01/18/22 Dr. Marlow office visit: (Heme/Onc) PLAN: 1. Continue annual follow up with Dr. Rebekah Gamble to repeat endoscopy for Holt syndrome. 2. RTC in 1 year for labs same day. 06/12/21 Dr. Garza Office visit: Treatment plan: Continue with surveillance scopes. EGD, dermatology, urine tests, [facility] to see. Anorectal: Perianal skin is intact. No erythema, induration or excoriation. No fissure, fistula or external hemorrhoids. Digital Rectal Exam: Anus: closed Resting tone: NORMAL Squeeze tone: NORMAL Flexible sigmoidoscopy: Procedure: The patient was placed in left lateral position. After digital exam with a lubricated finger, the scope was easily inserted to 30 cm. Findings: The preparation was okay. There was an ileorectal anastomosis 13cm from the anal verge. Healthy, able to be passed The remainder of the ielum and rectum and anal canal were entirely normal. Biopsies were not taken. 01/08/2021 EGD - Dr. Kimble Impression: - Z-line irregular, 35 cm from the incisors. - Multiple gastric polyps. - Gastritis. Biopsied. - Normal examined duodenum. 01/12/2021 CT c/a/p IMPRESSION: 1. No evidence of intrathoracic metastases. 2.. Trace gastroesophageal reflux 1. No evidence of intrathoracic metastases. 2. No change since 02/02/2020. 3. Trace gastroesophageal reflux. 08/2019 Flex sig- Dr. Gamble Impression: - Patent end-to-end ileo-rectal anastomosis, characterized by healthy appearing mucosa. - The examination was otherwise normal. - No specimens collected. s/p 11/2016 (Anthony) 1. Laparoscopic converted to open total abdominal colectomy with ileorectal anastomosis. 2. Flexible sigmoidoscopy. 3. Extensive lysis of adhesion of greater than 1 hour. Physical Exam: Ht 170.2 cm (5' 7 ) Wt 74.8 kg (165 lb) BMI 25.84 kg/m General - awake, alert, no acute distress Abdominal - soft, non tender, non distended. Anorectal: Perianal skin is intact. No erythema, induration or excoriation. No fissure, fistula or external hemorrhoids. Digital Rectal Exam: Anus: closed Resting tone: NORMAL Squeeze tone: NORMAL Manager Of Network present: Yes, Essence Pierre Flexible sigmoidoscopy: Procedure: The patient was placed in left lateral position. After digital exam with a lubricated finger, the scope was easily inserted to 20 cm. Findings: The preparation was fair. There was a patient ileorectal anastomosis no evidence of polyp. The remainder of the ileum, rectum and anal canal were entirely normal. Biopsies were not taken. Assessment Medical Decision Making: Assessment & Diagnosis: Quinn Troncoso is a 56 year old male with history of subtotal colectomy with ileorectal anastomosis on 2016 for both holt and sigmoid cancer. Doing well overall. Data Reviewed: Tests & Documents Reviewed/ordered: Review of prior notes from Prior office reports, prior admissions. Review of prior operative reports Review of Pathology Review of Imaging: CT Abdomen, CT Pelvis, CT Chest Review of Labs: CBC, BMP, LFT, CEA Review of Procedures / Tests: flexible sigmoidoscopy and upper GI endoscopy. Additional testing or imaging to be ordered: Preoperative labs. I have independently interpreted: CT Abdomen, CT Pelvis, CT Chest I have discussed Quinn Troncoso 's treatment plan and/or results with the patient. Treatment plan: Sigmoidoscopy from today looks good. CEA to be done. EGD next year as assigned. Skin testing. Come in 1 year for flexible sigmoidoscopy. Risk of morbidity, mortality and/or complications of treatment plan: low Associated attestation - Tyson Garza MD - 08/06/2022 2:43 PM EST [facility] STAFF PHYSICIAN NOTE OF PERSONAL INVOLVEMENT IN CARE I have reviewed the progress note and procedure notes obtained and documented by the CA and I personally participated in the luque components. I have discussed the case and management of the patient's care. The following comments revise or confirm relevant luque components of their note. IMPRESSION: This is a 56 year old male who presents with Holt and colon cancer s/p TAC with ANGELIQUE. Doing well. No further bleeding. 5 BM/day. No other major changes Flexible sigmoidoscopy today (see provation) with no polyps or masses PLAN: Continue annual flexible sigmoidoscopies. Need to continue to see [facility] and get Urine, Skin, EGDs. Plan of care discussed with Patient CARE COORDINATION: Follow up with [facility]. See me in one year. SIGNATURE: Tyson Garza MD DATE of SERVICE: August 06, 2022 TIME of SERVICE: 2:41 PM documented in this encounterTrumbull [facility]11-17-2022 NotePROCEDURE: XR WRIST LT MIN 3 V HISTORY: Contusion of left wrist ; acute left wrist pain after injury COMPARISON: None. FINDINGS: BONES:No acute fracture or dislocation. SOFT TISSUES:Several metallic fragments suspected to be on palm or skin surface or deep to the skin surface. Calcium deposition within the triangular fibrocartilage. EFFUSION:None visible. OTHER: Negative. IMPRESSION: 1. No acute bone abnormality. Electronically authenticated by: JESU ABREU Date: 2022-07-25 15:40[facility]08-11-2022 Miscellaneous Notes* Telephone Encounter - Farshad Marlow MD - 04/18/2022 8:46 PM EDT So did he see Dr. Garza? Did we message his team? Can we please if we haven't? * Telephone Encounter - Rosalina Delgado RN - 04/18/2022 11:26 AM EDT JEANETTE pt called with concerns of bright red blood with stools for some time . He believes it couldbe from hemorrhoids. He was referred to Dr. Garza and told to call back for any additional needsor concerns. Any further recommendations? Rosalina Delgado RN documented in this encounterTr[facility]ull [facility]07-31-2022 NotePROCEDURE: XR CHEST 1 V REASON FOR STUDY/CLINICAL HISTORY: SHORTNESS OF BREATH. COMPARISON STUDY: 02/02/2021 TECHNIQUE: Single view(s) of the chest presented for interpretation. FINDINGS: No acute cardiopulmonary process. Mild chronic changes are suggested. Surgical hardware overlies the cervical spine. Normal cardiomediastinal silhouette. Very slight left basilar atelectatic changes are noted. No focal consolidation, edema, or large pleural effusion. No pneumothorax. No acute appearing focal significant bony abnormality. IMPRESSION: No acute localizing pulmonary pathology. Minimal left basilar atelectasis and mild chronic change suggested. Electronically authenticated by: JESSI CARVALHO Date: 2022-04-07 00:41[facility]05-17-2022 Evaluation note* Encounter Date Diagnosis Assessment Notes Treatment Notes Treatment Clinical Notes January, Frontal headache (ICD-10 - R51.9) 56 year old male here for follow up status post bilateral supraorbital and supratrochlear nerve radiofrequency ablation under fluoroscopic guidance. Patient reports 80% pain relief as well as improved function following procedure. He voices complaints of mild headaches but feels these are well controlled at this time. Overall, patient appears to be doing well as this time. I recommend he increase his activities as tolerated. He is advised to call the office if his pain returns. January, Occipital neuralgia (ICD-10 - M54.81) Stable. Continue taking medications as prescribed. January, Chronic pain (ICD-10 - G89.29) Follow up after procedure. January, Cervical spondylosis (ICD-10 - M47.812) Continue with current treatment plan. [employer] Other 05-13-2022 History of Present illness Narrative* Farshad Marlow MD - 01/18/2022 10:26 AM EDT Images from the original note were not included. NAME: Quinn Troncoso [facility] NO.: [id number] DATE OF SERVICE: January 18, 2022 Some elements in this clinic note that are critical to medical decision making have been carefully reviewed and included from a prior clinic note dated: January 19, 2021 Referring Provider: Bernie Keating Additional Clinicians involved in Quinn Troncoso's care: CC: Holt syndrome associated colon cancer. 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 Attempted adjuvant 5-FU chemotherapy from January through March 2017. Oxaliplatin was not offered secondary to neuropathy concerns. Follow-up imaging has been negative. Now monitoring for recurrence. Holt syndrome associated colon cancers tend to do slightly better than de ene mutations. 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 Webber. Coumadin stopped after GI bleed hospitalization in Jul 2017, colon ulcers at anastamosis site. PLAN: 1. Continue annual follow up with Dr. Rebekah Gamble to repeat endoscopy for Holt syndrome. 2. RTC in 1 year for labs same day. HPI: Updated Visit, January 18, 2022: 56 yo man with prior history of colon cancer with Holt syndrome. He is up to date on screening andhis scans and scopes are noted below with no evidence of disease. Updated Visit, January 19, 2021: Doing well - had COVID from July 2020 Otherwise well but fatigued and blood sugars are very high. Reviewed scans which are noted below but demonstrate no evidence of disease recurrence. 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 His mother has a history of pancreatic cancer and has holt syndrome. He has had yearly endoscopies. He was diagnosed with stage IIIb colon cancer [id number] with 2 of 21 lymph nodes positive. This was diagnosed by on November 01, 2016 by colonoscopy noting a mass in the sigmoid colon. He additionally hasa history of Hernandez's esophagus on EGD from 2015. Dr. Garza took him for a total abdominal colectomy with ileorectal anastomosis and lysis of adhesions on November 28, 2016 at [facility]. Postoperatively was found to have a nonocclusive thrombus in the SMV and intrahepatic portal veins with a postoperative ileus. This was based on CAT scan performed 12/02/16. He was placed on Lovenox. Attempted adjuvant 5-FU from January through March 2017. Patient overall tolerated very poorly even at half dose. He continued to have abdominal discomfort and debilitating fatigue. Also with nausea, diarrhea. Required multiple days of IV fluids. He had been on Coumadin for a postoperative thrombus in the superior mesenteric vein and intrahepatic portal veins. However, coumadin stopped after GI bleed hospitalization in Aug 2017, colon ulcers at anastamosis site. Overall he is doing well but notes daytime somnolence and snoring at night. However, he is also having constant heartburn. Somewhat controlled with antispasmodics but under stress they are very sharppains. He could consider Calcium channel lluvia if this is esophageal spasm but with his history of Hernandez's esophagus he is continue to follow-up with gastroenterology. We talked about the potential evidence of sleep apnea in the past and I think it should still be pursued. This could be contributing to persisting heartburn as well. I reviewed his scan results from 01/13/2020 fully including images. Showing no evidence of recurrence. PATHOLOGIC PROFILE: Reviewed January 18, 2022 2. 02/08/2022 EGD: biopsies [facility] Specimen #: [id number] Submitting Physician: SHAKIRA STEWART ([id number]) Stomach, biopsy - Gastric antral and mixed antral/oxyntic-type mucosa with no significant pathologic change. - No intestinal metaplasia or morphologic evidence of Helicobacter pylori organisms. 1. 11/28/2016 total abdominal colectomy: confirmed 3 separate tumor deposits, 2 out of 21 lymph nodes were involved by metastatic adenocarcinoma. An attached segment of terminal ileum and a separate small bowel segment without abnormality. This was a high-grade poorly differentiated adenocarcinoma with significant lymphocytic response invading through the muscularis propria with clean margins. 4.5cm in greatest diameter. There is extensive vascular invasion without perineural invasion. T3 N1b pathologic staging. Stage IIIB. RADIOGRAPHIC DATA: Reviewed January 18, 2022 3. 01/14/2022 CT CAP w/Cont: Chest: 1. No evidence of intrathoracic metastases. 2. No change since 01/12/21. 3. Trace gastroesophageal reflux. Abdomen / Pelvis: 1. No evidence of intra-abdominal/pelvic metastases. 2. No interval change since 01/12/21. 3. Nonspecific subcentimeter right hepatic hypodensity, stable. 2. 01/12/2021 CT CAP: Chest: 1. No evidence of intrathoracic metastases. 2. No change since 02/02/2020. 3. Trace gastroesophageal reflux. Abdomen / pelvis: 1. No evidence of intra-abdominal/pelvic metastases. 2. No interval change since 01/13/2020. 3. Nonspecific subcentimeter right hepatic hypodensity, stable. 1. CT imaging from 01/06/18 showed no evidence of metastatic or residual or recurrent disease in the chest abdomen or pelvis. REVIEW OF SYSTEMS Per HPI and otherwise negative by full review of organ systems. ECOG PERFORMANCE STATUS: 0 PHYSICAL EXAMINATION: Vitals: BP 112/70 Pulse 87 Temp (Src) 97.4 (Temporal) Resp 16 Ht 5' 7.008 (1.70m) Wt 174lb 6.4 oz (79.1kg) SpO2 99% BMI 27.31 kg/(m^2). Body surface area is 1.93 meters squared. Exam limited to gross visualization where appropriate due to COVID-19. Gen.: This is an age-appropriate patient in no acute distress. Head: Appears atraumatic with no visible lesions. Eyes: Pupils equally round and reactive to light, extraocular muscles are intact. Neck: Supple. Mouth: Mucous membranes appeared to be moist. Respiratory: Appears to be respiring comfortably. Neurologic: Nonfocal to gross visualization. Alert and oriented 3. Psychiatric: No evidence of inappropriate anxiety or depression. Skin: Visible areas of skin without rash, lesions, wounds or petechiae. ALLERGIES: ALLERGIES Allergen Reactions Acetaminophen Mental Status Change Decongest Multi-Act* Unknown Decongestant [Brom* Unknown Fast heart rate Decongestant [Pseud* Other: See Comments BP increased Oxycodone-Acetamino* Other: See Comments MEDICATIONS: HYDROcodone-acetaminophen (NORCO) 5-325 mg per tablet Take 1 tablet by mouth twice daily. MAGNESIUM ORAL Magnesium Active 500 MG PO Daily February 06, 2021 7:43pm aspirin, enteric coated (ASPIRIN, ENTERIC COATED) 81 mg EC tablet atorvastatin (LIPITOR) 40 mg tablet Take 40 mg by mouth once daily. glimepiride (AMARYL) 2 mg tablet Take 2 mg by mouth twice daily with meals. pantoprazole DR (PROTONIX) 40 mg tablet Take 40 mg by mouth once daily. escitalopram oxalate (LEXAPRO) 20 mg tablet Take 20 mg by mouth once daily. zonisamide (ZONEGRAN) 100 mg capsule Take 200 mg by mouth once daily. cyclobenzaprine (FLEXERIL) 10 mg tablet Take 10 mg by mouth twice daily as needed for Muscle Spasm. LABORATORY VALUES: WBC (k/uL) Date Value 02/07/2021 9.32 RBC (m/uL) Date Value 02/07/2021 5.14 Hemoglobin (g/dL) Date Value 02/07/2021 16.6 Hematocrit (%) Date Value 02/07/2021 47.4 MCV (fL) Date Value 02/07/2021 92.2 MCH (pG) Date Value 02/07/2021 32.3 MCHC (g/dL) Date Value 02/07/2021 35.0 RDW-CV (%) Date Value 02/07/2021 11.9 Platelet Count (k/uL) Date Value 02/07/2021 247 MPV (fL) Date Value 02/07/2021 9.1 Glucose (mg/dL) Date Value 02/08/2021 120 (H) BUN (mg/dL) Date Value 02/08/2021 16 Creatinine (mg/dL) Date Value 02/08/2021 1.06 Sodium (mmol/L) Date Value 02/08/2021 137 Potassium (mmol/L) Date Value 02/08/2021 4.0 Chloride (mmol/L) Date Value 02/08/2021 111 (H) CO2 (mmol/L) Date Value 02/08/2021 20 (L) Protein, Total (g/dL) Date Value 02/08/2021 6.1 (L) Albumin (g/dL) Date Value 02/08/2021 3.9 Calcium (mg/dL) Date Value 02/08/2021 8.6 Alkaline Phosphatase (U/L) Date Value 02/08/2021 80 Bilirubin, Total (mg/dL) Date Value 02/08/2021 0.6 AST (U/L) Date Value 02/08/2021 37 ALT (U/L) Date Value 02/08/2021 65 (H) DIAGNOSIS: (Z15.09) Holt syndrome (primary encounter diagnosis) Plan: CEA BLD, CBC + DIFF, COMP METABOLIC PANEL (C18.9) Adenocarcinoma of colon (HCC) Plan: CEA BLD, CBC + DIFF, COMP METABOLIC PANEL PAST MEDICAL HISTORY Diagnosis Date Anxiety Arthritis Asthma Hernandez's esophagus Cancer (HCC) Diabetes (HCC) GERD (gastroesophageal reflux disease) Holt syndrome Obstructive sleep apnea Occasional tremors Port-A-Cath in place Stroke (HCC) TIA PAST SURGICAL HISTORY Procedure Laterality Date COLONOSCOPY 11/01/2016 PAST SURGICAL HISTORY OF spinal cord fusions x 2 PAST SURGICAL HISTORY OF appendix removed, scar tissue removed from intestines PAST SURGICAL HISTORY OF scope of right knee PAST SURGICAL HISTORY OF tonsilectomy PICC LINE INSERT/CONSULT 12/05/2016 Social History Tobacco Use Smoking status: Never Smoker Smokeless tobacco: Former User Types: Chew Vaping Use Vaping Use: Never used Substance Use Topics Alcohol use: No Comment: Quit drinking 2 years ago. Drug use: No FAMILY HISTORY Problem Relation Age of Onset Cancer Mother 68 duodenal Genetic Mother Holt syndrome Colon Cancer Mother Heart Father LA x2, open heart surgery Breast Cancer Sister 44 Colon Cancer Maternal Grandmother Cancer Maternal Grandmother pancreatic/bile duct Genetic Sister Hlot syndrome Genetic Daughter Holt syndrome Cancer Maternal Grandfather lung +TOB Alzheimer's Disease Paternal Grandmother d. 94 Cancer Paternal Grandfather leukemia Breast Cancer Other niece d. 34 Breast Cancer Maternal Aunt Prostate Cancer Maternal Uncle I spent a total of 28 minutes on the date of the service which included preparing to see the patient, [id number] patient care, completing clinical documentation, performing a medically appropriate examination and ordering medications, tests, or procedures. Farshad Marlow MD, GERARD [place], [place] CC: Farshad Marlow MD, [place]ER[place], [place] CC: Marlon Keating MD [address] [facility] [id number] Rebekah Gamble documented in this encounterTrumbull [facility] Center05-11-2022 Miscellaneous Notes* Telephone Encounter - Jeanne Barraza RN - 01/16/2022 11:00 AM EDT Call placed to pt. No answer. Left message informing pt of Dr Morrell's message and to return call if any questions/concerns. Jeanne Barraza RN * Telephone Encounter - Jeanne Barraza RN - 01/16/2022 10:57 AM EDT ----- Message from Farshad Marlow MD sent at 01/15/2022 8:32 AM EDT ----- Rosendo, your scan does not show any sign of metastatic disease or recurrence.Talk soon, Best, Dr. Morrell. documented in this encounterTrumbull Regional Medical Center05-06-2022 Miscellaneous Notes* Telephone Encounter - Rosalina Delgado RN - 01/11/2022 12:10 PM EDT When I called pt for CT instructions, he informed me that he had labs drawn at [facility]. He had a CBC, Chemistry, PSA, A1C that I have scanned into his chart from 01/04/22. If you would like any additional labs, we can collect them Friday with CT. Thank you, Rosalina * Telephone Encounter - Alana Lozano - 01/10/2022 2:12 PM EDT Please add lab orders. Patient coming in on Friday01/18/22 for follow up and labs. Thanks, Alana Lozano MA documented in this encounterTrumbull Regional Medical Center04-22-2022 Evaluation note* Encounter Date Diagnosis Assessment Notes Treatment Notes Treatment Clinical Notes Dec, Frontal headache (ICD-10 - R51.9) 56 year old male here for follow up for chronic pain. He voices complaints of increased frontal and occipital headaches. He feels frontal headaches are the worst of his pain at this time. He feels pain is negatively impacting his daily activities and sleeping pattern. Different treatment options were discussed in detail with patient in regards to patients condition. I recommend we repeat the supraorbital and suprotrochlear RFA as this provided significant relief of his pain in the past. Risks and benefits of procedure explained to patient; patient verbalizes understanding. Dec, Occipital neuralgia (ICD-10 - M54.81) In regards to his complaints of pain in the back of the head, we will proceed with a bilateral greater and lesser occipital nerve block in the office today to provide him with an element of relief. Dec, Chronic pain (ICD-10 - G89.29) Follow up after procedure. Dec, Cervical spondylosis (ICD-10 - M47.812) Stable. Continue with current treatment plan. [facility] Other 04-21-2022 Miscellaneous Notes* Telephone Encounter - Rosalina Delgado RN - 12/27/2021 9:25 AM EDT Please sign pended CRE for CT d/t his Diabetic history Thank you Rosalina [facility]* Encounter Date Diagnosis Assessment Notes Treatment Notes Treatment Clinical Notes Jun, Occipital neuralgia (ICD-10 - M54.81) Patient denies occipital pain today Jun, Frontal headache (ICD-10 - R51.9) 55 y/o male here for follow up status post bilateral supraorbital and supratrochlear nerve radiofrequency ablation under fluoroscopic guidance. He voices 70-80% pain relief and increased function following procedure. He voices continued complaints of headches, but feels these are mild. He denies any procedure related complications. Different treatment options were discussed in detail with the patient, overall, he appears to be doing very well and does not require further injections at this time. He is encouraged to call the office if his pain returns Jun, Cervical spondylosis (ICD-10 - M47.812) Patient feels neck pain is tolerable at this time. If his symptoms worsen, we can consider repeating the cervical facet RFA's in the future Jun, Chronic pain (ICD-10 - G89.29) Continue medications as prescribed [facility] Other 10-01-2021 Evaluation note* Encounter Date Diagnosis Assessment Notes Treatment Notes Treatment Clinical Notes Jun, Frontal headache (ICD-10 - R51.9) 55 year old male here for follow-up status post supraorbital and supratrochlear nerve block. Patient reports 100% pain relief and increased function for at least 6 hours following procedure. He voices continued complaints of daily headaches, as expected. He denies any red flag symptoms of headache. He feels pain can negatively impact his daily activities. He denies any procedure related complications. Treatment options were discussed and I advised that he go forward with supraorbital and supratrochlear RFA as he had significant relief with the nerve blocks. Risks/benefit of the procedure were reviewed. Jun, Chronic pain (ICD-10 - G89.29) Continue with current treatment plan [employer] Other 04-04-2017 History of Past illness Narrative* Problem Noted Date Resolved Date Hypermagnesemia 12/10/2016 12/10/2016 Encounter for central line care 12/10/2016 12/10/2016 Encounter for central line placement 12/10/2016 12/10/2016 Nausea 12/10/2016 12/10/2016 Hypovolemia 12/10/2016 12/10/2016 Hyperglycemia 12/10/2016 12/10/2016 Metastatic adenocarcinoma 12/10/20162016 Encounter for nasogastric (NG) tube placement 12/10/2016 Hypoalbuminemia 12/06/2016 12/10/2016 Hypokalemia 12/06/2016 12/10/2016 On total parenteral nutrition (TPN) 12/06/2016 12/10/2016 Elevated C-reactive protein (CRP) 12/06/2016 12/10/2016 Hypoproteinemia 12/06/2016 12/10/2016 S/P PICC central line placement 12/06/2016 12/10/2016 Severe protein-calorie malnutrition 12/05/2016 12/10/2016 Ileus, postoperative 12/03/2016 12/10/2016 documented as of this encounter (statuses as of 12/27/2021) [facility] of [facility] illness Narrative* Problem Noted Date Resolved Date Hypermagnesemia 12/10/2016 12/10/2016 Encounter for central line care 12/10/2016 12/10/2016 Encounter for central line placement 12/10/2016 12/10/2016 Nausea 12/10/2016 12/10/2016 Hypovolemia 12/10/2016 12/10/2016 Hyperglycemia 12/10/2016 12/10/2016 Metastatic adenocarcinoma 12/10/20162016 Encounter for nasogastric (NG) tube placement 12/10/2016 Hypoalbuminemia 12/06/2016 12/10/2016 Hypokalemia 12/06/2016 12/10/2016 On total parenteral nutrition (TPN) 12/06/2016 12/10/2016 Elevated C-reactive protein (CRP) 12/06/2016 12/10/2016 Hypoproteinemia 12/06/2016 12/10/2016 S/P PICC central line placement 12/06/2016 12/10/2016 Severe protein-calorie malnutrition 12/05/2016 12/10/2016 Ileus, postoperative 12/03/2016 12/10/2016 documented as of this encounter (statuses as of 01/14/2022) [facility] of [facility] illness Narrative* Problem Noted Date Resolved Date Hypermagnesemia 12/10/2016 12/10/2016 Encounter for central line care 12/10/2016 12/10/2016 Encounter for central line placement 12/10/2016 12/10/2016 Nausea 12/10/2016 12/10/2016 Hypovolemia 12/10/2016 12/10/2016 Hyperglycemia 12/10/2016 12/10/2016 Metastatic adenocarcinoma 12/10/20162016 Encounter for nasogastric (NG) tube placement 12/10/2016 Hypoalbuminemia 12/06/2016 12/10/2016 Hypokalemia 12/06/2016 12/10/2016 On total parenteral nutrition (TPN) 12/06/2016 12/10/2016 Elevated C-reactive protein (CRP) 12/06/2016 12/10/2016 Hypoproteinemia 12/06/2016 12/10/2016 S/P PICC central line placement 12/06/2016 12/10/2016 Severe protein-calorie malnutrition 12/05/2016 12/10/2016 Ileus, postoperative 12/03/2016 12/10/2016 documented as of this encounter (statuses as of 01/16/2022) [facility] of [facility] illness Narrative* Problem Noted Date Resolved Date Hypermagnesemia 12/10/2016 12/10/2016 Encounter for central line care 12/10/2016 12/10/2016 Encounter for central line placement 12/10/2016 12/10/2016 Nausea 12/10/2016 12/10/2016 Hypovolemia 12/10/2016 12/10/2016 Hyperglycemia 12/10/2016 12/10/2016 Metastatic adenocarcinoma 12/10/20162016 Encounter for nasogastric (NG) tube placement 12/10/2016 Hypoalbuminemia 12/06/2016 12/10/2016 Hypokalemia 12/06/2016 12/10/2016 On total parenteral nutrition (TPN) 12/06/2016 12/10/2016 Elevated C-reactive protein (CRP) 12/06/2016 12/10/2016 Hypoproteinemia 12/06/2016 12/10/2016 S/P PICC central line placement 12/06/2016 12/10/2016 Severe protein-calorie malnutrition 12/05/2016 12/10/2016 Ileus, postoperative 12/03/2016 12/10/2016 documented as of this encounter (statuses as of 01/20/2022) [facility] of [facility] illness Narrative* Problem Noted Date Resolved Date Hypermagnesemia 12/10/2016 12/10/2016 Encounter for central line care 12/10/2016 12/10/2016 Encounter for central line placement 12/10/2016 12/10/2016 Nausea 12/10/2016 12/10/2016 Hypovolemia 12/10/2016 12/10/2016 Hyperglycemia 12/10/2016 12/10/2016 Metastatic adenocarcinoma 12/10/20162016 Encounter for nasogastric (NG) tube placement 12/10/2016 Hypoalbuminemia 12/06/2016 12/10/2016 Hypokalemia 12/06/2016 12/10/2016 On total parenteral nutrition (TPN) 12/06/2016 12/10/2016 Elevated C-reactive protein (CRP) 12/06/2016 12/10/2016 Hypoproteinemia 12/06/2016 12/10/2016 S/P PICC central line placement 12/06/2016 12/10/2016 Severe protein-calorie malnutrition 12/05/2016 12/10/2016 Ileus, postoperative 12/03/2016 12/10/2016 documented as of this encounter (statuses as of 04/19/2022) [facility] illness Narrative* Problem Noted Date Resolved Date Hypermagnesemia 12/10/2016 12/10/2016 Encounter for central line care 12/10/2016 12/10/2016 Encounter for central line placement 12/10/2016 12/10/2016 Nausea 12/10/2016 12/10/2016 Hypovolemia 12/10/2016 12/10/2016 Hyperglycemia 12/10/2016 12/10/2016 Metastatic adenocarcinoma 12/10/20162016 Encounter for nasogastric (NG) tube placement 12/10/2016 Hypoalbuminemia 12/06/2016 12/10/2016 Hypokalemia 12/06/2016 12/10/2016 On total parenteral nutrition (TPN) 12/06/2016 12/10/2016 Elevated C-reactive protein (CRP) 12/06/2016 12/10/2016 Hypoproteinemia 12/06/2016 12/10/2016 S/P PICC central line placement 12/06/2016 12/10/2016 Severe protein-calorie malnutrition 12/05/2016 12/10/2016 Ileus, postoperative 12/03/2016 12/10/2016 documented as of this encounter (statuses as of 08/06/2022) [facility] illness Narrative* Problem Noted Date Resolved Date Hypermagnesemia 12/10/2016 12/10/2016 Encounter for central line care 12/10/2016 12/10/2016 Encounter for central line placement 12/10/2016 12/10/2016 Nausea 12/10/2016 12/10/2016 Hypovolemia 12/10/2016 12/10/2016 Hyperglycemia 12/10/2016 12/10/2016 Metastatic adenocarcinoma 12/10/20162016 Encounter for nasogastric (NG) tube placement 12/10/2016 Hypoalbuminemia 12/06/2016 12/10/2016 Hypokalemia 12/06/2016 12/10/2016 On total parenteral nutrition (TPN) 12/06/2016 12/10/2016 Elevated C-reactive protein (CRP) 12/06/2016 12/10/2016 Hypoproteinemia 12/06/2016 12/10/2016 S/P PICC central line placement 12/06/2016 12/10/2016 Severe protein-calorie malnutrition 12/05/2016 12/10/2016 Ileus, postoperative 12/03/2016 12/10/2016 documented as of this encounter (statuses as of 08/06/2022) [facility] Narrative* Problem Noted Date Diagnosed Date Resolved Date Hypermagnesemia 12/10/2016 12/10/2016 Encounter for central line care 12/10/2016 12/10/2016 Encounter for central line placement 12/10/2016 12/10/2016 Nausea 12/10/2016 12/10/2016 Hypovolemia 12/10/2016 12/10/2016 Hyperglycemia 12/10/2016 12/10/2016 Metastatic adenocarcinoma 12/10/2016 Encounter for nasogastric (NG) tube placement 12/07/19 17 12/10/2016 Hypoalbuminemia 12/06/2016 12/10/2016 Hypokalemia 12/06/2016 12/10/2016 On total parenteral nutrition (TPN) 12/06/2016 12/10/2016 Elevated C-reactive protein (CRP) 12/06/2016 12/10/2016 Hypoproteinemia 12/06/2016 12/10/2016 S/P PICC central line placement 12/06/2016 12/10/2016 Severe protein-calorie malnutrition 12/05/2016 12/10/2016 Ileus, postoperative 12/03/2016 017 documented as of this encounter (statuses as of 09/29/2023) [facility] of [facility] illness Narrative* Problem Noted Date Diagnosed Date Resolved Date Hypermagnesemia 12/10/2016 12/10/2016 Encounter for central line care 12/10/2016 12/10/2016 Encounter for central line placement 12/10/2016 12/10/2016 Nausea 12/10/2016 12/10/2016 Hypovolemia 12/10/2016 12/10/2016 Hyperglycemia 12/10/2016 12/10/2016 Metastatic adenocarcinoma 12/10/2016 Encounter for nasogastric (NG) tube placement 12/07/19 17 12/10/2016 Hypoalbuminemia 12/06/2016 12/10/2016 Hypokalemia 12/06/2016 12/10/2016 On total parenteral nutrition (TPN) 12/06/2016 12/10/2016 Elevated C-reactive protein (CRP) 12/06/2016 12/10/2016 Hypoproteinemia 12/06/2016 12/10/2016 S/P PICC central line placement 12/06/2016 12/10/2016 Severe protein-calorie malnutrition 12/05/2016 12/10/2016 Ileus, postoperative 12/03/2016 017 documented as of this encounter (statuses as of 10/28/2023) [facility] of [facility] illness Narrative* Problem Noted Date Diagnosed Date Resolved Date Hypermagnesemia 12/10/2016 12/10/2016 Encounter for central line care 12/10/2016 12/10/2016 Encounter for central line placement 12/10/2016 12/10/2016 Nausea 12/10/2016 12/10/2016 Hypovolemia 12/10/2016 12/10/2016 Hyperglycemia 12/10/2016 12/10/2016 Metastatic adenocarcinoma 12/10/2016 Encounter for nasogastric (NG) tube placement 12/07/19 17 12/10/2016 Hypoalbuminemia 12/06/2016 12/10/2016 Hypokalemia 12/06/2016 12/10/2016 On total parenteral nutrition (TPN) 12/06/2016 12/10/2016 Elevated C-reactive protein (CRP) 12/06/2016 12/10/2016 Hypoproteinemia 12/06/2016 12/10/2016 S/P PICC central line placement 12/06/2016 12/10/2016 Severe protein-calorie malnutrition 12/05/2016 12/10/2016 Ileus, postoperative 12/03/2016 017 documented as of this encounter (statuses as of 10/29/2023) [facility] Diagnosis Malignant neoplasm of descending colon (HCC)- Primary Malignant neoplasm of descending colon documented in this encounter [facility] note* 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 Adenocarcinoma of colon (HCC) Malignant neoplasm of colon, unspecified site documented in this encounter [facility] noteNo InformationNort [facility] Other Evaluation note* 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 Malignant neoplasm of colon, unspecified part of colon (HCC) documented in this encounter [facility] note* Diagnosis Lentigines- Primary Other dyschromia Multiple benign nevi Benign neoplasm of skin, site unspecified Seborrheic keratoses Other seborrheic keratosis Pilar cyst Rayo angioma Nevus, non-neoplastic documented in this encounter [facility] note* Diagnosis Screening for genitourinary condition Screening for other and unspecified genitourinary condition documented in this encounter [facility] note* Diagnosis Onset Date Resolution Status Elevated cholesterol acute CLAUDINE (generalized anxiety disorder) acute Gastroesophageal reflux dise ase with esophagitis without hemorrhage acute WENDY (obstructive sleep apnea) acute Tachycardia acute [id number] acute [facility] Work Phone: Evaluation note* 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 Malignant neoplasm of colon, unspecified part of colon (HCC) documented in this encounter [facility] note* 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 documented in this encounter [facility] general Narrative - Reported* Type Description Date Medical History Asthma Medical History Spinal Cord Injury Medical History Barretts Esophagus Medical History Herniated Lumbar Disc Medical History diabetes type 2 Medical History Colon CA 3 years Medical History Covid-19 Surgical History abdominal surgery 1988 Surgical History Lumbar herniation Surgical History discectomy x 2 2008, 2010 Surgical History Fusion Cervical Spine Surgical History lumbar surgery 2010 Surgical History T&A Surgical History Appendectomy Surgical History Exploratory abdominal Surgical History [id number] 01/03/2018 Surgical History Colectomy 2017 Hospitalization History See above [facility] Other [facility]xsdr general Narrative - Reported* Type Description Date Medical History Asthma Medical History Spinal Cord Injury Medical History Barretts Esophagus Medical History Herniated Lumbar Disc Medical History diabetes type 2 Medical History Colon CA 3 years Medical History Covid-19 Surgical History abdominal surgery 1988 Surgical History Lumbar herniation Surgical History discectomy x 2 2008, 2010 Surgical History Fusion Cervical Spine Surgical History lumbar surgery 2010 Surgical History T&A Surgical History Appendectomy Surgical History Exploratory abdominal Surgical History [id number] 01/03/2018 Surgical History Colectomy 2017 Surgical History Sigmoidoscopy, inadequate prep 09/2023 Surgical History EGD w/ bx and Dhiraj t's esophagus w/o metaplasia, polyp w/ dysplasia 09/2023 Hospitalization History See above [facility] Other Reason for referral (narrative)* Diagnostic Procedure Only (Routine) - Closed Specialty Diagnoses / Procedures Referred By Haris alvarado Referred To Contact US IMAGING Diagnoses Holt syndrome Procedures US KIDNEY/BLADDER US RETROPERITONEAL REAL TIME W/IMAGE COMPLETE Kenny Mckeon MD [address] ([place]) [place] [address] Us Imaging [facility]95 Referral ID Status Reason Start Date Expiration Date V isits Requested Visits Authorized [id number] Closed Auto-Generate d Referral 09/25/2023 10/24/2024 1 1 [facility] NarrativeINCREASE HEADACHES DISCUSS PROCEDURE [employer] Other Reason for visit Narrative* Diagnostic Procedure Only (Routine) - Closed Specialty Diagnoses / Procedures Referred By Haris alvarado Referred To Contact US IMAGING Diagnoses Holt syndrome Procedures US KIDNEY/BLADDER US RETROPERITONEAL REAL TIME W/IMAGE Kenny Simon MD [address]) [place] [id number] Us Imaging [place] [address] Referral ID Status Reason Start Date Expiration Date V isits Requested Visits Authorized [id number] Closed Auto-Generate d Referral 09/25/2023 10/24/2024 1 1 [facility] Summary Purpose Family History No Family History Records Found Relationship Condition Age at Onset Recorded Date/T flaco father Heart disease Unknown grandparent Unknown Family history of Holt syndrome Unknown grandparent Dementia Unknown Family history of mental disorder Unknown Unknown Not Specified Malignant neoplasm Unknown Advance Directives No Advanced Directives Records FoundDocuments on File Type Date Recorded Patient Field Project Manager Expl anation Advance Directive(s) 02/07/2021 2:48 PM Advance Directive(s) 05/17/2020 8:10 AM Advance Directive(s) 05/05/2020 2:11 PM Advance Directive(s) 11/19/2016 4:05 PM Documents on File Type Date Recorded Patient Field Project Manager Expl anation Living Will 05/05/2012 2:01 PM Healthcare Power of Catheter Finisher And Inspector 05/05/2012 2:01 PM Latest Code Status on File Code Status Date Activated Date Inactivated Comments Full Code 04/13/2012 12:06 PM 04/14/2012 4:16 PM Full Code 12/26/2010 6:01 PM 12/28/2010 1:25 PM Latest Code Status on File Code Status Date Activated Date Inactivated Comments Full Code 04/13/2012 12:06 PM 04/14/2012 4:16 PM Code Status History Code Status Date Activated Date Inactivated Comments Full Code 12/26/2010 6:01 PM 12/28/2010 1:25 PM Advance Directive Response Recorded Date/ Time Advance Directives No September 29, 2023 2:29pm Procedure Findings Note Patient: QUINN TRONCOSO Age: 54 years Sex: Male : 1965 Associated Diagnoses: None Author: Brenden Harper Jr, DO Postoperative Information Post Operative Note: Post Anesthesia Care Unit. Anesthetic utilized: Monitored anesthesia care. Health Status Allergies: Allergic Reactions (Selected) Severity Not Documented Antihistamines- No reactions were documented. OxyCONTIN- Hallucinations. Percocet- High heart rate. Problem list: All Problems Obesity / ICD-9-CM 278.00 / Possible Obesity / SNOMED CT [id number] / Possible Resolved: Acid reflux / SNOMED CT 333432164 Resolved: Anxiety / SNOMED CT 65260395 Resolved: Arthritis / SNOMED CT 0239023 Resolved: At risk for falls / SNOMED CT 700611100 Problem added when Risk for Falls Careplan was initiated. Resolved due to patient discharge. Resolved: barretts esophagus Resolved: herniated disc in neck cervical fusion at [facility] pt has titanium plate and screws in neck Resolved: mi (more content not included)... Chief Complaint and Reason for Visit Chief Complaint 3 Month Follow Up BH Heart Rate Follow up Reason for Visit Elevated cholesterol CLAUDINE (generalized anxiety disorder) Gastroesophageal reflux disease with esophagitis without hemorrhage WENDY (obstructive sleep apnea) Tachycardia [id number] Additional Source Comments (unrecognized sect ion and content) No Status Records FoundNo Status Records FoundNo Status Records FoundNo Status Records FoundNo Status Records Found INFORMATION SOURCE (unrecogn ized section and content) DATE CREATED AUTHOR 06/07/2020 Orellana Naurex [facility] DATE CREATED AUTHOR AUTHOR'S ORGANIZ ATION 09/23/2021 [facility] DATE CREATED AUTHOR AUTHOR'S ORGANIZ ATION 03/14/2022 [facility] DATE CREATED AUTHOR AUTHOR'S ORGANIZ ATION 01/09/2023 [facility] DATE CREATED AUTHOR AUTHOR'S ORGANIZ ATION 10/29/2023 [facility] Source Comments (unrecognize d section and content) In the event this informatio n is protected by the Federal Confidentiality of Alcohol and Drug Abuse Patient Records regulations: The Federal rules restrict any use of the information to criminally investigate or prosecute any alcohol or drug abuse patient.[facility] Center[facility] the event this information is protected by the Federal Confidentiality of Alcohol and Drug Abuse Patient Records regulations: The Federal rules restrict any use of the information to criminally investigate or prosecute any alcohol or drug abuse patient.[facility] CenterIn the event this information is protected by the Federal Confidentiality of Alcohol and Drug Abuse Patient Records regulations: The Federal rules restrict any use of the information to criminally investigate or prosecute any alcohol or drug abuse patient.[facility] CenterIn the event this information is protected by the Federal Confidentiality of Alcohol and Drug Abuse Patient Records regulations: The Federal rules restrict any use of the information to criminally investigate or prosecute any alcohol or drug abuse patient.[facility] CenterIn the event this information is protected by the Federal Confidentiality of Alcohol and Drug Abuse Patient Records regulations: The Federal rules restrict any use of the information to criminally investigate or prosecute any alcohol or drug abuse patient.[facility] CenterIn the event this information is protected by the Federal Confidentiality of Alcohol and Drug Abuse Patient Records regulations: The Federal rules restrict any use of the information to criminally investigate or prosecute any alcohol or drug abuse patient.[facility] CenterIn the event this information is protected by the Federal Confidentiality of Alcohol and Drug Abuse Patient Records regulations: The Federal rules restrict any use of the information to criminally investigate or prosecute any alcohol or drug abuse patient.[facility] CenterIn the event this information is protected by the Federal Confidentiality of Alcohol and Drug Abuse Patient Records regulations: The Federal rules restrict any use of the information to criminally investigate or prosecute any alcohol or drug abuse patient.[facility] CenterIn the event this information is protected by the Federal Confidentiality of Alcohol and Drug Abuse Patient Records regulations: The Federal rules restrict any use of the information to criminally investigate or prosecute any alcohol or drug abuse patient.[facility] CenterIn the event this information is protected by the Federal Confidentiality of Alcohol and Drug Abuse Patient Records regulations: The Federal rules restrict any use of the information to criminally investigate or prosecute any alcohol or drug abuse patient.[facility] Reason for Visit (unrecogniz ed section and content) Reason Comments Orders Reason Comments Lab Orders Reason Comments Results Reason Comments Colon Cancer 1 year follow up Specialty Diagnoses / Procedures Referred By Haris alvarado Referred To Contact Laboratory Medicine / LAB SAND Diagnoses LAB Procedures DRAW BLOOD OFF VENOUS DEVICE LAB BLOOD DRAW Farshad Grant MD [address] [place] [address] Sherrie Burks [address] [place] [address] Referral ID Status Reason Start Date Expiration Date Visits Re quested Visits Authorized [id number] Closed 04/13/2020 07/12/2020 99 99 Reason Comments Patient Question Reason Comments Established Patient Reason Comments Full Body Skin Check Care Teams (unrecognized sec tion and content) Vice President Of Marketing Relationship Specialty Start Date End Date Marlon Keating DO PCP - General Internal Medicine 02/04/17 Vice President Of Marketing Relationship Specialty Start Date End Date Marlon Keating DO PCP - General Internal Medicine 02/04/17 Vice President Of Marketing Relationship Specialty Start Date End Date Marlon Keating DO PCP - General Internal Medicine 02/04/17 Vice President Of Marketing Relationship Specialty Start Date End Date Marlon Keating DO PCP - General Internal Medicine 02/04/17 Vice President Of Marketing Relationship Specialty Start Date End Date Marlon Keating DO PCP - General Internal Medicine 02/04/17 Vice President Of Marketing Relationship Specialty Start Date End Date Marlon Keating DO PCP - General Internal Medicine 02/04/17 Vice President Of Marketing Relationship Specialty Start Date End Date Marlon Keating. [address] [place] [address] PCP - General 09/28/10 Vice President Of Marketing Relationship Specialty Start Date End Date Marlon Keating. [address] [place] [address] PCP - General 09/28/10 Vice President Of Marketing Relationship Specialty Start Date End Date ZuriMarlon DO Eugenio PCP - General Internal Medicine 02/04/17 Team Status: Active Member Role Status Dates Marlon Keating DO Primary Care Provider Active Team Status: Inactive Member Role Status Dates Marlon Keating DO Attending Provider Active Sta rt: August 04, 2023 End: August 04, 2023 Team Status: Active Member Role Status Dates Marlon Keating DO Primary Care Provider Active Start: August 05, 2023 Jovi Fajardo MD Attending Provider Active Start: August 05, 2023 Team Status: Inactive Member Role Status Dates Marlon Keating DO Primary Care Provide r, Attending Provider Active Start: October 21, 2023 End: October 21, 2023 Vice President Of Marketing Relationship Specialty Start Date End Date Zuri Marlon DO Eugenio PCP - General Internal Medicine 02/04/17 Vice President Of Marketing Relationship Specialty Start Date End Date Marlon Keating DO PCP - General Internal Medicine 02/04/17 Goals (unrecognized section and content) Goals may be documented in a n alternate section FOR RECORDS PERTAINING TO PATIENTS WHO ARE OR HAVE BEEN ENROLLED IN A CHEMICAL DEPENDENCY/SUBSTANCEABUSE PROGRAM, SOME INFORMATION MAY BE OMITTED. This clinical summary was aggregated from multiple sources. Caution should be exercised in using it in the provision of clinical care. This summary normalizes information from multiple sources, and as a consequence, information in this document may materially change the coding, format and clinical context of patient data. In addition, data may be omitted in some cases. CLINICAL DECISIONS SHOULD BE BASED ON THE PRIMARY CLINICAL RECORDS. [employer] [facility]. provides no warranty or guarantee of the accuracy or completeness of information in this document.
--- NOTE | 2023-11-06 12:49 | PM.STRESS ---
Stress Test Stress Test Requesting physician: Marlon Santoyo Procedure: Lexiscan stress test General Information: Reason for Stress Test: [. Evaluation of the patient with resting tachycardia and multiple cardiac risk factors.] Cardiac History and Risk Factors: [. This patient is [age] years old with a strong family history of coronary disease and primary risk factors include essential hypertension and type 2 diabetes mellitus..] Resting 12 - Lead Electrocardiogram: Normal sinus rhythm with a ventricular rate of 75 bpm. The IN interval is 0.20, QRS 0.08 and the QT 0.36. There are no pathologic Q waves and only nonspecific ST-T wave changes. Stress Test: Protocol: [. Lexiscan protocol] Exercise Capacity: [. Not applicable] Blood Pressure Response: [. This patient's heart rate increase with a decrease in blood pressure which is appropriate for Lexiscan infusion. Rhythm: [. This patient remained in normal sinus rhythm without ectopy during infusion.] ST - Response: [. There were no ST-T wave changes during infusion.] Patient Response: . The patient denied chest pain during infusion. Interpretation: . There was no objective evidence of myocardial ischemia during infusion. Cardiolite was injected with images in interpretation pending
[2023-11-06] MEDS: REGADENOSON 0.4 MG/5 ML SYRINGE 0.400000000000000022 MG IV (12:51)
== END 2023-11-06 10:55 | disposition home or self-care (01) ==
LOC: NM 10:54
PROVIDERS: PCP Internal Medicine; Visit Provider Internal Medicine
DX: R00.0 Tachycardia, unspecified (principal); E78.00 Pure hypercholesterolemia, unspecified; E11.65 Type 2 diabetes mellitus with hyperglycemia; Z79.4 Long term (current) use of insulin
CPT/HCPCS: 78452; 93017; 93306; 93356; A9500; J2785

== ENCOUNTER 2024-02-09 10:32 | Outpatient (OUT) | payer BC, MEDICARE, SELFPAY ==
--- NOTE | 2024-02-09 10:43 | XR_ITS ---
The [address] [address] Patient Name: MERCY TRONCOSO MRN: [id number] date: 1965 Sex: M Assigned Patient Location: [facility] Current Patient Location: Accession/Order Number: [id number] Exam Date: 02/09/2024 10:45 Report Date: 02/10/2024 10:51 At the request of: SHIVA KEATING Procedure: XR hip LT min 2V PROCEDURE: XR hip LT min 2V HISTORY: Pain of left hip M25.552 COMPARISON: XR abdomen 04/07/2022 FINDINGS: BONES:No fracture, dislocation, or significant joint space narrowing. Stable small calcifications, likely degenerative osteophytes along superior posterior margin of acetabulum. SOFT TISSUES:No visible soft tissue swelling. EFFUSION:None visible. OTHER: Negative. XR/XR hip LT min 2V IMPRESSION: 1. No acute bone abnormality. 2. Stable mild degenerative changes. Electronically authenticated by: JESU ABREU Date: 02/10/2024 10:51
--- NOTE | 2024-02-09 10:55 | XR_ITS ---
The [address] [address] Patient Name: MERCY TRONCOSO MRN: [id number] date: 1965 Sex: M Assigned Patient Location: [facility] Current Patient Location: RAD Accession/Order Number: [id number] Exam Date: 02/09/2024 10:45 Report Date: 02/10/2024 11:04 At the request of: SHIVA KEATING Procedure: XR shoulder RT min 2V PROCEDURE: XR shoulder RT min 2V HISTORY: Right shoulder pain M25.511 COMPARISON: None. FINDINGS: BONES:Narrowing of the acromioclavicular joint with undersurface and cephalad projecting osteophytes. Unremarkable humeral head. Small osteophyte suspected along the inferior margin of glenoid. SOFT TISSUES:No visible soft tissue swelling. EFFUSION:None visible. OTHER: Negative. XR/XR shoulder RT min 2V IMPRESSION: 1. No appreciable acute bone abnormality. 2. Moderate degenerative changes of the acromioclavicular joint which would predispose to rotator cuff injury. 3. Mild degenerative changes of the glenohumeral joint. Electronically authenticated by: JESU ABREU Date: 02/10/2024 11:04
== END 2024-02-09 10:33 | disposition home or self-care (01) ==
PROVIDERS: PCP Internal Medicine; Visit Provider Internal Medicine
DX: Z00.00 Encounter for general adult medical examination without abnormal findings (principal); M25.511 Pain in right shoulder; M25.552 Pain in left hip; M19.011 Primary osteoarthritis, right shoulder
CPT/HCPCS: 73030; 73502

== ENCOUNTER 2024-12-06 09:06 | Outpatient (OUT) | payer BC, MEDICARE, SELFPAY ==
--- NOTE | 2024-12-06 09:21 | CT_ITS ---
The [address] [address] Patient Name: MERCY TRONCOSO MRN: [id number] date: 1965 Sex: M Assigned Patient Location: LAB Current Patient Location: LAB Accession/Order Number: [id number] Exam Date: 12/06/2024 11:11 Report Date: 12/06/2024 11:17 At the request of: SHIVA KEATING DO Procedure: CT angio chest CTA CHEST WITH CONTRAST CLINICAL HISTORY: Ascending Aortic Aneurysm COMPARISON: 01/22/2019 TECHNIQUE: Spiral images were obtained through the chest following intravenous administration of 100 mL of Omnipaque 350. Images were reviewed using both narrow and wide window settings. Sagittal, coronal and 3 D volume-rendered reconstructions were performed and reviewed. This CT exam was performed using one or more following dose reduction techniques: Automated exposure control, adjustment of the mA and/or kV according to patient size, or use of iterative reconstruction technique. FINDINGS: The heart is not enlarged. There is no pericardial effusion. The ascending aorta is mildly ectatic with diameter approximately 3.6 cm. No dissection is present. There is adequate opacification of the pulmonary arteries. No emboli are identified. No pathologic lymphadenopathy is seen. Minor endplate spurring is present at the spine. There is prior lower cervical fusion. Mild scarring is visualized at the lung apices. There is also some dependent atelectasis. There is no consolidation, effusion or discrete soft tissue nodules. No pneumothorax is seen. Limited cuts through the upper abdomen show no contributory abnormality. CT/CT angio chest IMPRESSION: ECTATIC ASCENDING AORTA, WITHOUT DISSECTION. NO CT EVIDENCE OF PULMONARY EMBOLISM. MINIMAL SCARRING AND ATELECTASIS. Impression dictated by: Ruby Katz M.D.12/06/2024 11:17 AM Dictation Location: [place] [address] Electronically authenticated by: [id number] Y Date: 12/06/2024 11:17
[2024-12-06 09:23] LABS: Estimated GFR (African America >60 (>=60 mL/min/1.73m^2); Estimated GFR (Non-African Ame >60 (>=60 mL/min/1.73m^2)
== END 2024-12-06 09:07 | disposition home or self-care (01) ==
LOC: LAB 09:06
PROVIDERS: PCP Internal Medicine; Visit Provider Internal Medicine
DX: I71.21 Aneurysm of the ascending aorta, without rupture (principal)
CPT/HCPCS: 36415; 71275; 82565; Q9967